=== PATIENT | male | born 1935 | race Caucasian/White ===

== ENCOUNTER 2017-07-30 07:31 | Inpatient (IN) | payer OTHER ==
[~2017-07-30 07:31] MED LIST: SODIUM PHOSPHATE/NA BIPHOS 133 ML ENEMA PR SCH
--- NOTE | 2017-07-30 07:58 | PDOC ---
History of Present Illness - General Chief Complaint: Rectal Bleed Stated Complaint: RECTAL BLEED Time Seen by Provider: 07/30/17 07:40 History Source: Patient, Spouse Exam Limitations: No Limitations - History of Present Illness Initial Comments: 07/30/17 08:08 81yo with pmh of HTN, Osteoarthritis on NSAIDS and Prednisone, BPH S/P stroke on aspirin and brought in by EMS after waking up with blood on mattress from rectal bleed. One one episode. Denies palpitation, abdominal/rectal pain. No recent change in medication. No history of hemorrhoids. No diverticulae seen in abdominal CT done in 2014. Hasn't seen pcp in months due to not being ambulatory enough to leave the house due to his severe osteoarthritis. Doesn't have a GI doctor. Never had a colonoscopy done. PCP: Zafar Sr. Past History - Past Medical History Allergies/Adverse Reactions: Allergies Allergy/AdvReac Type Severity Reaction Status Date / Time amoxicillin Allergy Severe vomiting Verified 08/03/14 13:59 diarrhea Home Medications: Ambulatory Orders Ascorbic Acid [Vitamin C] 500 mg PO DAILY 11/04/13 Docosahexanoic Acid/Epa [Fish Oil Softgel] 1 each PO DAILY 11/04/13 Metoprolol Tartrate [Lopressor -] 12.5 mg PO DAILY 11/04/13 Naproxen [Naprosyn -] 250 mg PO DAILY 11/04/13 Ramipril [Altace] 5 mg PO DAILY 11/04/13 Tamsulosin HCl [Flomax] 0.4 mg PO HS 11/04/13 Acetaminophen [Tylenol] 650 mg PO PRN PRN 08/03/14 Fluticasone Prop 0.05% Nasal [Flonase -] 1 - 2 spray NS DAILY 08/03/14 Rosuvastatin Calcium [Crestor] 10 mg PO DAILY 08/03/14 Tramadol HCl 50 mg PO BID 08/03/14 Aspirin/Dipyridamole [Aggrenox -] 1 combo PO BID 07/30/17 Furosemide [Lasix] 20 mg PO DAILY 07/30/17 Prednisone [Deltasone -] 5 mg PO DAILY 07/30/17 CVA: Yes (left side weakness) HTN: Yes Hypercholesterolemia: Yes - Suicide/Smoking/Psychosocial Hx Smoking History: Former smoker Have you smoked in the past 12 months: No Information on smoking cessation initiated: No Hx Alcohol Use: No Drug/Substance Use Hx: No Substance Use Type: None Review of Systems - Review of Systems Able to Perform ROS?: Yes Is the patient limited Malay proficient: No Constitutional: No: Symptoms Reported HEENTM: No: Symptoms Reported, Nose Bleeding Respiratory: No: Symptoms reported Cardiac (ROS): No: Symptoms Reported ABD/GI: Yes: Rectal Bleeding. No: Abd. Pain w/ defecation : No: Symptoms Reported Musculoskeletal: No: Symptoms Reported Integumentary: No: Symptoms Reported All Other Systems: Reviewed and Negative *Physical Exam - Vital Signs Last Vital Signs Temp Pulse Resp BP Pulse Ox 97.6 F 87 14 132/73 95 07/30/17 07:39 07/30/17 07:39 07/30/17 07:39 07/30/17 07:39 07/30/17 07:39 - Physical Exam General Appearance: Yes: Appropriately Dressed, Obese. No: Apparent Distress HEENT: positive: EOMI, TREY, Normal ENT Inspection Respiratory/Chest: positive: Lungs Clear, Normal Breath Sounds. negative: Chest Tender, Respiratory Distress, Decreased Breath Sounds Cardiovascular: positive: Regular Rhythm, Tachycardia Vascular Pulses: Dorsalis-Pedis (R): 2+, Doralis-Pedis (L): 2+ Gastrointestinal/Abdominal: positive: Normal Bowel Sounds, Soft, Protuberent. negative: Tender Rectal Exam: positive: normal exam, other (no sedrick blood). negative: melena, hemorrhoids Musculoskeletal: positive: Normal Inspection Extremity: positive: Normal Capillary Refill Neurologic: positive: Fully Oriented, Alert, Normal Mood/Affect, Normal Response ED Treatment Course - LABORATORY CBC & Chemistry Diagram: 07/30/17 08:40 07/30/17 08:40 Medical Decision Making - Medical Decision Making 07/30/17 10:31 81M with rectal bleeding. patient somewhat tachycardic but comfortable, No acute complains. Hgb 9. Spoke to Dr. Jameson who asked for the patient to be admitted for GI evaluation/ colonoscopy. *DC/Admit/Observation/Transfer Diagnosis at time of Disposition: Rectal bleed - Discharge Dispostion Admit: Yes - Referrals - Patient Instructions - Post Discharge Activity
[2017-07-30 08:51] LABS: EOS % 2.3 % (0-4.5); HEMATOCRIT 28.1 % (35.4-49); LYMPH % 17.4 % (8-40); MCH 32.1 pg (25.7-33.7); MCHC 32.2 g/dl (32.0-35.9); MEAN CELL VOLUME 99.6 fl (80-96); MEAN PLT VOLUME 7.9 fl (7.5-11.1); MONO % 8.2 % (3.8-10.2); NEUT % 71.1 % (42.8-82.8); PLATELET COUNT 202 K/MM3 (134-434); RBC 2.82 M/mm3 (4.00-5.60); WHITE BLOOD COUNT 8.2 K/mm3 (4.0-10.0)
--- NOTE | 2017-07-30 09:01 | PDOC ---
Attending Attestation - Resident Resident Name: KandaceStorm - ED Attending Attestation I have performed the following: I have examined & evaluated the patient, The case was reviewed & discussed with the resident, I agree w/resident's findings & plan, Exceptions are as noted - HPI HPI: 07/30/17 08:58 "The patient is a 81 year old male, with a significant past medical history of stroke 11 years ago (aspirin daily), osteoarthritis (NSAIDS, prednisone), and BPH, who presents to the emergency department with blood from his rectum this morning. He states he woke up with red blood on his bed sheets. He also reportedly noticed loose stool on the bed with the red blood. He denies rectal pain. Denies abdominal pain. He reportedly had a rectal bleed 30 years ago which he believes was 2/2 hemorrhoids and never happened again. Denies any dark or tarry stools. Denies N/V. Never seen a GI doctor or had a colonoscopy. He denies chest pain, shortness of breath, headache and dizziness. He denies fever, chills, nausea, vomit, diarrhea and constipation. He denies dysuria, frequency, urgency and hematuria. Allergies: NKDA PCP: Dr. Zafar Sr (last seen in 6 months) " - Physicial Exam PE: 07/30/17 08:59 "GENERAL: Awake, alert, and fully oriented, in no acute distress HEAD: No signs of trauma EYES: PERRLA, EOMI, sclera anicteric, conjunctiva clear ENT: Auricles normal inspection, hearing grossly normal, nares patent, oropharynx clear without exudates. Moist mucosa NECK: Nontender, no stepoffs, Normal ROM, supple, no lymphadenopathy, JVD, or masses LUNGS: Breath sounds equal, clear to auscultation bilaterally. No wheezes, and no crackles HEART: Regular rate and rhythm, normal S1 and S2, no murmurs, rubs or gallops ABDOMEN: Soft, nontender, normoactive bowel sounds. No guarding, no rebound. No masses RECTAL: no external hemorrhoids, brown stool, no melena or hematochezia EXTREMITIES: Normal range of motion, no edema. No clubbing or cyanosis. No cords, erythema, or tenderness NEUROLOGICAL: Cranial nerves II through XII intact. 5/5 strength and sensation in all extremities, Normal speech, normal gait SKIN: Warm, Dry, normal turgor, no rashes or lesions noted. " - Medical Decision Making 07/30/17 09:00 81 M on ASA and NSAIDs with rectal bleeding x 1 day. Likely lower GI bleed, possibly 2/2 internal hemorrhoids given reported history of hemorrhoids. - Labs, coags, T&S - GI consult 07/30/17 09:02 CBC,CMP WBC 8.2 K/mm3 (4.0-10.0) D 07/30/17 08:40 RBC 2.82 M/mm3 (4.00-5.60) L D 07/30/17 08:40 Hgb 9.0 GM/dL (11.7-16.9) L D 07/30/17 08:40 Hct 28.1 % (35.4-49) L D 07/30/17 08:40 MCV 99.6 fl (80-96) H 07/30/17 08:40 MCH 32.1 pg (25.7-33.7) 07/30/17 08:40 MCHC 32.2 g/dl (32.0-35.9) 07/30/17 08:40 RDW 14.0 % (11.9-15.9) 07/30/17 08:40 Plt Count 202 K/MM3 (134-434) 07/30/17 08:40 MPV 7.9 fl (7.5-11.1) 07/30/17 08:40 Neutrophils % 71.1 % (42.8-82.8) 07/30/17 08:40 Lymphocytes % 17.4 % (8-40) D 07/30/17 08:40 Monocytes % 8.2 % (3.8-10.2) 07/30/17 08:40 Eosinophils % 2.3 % (0-4.5) 07/30/17 08:40 Basophils % 1.0 % (0-2.0) 07/30/17 08:40 Sodium 140 mmol/L (136-145) 07/30/17 08:40 Potassium 4.4 mmol/L (3.5-5.1) D 07/30/17 08:40 Chloride 107 mmol/L (98-107) 07/30/17 08:40 Carbon Dioxide 27 mmol/L (21-32) 07/30/17 08:40 Anion Gap 6 (8-16) L 07/30/17 08:40 BUN 36 mg/dL (7-18) H D 07/30/17 08:40 Creatinine 1.6 mg/dL (0.7-1.3) H 07/30/17 08:40 Creat Clearance w eGFR 41.69 (>60) 07/30/17 08:40 Random Glucose 118 mg/dL (74-106) H 07/30/17 08:40 Calcium 8.5 mg/dL (8.5-10.1) 07/30/17 08:40 Ferritin 86.100 ng/ml (16.4-293.9) 07/30/17 08:40 Total Bilirubin 0.4 mg/dL (0.2-1.0) 07/30/17 08:40 AST 5 U/L (15-37) L D 07/30/17 08:40 ALT 9 U/L (12-78) L 07/30/17 08:40 Alkaline Phosphatase 62 U/L (45-117) 07/30/17 08:40 Total Protein 6.3 g/dl (6.4-8.2) L 07/30/17 08:40 Albumin 3.6 g/dl (3.4-5.0) 07/30/17 08:40 Hb today 9, previously 11 in 2013. Labs also notable for mild SATHYA, possibly 2/2 NSAID use. Will admit for further work up of GIB, possible colonoscopy.
[2017-07-30 09:08] LABS: ALBUMIN 3.6 g/dl (3.4-5.0); ANION GAP 6 (8-16); BILIRUBIN,TOTAL 0.4 mg/dL (0.2-1.0); BLOOD UREA NITROGEN 36 mg/dL (7-18); CALCIUM 8.5 mg/dL (8.5-10.1); CHLORIDE 107 mmol/L (98-107); CO2 27 mmol/L (21-32); CREATININE 1.6 mg/dL (0.7-1.3); GLUCOSE,RANDOM 118 mg/dL (74-106); POTASSIUM 4.4 mmol/L (3.5-5.1); SGOT/AST 5 U/L (15-37); SGPT/ALT 9 U/L (12-78); SODIUM 140 mmol/L (136-145); TOT PROT 6.3 g/dl (6.4-8.2)
[2017-07-30 09:10] LABS: ALK PHOS 62 U/L (45-117)
[2017-07-30 09:19] LABS: INR 0.94 (0.82-1.09); PROTHROMBIN TIME (PATIENT) 10.6 SEC (9.98-11.88)
[2017-07-30 09:21] LABS: ACTIVATED PTT 26.6 SECONDS (26.9-34.4)
[2017-07-30] MEDS ORDERED: SODIUM CHLORIDE 1,000 ML IV STA (09:47)
[2017-07-30 10:04] LABS: URINE APPEARANCE CLEAR; URINE BILIRUBIN NEGATIVE (NEGATIVE); URINE BLOOD NEGATIVE (NEGATIVE); URINE COLOR LTYELLOW; URINE GLUCOSE (UA) NEGATIVE (NEGATIVE); URINE KETONE NEGATIVE (NEGATIVE); URINE NITRITE NEGATIVE (NEGATIVE); URINE PROTEIN NEGATIVE (NEGATIVE); URINE UROBILINOGEN NEGATIVE mg/dL (0.2-1.0)
[2017-07-30 10:13] LABS: URINE LEUK ESTERASE 1+ (NEGATIVE)
[2017-07-30 10:14] LABS: URINE BACTERIA RARE /hpf (NONE SEEN); URINE HYALINE CAST 1 /lpf; URINE MUCUS RARE
--- NOTE | 2017-07-30 12:42 | EKG ---
Test Reason : Blood Pressure : / mmHG Vent. Rate : 104 BPM Atrial Rate : 104 BPM P-R Int : 132 ms QRS Dur : 074 ms QT Int : 336 ms P-R-T Axes : 034 008 068 degrees QTc Int : 441 ms POOR DATA QUALITY, INTERPRETATION MAY BE ADVERSELY AFFECTED SINUS TACHYCARDIA WITH PREMATURE ATRIAL COMPLEXES OTHERWISE NORMAL ECG WHEN COMPARED WITH ECG OF 04-NOV-2013 12:43, PREMATURE ATRIAL COMPLEXES ARE NOW PRESENT Confirmed by VIJAY MELENDEZ, TEJINDER (2013) on 07/30/2017 12:42:21 PM Referred By: Confirmed By:TEJINDER LINARES MD
[2017-07-30] MEDS ORDERED: ACETAMINOPHEN 325 MG TABLET (FP) PO PRN (16:52)
[2017-07-30] MEDS ORDERED: DEXTROSE 5%-0.45% SALINE 1,000 ML IV SCH (17:00)
--- NOTE | 2017-07-30 19:48 | CON.GI ---
Consult Consult Specialty:: GI Referred by:: Zafar Sr - History of Present Illness History of Present Illness: 81 y/o male was doing well until this morning when he developed rectal 1 1 episode of rectal bleeding, He never had another episode.of bleeding. He denies nausea,vomiting, chest pain and LOC - History Source History Provided By: Patient - Alcohol/Substance Use Hx Alcohol Use: No - Smoking History Smoking history: Former smoker Have you smoked in the past 12 months: No Home Medications - Allergies Allergies/Adverse Reactions: Allergies Allergy/AdvReac Type Severity Reaction Status Date / Time amoxicillin Allergy Severe vomiting Verified 08/03/14 13:59 diarrhea - Home Medications Home Medications: Ambulatory Orders Ascorbic Acid [Vitamin C] 500 mg PO DAILY 11/04/13 Docosahexanoic Acid/Epa [Fish Oil Softgel] 1 each PO DAILY 11/04/13 Naproxen [Naprosyn -] 250 mg PO DAILY 11/04/13 RX: Metoprolol Tartrate [Lopressor -] 12.5 mg PO DAILY 11/04/13 RX: Ramipril [Altace] 5 mg PO DAILY 11/04/13 Tamsulosin HCl [Flomax] 0.4 mg PO HS 11/04/13 Acetaminophen [Tylenol] 650 mg PO PRN PRN 08/03/14 Fluticasone Prop 0.05% Nasal [Flonase -] 1 - 2 spray NS DAILY 08/03/14 RX: Tramadol HCl 50 mg PO BID 08/03/14 Rosuvastatin Calcium [Crestor] 10 mg PO DAILY 08/03/14 Aspirin/Dipyridamole [Aggrenox -] 1 combo PO BID 07/30/17 Furosemide [Lasix] 20 mg PO DAILY 07/30/17 Prednisone [Deltasone -] 5 mg PO DAILY 07/30/17 Physical Exam-GI Vital Signs: Vital Signs Temperature 98.4 F 07/30/17 17:30 Pulse Rate 98 H 07/30/17 17:30 Respiratory Rate 16 07/30/17 17:30 Blood Pressure 159/85 07/30/17 17:30 O2 Sat by Pulse Oximetry (%) 96 07/30/17 17:30 Constitutional: Yes: Well Nourished Eyes: Yes: Conjunctiva Clear HENT: Yes: Atraumatic Neck: Yes: Trachea Midline Cardiovascular: Yes: Regular Rate and Rhythm Respiratory: Yes: CTA Bilaterally ...Palpate: Yes: Soft. No: Firm/Rigid, Guarding, Hepatomegaly, Pulsatile Mass, Splenomegaly, Tenderness, Tenderness, Epigastium Labs: CBC, BMP 07/30/17 08:40 07/30/17 08:40 INR, PTT INR 0.94 (0.82-1.09) 07/30/17 08:40 Problem List - Problems (1) Rectal bleed Assessment/Plan: associated with anemia, history of NSAID use and Prednisone use, r/o PUD vs diverticular bleeding R> for EGD and colonoscopy Code(s): K62.5 - HEMORRHAGE OF ANUS AND RECTUM
[2017-07-30] MEDS: MAGNESIUM CITRATE 300 ML BOTTLE PO SCH ×2 (20:02→20:58)
[2017-07-30] MEDS ORDERED: FLU VACCINE QUAD 60 MCG/0.5 ML (MDV 17-18) IM ONE (20:30)
[2017-07-30] MEDS ORDERED: ROSUVASTATIN CA 10 MG TABLET (FP) PO SCH (22:00)
[2017-07-30 22:07] LABS: EOS % 2.1 % (0-4.5); HEMOGLOBIN 8.5 GM/dL (11.7-16.9); LYMPH % 10.8 % (8-40); MCH 31.9 pg (25.7-33.7); MCHC 32.5 g/dl (32.0-35.9); MEAN PLT VOLUME 7.8 fl (7.5-11.1); MONO % 8.2 % (3.8-10.2); NEUT % 77.9 % (42.8-82.8); PLATELET COUNT 207 K/MM3 (134-434); RBC 2.66 M/mm3 (4.00-5.60); RDW 13.8 % (11.9-15.9); WHITE BLOOD COUNT 8.1 K/mm3 (4.0-10.0)
[2017-07-30 23:52] VITALS: BMI 34.0
[2017-07-31] MEDS: MAGNESIUM CITRATE 300 ML BOTTLE PO SCH ×2 (00:12→01:40)
--- NOTE | 2017-07-31 01:51 | HP ---
Admitting History and Physical - Admission History of Present Illness: Pt is a 81 y/o male with PMH significant for HTN, OA, CVA and BPH.Pt preseneted to the ER bc of rectal bleed. Pt is on NSAID's/prednisone due to his h/o OA. Pt awoke and found blood on his sheets.Pt denies beth abdominal pain, nausea, vomiting, chest pain or palpitations. In the ER pt wzs hemodynamically stable but found to be anemic. - Past Medical History PROTECTION MANAGER: Yes: CVA Cardiovascular: Yes: HTN Renal/: Yes: BPH Musculoskeletal: Yes: Osteoarthritis - Smoking History Smoking history: Former smoker Have you smoked in the past 12 months: No - Alcohol/Substance Use Hx Alcohol Use: No Home Medications - Allergies Allergies/Adverse Reactions: Allergies Allergy/AdvReac Type Severity Reaction Status Date / Time amoxicillin Allergy Severe vomiting Verified 08/03/14 13:59 diarrhea - Home Medications Home Medications: Ambulatory Orders Ascorbic Acid [Vitamin C] 500 mg PO DAILY 11/04/13 Docosahexanoic Acid/Epa [Fish Oil Softgel] 1 each PO DAILY 11/04/13 Metoprolol Tartrate [Lopressor -] 12.5 mg PO DAILY 11/04/13 Ramipril [Altace] 5 mg PO DAILY 11/04/13 Tamsulosin HCl [Flomax -] 0.4 mg PO HS 11/04/13 Acetaminophen [Tylenol] 650 mg PO PRN PRN 08/03/14 Fluticasone Prop 0.05% Nasal [Flonase -] 1 - 2 spray NS DAILY 08/03/14 Rosuvastatin Calcium [Crestor] 10 mg PO DAILY 08/03/14 Aspirin/Dipyridamole [Aggrenox -] 1 combo PO BID 07/30/17 Furosemide [Lasix] 20 mg PO DAILY 07/30/17 Prednisone [Deltasone -] 5 mg PO DAILY 07/30/17 Pantoprazole Sodium [Protonix] 40 mg PO DAILY #30 tablet. 07/31/17 Family Disease History - Family Disease History Family History: Unremarkable Review of Systems - Review of Systems Constitutional: reports: No Symptoms Eyes: reports: No Symptoms HENT: reports: No Symptoms Neck: reports: No Symptoms Cardiovascular: reports: No Symptoms Respiratory: reports: No Symptoms Gastrointestinal: reports: Rectal Bleeding Physical Examination Vital Signs: Vital Signs Temperature 97.9 F 07/30/17 21:00 Pulse Rate 105 H 07/30/17 21:00 Respiratory Rate 18 07/30/17 21:00 Blood Pressure 151/55 07/30/17 21:00 O2 Sat by Pulse Oximetry (%) 97 07/30/17 20:18 Constitutional: Yes: Well Nourished HENT: Yes: WNL Neck: Yes: WNL, Supple Cardiovascular: Yes: WNL, Regular Rate and Rhythm Respiratory: Yes: WNL, Regular, CTA Bilaterally Gastrointestinal: Yes: WNL, Normal Bowel Sounds, Soft, Abdomen, Obese Musculoskeletal: Yes: WNL Extremities: Yes: WNL Edema: No Neurological: Yes: WNL, Alert, Oriented ...Motor Strength: WNL Labs: CBC, BMP 07/30/17 21:45 07/30/17 08:40 Problem List - Problems (1) Rectal bleed Assessment/Plan: Keep pt NPO Cont IVF GI consult Probable EGD/Colonoscopy in am Monior H/H Code(s): K62.5 - HEMORRHAGE OF ANUS AND RECTUM (2) HTN (hypertension) Assessment/Plan: BP stable Will adjust antihypertensives to BP due to rectal bleeding Code(s): I10 - ESSENTIAL (PRIMARY) HYPERTENSION (3) Anemia Assessment/Plan: Monitor H/H Code(s): D64.9 - ANEMIA, UNSPECIFIED
[2017-07-31] MEDS: SODIUM PHOSPHATE/NA BIPHOS 133 ML ENEMA PR SCH ×4 (04:06→04:48)
[2017-07-31] MEDS ORDERED: PROPOFOL 20 ML ONE ×3 (07:27)
[2017-07-31] MEDS ORDERED: LIDOCAINE HCL/PF 2% SDV 5ML VIAL ONE (07:27)
[2017-07-31 08:07] LABS: ALBUMIN 3.7 g/dl (3.4-5.0); ANION GAP 8 (8-16); BILIRUBIN,TOTAL 0.4 mg/dL (0.2-1.0); BLOOD UREA NITROGEN 26 mg/dL (7-18); CALCIUM 8.6 mg/dL (8.5-10.1); CHLORIDE 112 mmol/L (98-107); CO2 24 mmol/L (21-32); CREATININE 1.6 mg/dL (0.7-1.3); GLUCOSE,RANDOM 142 mg/dL (74-106); POTASSIUM 4.4 mmol/L (3.5-5.1); SGOT/AST 8 U/L (15-37); SGPT/ALT 9 U/L (12-78); SODIUM 144 mmol/L (136-145); TOT PROT 6.6 g/dl (6.4-8.2)
[2017-07-31 08:08] LABS: ALK PHOS 69 U/L (45-117)
[2017-07-31 08:18] LABS: BASO % 0.4 % (0-2.0); EOS % 1.7 % (0-4.5); HEMATOCRIT 28.6 % (35.4-49); HEMOGLOBIN 9.1 GM/dL (11.7-16.9); MCH 31.9 pg (25.7-33.7); MCHC 31.8 g/dl (32.0-35.9); MEAN CELL VOLUME 100.2 fl (80-96); MONO % 8.6 % (3.8-10.2); NEUT % 80.3 % (42.8-82.8); PLATELET COUNT 251 K/MM3 (134-434); RBC 2.86 M/mm3 (4.00-5.60); RDW 14.2 % (11.9-15.9); WHITE BLOOD COUNT 11.3 K/mm3 (4.0-10.0)
[2017-07-31] MEDS ORDERED: TAMSULOSIN HCL 0.4 MG CAP.ER.24H (FP) PO SCH (08:30)
[2017-07-31] MEDS ORDERED: SODIUM CHLORIDE 0.45% 1,000 ML IV SCH (13:00)
--- NOTE | 2017-07-31 13:38 | CON.ID ---
Consult Consult Specialty:: infectious diseases Reason for Consultation:: r/o colitis - History of Present Illness Chief Complaint: bleeding per rectum History of Present Illness: 81 y/o male was doing well until this morning when he developed episode of rectal bleeding, He never had another episode.of bleeding. He denies nausea, vomiting, chest pain and LOC patient was seen by gi and patient underwent endoscopy and according to the there were no findings currently patient is stable and is without any complaints patient has history of seizures according to the family - History Source History Provided By: Patient, Family Member Limitations to Obtaining History: No Limitations - Alcohol/Substance Use Hx Alcohol Use: No - Smoking History Smoking history: Former smoker Have you smoked in the past 12 months: No Home Medications - Allergies Allergies/Adverse Reactions: Allergies Allergy/AdvReac Type Severity Reaction Status Date / Time amoxicillin Allergy Severe vomiting Verified 08/03/14 13:59 diarrhea - Home Medications Home Medications: Ambulatory Orders Ascorbic Acid [Vitamin C] 500 mg PO DAILY 11/04/13 Docosahexanoic Acid/Epa [Fish Oil Softgel] 1 each PO DAILY 11/04/13 Metoprolol Tartrate [Lopressor -] 12.5 mg PO DAILY 11/04/13 Naproxen [Naprosyn -] 250 mg PO DAILY 11/04/13 Ramipril [Altace] 5 mg PO DAILY 11/04/13 Tamsulosin HCl [Flomax] 0.4 mg PO HS 11/04/13 Acetaminophen [Tylenol] 650 mg PO PRN PRN 08/03/14 Fluticasone Prop 0.05% Nasal [Flonase -] 1 - 2 spray NS DAILY 08/03/14 Rosuvastatin Calcium [Crestor] 10 mg PO DAILY 08/03/14 Tramadol HCl 50 mg PO BID 08/03/14 Aspirin/Dipyridamole [Aggrenox -] 1 combo PO BID 07/30/17 Furosemide [Lasix] 20 mg PO DAILY 07/30/17 Prednisone [Deltasone -] 5 mg PO DAILY 07/30/17 Review of Systems - Review of Systems Constitutional: reports: No Symptoms Eyes: reports: No Symptoms HENT: reports: No Symptoms, Ocular Prosthesis Cardiovascular: reports: No Symptoms Respiratory: reports: No Symptoms Gastrointestinal: reports: Rectal Bleeding Genitourinary: reports: No Symptoms Musculoskeletal: reports: No Symptoms Integumentary: reports: No Symptoms Neurological: reports: No Symptoms Endocrine: reports: No Symptoms Hematology/Lymphatic: reports: No Symptoms Psychiatric: reports: No Symptoms Physical Exam Vital Signs: Vital Signs Temperature 96.1 F L 07/31/17 09:15 Pulse Rate 100 H 07/31/17 09:15 Respiratory Rate 18 07/31/17 09:15 Blood Pressure 164/74 07/31/17 09:15 O2 Sat by Pulse Oximetry (%) 100 07/31/17 08:31 Constitutional: Yes: Well Nourished, No Distress, Calm Neck: Yes: Supple, Trachea Midline Cardiovascular: Yes: Regular Rate and Rhythm Respiratory: Yes: Regular, CTA Bilaterally Gastrointestinal: Yes: Normal Bowel Sounds, Soft Musculoskeletal: Yes: WNL Extremities: Yes: WNL Neurological: Yes: Alert, Oriented Psychiatric: Yes: Alert, Oriented Labs: CBC, BMP 07/31/17 06:30 07/31/17 06:30 Assessment/Plan patient evaluated looks stable and comfortable gi note noted Problem List - Problems (1) Rectal bleed Code(s): K62.5 - HEMORRHAGE OF ANUS AND RECTUM plan will not start any abx at this time rest as per gi and primary team
[2017-07-31] MEDS ORDERED: FUROSEMIDE 20 MG TABLET (FP) PO SCH (13:45)
[2017-07-31] MEDS ORDERED: METOPROLOL TARTRATE 25 MG TABLET (FP) PO SCH (13:45)
[2017-07-31] MEDS ORDERED: RAMIPRIL 5 MG CAPSULE (FP) PO SCH (13:45)
[2017-07-31 14:28] VITALS: BP 166/83; PULSE 102; TEMP 98.1
--- NOTE | 2017-08-03 16:28 | PATH ---
Surgical Pathology Report Patient Name: LYNN WELSH Med. Rec. #: [id number] /Age/Gender: 1935 (Age: 81) / M Account: [id number] Location: [facility] MED/SURG Taken: 07/31/2017 Received: 07/31/2017 Reported: 08/03/2017 Physicians: Marcial Rockwell M.D. Specimen(s) Received BX ERYTHEMA BODY Clinical History Preoperative diagnosis: GI bleeding Postoperative diagnosis: Erythema body, diverticulosis Final Diagnosis STOMACH, BODY, BIOPSY: GASTRIC BODY MUCOSA WITH FOCAL MILD VASCULAR CONGESTION AND MILD CHRONIC GASTRITIS. IMMUNOHISTOCHEMICAL STAIN FOR H. PYLORI IS NEGATIVE. Electronically Signed Violet Kilgore M.D. Gross Description Received in formalin, labeled "biopsy erythema body" are 2 grover, irregular portions of soft tissue measuring 0.2 and 0.7 cm. in greatest dimension. The specimens are submitted in toto in one cassette. /07/31/201707/31/2017
== END 2017-07-31 16:44 | disposition home or self-care (01) | DRG 378 ==
LOC: JER 07:31 → JERBED 10:03 → J8W 19:05
PROVIDERS: ADMIT Internal Medicine; ATTEND Internal Medicine
PROC: 0DJD8ZZ Inspection of Lower Intestinal Tract, Via Natural or Artificial Opening Endoscopic (ICD-10-PCS; 2017-07-31)
PROC: 0DD68ZX Extraction of Stomach, Via Natural or Artificial Opening Endoscopic, Diagnostic (ICD-10-PCS; principal; 2017-07-31 07:30)
DX: K62.5 Hemorrhage of anus and rectum (principal); N17.9 Acute kidney failure, unspecified; I69.354 Hemiplegia and hemiparesis following cerebral infarction affecting left non-dominant side; I10 Essential (primary) hypertension; R00.0 Tachycardia, unspecified; M19.90 Unspecified osteoarthritis, unspecified site; N40.0 Benign prostatic hyperplasia without lower urinary tract symptoms; D64.9 Anemia, unspecified; E66.8 Other obesity; Z68.34 Body mass index [BMI] 34.0-34.9, adult; Z79.1 Long term (current) use of non-steroidal anti-inflammatories (NSAID); Z87.891 Personal history of nicotine dependence
CPT/HCPCS: 36415; 80053; 81003; 81015; 82272; 82728; 85025; 85610; 85730; 86850; 86900; 86901; 88305-TC; 90688; 93005; 93010; 97116-GP; 97161-GP; 99282-25

== ENCOUNTER 2020-04-12 19:27 | Inpatient (IN) | payer OTHER ==
[2020-04-12 19:58] VITALS: BMI 31.4
--- NOTE | 2020-04-12 19:58 | PDOC ---
History of Present Illness - General Stated Complaint: SOB Time Seen by Provider: 04/12/20 19:36 - History of Present Illness Initial Comments: 04/12/20 20:24 84 yo M w/ h/o CVA p/w 3days of worsening SOB, waking him up in the night. He also reports increased leg swelling b/l, and his reports that his residual deficit (slurred voice) from his stroke 6 years ago has recently worsened. He now reports orthopnea when lying flat. He denies any hx of cardiac issues. Denies recent illness, fever, thyroid issues, n/v/d/rashes. Endorses a productive cough (of sputum) that is chronic but recently worse. Takes lasix for BP, aggrenox s/p CVA. 04/12/20 20:47 tPA Exclusion checklist 3-4.5h - Time Elapsed Date last known well: 04/02/20 - Thrombolytic Therapy Candidate Is patient eligible for thrombolytic therapy: No - Ineligibility reason(s) Reasons No tPA given: Outside of window - delayed arrival NIH Stroke Scale - Last Known Well Date/Time & Onset Date Last Known Well: 04/02/20 - Initial Evaluation Level of consciousness: Alert Ask patient the month and their age: Answers both correctly Ask patient to open & close eyes; make fist and let go: Obeys both correctly Best gaze (horizontal eye movement): Normal Visual field testing: No visual field loss Facial paresis (Show teeth/raise eyebrows/close eyes tight): Minor paralysis (flattened nasolabial fold, asymmetry on smiling) Motor Function: Left Arm: Normal Motor Function: Right Arm: Normal (extends arm 90 (or 45) degrees for 10 seconds without drift Motor Function: Left Leg: Some effort against gravity Motor Function: Right Leg: Drift Limb Ataxia: No ataxia Sensory(Use pinprick test arms,legs,trunk,face/side to side): Normal Best language (Describe picture, name items, read sentences): No Aphasia Dysarthria (read several words): Mild to moderate slurring of words Extinction and Inattention: No abnormality - Total Score NIH Stroke Scale Score: 5 Past History - Medical History Allergies/Adverse Reactions: Allergies Allergy/AdvReac Type Severity Reaction Status Date / Time amoxicillin Allergy Severe vomiting Verified 04/12/20 19:57 diarrhea Home Medications: Ambulatory Orders Metoprolol Tartrate [Lopressor -] 12.5 mg PO DAILY 11/04/13 Tamsulosin HCl [Flomax -] 0.4 mg PO HS 11/04/13 Acetaminophen [Tylenol] 650 mg PO PRN PRN 08/03/14 Fluticasone Prop 0.05% Nasal [Flonase -] 1 - 2 spray NS BID 08/03/14 Aspirin/Dipyridamole [Aggrenox -] 1 combo PO BID 07/30/17 Furosemide [Lasix] 20 mg PO DAILY 07/30/17 predniSONE [Deltasone -] 5 mg PO DAILY 07/30/17 Aspirin/Dipyridamole [Aggrenox -] 1 combo PO BID 04/12/20 Tramadol HCl [Ultram] 50 mg PO TID PRN 04/12/20 Zinc Sulfate 220 mg PO DAILY 04/12/20 Atorvastatin Calcium 10 mg PO HS 04/13/20 Calcium Carbonate/Vitamin D3 [Calcium 500-Vit D3 200 Tablet] 1 each PO DAILY 04/13/20 Guaifenesin [Mucinex] 600 mg PO BID 04/13/20 Omeprazole 20 mg PO ACBK 04/13/20 CVA: Yes (left side weakness) HTN: Yes Hypercholesterolemia: Yes - Psycho-Social/Smoking History Smoking History: Former smoker Have you smoked in the past 12 months: No Review of Systems - Review of Systems Able to Perform ROS?: Yes Is the patient limited [place] proficient: No Constitutional: No: Chills, Diaphoresis, Fever HEENTM: No: Blurred Vision, Recent change in vision, Double Vision, Throat Pain, Difficulty Swallowing Respiratory: Yes: SOB with Exertion, SOB at Rest. No: Cough Cardiac (ROS): Yes: Edema, Lightheadedness, Chest Tightness. No: Syncope ABD/GI: No: Constipated, Diarrhea, Nausea : Yes: Other (incomplete emptying). No: Burning, Dysuria Musculoskeletal: No: Joint Pain, Muscle Pain Integumentary: Yes: Bruising. No: Pallor, Pruritus, Rash Neurological: No: Headache, Numbness, Ataxia, Dizziness Hematologic/Lymphatic: Yes: Easy Bruising *Physical Exam - Physical Exam General Appearance: Yes: Nourished, Appropriately Dressed. No: Apparent Distress HEENT: positive: EOMI. negative: Normal Voice (mild slur) Neck: positive: Trachea midline. negative: Tender Respiratory/Chest: negative: Chest Tender, Lungs Clear (b/l crackles bibasilar), Normal Breath Sounds, Respiratory Distress, Rapid RR Cardiovascular: positive: Regular Rate, Irregular Gastrointestinal/Abdominal: positive: Normal Bowel Sounds, Soft, Protuberent Musculoskeletal: positive: Normal Inspection. negative: CVA Tenderness Extremity: positive: Normal Capillary Refill, Pedal Edema (2-3+) Integumentary: positive: Normal Color, Dry, Warm Neurologic: positive: Fully Oriented, Alert, Normal Mood/Affect, Normal Response ED Treatment Course - LABORATORY CBC & Chemistry Diagram: 04/18/20 10:20 04/18/20 10:20 Medical Decision Making - Medical Decision Making 04/12/20 20:59 84yo M w/ hx of CVA p/w worsening SOB x3days and pedal edema consistent w/ CHF exacerbation. Pedal edema + wet lungs -> BNP, cardiac workup. Discharge - Discharge Information Problems reviewed: Yes Clinical Impression/Diagnosis: Slurred speech, Elevated troponin, Acute kidney injury superimposed on CKD CHF (congestive heart failure) Qualifiers: Heart failure type: unspecified Heart failure chronicity: acute Qualified Code(s): I50.9 - Heart failure, unspecified Condition: Guarded - Admission Yes - Follow up/Referral - Patient Discharge Instructions - Post Discharge Activity
[2020-04-12] MEDS ORDERED: FUROSEMIDE 40 MG/4 ML INJECTABLE VIAL IVPUSH ONE (20:13)
[2020-04-12] MEDS ORDERED: FUROSEMIDE 40 MG/4 ML INJECTABLE VIAL ONE (20:26)
[2020-04-12 20:39] LABS: BASO % 0.3 % (0-2.0); EOS % 0.3 % (0-4.5); HEMATOCRIT 27.6 % (35.4-49); HEMOGLOBIN 9.2 GM/dL (11.7-16.9); LYMPH % 6.3 % (8-40); MCH 32.3 pg (25.7-33.7); MCHC 33.2 g/dl (32.0-35.9); MEAN CELL VOLUME 97.3 fl (80-96); MEAN PLT VOLUME 8.1 fl (7.5-11.1); NEUT % 85.1 % (42.8-82.8); PLATELET COUNT 224 K/MM3 (134-434); RBC 2.84 M/mm3 (4.00-5.60); RDW 14.3 % (11.9-15.9); WHITE BLOOD COUNT 7.7 K/mm3 (4.0-10.0)
[2020-04-12 20:48] LABS: INR 1.06 (0.83-1.09); PROTHROMBIN TIME (PATIENT) 12.5 SEC (9.7-13.0)
--- NOTE | 2020-04-12 20:50 | PDOC ---
Documentation entered by Boyd Rodriguez SCRIBE, acting as scribe for Norma Alfonso DO. Norma Alfonso DO: This documentation has been prepared by the Jennifer jenkins Xhesika, SCRIBE, under my direction and personally reviewed by me in its entirety. I confirm that the documentation accurately reflects all work, treatment, procedures, and medical decision making performed by me. Attending Attestation - Resident Resident Name: Dao Andino - ED Attending Attestation I have performed the following: I have examined & evaluated the patient, The case was reviewed & discussed with the resident, I agree w/resident's findings & plan, Exceptions are as noted - HPI HPI: 04/12/20 19:42 The patient is a 84 year old male, with a significant past medical history of stroke, osteoarthritis, and BPH, who presents to the emergency department for 3 days of worsening SOB. Pt states he takes Lasix however is legs have been more swollen recently. states she noticed increased facial droop and slurred spe ech the past several days. Pt also reports waking up in the middle of the night with chest pressure and orthopnea the past several days. Patient denies headache and dizziness. He denies fever, chills, nausea, vomit, diarrhea and constipation. He denies dysuria, frequency, urgency and hematuria. Allergies: NKDA PCP: Dr. Zafar Sr - Physicial Exam PE: 04/12/20 19:43 GENERAL: Awake, alert, and fully oriented, in no acute distress HEAD: No signs of trauma ENT: Auricles normal inspection, hearing grossly normal, nares patent, oropharynx clear without exudates. Moist mucosa NECK: Normal ROM, supple, no lymphadenopathy, JVD, or masses LUNGS: +crackles at BL lobes. No wheezes. HEART: +irregularly irregular , no murmurs, rubs or gallops ABDOMEN: Soft, nontender, normoactive bowel sounds. No guarding, no rebound. No masses EXTREMITIES: 4+ pitting edema bilaterally. Normal range of motion. No clubbing or cyanosis. No cords, erythema, or tenderness NEUROLOGICAL: +L facial droop. +mild slurred speech. Cranial nerves II through XII grossly intact. SKIN: Warm, Dry, normal turgor, no rashes lesions noted. - Medical Decision Making 04/12/20 20:38 a/p: 84yo male with sob x 3 days -LE swelling -crackles on exam -concern for CHF exacerbation, on lasix 20mg -on aggrenox for a cva in the past, now with a 1.5wk hx of slurred speech and worsening L facial droop -concern for chf and poss cva, outside the window for tpa given onset -will send labs, head ct, cxr, ekg -lasix iv will be given -hypoxic on RA, now on NC 04/12/20 20:52 cxr shows cephalization 04/12/20 22:[address] without acute findings elevated trop elevated bnp cristal on ckd 04/12/20 22:09 bnp [id number] iv lasix given pt will need admission for elevated trop, elevated bnp, sob, chf exacerbation pt is on aggrenox 04/12/20 22:32 resident discussed the case with Dr. Mancilla who accepts pt to service Heart Score/ECG Review - ECG Intrepretation Comment:: 04/12/20 20:50 sinus at 95, nl axis, nl interval, no acute st/t wave findings Discharge - Discharge Information Problems reviewed: Yes Clinical Impression/Diagnosis: Slurred speech, Elevated troponin, Acute kidney injury superimposed on CKD CHF (congestive heart failure) Qualifiers: Heart failure type: unspecified Heart failure chronicity: acute Qualified Code(s): I50.9 - Heart failure, unspecified Condition: Guarded - Admission Yes - Follow up/Referral Referrals: Zafar Sr MD [Primary Care Provider] - - Patient Discharge Instructions - Post Discharge Activity
[2020-04-12 20:51] LABS: ACTIVATED PTT 24.6 SECONDS (25.2-36.5)
[2020-04-12 21:15] LABS: ALBUMIN 3.4 g/dl (3.4-5.0); BILIRUBIN,TOTAL 0.3 mg/dL (0.2-1); BLOOD UREA NITROGEN 34.7 mg/dL (7-18); CALCIUM 8.6 mg/dL (8.5-10.1); N-TERMINAL BNP 9860.1 pg/ml (5-450); POTASSIUM 3.5 mmol/L (3.5-5.1); TOT PROT 6.5 g/dl (6.4-8.2)
[2020-04-13] MEDS: PANTOPRAZOLE 40 MG TABLET PO SCH (06:00)
[2020-04-13 06:37] LABS: BASO % 0.5 % (0-2.0); EOS % 0.9 % (0-4.5); HEMATOCRIT 28.2 % (35.4-49); HEMOGLOBIN 9.1 GM/dL (11.7-16.9); LYMPH % 8.6 % (8-40); MCH 30.9 pg (25.7-33.7); MCHC 32.3 g/dl (32.0-35.9); MEAN CELL VOLUME 95.7 fl (80-96); MONO % 8.2 % (3.8-10.2); NEUT % 81.8 % (42.8-82.8); PLATELET COUNT 223 K/MM3 (134-434); RBC 2.95 M/mm3 (4.00-5.60); RDW 14.3 % (11.9-15.9); WHITE BLOOD COUNT 8.2 K/mm3 (4.0-10.0)
[2020-04-13 06:43] LABS: ALBUMIN 3.2 g/dl (3.4-5.0); BLOOD UREA NITROGEN 33.6 mg/dL (7-18); CALCIUM 8.3 mg/dL (8.5-10.1); CREATININE 1.9 mg/dL (0.55-1.3); POTASSIUM 3.4 mmol/L (3.5-5.1); TOT PROT 6.1 g/dl (6.4-8.2)
[2020-04-13 06:50] LABS: BILIRUBIN,TOTAL 0.3 mg/dL (0.2-1)
--- NOTE | 2020-04-13 06:50 | CON.CARD ---
Consult Consult Specialty:: cardiology Reason for Consultation:: r/o new CVA - History of Present Illness History of Present Illness: Mr. Hobson is an 84 year old male with a significant past medical history of CVA, severe osteoarthritis, HTN, HLD, chronic renal dysfunction, ?thyroid disorder, anemia, obesity, and BPH, who presents to the emergency department for 3 days of worsening SOB. Pt states he takes Lasix; however is legs have been more swollen recently. states she noticed increased facial droop and slurred speech the past several days. Pt also reports waking up in the middle of the night with chest pressure and orthopnea the past several days. Patient denies headache and dizziness. He denies fever, chills, nausea, vomit, diarrhea and constipation. He denies dysuria, frequency, urgency and hematuria. Allergies: NKDA PCP: Dr. Zafar Sr Diesel Scoop Operator: Dr. Sole Bob - History Source History Provided By: Patient, Medical Record Limitations to Obtaining History: Poor Historian - Past Medical History MECHANICAL PLANNER: Yes: CVA Cardio/Vascular: Yes: HTN Renal/: Yes: BPH Musculoskeletal: Yes: Osteoarthritis - Alcohol/Substance Use Hx Alcohol Use: No - Smoking History Smoking history: Former smoker Have you smoked in the past 12 months: No If you are a former smoker, when did you quit?: 1969 Home Medications - Allergies Allergies/Adverse Reactions: Allergies Allergy/AdvReac Type Severity Reaction Status Date / Time amoxicillin Allergy Severe vomiting Verified 04/12/20 19:57 diarrhea - Home Medications Home Medications: Ambulatory Orders Metoprolol Tartrate [Lopressor -] 12.5 mg PO DAILY 11/04/13 Tamsulosin HCl [Flomax -] 0.4 mg PO HS 11/04/13 Acetaminophen [Tylenol] 650 mg PO PRN PRN 08/03/14 Fluticasone Prop 0.05% Nasal [Flonase -] 1 - 2 spray NS BID 08/03/14 Aspirin/Dipyridamole [Aggrenox -] 1 combo PO BID 07/30/17 Furosemide [Lasix] 20 mg PO DAILY 07/30/17 predniSONE [Deltasone -] 5 mg PO DAILY 07/30/17 Aspirin/Dipyridamole [Aggrenox -] 1 combo PO BID 04/12/20 Tramadol HCl [Ultram] 50 mg PO TID PRN 04/12/20 Zinc Sulfate 220 mg PO DAILY 04/12/20 Atorvastatin Calcium 10 mg PO HS 04/13/20 Calcium Carbonate/Vitamin D3 [Calcium 500-Vit D3 200 Tablet] 1 each PO DAILY 04/13/20 Guaifenesin [Mucinex] 600 mg PO BID 04/13/20 Omeprazole 20 mg PO ACBK 04/13/20 Family Medical History Family History: Unable to Obtain Review of Systems - Review of Systems Constitutional: reports: Weakness Eyes: reports: No Symptoms HENT: reports: No Symptoms Neck: reports: No Symptoms Cardiovascular: reports: Shortness of Breath Respiratory: reports: SOB Gastrointestinal: reports: No Symptoms Genitourinary: reports: No Symptoms Breasts: reports: No Symptoms Reported Musculoskeletal: reports: Muscle Weakness Integumentary: reports: No Symptoms Neurological: reports: Weakness, Other (facial droop) Endocrine: reports: No Symptoms Hematology/Lymphatic: reports: No Symptoms Psychiatric: reports: Other - Risk Factors Known Risk Factors: Yes: Age, Gender, Hypercholesterolemia, Hypertension, Physical Inactivity, Prior PA /Emb Stroke Vital Signs: Vital Signs Temperature 98.3 F 04/13/20 06:19 Pulse Rate 77 04/13/20 06:19 Respiratory Rate 24 H 04/13/20 06:19 Blood Pressure 124/54 L 04/13/20 06:19 O2 Sat by Pulse Oximetry (%) 99 04/13/20 06:19 Constitutional: Yes: Obese Eyes: Yes: WNL HENT: Yes: WNL Neck: Yes: WNL Respiratory: Yes: SOB Gastrointestinal: Yes: Soft Renal/: No: Anuria Cardiovascular: Yes: Tachycardia JVD: No Carotid Bruit: No PMI: Non-Displaced Heart Sounds: Yes: S1, S2, S4 Murmur: Yes: Systolic Murmur, Grade 2 Musculoskeletal: Yes: Muscle Weakness Extremities: Yes: Cool Edema: No Peripheral Pulses WNL: Yes Integumentary: Yes: WNL Psychiatric: Yes: Alert - Other Data Labs, Other Data: CBC, BMP 04/13/20 05:48 INR, PTT INR 1.06 (0.83-1.09) 04/12/20 20:13 Troponin, BNP 04/12/20 04/13/20 20:13 05:48 Troponin I 0.20 H 0.24 H B-Natriuretic Peptide 9860.1 H Troponin, BNP 04/12/20 04/13/20 20:13 05:48 Troponin I 0.20 H 0.24 H B-Natriuretic Peptide 9860.1 H Abnormal Lab Results 04/16/20 04/17/20 04/17/20 10:40 05:50 05:50 RBC 2.71 L Hgb 8.4 L Hct 26.0 L MCV 96.1 H Neutrophils % 85.1 H Lymphocytes % 5.6 L Potassium 3.4 L Chloride 108 H Anion Gap 7 L BUN 36.3 H Creatinine 2.0 H Random Glucose 119 H Calcium 8.4 L AST 8 L ALT 9 L Total Protein 5.7 L Albumin 2.6 L Ur Random Potassium 18.0 L Ur Random Chloride 25 L Echo: Pending Imaging - Results Chest X-ray: Image Reviewed EKG: Image Reviewed (sinus tachycardia) Assessment/Plan Mr. Hobson is an 84 year old male with a significant past medical history of CVA, severe osteoarthritis, HTN, HLD, chronic renal dysfunction, ?thyroid disorder, obesity, and BPH, who presents to the emergency department for 3 days of worsening SOB. Pt states he takes Lasix; however, his legs have been more swollen recently. states she noticed increased facial droop and slurred speech over the past several days. Pt also reports waking up in the middle of the night with chest pressure and orthopnea during the past several days. TNI noted elevated. Elevated BNP. mild hypokalemia Rec: COVID pending CT head Serial TNI and EKGs. TSH; free T4 (abnormal in 2013) BUN/Cr, electrolytes (replete K), Is and Os, daily weight. lipid panel; HGBA1c ECHO for LVEF, wall motion, valve status f/u records of prior cardiac w/u f/u neurological w/u
--- NOTE | 2020-04-13 07:52 | PN ---
Progress Note, Physician History of Present Illness: Mr. Hobson is an 84 year old male with a significant past medical history of CVA, severe osteoarthritis, HTN, HLD, chronic renal dysfunction, ?thyroid disorder, obesity, and BPH, who presents to the emergency department for 3 days of worsening SOB. Pt states he takes Lasix however is legs have been more swollen recently. states she noticed increased facial droop and slurred speech the past several days. Pt also reports waking up in the middle of the night with chest pressure and orthopnea the past several days. Patient denies headache and dizziness. He denies fever, chills, nausea, vomit, diarrhea and constipation. He denies dysuria, frequency, urgency and hematuria. Allergies: NKDA PCP: Dr. Zafar Sr - Current Medication List Current Medications: Active Medications Dipyridamole/Aspirin (Aggrenox -) 1 combo PO BID ARLEN Furosemide (Lasix Injection -) 40 mg IVPUSH DAILY ARLEN Heparin Sodium (Porcine) (Heparin -) 5,000 unit SQ BID ARLEN Metoprolol Succinate (Toprol Xl -) 12.5 mg PO DAILY ARLEN Pantoprazole Sodium (Protonix -) 40 mg PO ACBK [facility] Last Admin: 04/13/20 06:00 Dose: 40 mg Documented by: Ramipril (Altace -) 5 mg PO DAILY ARLEN Rosuvastatin Calcium (Crestor -) 10 mg PO HS ARLEN Tamsulosin HCl (Flomax -) 0.4 mg PO HS [facility] - Objective Vital Signs: Vital Signs Temperature 98.3 F 04/13/20 06:19 Pulse Rate 77 04/13/20 06:19 Respiratory Rate 24 H 04/13/20 06:19 Blood Pressure 124/54 L 04/13/20 06:19 O2 Sat by Pulse Oximetry (%) 99 04/13/20 06:19 Eyes: Yes: WNL, Conjunctiva Clear, EOM Intact HENT: Yes: WNL, Atraumatic, Normocephalic Neck: Yes: WNL, Supple, Trachea Midline Cardiovascular: Yes: WNL, Regular Rate and Rhythm, Murmur, S1, S2 Respiratory: Yes: WNL, Regular, CTA Bilaterally Gastrointestinal: Yes: WNL, Normal Bowel Sounds Genitourinary: Yes: WNL Musculoskeletal: Yes: WNL Extremities: Yes: WNL Edema: No Integumentary: Yes: WNL Labs: CBC, BMP 04/13/20 05:48 04/13/20 05:48 INR, PTT INR 1.06 (0.83-1.09) 04/12/20 20:13 Assessment/Plan 84 year old male with a significant past medical history of CVA, severe os teoarthritis, HTN, HLD, chronic renal dysfunction, ?thyroid disorder, obesity, and BPH, who presents to the emergency department for 3 days of worsening SOB. Pt states he takes Lasix; however, his legs have been more swollen recently. states she noticed increased facial droop and slurred speech over the past several days. Pt also reports waking up in the middle of the night with chest pressure and orthopnea during the past several days. TNI noted elevated in the setting of CRI and decompensated CHF Elevated BNP. ECHO moderate EF 45-50% Rec: COVID pending CT head Serial TNI and EKGs. TSH; free T4 (abnormal in 2013) BUN/Cr, electrolytes, Is and Os, daily weight. lipid panel; HGBA1c IV Lasix cont aggrenox f/u records of prior cardiac w/u f/u neurological w/u
[2020-04-13] MEDS: HEPARIN NA (PORCINE) 5,000 UNITS/ML 1ML VIAL SQ SCH ×2 (09:02→21:50)
[2020-04-13] MEDS: RAMIPRIL 5 MG CAPSULE PO SCH (09:02)
[2020-04-13] MEDS: FUROSEMIDE 40 MG/4 ML INJECTABLE VIAL IVPUSH SCH (09:02)
[2020-04-13] MEDS: metoPROLOL SUCCINATE 25 MG TAB.SR.24H (FP) PO SCH (09:03)
[2020-04-13] MEDS: ASPIRIN/DIPYRIDAMOLE 25 MG/200 MG CAPSULE PO SCH ×2 (09:03→21:50)
[2020-04-13] MEDS ORDERED: METOPROLOL TARTRATE 25 MG TABLET (FP) PO SCH (10:00)
--- NOTE | 2020-04-13 10:33 | EKG ---
Test Reason : Blood Pressure : / mmHG Vent. Rate : 110 BPM Atrial Rate : 110 BPM P-R Int : 148 ms QRS Dur : 088 ms QT Int : 356 ms P-R-T Axes : 023 -05 127 degrees QTc Int : 481 ms SINUS TACHYCARDIA WITH PREMATURE ATRIAL COMPLEXES NONSPECIFIC T WAVE ABNORMALITY ABNORMAL ECG WHEN COMPARED WITH ECG OF 12-APR-2020 20:15, NO SIGNIFICANT CHANGE WAS FOUND Confirmed by ABBEY RODRIGUES MD ([id number]) on 04/13/2020 10:32:38 AM Referred By: Confirmed By:ABBEY RODRIGUES MD
--- NOTE | 2020-04-13 10:39 | EKG ---
Test Reason : Blood Pressure : / mmHG Vent. Rate : 095 BPM Atrial Rate : 095 BPM P-R Int : 124 ms QRS Dur : 086 ms QT Int : 362 ms P-R-T Axes : 004 -04 156 degrees QTc Int : 454 ms POOR DATA QUALITY, INTERPRETATION MAY BE ADVERSELY AFFECTED SINUS RHYTHM WITH PREMATURE SUPRAVENTRICULAR COMPLEXES NONSPECIFIC T WAVE ABNORMALITY ABNORMAL ECG WHEN COMPARED WITH ECG OF 30-JUL-2017 09:17, INVERTED T WAVES HAVE REPLACED NONSPECIFIC T WAVE ABNORMALITY IN LATERAL LEADS Confirmed by ABBEY RODRIGUES MD ([id number]) on 04/13/2020 10:38:56 AM Referred By: Confirmed By:ABBEY RODRIGUES MD
--- NOTE | 2020-04-13 13:44 | ECHO ---
Version: 1 Name: LYNN WELSH Exam: Adult Echocardiogram Study Date: 04/13/2020, 11:53 AM Age: 84 Years MMode/2D Measurements & Calculations IVSd: 1.09 cm LVIDs: 3.3 cm LVIDd: 4.6 cm LVPWd: 1.51 cm LAV (MOD-bp): 127.0 ml LVOT diam: 1.93 cm Ao root diam: 2.8 cm LA dimension: 3.3 cm Doppler Measurements & Calculations MV E max hawa: 96.0 cm/sec MV A max hawa: 78.0 cm/sec MV E/A: 1.23 MR max P.0 mmHg Ao max P.0 mmHg JAYME(I,D): 0.60 cm Ao mean P.0 mmHg LV V1 mean: 42.8 cm/sec Ao V2 max: 295.3 cm/sec LV V1 mean P.87 mmHg Procedure The study was technically difficult with many images being suboptimal in quality. Left Ventricle Left ventricular systolic function is mildly reduced. Ejection Fraction = 45-50%. Regional wall liz on abnormalities cannot be excluded due to limited visualization. Right Ventricle The right ventricle is normal in size and function. Atria The left atrium is mildly dilated. Right atrial size is normal. Mitral Valve There is mild to moderate mitral annular calcification. There is no mitral valve stenosis. There is mild mitral regurgitation. Tricuspid Valve The tricuspid valve is normal in structure and function. There is mild tricuspid regurgitation. Ther e was insufficient TR detected to calculate RV systolic pressure. Aortic Valve Moderate valvular aortic stenosis. No aortic regurgitation is present. Pulmonic Valve The pulmonic valve is not well seen, but is grossly normal. There is no pulmonic valvular stenosis. Trace pulmonic valvular regurgitation. Great Vessels The aortic root is normal size. Pericardium/Pleura There is no pericardial effusion. Tech Comments unable to scan s. notch pt on oxygen. Summary Statements The study was technically difficult with many images being suboptimal in quality. Regional wall motion abnormalities cannot be excluded due to limited visualization. Left ventricular systolic function is mildly reduced. Ejection Fraction = 45-50%. The left atrium is mildly dilated. There is mild to moderate mitral annular calcification. There is mild mitral regurgitation. There is mild tricuspid regurgitation. Moderate valvular aortic stenosis. MD Kruger *Jordyn 04/13/2020, 1:43 PM Ordering Physician: Jaki Mancilla Referring Physician: JAKI MANCILLA Performed By: Viky Verduzco
--- NOTE | 2020-04-13 13:49 | HP ---
Admitting History and Physical - Primary Care Physician PCP: Jaki Mancilla - Admission Chief Complaint: sob History of Present Illness: 84 year old male, with a significant past medical history of stroke, osteoarthritis, and BPH, who presents to the emergency department for 3 days of worsening SOB. Pt states he takes Lasix however is legs have been more swollen recently. states she noticed increased facial droop and slurred speech the past several days. Pt also reports waking up in the middle of the night with chest pressure and orthopnea the past several days. Patient denies headache and dizziness. He denies fever, chills, nausea, vomit, diarrhea and constipation. He denies dysuria, frequency, urgency and hematuria - Past Medical History MANAGER ZONE: Yes: CVA Cardiovascular: Yes: HTN Renal/: Yes: BPH Musculoskeletal: Yes: Osteoarthritis - Smoking History Smoking history: Former smoker Have you smoked in the past 12 months: No If you are a former smoker, when did you quit?: 1969 - Alcohol/Substance Use Hx Alcohol Use: No Home Medications - Allergies Allergies/Adverse Reactions: Allergies Allergy/AdvReac Type Severity Reaction Status Date / Time amoxicillin Allergy Severe vomiting Verified 04/12/20 19:57 diarrhea - Home Medications Home Medications: Ambulatory Orders Metoprolol Tartrate [Lopressor -] 12.5 mg PO DAILY 11/04/13 Tamsulosin HCl [Flomax -] 0.4 mg PO HS 11/04/13 Acetaminophen [Tylenol] 650 mg PO PRN PRN 08/03/14 Fluticasone Prop 0.05% Nasal [Flonase -] 1 - 2 spray NS BID 08/03/14 Aspirin/Dipyridamole [Aggrenox -] 1 combo PO BID 07/30/17 Furosemide [Lasix] 20 mg PO DAILY 07/30/17 predniSONE [Deltasone -] 5 mg PO DAILY 07/30/17 Aspirin/Dipyridamole [Aggrenox -] 1 combo PO BID 04/12/20 Tramadol HCl [Ultram] 50 mg PO TID PRN 04/12/20 Zinc Sulfate 220 mg PO DAILY 04/12/20 Atorvastatin Calcium 10 mg PO HS 04/13/20 Calcium Carbonate/Vitamin D3 [Calcium 500-Vit D3 200 Tablet] 1 each PO DAILY 04/13/20 Guaifenesin [Mucinex] 600 mg PO BID 04/13/20 Omeprazole 20 mg PO ACBK 04/13/20 Review of Systems - Review of Systems Respiratory: reports: SOB Physical Examination Vital Signs: Vital Signs Temperature 98.2 F 04/13/20 09:45 Pulse Rate 91 H 04/13/20 09:45 Respiratory Rate 20 04/13/20 09:45 Blood Pressure 124/59 L 04/13/20 09:45 O2 Sat by Pulse Oximetry (%) 100 04/13/20 09:45 Constitutional: Yes: No Distress HENT: Yes: Atraumatic Neck: Yes: Supple Cardiovascular: Yes: Regular Rate and Rhythm Respiratory: Yes: CTA Bilaterally Gastrointestinal: Yes: Normal Bowel Sounds Extremities: Yes: WNL Edema: No Neurological: Yes: Alert, Oriented Labs: CBC, BMP 04/13/20 05:48 04/13/20 05:48 Imaging - Results X-ray: Report Reviewed Cat Scan: Report Reviewed Ultrasound: Report Reviewed Problem List - Problems (1) Acute kidney injury superimposed on CKD Assessment/Plan: WILL GET RENAL CONSULT Code(s): N17.9 - ACUTE KIDNEY FAILURE, UNSPECIFIED; N18.9 - CHRONIC KIDNEY DISEASE, UNSPECIFIED (2) CHF (congestive heart failure) Assessment/Plan: ON IV LASIX CARDIO ON BOARD Code(s): I50.9 - HEART FAILURE, UNSPECIFIED Qualifiers: Heart failure type: unspecified Heart failure chronicity: acute Qualified Code(s): I50.9 - Heart failure, unspecified (3) HTN (hypertension) Assessment/Plan: ON MEDS MONITOR Code(s): I10 - ESSENTIAL (PRIMARY) HYPERTENSION Assessment/Plan Laboratory Tests 04/12/20 04/12/20 04/12/20 20:13 20:13 20:13 WBC 7.7 RBC 2.84 L Hgb 9.2 L Hct 27.6 L MCV 97.3 H MCH 32.3 MCHC 33.2 RDW 14.3 Plt Count 224 MPV 8.1 Absolute Neuts (auto) 6.6 Neutrophils % 85.1 H Lymphocytes % 6.3 L D Monocytes % 8.0 Eosinophils % 0.3 D Basophils % 0.3 Nucleated RBC % 0 PT with INR 12.50 INR 1.06 PTT (Actin FS) 24.6 L Sodium 143 Potassium 3.5 Chloride 105 Carbon Dioxide 30 Anion Gap 8 BUN 34.7 H Creatinine 2.0 H Est GFR (CKD-EPI)AfAm 34.50 Est GFR (CKD-EPI)NonAf 29.76 Random Glucose 109 H Hemoglobin A1c % Calcium 8.6 Total Bilirubin 0.3 AST 11 L ALT 15 Alkaline Phosphatase 79 Creatine Kinase 67 Troponin I 0.20 H B-Natriuretic Peptide 9860.1 H Total Protein 6.5 Albumin 3.4 Triglycerides Cholesterol Total LDL Cholesterol HDL Cholesterol TSH Free T4 04/13/20 04/13/20 04/13/20 05:48 05:48 05:48 WBC 8.2 RBC 2.95 L Hgb 9.1 L Hct 28.2 L MCV 95.7 MCH 30.9 MCHC 32.3 RDW 14.3 Plt Count 223 MPV 8.0 Absolute Neuts (auto) 6.7 Neutrophils % 81.8 Lymphocytes % 8.6 D Monocytes % 8.2 Eosinophils % 0.9 D Basophils % 0.5 Nucleated RBC % 0 PT with INR INR PTT (Actin FS) Sodium 144 Potassium 3.4 L Chloride 107 Carbon Dioxide 31 Anion Gap 6 L BUN 33.6 H Creatinine 1.9 H Est GFR (CKD-EPI)AfAm 36.70 Est GFR (CKD-EPI)NonAf 31.67 Random Glucose 99 Hemoglobin A1c % Calcium 8.3 L Total Bilirubin 0.3 AST 9 L ALT 16 Alkaline Phosphatase 70 Creatine Kinase 56 Troponin I 0.24 H B-Natriuretic Peptide Total Protein 6.1 L Albumin 3.2 L Triglycerides 117 Cholesterol 151 Total LDL Cholesterol 78 HDL Cholesterol 52 TSH 0.17 L Free T4 1.30 H 04/13/20 09:00 WBC RBC Hgb Hct MCV MCH MCHC RDW Plt Count MPV Absolute Neuts (auto) Neutrophils % Lymphocytes % Monocytes % Eosinophils % Basophils % Nucleated RBC % PT with INR INR PTT (Actin FS) Sodium Potassium Chloride Carbon Dioxide Anion Gap BUN Creatinine Est GFR (CKD-EPI)AfAm Est GFR (CKD-EPI)NonAf Random Glucose Hemoglobin A1c % 6.3 Calcium Total Bilirubin AST ALT Alkaline Phosphatase Creatine Kinase Troponin I B-Natriuretic Peptide Total Protein Albumin Triglycerides Cholesterol Total LDL Cholesterol HDL Cholesterol TSH Free T4 Active Medications Generic Name Dose Route Start Last Admin Trade Name Freq PRN Reason Stop Dose Admin Dipyridamole/Aspirin 1 combo 04/13/20 10:00 04/13/20 09:03 Aggrenox - PO 1 combo BID ARLEN Administration Furosemide 40 mg 04/13/20 10:00 04/13/20 09:02 Lasix Injection - IVPUSH 40 mg DAILY ARLEN Administration Heparin Sodium (Porcine) 5,000 unit 04/13/20 10:00 04/13/20 09:02 Heparin - SQ 5,000 unit BID ARLEN Administration Metoprolol Succinate 12.5 mg 04/13/20 10:00 04/13/20 09:03 Toprol Xl - PO 12.5 mg DAILY ARLEN Administration Pantoprazole Sodium 40 mg 04/13/20 07:00 04/13/20 06:00 Protonix - PO 40 mg ACBK ARLEN Administration Ramipril 5 mg 04/13/20 10:00 04/13/20 09:02 Altace - PO 5 mg DAILY ARLEN Administration Rosuvastatin Calcium 10 mg 04/13/20 22:00 Crestor - PO HS ARLEN Tamsulosin HCl 0.4 mg 04/13/20 22:00 Flomax - PO HS ARLEN COVERING FOR DR MANCILLA TODAY
[2020-04-13] MEDS ORDERED: POTASSIUM CHLORIDE TABS 20 MEQ TABLET.ER (FP) PO ONE (14:45)
[2020-04-13] MEDS: TAMSULOSIN HCL 0.4 MG CAP PO SCH (21:50)
[2020-04-13] MEDS: ROSUVASTATIN CA 10 MG TABLET (FP) PO SCH (21:50)
[2020-04-14] MEDS: PANTOPRAZOLE 40 MG TABLET PO SCH (06:05)
[2020-04-14 07:22] LABS: BILIRUBIN,TOTAL 0.5 mg/dL (0.2-1); BLOOD UREA NITROGEN 39.6 mg/dL (7-18); CALCIUM 8.2 mg/dL (8.5-10.1); CREATININE 2.3 mg/dL (0.55-1.3); POTASSIUM 3.5 mmol/L (3.5-5.1); TOT PROT 5.8 g/dl (6.4-8.2)
[2020-04-14] MEDS: RAMIPRIL 5 MG CAPSULE PO SCH (09:04)
[2020-04-14] MEDS: metoPROLOL SUCCINATE 25 MG TAB.SR.24H (FP) PO SCH (09:04)
[2020-04-14] MEDS: FUROSEMIDE 40 MG/4 ML INJECTABLE VIAL IVPUSH SCH (09:04)
[2020-04-14] MEDS: ASPIRIN/DIPYRIDAMOLE 25 MG/200 MG CAPSULE PO SCH ×2 (09:04→20:59)
[2020-04-14] MEDS: HEPARIN NA (PORCINE) 5,000 UNITS/ML 1ML VIAL SQ SCH ×2 (09:04→20:59)
[2020-04-14 09:23] LABS: EPI CELLS 19 /uL (0-25.1); HYALINE CASTS 4 /uL (0-3.1); URINE APPEARANCE CLOUDY; URINE BACTERIA >9,000 /uL (0-1359); URINE BILIRUBIN NEGATIVE (NEGATIVE); URINE COLOR YELLOW; URINE GLUCOSE (UA) NEGATIVE (NEGATIVE); URINE KETONE NEGATIVE (NEGATIVE); URINE LEUK ESTERASE 2+ (NEGATIVE); URINE NITRITE POSITIVE (NEGATIVE); URINE PROTEIN 1+ (NEGATIVE); URINE RBC 26 /uL (0-23.9); URINE UROBILINOGEN 0.2 mg/dL (0.2-1.0); URINE WBC 3185 /uL (0-25.8)
--- NOTE | 2020-04-14 10:06 | CON.NEP ---
Consult Consult Specialty:: nephrology - History of Present Illness Chief Complaint: dyspnea History of Present Illness: 84 year old male, with a significant past medical history of stroke, osteoarthritis, and BPH, who presents to the emergency department for 3 days of worsening SOB. Pt states he takes Lasix however is legs have been more swollen recently. states she noticed increased facial droop and slurred speech the past several days. Pt also reports waking up in the middle of the night with chest pressure and orthopnea the past several days. Patient denies headache and dizziness. He denies fever, chills, nausea, vomit, diarrhea and constipation. He denies dysuria, frequency, urgency and hematuria He denies history of kidney disease other than having a cyst in one kidney. Breathing has been difficult and he has chest tightness but no pain. Feels better since coming to hospital - History Source History Provided By: Patient, Medical Record Limitations to Obtaining History: No Limitations - Past Medical History [employer]GER: Yes: CVA Cardio/Vascular: Yes: HTN Renal/: Yes: BPH Musculoskeletal: Yes: Osteoarthritis - Alcohol/Substance Use Hx Alcohol Use: No - Smoking History Smoking history: Former smoker Have you smoked in the past 12 months: No If you are a former smoker, when did you quit?: 1969 Home Medications - Allergies Allergies/Adverse Reactions: Allergies Allergy/AdvReac Type Severity Reaction Status Date / Time amoxicillin Allergy Severe vomiting Verified 04/12/20 19:57 diarrhea - Home Medications Home Medications: Ambulatory Orders Metoprolol Tartrate [Lopressor -] 12.5 mg PO DAILY 11/04/13 Tamsulosin HCl [Flomax -] 0.4 mg PO HS 11/04/13 Acetaminophen [Tylenol] 650 mg PO PRN PRN 08/03/14 Fluticasone Prop 0.05% Nasal [Flonase -] 1 - 2 spray NS BID 08/03/14 Aspirin/Dipyridamole [Aggrenox -] 1 combo PO BID 07/30/17 Furosemide [Lasix] 20 mg PO DAILY 07/30/17 predniSONE [Deltasone -] 5 mg PO DAILY 07/30/17 Aspirin/Dipyridamole [Aggrenox -] 1 combo PO BID 04/12/20 Tramadol HCl [Ultram] 50 mg PO TID PRN 04/12/20 Zinc Sulfate 220 mg PO DAILY 04/12/20 Atorvastatin Calcium 10 mg PO HS 04/13/20 Calcium Carbonate/Vitamin D3 [Calcium 500-Vit D3 200 Tablet] 1 each PO DAILY 04/13/20 Guaifenesin [Mucinex] 600 mg PO BID 04/13/20 Omeprazole 20 mg PO ACBK 04/13/20 Review of Systems - Review of Systems Constitutional: reports: No Symptoms Eyes: reports: No Symptoms HENT: reports: No Symptoms Neck: reports: No Symptoms Cardiovascular: reports: Shortness of Breath (chest tightness) Respiratory: reports: SOB Gastrointestinal: reports: No Symptoms Genitourinary: reports: No Symptoms Breasts: reports: No Symptoms Reported Musculoskeletal: reports: Joint Pain Integumentary: reports: No Symptoms Neurological: reports: No Symptoms Endocrine: reports: No Symptoms Hematology/Lymphatic: reports: No Symptoms Nephrology Consult - Height Height: 5 ft 11 in - Weight Weight: 225 lb - BMI Body Mass Index (BMI): 31.4 - Lab Results CBC,BMP: CBC, BMP 04/13/20 05:48 04/14/20 06:12 Anion Gap: Anion Gap Anion Gap 6 MMOL/L (8-16) L 04/14/20 06:12 - Imaging X-ray: Report Reviewed (no sign of failure) Cat Scan: Report Reviewed (no acute intracranial pathology) Ultrasound: Report Reviewed (mild cortical atrophy in normal sized kidneys) - Physical Examination Vital Signs: Vital Signs Temperature 98.4 F 04/14/20 09:49 Pulse Rate 93 H 04/14/20 09:49 Respiratory Rate 18 04/14/20 09:49 Blood Pressure 109/55 L 04/14/20 09:49 O2 Sat by Pulse Oximetry (%) 100 04/14/20 09:49 Constitutional: Yes: Well Nourished, No Distress, Calm Eyes: Yes: Conjunctiva Clear HENT: Yes: Atraumatic Neck: Yes: Supple, Trachea Midline Cardiovascular: Yes: Regular Rate and Rhythm, Murmur Respiratory: Yes: CTA Bilaterally Gastrointestinal: Yes: Normal Bowel Sounds, Abdomen, Obese Renal/: Yes: WNL Musculoskeletal: Yes: WNL Extremities: Yes: WNL Edema: Yes Edema: LLE: 2+, RLE: 2+ Integumentary: Yes: WNL Neurological: Yes: Alert, Oriented Psychiatric: Yes: Alert, Oriented Assessment/Plan IMPRESSION SATHYA on CKD FeNA is 0.64 s/o prerenal, but pt continues to appear clinically overloaded proteinuria probable UTI PLAN would continue diuresis given dyspnea and reduced LV Ef urine culture continue tamsulosin consider antibiotics MV
--- NOTE | 2020-04-14 10:58 | PN ---
Progress Note, Physician History of Present Illness: Mr. Hobson is an 84 year old male with a significant past medical history of CVA, severe osteoarthritis, HTN, HLD, chronic renal dysfunction, ?thyroid disorder, obesity, and BPH, who presents to the emergency department for 3 days of worsening SOB. Pt states he takes Lasix however is legs have been more swollen recently. states she noticed increased facial droop and slurred speech the past several days. Pt also reports waking up in the middle of the night with chest pressure and orthopnea the past several days. Patient denies headache and dizziness. He denies fever, chills, nausea, vomit, diarrhea and constipation. He denies dysuria, frequency, urgency and hematuria. Allergies: NKDA PCP: Dr. Zafar Sr - Current Medication List Current Medications: Active Medications Dipyridamole/Aspirin (Aggrenox -) 1 combo PO BID [facility] Last Admin: 04/14/20 09:04 Dose: 1 combo Documented by: Furosemide (Lasix Injection -) 40 mg IVPUSH DAILY [facility] Last Admin: 04/14/20 09:04 Dose: 40 mg Documented by: Heparin Sodium (Porcine) (Heparin -) 5,000 unit SQ BID [facility] Last Admin: 04/14/20 09:04 Dose: 5,000 unit Documented by: Metoprolol Succinate (Toprol Xl -) 12.5 mg PO DAILY [facility] Last Admin: 04/14/20 09:04 Dose: 12.5 mg Documented by: Pantoprazole Sodium (Protonix -) 40 mg PO ACBK [facility] Last Admin: 04/14/20 06:05 Dose: 40 mg Documented by: Ramipril (Altace -) 5 mg PO DAILY [facility] Last Admin: 04/14/20 09:04 Dose: 5 mg Documented by: Rosuvastatin Calcium (Crestor -) 10 mg PO HS [facility] Last Admin: 04/13/20 21:50 Dose: 10 mg Documented by: Tamsulosin HCl (Flomax -) 0.4 mg PO HS [facility] Last Admin: 04/13/20 21:50 Dose: 0.4 mg Documented by: - Objective Vital Signs: Vital Signs Temperature 98.4 F 04/14/20 09:49 Pulse Rate 93 H 04/14/20 09:49 Respiratory Rate 18 04/14/20 09:49 Blood Pressure 109/55 L 04/14/20 09:49 O2 Sat by Pulse Oximetry (%) 100 04/14/20 09:49 Eyes: Yes: WNL, Conjunctiva Clear, EOM Intact HENT: Yes: WNL, Atraumatic, Normocephalic Neck: Yes: WNL, Supple, Trachea Midline Cardiovascular: Yes: WNL, Regular Rate and Rhythm Respiratory: Yes: WNL, Regular, CTA Bilaterally Gastrointestinal: Yes: WNL, Normal Bowel Sounds Genitourinary: Yes: WNL Musculoskeletal: Yes: WNL Extremities: Yes: WNL Edema: No Integumentary: Yes: WNL Neurological: Yes: Alert Labs: CBC, BMP 04/13/20 05:48 04/14/20 06:12 INR, PTT INR 1.06 (0.83-1.09) 04/12/20 20:13 Assessment/Plan 84 year old male with a significant past medical history of CVA, severe osteoarthritis, HTN, HLD, chronic renal dysfunction, ?thyroid disorder, obesity, and BPH, who presents to the emergency department for 3 days of worsening SOB. Pt states he takes Lasix; however, his legs have been more swollen recently. states she noticed increased facial droop and slurred speech over the past several days. Pt also reports waking up in the middle of the night with chest pressure and orthopnea during the past several days. TNI noted elevated in the setting of CRI and decompensated CHF Elevated BNP. ECHO moderate EF 45-50% Rec: COVID pending CT head Serial TNI and EKGs. TSH; free T4 (abnormal in 2013) BUN/Cr, electrolytes, Is and Os, daily weight. lipid panel; HGBA1c IV Lasix cont aggrenox f/u records of prior cardiac w/u f/u neurological w/u
[2020-04-14] MEDS: traMADol HCL 50 MG TABLET PO PRN (12:06)
[2020-04-14] MEDS: ACETAMINOPHEN 325 MG TABLET (FP) PO PRN ×2 (13:06→20:52)
--- NOTE | 2020-04-14 13:43 | PN ---
Physical Exam: SUBJECTIVE: Patient seen and examined OBJECTIVE: Vital Signs Period Temp Pulse Resp BP Sys/Wheeler Pulse Ox Last 24 Hr 97.8 F-99.3 F 78-96 18-20 104-112/48-59 95-100 GENERAL: The patient is awake, alert, and fully oriented, in no acute distress. Obese HEENT: AT/NC Not P/C/J, PERRLA, EOMI, neck supple. LUNGS: Breath sounds equal, clear to auscultation bilaterally, no wheezes, no crackles, no accessory muscle use. HEART: Regular rate and rhythm, S1, S2 without murmur, rub or gallop. ABDOMEN: Soft, nontender, nondistended, normoactive bowel sounds, no guarding, no rebound, no hepatosplenomegaly, no masses. EXTREMITIES: 2+ pulses, warm, well-perfused, trivial edema. NEUROLOGICAL: Cranial nerves II through XII grossly intact. Normal speech, gait not observed. Laboratory Results - last 24 hr 04/12/20 04/13/20 04/14/20 20:30 13:47 06:00 Sodium Potassium Chloride Carbon Dioxide Anion Gap BUN Creatinine Est GFR (CKD-EPI)AfAm Est GFR (CKD-EPI)NonAf Random Glucose Calcium Total Bilirubin AST ALT Alkaline Phosphatase Creatine Kinase 53 Troponin I 0.26 H Total Protein Albumin Urine Color Urine Appearance Urine pH Ur Specific [place] Urine Protein Urine Glucose (UA) Urine Ketones Urine Blood Urine Nitrite Urine Bilirubin Urine Urobilinogen Ur Leukocyte Esterase Urine WBC (Auto) Urine RBC (Auto) Urine Casts (Auto) U Pathogenic Cast Auto U Epithel Cells (Auto) Urine Bacteria (Auto) Ur Random Creatinine 112.0 Ur Random Sodium 45 Ur Random Potassium 24.0 L Ur Random Chloride 30 L COVID-19 (KHURRAM) Not detected 04/14/20 04/14/20 06:00 06:12 Sodium 145 Potassium 3.5 Chloride 108 H Carbon Dioxide 30 Anion Gap 6 L BUN 39.6 H Creatinine 2.3 H Est GFR (CKD-EPI)AfAm 29.13 Est GFR (CKD-EPI)NonAf 25.14 Random Glucose 103 Calcium 8.2 L Total Bilirubin 0.5 AST 8 L ALT 11 L Alkaline Phosphatase 66 Creatine Kinase Troponin I Total Protein 5.8 L Albumin 3.0 L Urine Color Yellow Urine Appearance Cloudy Urine pH 5.0 Ur Specific [place] 1.014 Urine Protein 1+ H Urine Glucose (UA) Negative Urine Ketones Negative Urine Blood Trace Urine Nitrite Positive H Urine Bilirubin Negative Urine Urobilinogen 0.2 Ur Leukocyte Esterase 2+ H Urine WBC (Auto) 3185 Urine RBC (Auto) 26 Urine Casts (Auto) 4 U Pathogenic Cast Auto Non seen U Epithel Cells (Auto) 19 Urine Bacteria (Auto) >9,000 Ur Random Creatinine Ur Random Sodium Ur Random Potassium Ur Random Chloride COVID-19 (KHURRAM) Active Medications Generic Name Dose Route Start Last Admin Trade Name Freq PRN Reason Stop Dose Admin Acetaminophen 650 mg 04/14/20 12:00 04/14/20 13:06 Tylenol - PO 650 mg Q6H PRN Administration PAIN LEVEL 1-5 Dipyridamole/Aspirin 1 combo 04/13/20 10:00 04/14/20 09:04 Aggrenox - PO 1 combo BID ARLEN Administration Heparin Sodium (Porcine) 5,000 unit 04/13/20 10:00 04/14/20 09:04 Heparin - SQ 5,000 unit BID ARLEN Administration Metoprolol Succinate 12.5 mg 04/13/20 10:00 04/14/20 09:04 Toprol Xl - PO 12.5 mg DAILY ARLEN Administration Pantoprazole Sodium 40 mg 04/13/20 07:00 04/14/20 06:05 Protonix - PO 40 mg ACBK ARLEN Administration Rosuvastatin Calcium 10 mg 04/13/20 22:00 04/13/20 21:50 Crestor - PO 10 mg HS ARLEN Administration Tamsulosin HCl 0.4 mg 04/13/20 22:00 04/13/20 21:50 Flomax - PO 0.4 mg HS ARLEN Administration Tramadol HCl 50 mg 04/14/20 12:03 04/14/20 12:06 Ultram - PO 50 mg Q12H PRN Administration PAIN LEVEL 6-10 ASSESSMENT/PLAN: 84 year old man with Mhx of HFrEF, CKD, CVA, osteoarthritis, and BPH, who presents to the emergency department for 3 days of worsening SOB # Acute Exacerbation of HFrEF -improved with IV furosemide, sat>95% on RA -+ edema, clear lungs -hold diuretics and ACEi for worsening SATHYA -c/w BB, Aggrenox -ECHO showed EF 45-50% -cardiology following # SATHYA on CKD creatinine trended up today hold diuresis and ACEi avoid nephrotoxin, renal dose of medication trend electrolytes and replace PRN check CMP in AM OA BPH h/o CVA obesity DVT prophylaxis with heparin Visit type - Emergency Visit Emergency Visit: Yes ED Registration Date: 04/12/20 Care time: The patient presented to the Emergency Department on the above date and was hospitalized for further evaluation of their emergent condition. - New Patient This patient is new to me today: Yes Date on this admission: 04/14/20 - Critical Care Critical Care patient: No - Discharge Referral Referred to [facility] Med P.C.: No - Medication Review Med list reviewed for High Risk Meds patients 65 and older: Yes (yes)
[2020-04-14] MEDS: ROSUVASTATIN CA 10 MG TABLET (FP) PO SCH (20:59)
[2020-04-14] MEDS: TAMSULOSIN HCL 0.4 MG CAP PO SCH (20:59)
[2020-04-15] MEDS: PANTOPRAZOLE 40 MG TABLET PO SCH (06:06)
[2020-04-15 07:07] LABS: HEMATOCRIT 26.6 % (35.4-49); HEMOGLOBIN 8.7 GM/dL (11.7-16.9); MCH 31.3 pg (25.7-33.7); MCHC 32.8 g/dl (32.0-35.9); MEAN CELL VOLUME 95.5 fl (80-96); MEAN PLT VOLUME 8.2 fl (7.5-11.1); PLATELET COUNT 179 K/MM3 (134-434); RBC 2.78 M/mm3 (4.00-5.60); RDW 14.1 % (11.9-15.9); WHITE BLOOD COUNT 7.9 K/mm3 (4.0-10.0)
[2020-04-15 07:27] LABS: POTASSIUM 3.1 mmol/L (3.5-5.1)
[2020-04-15 07:34] LABS: ALBUMIN 2.8 g/dl (3.4-5.0); BILIRUBIN,TOTAL 0.6 mg/dL (0.2-1); BLOOD UREA NITROGEN 41.3 mg/dL (7-18); CALCIUM 8.3 mg/dL (8.5-10.1); CREATININE 2.4 mg/dL (0.55-1.3); MAGNESIUM 2.1 mg/dL (1.8-2.4); TOT PROT 5.6 g/dl (6.4-8.2)
[2020-04-15] MEDS: HEPARIN NA (PORCINE) 5,000 UNITS/ML 1ML VIAL SQ SCH (09:25)
[2020-04-15] MEDS: ASPIRIN/DIPYRIDAMOLE 25 MG/200 MG CAPSULE PO SCH ×2 (09:26→21:37)
[2020-04-15] MEDS: metoPROLOL SUCCINATE 25 MG TAB.SR.24H (FP) PO SCH (09:26)
--- NOTE | 2020-04-15 09:53 | PN ---
Progress Note, Physician History of Present Illness: Mr. Hobson is an 84 year old male with a significant past medical history of CVA, severe osteoarthritis, HTN, HLD, chronic renal dysfunction, ?thyroid disorder, obesity, and BPH, who presents to the emergency department for 3 days of worsening SOB. Pt states he takes Lasix however is legs have been more swollen recently. states she noticed increased facial droop and slurred speech the past several days. Pt also reports waking up in the middle of the night with chest pressure and orthopnea the past several days. Patient denies headache and dizziness. He denies fever, chills, nausea, vomit, diarrhea and constipation. He denies dysuria, frequency, urgency and hematuria. Allergies: NKDA PCP: Dr. Zafar Sr - Current Medication List Current Medications: Active Medications Acetaminophen (Tylenol -) 650 mg PO Q6H PRN PRN Reason: PAIN LEVEL 1-5 Last Admin: 04/14/20 20:52 Dose: 650 mg Documented by: Dipyridamole/Aspirin (Aggrenox -) 1 combo PO BID [facility] Last Admin: 04/15/20 09:26 Dose: 1 combo Documented by: Heparin Sodium (Porcine) (Heparin -) 5,000 unit SQ BID [facility] Last Admin: 04/15/20 09:25 Dose: 5,000 unit Documented by: Metoprolol Succinate (Toprol Xl -) 12.5 mg PO DAILY [facility] Last Admin: 04/15/20 09:26 Dose: 12.5 mg Documented by: Pantoprazole Sodium (Protonix -) 40 mg PO ACBK [facility] Last Admin: 04/15/20 06:06 Dose: 40 mg Documented by: Rosuvastatin Calcium (Crestor -) 10 mg PO HS [facility] Last Admin: 04/14/20 20:59 Dose: 10 mg Documented by: Tamsulosin HCl (Flomax -) 0.4 mg PO [facility] Last Admin: 04/14/20 20:59 Dose: 0.4 mg Documented by: Tramadol HCl (Ultram -) 50 mg PO Q12H PRN PRN Reason: PAIN LEVEL 6-10 Last Admin: 04/14/20 12:06 Dose: 50 mg Documented by: - Objective Vital Signs: Vital Signs Temperature 98 F 04/15/20 09:19 Pulse Rate 89 04/15/20 09:19 Respiratory Rate 18 04/15/20 09:19 Blood Pressure 117/52 L 04/15/20 09:19 O2 Sat by Pulse Oximetry (%) 93 L 04/15/20 09:19 Eyes: Yes: WNL, Conjunctiva Clear, EOM Intact HENT: Yes: WNL, Atraumatic, Normocephalic Neck: Yes: WNL, Supple, Trachea Midline Cardiovascular: Yes: WNL, Regular Rate and Rhythm Respiratory: Yes: WNL, Regular, CTA Bilaterally Gastrointestinal: Yes: WNL, Normal Bowel Sounds Genitourinary: Yes: WNL Musculoskeletal: Yes: WNL Extremities: Yes: WNL Edema: No Integumentary: Yes: WNL Neurological: Yes: WNL, Alert, Oriented ...Motor Strength: WNL Psychiatric: Yes: WNL Labs: CBC, BMP 04/15/20 05:56 04/15/20 05:56 INR, PTT INR 1.06 (0.83-1.09) 04/12/20 20:13 Assessment/Plan 84 year old male with a significant past medical history of CVA, severe osteoarthritis, HTN, HLD, chronic renal dysfunction, ?thyroid disorder, obesity, and BPH, who presents to the emergency department for 3 days of worsening SOB. Pt states he takes Lasix; however, his legs have been more swollen recently. states she noticed increased facial droop and slurred speech over the past several days. Pt also reports waking up in the middle of the night with chest pressure and orthopnea during the past several days. TNI noted elevated in the setting of CRI and decompensated CHF Elevated BNP. ECHO moderate EF 45-50% COVID negative Rec: CT head Serial TNI and EKGs. TSH; free T4 (abnormal in 2013) BUN/Cr, electrolytes, Is and Os, daily weight. lipid panel; HGBA1c cont aggrenox f/u records of prior cardiac w/u f/u neurological w/u
[2020-04-15] MEDS ORDERED: POTASSIUM CHLORIDE TABS 20 MEQ TABLET.ER (FP) PO ONE (11:34)
--- NOTE | 2020-04-15 14:03 | PN ---
Progress Note, Physician Chief Complaint: No current complaints History of Present Illness: 84 year-old man with a PMhx notable for HFrEF, CKD, CVA, osteoarthritis, and BPH, who presents to the emergency department for 3 days of worsening SOB - Current Medication List Current Medications: Active Medications Acetaminophen (Tylenol -) 650 mg PO Q6H PRN PRN Reason: PAIN LEVEL 1-5 Last Admin: 04/14/20 20:52 Dose: 650 mg Documented by: Dipyridamole/Aspirin (Aggrenox -) 1 combo PO BID [facility] Last Admin: 04/15/20 09:26 Dose: 1 combo Documented by: Metoprolol Succinate (Toprol Xl -) 12.5 mg PO DAILY [facility] Last Admin: 04/15/20 09:26 Dose: 12.5 mg Documented by: Pantoprazole Sodium (Protonix -) 40 mg PO ACBK [facility] Last Admin: 04/15/20 06:06 Dose: 40 mg Documented by: Rosuvastatin Calcium (Crestor -) 10 mg PO [facility] Last Admin: 04/14/20 20:59 Dose: 10 mg Documented by: Tamsulosin HCl (Flomax -) 0.4 mg PO [facility] Last Admin: 04/14/20 20:59 Dose: 0.4 mg Documented by: Tramadol HCl (Ultram -) 50 mg PO Q12H PRN PRN Reason: PAIN LEVEL 6-10 Last Admin: 04/14/20 12:06 Dose: 50 mg Documented by: - Objective Vital Signs: Vital Signs Temperature 98 F 04/15/20 09:19 Pulse Rate 89 04/15/20 09:19 Respiratory Rate 18 04/15/20 09:19 Blood Pressure 117/52 L 04/15/20 09:19 O2 Sat by Pulse Oximetry (%) 93 L 04/15/20 09:19 Constitutional: Yes: Well Nourished, No Distress, Calm Eyes: Yes: WNL, Conjunctiva Clear, EOM Intact HENT: Yes: WNL, Atraumatic, Normocephalic Neck: Yes: WNL, Supple, Trachea Midline Cardiovascular: Yes: WNL, Regular Rate and Rhythm Respiratory: Yes: WNL, Regular, CTA Bilaterally Gastrointestinal: Yes: WNL, Normal Bowel Sounds, Soft Musculoskeletal: Yes: WNL Extremities: Yes: WNL Peripheral Pulses WNL: Yes Peripheral Pulses: Left Radial: 2+, Right Radial: 2+ Integumentary: Yes: WNL Neurological: Yes: WNL, Alert, Oriented ...Motor Strength: WNL Psychiatric: Yes: WNL, Alert, Oriented Labs: CBC, BMP 04/15/20 05:56 04/15/20 05:56 INR, PTT INR 1.06 (0.83-1.09) 04/12/20 20:13 Impression/Plan Impression/Plan: 84 year-old man with a PMhx of HFrEF, CKD, CVA, osteoarthritis, and BPH, who presents to the emergency department for 3 days of worsening SOB # Acute Exacerbation of HFrEF - Appreciate cardiology follow-up -improved with IV furosemide, sat>95% on RA -+ edema, clear lungs -hold diuretics and ACEi for worsening SATHYA -c/w Beta-satnam, Aggrenox -2D ECHO on 04/13 showed EF 45-50 # SATHYA on CKD creatinine trended up today (2.4<--2.3) hold diuresis and ACEi avoid nephrotoxin, renal dose of medication trend electrolytes and replace PRN check CMP in AM # OA # BPH # History CVA # Obesity DVT prophylaxis D/C SQ heparin-->SCDs already on aggrenox Discussed the above with the patients Mrs. Hobson Visit type - Emergency Visit Emergency Visit: Yes ED Registration Date: 04/12/20 Care time: The patient presented to the Emergency Department on the above date and was hospitalized for further evaluation of their emergent condition. - New Patient This patient is new to me today: No - Critical Care Critical Care patient: No - Discharge Referral Referred to [facility] Med P.C.: No - Medication Review Med list reviewed for High Risk Meds patients 65 and older: No
[2020-04-15] MEDS: ACETAMINOPHEN 325 MG TABLET (FP) PO PRN (14:48)
--- NOTE | 2020-04-15 15:03 | PN ---
Progress Note (short form) - Note Progress Note: RENAL Pt is awake and alert is present comfortable Last Vital Signs Temp Pulse Resp BP Pulse Ox 98.8 F 94 H 18 124/61 93 L 04/15/20 14:18 04/15/20 14:18 04/15/20 14:18 04/15/20 14:18 04/15/20 09:19 lungs clear cvs s1s2 rr abd soft ext no edema neuro a+ox3 CBC, BMP 04/15/20 05:56 04/15/20 05:56 Current Medications Generic Name Dose Route Start Last Admin Trade Name Freq PRN Reason Stop Dose Admin Acetaminophen 650 mg 04/14/20 12:00 04/15/20 14:48 Tylenol - PO 650 mg Q6H PRN Administration PAIN LEVEL 1-5 Dipyridamole/Aspirin 1 combo 04/13/20 10:00 04/15/20 09:26 Aggrenox - PO 1 combo BID ARLEN Administration Metoprolol Succinate 12.5 mg 04/13/20 10:00 04/15/20 09:26 Toprol Xl - PO 12.5 mg DAILY ARLEN Administration Pantoprazole Sodium 40 mg 04/13/20 07:00 04/15/20 06:06 Protonix - PO 40 mg ACBK ARLEN Administration Rosuvastatin Calcium 10 mg 04/13/20 22:00 04/14/20 20:59 Crestor - PO 10 mg HS ARLEN Administration Tamsulosin HCl 0.4 mg 04/13/20 22:00 04/14/20 20:59 Flomax - PO 0.4 mg HS ARLEN Administration Tramadol HCl 50 mg 04/14/20 12:03 04/14/20 12:06 Ultram - PO 50 mg Q12H PRN Administration PAIN LEVEL 6-10 IMPRESSION Acute on CKD chf with mildly reduced ef proteinuria maybe worsened by uti PLAN culture pending being monitored off lasix. Note his fena was low replace k cautious use of tramadol MV
[2020-04-15] MEDS: TAMSULOSIN HCL 0.4 MG CAP PO SCH (21:37)
[2020-04-15] MEDS: ROSUVASTATIN CA 10 MG TABLET (FP) PO SCH (21:37)
[2020-04-16] MEDS: PANTOPRAZOLE 40 MG TABLET PO SCH (06:15)
[2020-04-16 06:53] LABS: BASO % 0.4 % (0-2.0); EOS % 1.2 % (0-4.5); HEMATOCRIT 27.4 % (35.4-49); HEMOGLOBIN 8.8 GM/dL (11.7-16.9); LYMPH % 6.3 % (8-40); MCH 30.8 pg (25.7-33.7); MCHC 32.1 g/dl (32.0-35.9); MEAN CELL VOLUME 96.1 fl (80-96); MEAN PLT VOLUME 8.2 fl (7.5-11.1); MONO % 7.7 % (3.8-10.2); NEUT % 84.4 % (42.8-82.8); PLATELET COUNT 203 K/MM3 (134-434); RBC 2.85 M/mm3 (4.00-5.60); RDW 14.1 % (11.9-15.9); WHITE BLOOD COUNT 7.5 K/mm3 (4.0-10.0)
[2020-04-16] MEDS: metoPROLOL SUCCINATE 25 MG TAB.SR.24H (FP) PO SCH (09:01)
[2020-04-16] MEDS: ASPIRIN/DIPYRIDAMOLE 25 MG/200 MG CAPSULE PO SCH ×2 (09:02→21:30)
--- NOTE | 2020-04-16 09:05 | PN ---
Progress Note, Physician History of Present Illness: Mr. Hobson is an 84 year old male with a significant past medical history of CVA, severe osteoarthritis, HTN, HLD, chronic renal dysfunction, ?thyroid disorder, obesity, and BPH, who presents to the emergency department for 3 days of worsening SOB. Pt states he takes Lasix however is legs have been more swollen recently. states she noticed increased facial droop and slurred speech the past several days. Pt also reports waking up in the middle of the night with chest pressure and orthopnea the past several days. Patient denies headache and dizziness. He denies fever, chills, nausea, vomit, diarrhea and constipation. He denies dysuria, frequency, urgency and hematuria. Allergies: NKDA PCP: Dr. Zafar Sr - Current Medication List Current Medications: Active Medications Acetaminophen (Tylenol -) 650 mg PO Q6H PRN PRN Reason: PAIN LEVEL 1-5 Last Admin: 04/15/20 14:48 Dose: 650 mg Documented by: Dipyridamole/Aspirin (Aggrenox -) 1 combo PO BID [facility] Last Admin: 04/16/20 09:02 Dose: 1 combo Documented by: Metoprolol Succinate (Toprol Xl -) 12.5 mg PO DAILY [facility] Last Admin: 04/16/20 09:01 Dose: 12.5 mg Documented by: Pantoprazole Sodium (Protonix -) 40 mg PO ACBK [facility] Last Admin: 04/16/20 06:15 Dose: 40 mg Documented by: Rosuvastatin Calcium (Crestor -) 10 mg PO [facility] Last Admin: 04/15/20 21:37 Dose: 10 mg Documented by: Tamsulosin HCl (Flomax -) 0.4 mg PO [facility] Last Admin: 04/15/20 21:37 Dose: 0.4 mg Documented by: Tramadol HCl (Ultram -) 50 mg PO Q12H PRN PRN Reason: PAIN LEVEL 6-10 Last Admin: 04/14/20 12:06 Dose: 50 mg Documented by: - Objective Vital Signs: Vital Signs Temperature 98.3 F 04/16/20 08:58 Pulse Rate 97 H 04/16/20 08:58 Respiratory Rate 19 04/16/20 08:58 Blood Pressure 112/61 04/16/20 08:58 O2 Sat by Pulse Oximetry (%) 94 L 04/16/20 08:58 Eyes: Yes: WNL, Conjunctiva Clear, EOM Intact HENT: Yes: WNL, Atraumatic, Normocephalic Neck: Yes: WNL, Supple, Trachea Midline Cardiovascular: Yes: WNL, Regular Rate and Rhythm Respiratory: Yes: WNL, Regular, CTA Bilaterally Gastrointestinal: Yes: WNL, Normal Bowel Sounds Genitourinary: Yes: WNL Musculoskeletal: Yes: WNL Extremities: Yes: WNL Edema: No Integumentary: Yes: WNL Labs: CBC, BMP 04/16/20 05:56 INR, PTT INR 1.06 (0.83-1.09) 04/12/20 20:13 Assessment/Plan 84 year old male with a significant past medical history of CVA, severe osteoarthritis, HTN, HLD, chronic renal dysfunction, ?thyroid disorder, obesity, and BPH, who presents to the emergency department for 3 days of worsening SOB. Pt states he takes Lasix; however, his legs have been more swollen recently. states she noticed increased facial droop and slurred speech over the past several days. Pt also reports waking up in the middle of the night with chest pressure and orthopnea during the past several days. TNI noted elevated in the setting of CRI and decompensated CHF Elevated BNP. ECHO moderate EF 45-50% COVID negative TIA Rec: cont aggrenox and Crestor f/u records of prior cardiac w/u neurological consultation appreciated
[2020-04-16 09:11] LABS: BLOOD UREA NITROGEN 41.3 mg/dL (7-18); CALCIUM 8.2 mg/dL (8.5-10.1); CREATININE 2.3 mg/dL (0.55-1.3); POTASSIUM 3.3 mmol/L (3.5-5.1)
--- NOTE | 2020-04-16 09:53 | PN ---
Physical Exam: SUBJECTIVE: Patient seen and examined OBJECTIVE: Vital Signs Period Temp Pulse Resp BP Sys/Wheeler Pulse Ox Last 24 Hr 98.2 F-98.8 F 93-99 18-19 107-144/42-64 93-95 GENERAL: The patient is awake, alert, and fully oriented, in no acute distress. Obese HEENT: AT/NC Not P/C/J, PERRLA, EOMI, neck supple. LUNGS: Breath sounds equal, clear to auscultation bilaterally, no wheezes, no crackles, no accessory muscle use. HEART: Regular rate and rhythm, S1, S2 without murmur, rub or gallop. ABDOMEN: Soft, nontender, nondistended, normoactive bowel sounds, no guarding, no rebound, no hepatosplenomegaly, no masses. EXTREMITIES: 2+ pulses, warm, well-perfused, trivial edema. NEUROLOGICAL: Cranial nerves II through XII grossly intact. Normal speech, gait not observed. SKIN: telengectasia on chest, arms Laboratory Results - last 24 hr 04/16/20 04/16/20 05:56 05:56 WBC 7.5 RBC 2.85 L Hgb 8.8 L Hct 27.4 L MCV 96.1 H MCH 30.8 MCHC 32.1 RDW 14.1 Plt Count 203 MPV 8.2 Absolute Neuts (auto) 6.3 Neutrophils % 84.4 H Lymphocytes % 6.3 L D Monocytes % 7.7 Eosinophils % 1.2 Basophils % 0.4 Nucleated RBC % 0 Sodium 143 Potassium 3.3 L Chloride 107 Carbon Dioxide 27 Anion Gap 9 BUN 41.3 H Creatinine 2.3 H Est GFR (CKD-EPI)AfAm 29.13 Est GFR (CKD-EPI)NonAf 25.14 Random Glucose 110 H Calcium 8.2 L Active Medications Generic Name Dose Route Start Last Admin Trade Name Freq PRN Reason Stop Dose Admin Acetaminophen 650 mg 04/14/20 12:00 04/15/20 14:48 Tylenol - PO 650 mg Q6H PRN Administration PAIN LEVEL 1-5 Dipyridamole/Aspirin 1 combo 04/13/20 10:00 04/16/20 09:02 Aggrenox - PO 1 combo BID ARLEN Administration Metoprolol Succinate 12.5 mg 04/13/20 10:00 04/16/20 09:01 Toprol Xl - PO 12.5 mg DAILY ARLEN Administration Pantoprazole Sodium 40 mg 04/13/20 07:00 04/16/20 06:15 Protonix - PO 40 mg ACBK ARLEN Administration Rosuvastatin Calcium 10 mg 04/13/20 22:00 04/15/20 21:37 Crestor - PO 10 mg HS ARLEN Administration Tamsulosin HCl 0.4 mg 04/13/20 22:00 04/15/20 21:37 Flomax - PO 0.4 mg HS ARLEN Administration Tramadol HCl 50 mg 04/14/20 12:03 04/14/20 12:06 Ultram - PO 50 mg Q12H PRN Administration PAIN LEVEL 6-10 ASSESSMENT/PLAN: 84 year old man with Mhx of HFrEF, CKD, CVA, osteoarthritis, and BPH, who presents to the emergency department for 3 days of worsening SOB # Acute Exacerbation of HFrEF -improved with IV furosemide, sat>95% on RA -trivial leg edema, clear lungs -hold diuretics and ACEi for worsening SATHYA -c/w BB, Aggrenox -ECHO showed EF 45-50% -cardiology following # SATHYA on CKD not back to basline yet FeNa 0.6%, appears to be preRenal hold diuresis and ACEi avoid nephrotoxin, renal dose of medication trend electrolytes and replace PRN will repeat urine electrolytes trend CMP nephrology following OA BPH h/o CVA obesity DVT prophylaxis with heparin Visit type - Emergency Visit Emergency Visit: Yes ED Registration Date: 04/12/20 Care time: The patient presented to the Emergency Department on the above date and was hospitalized for further evaluation of their emergent condition. - New Patient This patient is new to me today: Yes Date on this admission: 04/19/20 - Critical Care Critical Care patient: No - Discharge Referral Referred to [facility] Med P.C.: No - Medication Review Med list reviewed for High Risk Meds patients 65 and older: Yes (yes)
[2020-04-16] MEDS ORDERED: POTASSIUM CHLORIDE TABS 20 MEQ TABLET.ER (FP) PO ONE (09:57)
[2020-04-16] MEDS ORDERED: SODIUM CHLORIDE 0.45% 1,000 ML IV SCH (10:00)
--- NOTE | 2020-04-16 10:10 | CON.NEURO ---
Consult - Past Medical History BANK GUARD: Yes: CVA Cardio/Vascular: Yes: HTN Renal/: Yes: BPH Musculoskeletal: Yes: Osteoarthritis - Alcohol/Substance Use Hx Alcohol Use: No - Smoking History Smoking history: Former smoker Have you smoked in the past 12 months: No If you are a former smoker, when did you quit?: 1969 Home Medications - Allergies Allergies/Adverse Reactions: Allergies Allergy/AdvReac Type Severity Reaction Status Date / Time amoxicillin Allergy Severe vomiting Verified 04/12/20 19:57 diarrhea - Home Medications Home Medications: Ambulatory Orders Metoprolol Tartrate [Lopressor -] 12.5 mg PO DAILY 11/04/13 Tamsulosin HCl [Flomax -] 0.4 mg PO HS 11/04/13 Acetaminophen [Tylenol] 650 mg PO PRN PRN 08/03/14 Fluticasone Prop 0.05% Nasal [Flonase -] 1 - 2 spray NS BID 08/03/14 Aspirin/Dipyridamole [Aggrenox -] 1 combo PO BID 07/30/17 Furosemide [Lasix] 20 mg PO DAILY 07/30/17 predniSONE [Deltasone -] 5 mg PO DAILY 07/30/17 Aspirin/Dipyridamole [Aggrenox -] 1 combo PO BID 04/12/20 Tramadol HCl [Ultram] 50 mg PO TID PRN 04/12/20 Zinc Sulfate 220 mg PO DAILY 04/12/20 Atorvastatin Calcium 10 mg PO HS 04/13/20 Calcium Carbonate/Vitamin D3 [Calcium 500-Vit D3 200 Tablet] 1 each PO DAILY 04/13/20 Guaifenesin [Mucinex] 600 mg PO BID 04/13/20 Omeprazole 20 mg PO ACBK 04/13/20 Physical Exam-Neuro Vital Signs: Vital Signs Temperature 98.3 F 04/16/20 08:58 Pulse Rate 97 H 04/16/20 08:58 Respiratory Rate 19 04/16/20 08:58 Blood Pressure 112/61 04/16/20 08:58 O2 Sat by Pulse Oximetry (%) 94 L 04/16/20 08:58 Labs: CBC, BMP 04/16/20 05:56 04/16/20 05:56 INR, PTT INR 1.06 (0.83-1.09) 04/12/20 20:13 Assessment/Plan cc transient slurring of speech 84 year old male, with a significant past medical history of stroke, osteoarthritis, and BPH. He has stroke 14 years ago and have mild left facial droopiness and slurring of speech. He came to ed for worsening of slurring of speech as per hiw . Patient those findings. He is feeling better. He feels he is back to normal self. Patient denies any focal neurological symptoms. Allergies/Adverse Reactions: Allergies Allergy/AdvReac Type Severity Reaction Status Date / Time amoxicillin Allergy Severe vomiting Verified 04/12/20 19:57 diarrhea Home Medications: Metoprolol Tartrate [Lopressor -] 12.5 mg PO DAILY 11/04/13 Tamsulosin HCl [Flomax -] 0.4 mg PO HS 11/04/13 Acetaminophen [Tylenol] 650 mg PO PRN PRN 08/03/14 Fluticasone Prop 0.05% Nasal [Flonase -] 1 - 2 spray NS BID 08/03/14 Aspirin/Dipyridamole [Aggrenox -] 1 combo PO BID 07/30/17 Furosemide [Lasix] 20 mg PO DAILY 07/30/17 predniSONE [Deltasone -] 5 mg PO DAILY 07/30/17 Aspirin/Dipyridamole [Aggrenox -] 1 combo PO BID 04/12/20 Tramadol HCl [Ultram] 50 mg PO TID PRN 04/12/20 Zinc Sulfate 220 mg PO DAILY 04/12/20 Atorvastatin Calcium 10 mg PO HS 04/13/20 Calcium Carbonate/Vitamin D3 [Calcium 500-Vit D3 200 Tablet] 1 each PO DAILY 04/13/20 Guaifenesin [Mucinex] 600 mg PO BID 04/13/20 Omeprazole 20 mg PO ACBK 04/13/20 ROS,FH,SH reviewed in chart NEUROLGOICAL EXAMINATION Alert oriented x 3, neck is supple vss left sided facial palsy, ( umn type) and slurring of speech eomi, pupils reactive moving all ext ct head unremarkable carotid ultrasound ? carotid stenosis. Assessment/Plan 4 year old male, with a significant past medical history of stroke, osteoarthritis, and BPH. He has history of stroke 14 years ago with mild residual left facial weakness and slurring of speech He came transient worsening of symnptoms and now resolved. ct head urnemarkable, carotid ultraosund showed ? stenosis. -- Most likley TIA Plan: continue aggrenox and crestor for now - life style modificiatoin and and stroke education - mri of brain and mra of neck - will contineu to follow, Thanking you so much Constantino Stanley MD
[2020-04-16] MEDS: ACETAMINOPHEN 325 MG TABLET (FP) PO PRN (10:35)
--- NOTE | 2020-04-16 14:39 | PN ---
Progress Note, Physician History of Present Illness: Pt seen and examined at bedside. He is awake and alert. He denies shortness of breath. - Current Medication List Current Medications: Active Medications Acetaminophen (Tylenol -) 650 mg PO Q6H PRN PRN Reason: PAIN LEVEL 1-5 Last Admin: 04/16/20 10:35 Dose: 650 mg Documented by: Dipyridamole/Aspirin (Aggrenox -) 1 combo PO BID [facility] Last Admin: 04/16/20 09:02 Dose: 1 combo Documented by: Sodium Chloride (1/2 Normal Saline) 1,000 mls @ 42 mls/hr IV ASDIR [facility] Last Admin: 04/16/20 11:15 Dose: 42 mls/hr Documented by: Metoprolol Succinate (Toprol Xl -) 12.5 mg PO DAILY [facility] Last Admin: 04/16/20 09:01 Dose: 12.5 mg Documented by: Pantoprazole Sodium (Protonix -) 40 mg PO ACBK [facility] Last Admin: 04/16/20 06:15 Dose: 40 mg Documented by: Rosuvastatin Calcium (Crestor -) 10 mg PO [facility] Last Admin: 04/15/20 21:37 Dose: 10 mg Documented by: Tamsulosin HCl (Flomax -) 0.4 mg PO [facility] Last Admin: 04/15/20 21:37 Dose: 0.4 mg Documented by: Tramadol HCl (Ultram -) 50 mg PO Q12H PRN PRN Reason: PAIN LEVEL 6-10 Last Admin: 04/14/20 12:06 Dose: 50 mg Documented by: - Objective Vital Signs: Vital Signs Temperature 98.3 F 04/16/20 08:58 Pulse Rate 97 H 04/16/20 08:58 Respiratory Rate 19 04/16/20 08:58 Blood Pressure 112/61 04/16/20 08:58 O2 Sat by Pulse Oximetry (%) 94 L 04/16/20 09:00 Constitutional: Yes: Calm Eyes: Yes: Conjunctiva Clear HENT: Yes: Atraumatic Neck: Yes: Supple Cardiovascular: Yes: S1, S2 Respiratory: Yes: On Nasal O2 Gastrointestinal: Yes: Soft Musculoskeletal: Yes: WNL Edema: No Neurological: Yes: Oriented Psychiatric: Yes: Oriented Labs: CBC, BMP 04/16/20 05:56 04/16/20 05:56 INR, PTT INR 1.06 (0.83-1.09) 04/12/20 20:13 Assessment/Plan Current Medications Generic Name Dose Route Start Last Admin Trade Name Mark PRN Reason Stop Dose Admin Acetaminophen 650 mg 04/14/20 12:00 04/16/20 10:35 Tylenol - PO 650 mg Q6H PRN Administration PAIN LEVEL 1-5 Dipyridamole/Aspirin 1 combo 04/13/20 10:00 04/16/20 09:02 Aggrenox - PO 1 combo BID ARLEN Administration Sodium Chloride 1,000 mls @ 42 mls/hr 04/16/20 10:00 04/16/20 11:15 1/2 Normal Saline IV 42 mls/hr ASDIR ARLEN Administration Metoprolol Succinate 12.5 mg 04/13/20 10:00 04/16/20 09:01 Toprol Xl - PO 12.5 mg DAILY ARLEN Administration Pantoprazole Sodium 40 mg 04/13/20 07:00 04/16/20 06:15 Protonix - PO 40 mg ACBK ARLEN Administration Rosuvastatin Calcium 10 mg 04/13/20 22:00 04/15/20 21:37 Crestor - PO 10 mg HS ARLEN Administration Tamsulosin HCl 0.4 mg 04/13/20 22:00 04/15/20 21:37 Flomax - PO 0.4 mg HS ARLEN Administration Tramadol HCl 50 mg 04/14/20 12:03 04/14/20 12:06 Ultram - PO 50 mg Q12H PRN Administration PAIN LEVEL 6-10 Impression 1. SATHYA 2. CKD 3. CHF 4. UTI 5. proteinuria 6. hypokalemia 7. HLD 8. hx cva Plan - cont to monitor renal function - pt does not appear to be in failure - replace potassium - check mag - will d/c fluids as he is tolerating diet - lasix on hold for now, he was on lasix at home
[2020-04-16] MEDS: ROSUVASTATIN CA 10 MG TABLET (FP) PO SCH (21:30)
[2020-04-16] MEDS: TAMSULOSIN HCL 0.4 MG CAP PO SCH (21:30)
[2020-04-17] MEDS: PANTOPRAZOLE 40 MG TABLET PO SCH (06:08)
[2020-04-17 07:14] LABS: BASO % 0.5 % (0-2.0); EOS % 1.5 % (0-4.5); HEMOGLOBIN 8.4 GM/dL (11.7-16.9); LYMPH % 5.6 % (8-40); MCH 31.2 pg (25.7-33.7); MCHC 32.4 g/dl (32.0-35.9); MEAN CELL VOLUME 96.1 fl (80-96); MEAN PLT VOLUME 8.2 fl (7.5-11.1); MONO % 7.3 % (3.8-10.2); NEUT % 85.1 % (42.8-82.8); PLATELET COUNT 203 K/MM3 (134-434); RBC 2.71 M/mm3 (4.00-5.60); RDW 14.1 % (11.9-15.9); WHITE BLOOD COUNT 6.9 K/mm3 (4.0-10.0)
[2020-04-17 07:34] LABS: ALBUMIN 2.6 g/dl (3.4-5.0); BILIRUBIN,TOTAL 0.4 mg/dL (0.2-1); BLOOD UREA NITROGEN 36.3 mg/dL (7-18); CALCIUM 8.4 mg/dL (8.5-10.1); MAGNESIUM 2.3 mg/dL (1.8-2.4); POTASSIUM 3.4 mmol/L (3.5-5.1); TOT PROT 5.7 g/dl (6.4-8.2)
[2020-04-17] MEDS: ACETAMINOPHEN 325 MG TABLET (FP) PO PRN (08:55)
[2020-04-17] MEDS: metoPROLOL SUCCINATE 25 MG TAB.SR.24H (FP) PO SCH (09:02)
[2020-04-17] MEDS: ASPIRIN/DIPYRIDAMOLE 25 MG/200 MG CAPSULE PO SCH ×2 (09:02→21:29)
--- NOTE | 2020-04-17 09:40 | PN ---
Progress Note, Physician Chief Complaint: Pt A&Ox3; no chest pain presently. History of Present Illness: Mr. Hobson is an 84 year old male with a significant past medical history of CVA, severe osteoarthritis, HTN, HLD, chronic renal dysfunction (recent UTI), ?thyroid disorder, anemia, marked truncal obesity, chronic bilateral knee swelling ("bone-on -bone"), sedentary lifestyle ("bedbound" for at least two years), and BPH, who presents to the emergency department for 3 days of worsening SOB. Pt states he takes Lasix; however is legs have been more swollen recently. states she noticed increased facial droop and slurred speech the past several days. Pt also reports waking up in the middle of the night with chest pressure and orthopnea the past several days. Patient denies headache and dizziness. He denies fever, chills, nausea, vomit, diarrhea and constipation. He denies dysuria, frequency, urgency and hematuria. Allergies: NKDA PCP: Dr. Zafar Sr Mine Deputy: Dr. Sole Bob former cigarette smoker - Current Medication List Current Medications: Active Medications Acetaminophen (Tylenol -) 650 mg PO Q6H PRN PRN Reason: PAIN LEVEL 1-5 Last Admin: 04/17/20 08:55 Dose: 650 mg Documented by: Dipyridamole/Aspirin (Aggrenox -) 1 combo PO BID [facility] Last Admin: 04/17/20 09:02 Dose: 1 combo Documented by: Metoprolol Succinate (Toprol Xl -) 12.5 mg PO DAILY [facility] Last Admin: 04/17/20 09:02 Dose: 12.5 mg Documented by: Pantoprazole Sodium (Protonix -) 40 mg PO ACBK [facility] Last Admin: 04/17/20 06:08 Dose: 40 mg Documented by: Rosuvastatin Calcium (Crestor -) 10 mg PO [facility] Last Admin: 04/16/20 21:30 Dose: 10 mg Documented by: Tamsulosin HCl (Flomax -) 0.4 mg PO [facility] Last Admin: 04/16/20 21:30 Dose: 0.4 mg Documented by: Tramadol HCl (Ultram -) 50 mg PO Q12H PRN PRN Reason: PAIN LEVEL 6-10 Last Admin: 04/14/20 12:06 Dose: 50 mg Documented by: - Objective Vital Signs: Vital Signs Temperature 98.2 F 04/17/20 09:22 Pulse Rate 101 H 04/17/20 09:22 Respiratory Rate 20 04/17/20 09:22 Blood Pressure 124/58 L 04/17/20 09:22 O2 Sat by Pulse Oximetry (%) 95 04/17/20 09:22 Constitutional: Yes: Anxious, Obese Eyes: Yes: WNL HENT: Yes: WNL Neck: Yes: WNL Cardiovascular: Yes: Pulse Irregular, S1, S2 Gastrointestinal: Yes: Soft, Abdomen, Obese ...Rectal Exam: Yes: Deferred Genitourinary: No: Anuria Breast(s): Yes: Left Musculoskeletal: Yes: Joint Stiffness, Muscle Weakness Extremities: Yes: Other (chronically swollen knees (prior surgeries to both)) Edema: No Peripheral Pulses WNL: Yes Integumentary: Yes: WNL Neurological: Yes: Alert, Oriented, Weakness Psychiatric: Yes: Alert, Oriented, Other (anxeity) Labs: CBC, BMP 04/17/20 05:50 04/17/20 05:50 INR, PTT INR 1.06 (0.83-1.09) 04/12/20 20:13 - ....Imaging Chest X-ray: Image Reviewed EKG: Image Reviewed Other: Image Reviewed (telemetry: NSR, APCs) Assessment/Plan Mr. Hobson is an 84 year old male with a significant past medical history of CVA, severe osteoarthritis, HTN, HLD, chronic renal dysfunction, ?thyroid disorder, obesity, and BPH, who presents to the emergency department for 3 days of worsening SOB. Pt states he takes Lasix; however, his legs have been more swollen recently. states she noticed increased facial droop and slurred speech over the past several days. Pt also reports waking up in the middle of the night with chest pressure and orthopnea during the past several days. TNI noted elevated. Elevated BNP. mild hypokalemia Rec: COVID pending CT head Serial TNI and EKGs. TSH; free T4 (abnormal in 2013) BUN/Cr, electrolytes (replete K), Is and Os, daily weight. lipid panel; HGBA1c Mr. Hobson is an 84 year old white male with a significant past medical history of CVA, severe osteoarthritis, HTN, HLD, chronic renal dysfunction, ?thyroid disorder, marked truncal obesity, and BPH, who presents to the emergency d epartment for 3 days of worsening SOB. Pt states he takes Lasix; however, his legs have been more swollen recently. states she noticed increased facial droop and slurred speech over the past several days. Pt also reports waking up in the middle of the night with chest pressure and orthopnea during the past several days. TNI noted elevated in the setting of CRI and decompensated CHF Elevated BNP. Midly elevated free T4; low TSH. systolic LV dysfunction and valvular heart disease (ECHO: moderate ; LVEF 45- 50%) COVID negative TIA Rec: continue Aggrenox; f/u neurologic w/u Crestor: continue, and keep LDL < 70 mg/dL. On metoprolol ER; consider ACEI if renal function improves. F/u BUN/Cr, electrolytes, daily weight, Is and Os; renal w/u by Dr. Guy is in progress. f/u records of prior cardiac w/u (however, pt says he has not been out to see any doctors in at least 2 years). Given elevated TNI and risks for CAD, would recommend stress MIBI (Lexiscan--no hx asthma, and pt cannot walk well) once cleared by neurology (at present, neither carotid US or MRA have been able to delineate proximal LICA). Obesity: pt does not want nutritional guidance, saying "how can I lose weight when I can't walk?"; (his says he feels eating is the one pleasure he still has; she believes the extra weight is mostly water).
--- NOTE | 2020-04-17 11:15 | PN ---
Physical Exam: SUBJECTIVE: Patient seen and examined. He is sitting in the chair, in no acute distress. tells me that when he walks he gets short of breath. he is agreeing to try outpatient short term rehab for apx 1 or 2 weeks but was hesitant. He rather go home but understands that he is weaker and not ambulating at this baseline. OBJECTIVE: Patient is an 84 year old male, with a significant past medical history of stroke, osteoarthritis, and BPH, who presents to the emergency department on 04/12/2020 for 3 days of worsening SOB. Pt states he takes Lasix however is legs have been more swollen recently. per admission records, increased facial droop and slurred speech the past several days. Pt also reports waking up in the middle of the night with chest pressure and orthopnea the past several days. Patient denies headache and dizziness. He denies fever, chills, nausea, vomit, diarrhea and constipation. He denies dysuria, frequency, urgency and hematuria Period Temp Pulse Resp BP Sys/Wheeler Pulse Ox Last 24 Hr 97.3 F-98.9 F 98-104 19-20 121-140/54-73 95-96 GENERAL: The patient is awake, alert, and fully oriented, in no acute distress. tolerating room air HEAD: Normal with no signs of trauma. EYES: PERRL, extraocular movements intact, sclera anicteric, conjunctiva clear. No ptosis. ENT: Ears normal, nares patent, oropharynx clear without exudates, moist mucous membranes. NECK: Trachea midline, full range of motion, supple. LUNGS: Breath sounds equal, clear to auscultation bilaterally, no wheezes, no crackles, no accessory muscle use. HEART: Regular rate and rhythm ABDOMEN: Soft, nontender, nondistended, normoactive bowel sounds EXTREMITIES: 1+ bilateral lower ext edema. NEUROLOGICAL: Normal speech, gait not observed. PSYCH: Normal mood, normal affect. SKIN: Warm, dry, normal turgor, no rashes or lesions noted Laboratory Results - last 24 hrs 04/16/20 04/17/20 04/17/20 10:40 05:50 05:50 WBC 6.9 RBC 2.71 L Hgb 8.4 L Hct 26.0 L MCV 96.1 H MCH 31.2 MCHC 32.4 RDW 14.1 Plt Count 203 MPV 8.2 Absolute Neuts (auto) 5.9 Neutrophils % 85.1 H Lymphocytes % 5.6 L Monocytes % 7.3 Eosinophils % 1.5 Basophils % 0.5 Nucleated RBC % 0 Sodium 142 Potassium 3.4 L Chloride 108 H Carbon Dioxide 27 Anion Gap 7 L BUN 36.3 H Creatinine 2.0 H Est GFR (CKD-EPI)AfAm 34.50 Est GFR (CKD-EPI)NonAf 29.76 Random Glucose 119 H Calcium 8.4 L Magnesium 2.3 Total Bilirubin 0.4 AST 8 L ALT 9 L Alkaline Phosphatase 58 Total Protein 5.7 L Albumin 2.6 L Ur Random Sodium 41 Ur Random Potassium 18.0 L Ur Random Chloride 25 L Active Medications Generic Name Dose Route Start Last Admin Trade Name Freq PRN Reason Stop Dose Admin Acetaminophen 650 mg 04/14/20 12:00 04/17/20 08:55 Tylenol - PO 650 mg Q6H PRN Administration PAIN LEVEL 1-5 Dipyridamole/Aspirin 1 combo 04/13/20 10:00 04/17/20 09:02 Aggrenox - PO 1 combo BID ARLEN Administration Metoprolol Succinate 12.5 mg 04/13/20 10:00 04/17/20 09:02 Toprol Xl - PO 12.5 mg DAILY ARLEN Administration Pantoprazole Sodium 40 mg 04/13/20 07:00 04/17/20 06:08 Protonix - PO 40 mg ACBK ARLEN Administration Potassium Chloride 40 meq 04/17/20 11:14 K-Dur - PO 04/17/20 11:15 ONCE ONE Rosuvastatin Calcium 10 mg 04/13/20 22:00 04/16/20 21:30 Crestor - PO 10 mg HS ARLEN Administration Tamsulosin HCl 0.4 mg 04/13/20 22:00 04/16/20 21:30 Flomax - PO 0.4 mg HS ARLEN Administration Tramadol HCl 50 mg 04/14/20 12:03 04/14/20 12:06 Ultram - PO 50 mg Q12H PRN Administration PAIN LEVEL 6-10 Trimethoprim/Sulfamethoxazole 1 each 04/17/20 11:15 Bactrim Ds - PO 04/20/20 11:14 BID ARLEN ASSESSMENT/PLAN: Problem List - Problems (1) Acute respiratory failure Assessment/Plan: acute respiratory failure in the setting of acute on chronic heart failure improved with IV lasix with stable oxygen levels on room air. lasix and pool on hold for worsening SATHYA> continue beta blockers and aggrenox. echo noted, ef 45-50% monitor intake and output and daily weights on 2 liters prn maintain oxygen above 92% room air assess for oxygen home needs if patient decides to go home, currently he is considering rehab Code(s): J96.00 - ACUTE RESPIRATORY FAILURE, UNSP W HYPOXIA OR HYPERCAPNIA (2) CHF (congestive heart failure) Assessment/Plan: systolic LV dysfunction and valvular heart disease (ECHO: moderate ; LVEF 45- 50%) monitor intake, output and daily weights resume lasix per renal monitor on tele Code(s): I50.9 - HEART FAILURE, UNSPECIFIED Qualifiers: Heart failure type: unspecified Heart failure chronicity: acute Qualified Code(s): I50.9 - Heart failure, unspecified (3) Slurred speech Assessment/Plan: patient with residual slurred speech from previous cva speech clear at times MRI of brain negative for acute process Code(s): R47.81 - SLURRED SPEECH (4) HTN (hypertension) Code(s): I10 - ESSENTIAL (PRIMARY) HYPERTENSION (5) SATHYA (acute kidney injury) Assessment/Plan: creat improving at 2.0. creatinine between 1.4-2.0 on previous admissions renal following renal dose medications monitor renal function Code(s): N17.9 - ACUTE KIDNEY FAILURE, UNSPECIFIED (6) E-coli UTI Assessment/Plan: UC showed ecoli UTI patient with pcn allergy and low GFR on bactrim x 3 days monitor K while on bactrim Code(s): N39.0 - URINARY TRACT INFECTION, SITE NOT SPECIFIED; B96.20 - UNSP ESCHERICHIA COLI THE CAUSE OF DISEASES CLASSD ELSWHR (7) History of CVA (cerebrovascular accident) Code(s): Z86.73 - PRSNL HX OF TIA (TIA), AND CEREB INFRC W/O RESID DEFICITS (8) History of CVA with residual deficit Assessment/Plan: previous cva patient with slurred speech on admission mri of debora and mra noted, no acute process seen carotid u/s to be repeated for possible left carotid stenosis per neuro, possibly had a TIA Code(s): I69.30 - UNSPECIFIED SEQUELAE OF CEREBRAL INFARCTION (9) DVT prophylaxis Assessment/Plan: patient on aggrenox Code(s): Z29.9 - ENCOUNTER FOR PROPHYLACTIC MEASURES, UNSPECIFIED Visit type - Emergency Visit Emergency Visit: Yes ED Registration Date: 04/12/20 Care time: The patient presented to the Emergency Department on the above date and was hospitalized for further evaluation of their emergent condition. - New Patient This patient is new to me today: Yes Date on this admission: 04/17/20 - Critical Care Critical Care patient: No - Discharge Referral Referred to [facility] Med P.C.: No - Medication Review Med list reviewed for High Risk Meds patients 65 and older: Yes
[2020-04-17] MEDS: SULFAMETHOXAZOLE/TRIMETHOPRIM 800MG/160MG D.S. TABLET PO SCH ×2 (11:26→21:29)
[2020-04-17] MEDS ORDERED: POTASSIUM CHLORIDE TABS 20 MEQ TABLET.ER (FP) PO ONE (11:30)
--- NOTE | 2020-04-17 12:46 | PN ---
Progress Note, Physician History of Present Illness: Pt seen and examined at bedside. He is awake and alert. He denies shortness of breath. - Current Medication List Current Medications: Active Medications Acetaminophen (Tylenol -) 650 mg PO Q6H PRN PRN Reason: PAIN LEVEL 1-5 Last Admin: 04/17/20 08:55 Dose: 650 mg Documented by: Dipyridamole/Aspirin (Aggrenox -) 1 combo PO BID [facility] Last Admin: 04/17/20 09:02 Dose: 1 combo Documented by: Metoprolol Succinate (Toprol Xl -) 12.5 mg PO DAILY [facility] Last Admin: 04/17/20 09:02 Dose: 12.5 mg Documented by: Pantoprazole Sodium (Protonix -) 40 mg PO ACBK [facility] Last Admin: 04/17/20 06:08 Dose: 40 mg Documented by: Rosuvastatin Calcium (Crestor -) 10 mg PO [facility] Last Admin: 04/16/20 21:30 Dose: 10 mg Documented by: Tamsulosin HCl (Flomax -) 0.4 mg PO [facility] Last Admin: 04/16/20 21:30 Dose: 0.4 mg Documented by: Tramadol HCl (Ultram -) 50 mg PO Q12H PRN PRN Reason: PAIN LEVEL 6-10 Last Admin: 04/14/20 12:06 Dose: 50 mg Documented by: Trimethoprim/Sulfamethoxazole (Bactrim Ds -) 1 each PO BID [facility] Stop: 04/20/20 11:14 Last Admin: 04/17/20 11:26 Dose: 1 each Documented by: - Objective Vital Signs: Vital Signs Temperature 98.2 F 04/17/20 09:22 Pulse Rate 101 H 04/17/20 09:22 Respiratory Rate 20 04/17/20 09:22 Blood Pressure 124/58 L 04/17/20 09:22 O2 Sat by Pulse Oximetry (%) 95 04/17/20 09:22 Constitutional: Yes: Calm Eyes: Yes: Conjunctiva Clear HENT: Yes: Atraumatic Cardiovascular: Yes: S1, S2 Respiratory: Yes: CTA Bilaterally Gastrointestinal: Yes: Soft Genitourinary: Yes: WNL Musculoskeletal: Yes: WNL Edema: No Neurological: Yes: Oriented Psychiatric: Yes: Oriented Labs: CBC, BMP 04/17/20 05:50 04/17/20 05:50 INR, PTT INR 1.06 (0.83-1.09) 04/12/20 20:13 Assessment/Plan Current Medications Generic Name Dose Route Start Last Admin Trade Name Freq PRN Reason Stop Dose Admin Acetaminophen 650 mg 04/14/20 12:00 04/17/20 08:55 Tylenol - PO 650 mg Q6H PRN Administration PAIN LEVEL 1-5 Dipyridamole/Aspirin 1 combo 04/13/20 10:00 04/17/20 09:02 Aggrenox - PO 1 combo BID [facility] Administration Metoprolol Succinate 12.5 mg 04/13/20 10:00 04/17/20 09:02 Toprol Xl - PO 12.5 mg DAILY A[facility]EN Administration Pantoprazole Sodium 40 mg 04/13/20 07:00 04/17/20 06:08 Protonix - PO 40 mg ACBK [facility] Administration Rosuvastatin Calcium 10 mg 04/13/20 22:00 04/16/20 21:30 Crestor - PO 10 mg HS ARLEN Administration Tamsulosin HCl 0.4 mg 04/13/20 22:00 04/16/20 21:30 Flomax - PO 0.4 mg HS A[facility]EN Administration Tramadol HCl 50 mg 04/14/20 12:03 04/14/20 12:06 Ultram - PO 50 mg Q12H PRN Administration PAIN LEVEL 6-10 Trimethoprim/Sulfamethoxazole 1 each 04/17/20 11:15 04/17/20 11:26 Bactrim Ds - PO 04/20/20 11:14 1 each BID [facility]EN Administration Impression 1. SATHYA 2. CKD 3. CHF 4. UTI 5. proteinuria 6. hypokalemia 7. HLD 8. hx cva Plan - cont to monitor renal function - replace potassium - lasix on hold - stable off of fluids - renal dose meds
--- NOTE | 2020-04-17 15:31 | PN ---
Progress Note (short form) - Note Progress Note: 84 year old male, with a significant past medical history of stroke, osteoarthritis, and BPH. He has stroke 14 years ago and have mild left facial droopiness and slurring of speech. He came to ed for worsening of slurring of speech as per hiw . Patient those findings. He is feeling better. He feels he is back to normal self. Patient denies any focal neurological symptoms. -- no new complain, mra was inconclusive for left ica/cca bifircuation stenosis and spoke to plant clerk, would hold stress testing till we have clarity NEUROLGOICAL EXAMINATION Alert oriented x 3, neck is supple vss left sided facial palsy, ( umn type) and slurring of speech eomi, pupils reactive moving all ext ct head unremarkable carotid ultrasound ? carotid stenosis. Assessment/Plan 4 year old male, with a significant past medical history of stroke, osteoarthritis, and BPH. He has history of stroke 14 years ago with mild residual left facial weakness and slurring of speech He came transient worsening of symnptoms and now resolved. ct head urnemarkable, carotid ultraosund showed ? stenosis. -- Most patrick TIA Plan: continue aggrenox and crestor for now - life style modificiatoin and and stroke education - mri of brain and mra of neck result reviewed, spoke to plant clerk, i would do repeat carotid ultrasound for delineation for cca/ica left stenosis Thanking you so much Constantino Stanley MD
[2020-04-17] MEDS: TAMSULOSIN HCL 0.4 MG CAP PO SCH (21:29)
[2020-04-17] MEDS: ROSUVASTATIN CA 10 MG TABLET (FP) PO SCH (21:29)
[2020-04-18] MEDS: PANTOPRAZOLE 40 MG TABLET PO SCH (06:07)
--- NOTE | 2020-04-18 08:32 | PN ---
Progress Note (short form) - Note Progress Note: 84 year old male, with a significant past medical history of stroke, osteoarthritis, and BPH. He has stroke 14 years ago and have mild left facial droopiness and slurring of speech. He came to ed for worsening of slurring of speech as per hiw . Patient those findings. He is feeling better. He feels he is back to normal self. Patient denies any focal neurological symptoms. -- no new complain. NEUROLGOICAL EXAMINATION Alert oriented x 3, neck is supple vss left sided facial palsy, ( umn type) and slurring of speech eomi, pupils reactive moving all ext ct head unremarkable carotid ultrasound ? carotid stenosis.mra did not resolved , Assessment/Plan 4 year old male, with a significant past medical history of stroke, osteoarthritis, and BPH. He has history of stroke 14 years ago with mild residual left facial weakness and slurring of speech He came transient worsening of symnptoms and now resolved. ct head urnemarkable, carotid ultraosund showed ? stenosis. -- Most likley TIA Plan: continue aggrenox and crestor for now - life style modificiatoin and and stroke education - mra of neck did not resolve stenosis, repeat carotid ultrasound and discuss [facility] radiologist Thanking you so much Constantino Stanley MD
[2020-04-18] MEDS: SULFAMETHOXAZOLE/TRIMETHOPRIM 800MG/160MG D.S. TABLET PO SCH ×2 (09:07→21:37)
[2020-04-18] MEDS: metoPROLOL SUCCINATE 25 MG TAB.SR.24H (FP) PO SCH (09:07)
[2020-04-18] MEDS: ASPIRIN/DIPYRIDAMOLE 25 MG/200 MG CAPSULE PO SCH ×2 (09:07→21:37)
--- NOTE | 2020-04-18 09:07 | PN ---
Physical Exam: SUBJECTIVE: Patient seen and examined at the bedside. reports that he had a coughing spell this morning when drinking water and eating breakfast, feels better. encouraged to get OOB with meals. OBJECTIVE: Patient is an 84 year old male, with a significant past medical history of stroke, osteoarthritis, and BPH, who presents to the emergency department on 04/12/2020 for 3 days of worsening SOB. Pt states he takes Lasix however is legs have been more swollen recently. per admission records, increased facial d bonnie and slurred speech the past several days. Pt also reports waking up in the middle of the night with chest pressure and orthopnea the past several days. imaging: tele: NSR 98, prolonged qtc 496 Vital Signs Period Temp Pulse Resp BP Sys/Wheeler Pulse Ox Last 24 Hr 98 F-98.6 F 57-101 18-20 109-132/44-69 95-100 GENERAL: The patient is awake, alert, and fully oriented, in no acute distress. tolerating room air HEAD: Normal with no signs of trauma. EYES: PERRL, extraocular movements intact, sclera anicteric, conjunctiva clear. No ptosis. ENT: Ears normal, nares patent, oropharynx clear without exudates, moist mucous membranes. NECK: Trachea midline, full range of motion, supple. LUNGS: Breath sounds equal, clear to auscultation bilaterally, no wheezes, no crackles, no accessory muscle use. HEART: Regular rate and rhythm ABDOMEN: Soft, nontender, nondistended, normoactive bowel sounds EXTREMITIES: 1+ bilateral lower ext edema. NEUROLOGICAL: Normal speech, gait not observed. PSYCH: Normal mood, normal affect. SKIN: Warm, dry, normal turgor, no rashes or lesions noted Active Medications Generic Name Dose Route Start Last Admin Trade Name Freq PRN Reason Stop Dose Admin Acetaminophen 650 mg 04/14/20 12:00 04/17/20 08:55 Tylenol - PO 650 mg Q6H PRN Administration PAIN LEVEL 1-5 Dipyridamole/Aspirin 1 combo 04/13/20 10:04/17/20 21:29 Aggrenox - PO 1 combo BID [facility]EN Administration Metoprolol Succinate 12.5 mg 04/13/20 10:04/17/20 09:02 Toprol Xl - PO 12.5 mg DAILY A[facility]EN Administration Pantoprazole Sodium 40 mg 04/13/20 07:00 04/18/20 06:07 Protonix - PO 40 mg ACBK A[facility]EN Administration Rosuvastatin Calcium 10 mg 04/13/20 22:00 04/17/20 21:29 Crestor - PO 10 mg HS ARLEN Administration Tamsulosin HCl 0.4 mg 04/13/20 22:00 04/17/20 21:29 Flomax - PO 0.4 mg HS ARLEN Administration Tramadol HCl 50 mg 04/14/20 12:03 04/14/20 12:06 Ultram - PO 50 mg Q12H PRN Administration PAIN LEVEL 6-10 Trimethoprim/Sulfamethoxazole 1 each 04/17/20 11:15 04/17/20 21:29 Bactrim Ds - PO 04/20/20 11:14 1 each BID [facility]EN Administration ASSESSMENT/PLAN: Problem List - Problems (1) Acute respiratory failure Assessment/Plan: acute respiratory failure in the setting of acute on chronic heart failure improved with IV lasix with stable oxygen levels on room air. lasix and pool on hold for worsening SATHYA> continue beta blockers and aggrenox. echo noted, ef 45-50% monitor intake and output and daily weights on 2 liters prn maintain oxygen above 92% room air assess for oxygen home needs if patient decides to go home, currently he is considering rehab Code(s): J96.00 - ACUTE RESPIRATORY FAILURE, UNSP W HYPOXIA OR HYPERCAPNIA (2) CHF (congestive heart failure) Assessment/Plan: systolic LV dysfunction and valvular heart disease (ECHO: moderate ; LVEF 45- 50%) monitor intake, output and daily weights resume lasix per renal monitor on tele Code(s): I50.9 - HEART FAILURE, UNSPECIFIED Qualifiers: Heart failure type: unspecified Heart failure chronicity: acute Qualified Code(s): I50.9 - Heart failure, unspecified (3) Slurred speech Assessment/Plan: patient with residual slurred speech from previous cva speech clear at times MRI of brain negative for acute process Code(s): R47.81 - SLURRED SPEECH (4) HTN (hypertension) Code(s): I10 - ESSENTIAL (PRIMARY) HYPERTENSION (5) SATHYA (acute kidney injury) Assessment/Plan: creat improving at 2.0. creatinine between 1.4-2.0 on previous admissions renal following renal dose medications monitor renal function Code(s): N17.9 - ACUTE KIDNEY FAILURE, UNSPECIFIED (6) E-coli UTI Assessment/Plan: UC showed ecoli UTI patient with pcn allergy and low GFR on bactrim x 3 days monitor K while on bactrim Code(s): N39.0 - URINARY TRACT INFECTION, SITE NOT SPECIFIED; B96.20 - UNSP ESCHERICHIA COLI THE CAUSE OF DISEASES CLASSD ELSWHR (7) History of CVA (cerebrovascular accident) Code(s): Z86.73 - PRSNL HX OF TIA (TIA), AND CEREB INFRC W/O RESID DEFICITS (8) History of CVA with residual deficit Assessment/Plan: previous cva patient with slurred speech on admission mri of debora and mra noted, no acute process seen carotid u/s to be repeated for possible left carotid stenosis per neuro, possibly had a TIA Code(s): I69.30 - UNSPECIFIED SEQUELAE OF CEREBRAL INFARCTION (9) DVT prophylaxis Assessment/Plan: patient on aggrenox Code(s): Z29.9 - ENCOUNTER FOR PROPHYLACTIC MEASURES, UNSPECIFIED Visit type - Emergency Visit Emergency Visit: Yes ED Registration Date: 04/12/20 Care time: The patient presented to the Emergency Department on the above date and was hospitalized for further evaluation of their emergent condition. - New Patient This patient is new to me today: No - Critical Care Critical Care patient: No - Discharge Referral Referred to [facility] Med [facility] No - Medication Review Med list reviewed for High Risk Meds patients 65 and older: Yes
[2020-04-18] MEDS: ACETAMINOPHEN 325 MG TABLET (FP) PO PRN (09:16)
--- NOTE | 2020-04-18 10:33 | PN ---
Progress Note, Physician History of Present Illness: Mr. Hobson is an 84 year old male with a significant past medical history of CVA, severe osteoarthritis, HTN, HLD, chronic renal dysfunction, ?thyroid disorder, obesity, and BPH, who presents to the emergency department for 3 days of worsening SOB. Pt states he takes Lasix however is legs have been more swollen recently. states she noticed increased facial droop and slurred speech the past several days. Pt also reports waking up in the middle of the night with chest pressure and orthopnea the past several days. Patient denies headache and dizziness. He denies fever, chills, nausea, vomit, diarrhea and constipation. He denies dysuria, frequency, urgency and hematuria. Allergies: NKDA PCP: Dr. Zafar Sr - Current Medication List Current Medications: Active Medications Acetaminophen (Tylenol -) 650 mg PO Q6H PRN PRN Reason: PAIN LEVEL 1-5 Last Admin: 04/18/20 09:16 Dose: 650 mg Documented by: Dipyridamole/Aspirin (Aggrenox -) 1 combo PO BID [facility] Last Admin: 04/18/20 09:07 Dose: 1 combo Documented by: Metoprolol Succinate (Toprol Xl -) 12.5 mg PO DAILY [facility] Last Admin: 04/18/20 09:07 Dose: 12.5 mg Documented by: Pantoprazole Sodium (Protonix -) 40 mg PO ACBK [facility] Last Admin: 04/18/20 06:07 Dose: 40 mg Documented by: Rosuvastatin Calcium (Crestor -) 10 mg PO [facility] Last Admin: 04/17/20 21:29 Dose: 10 mg Documented by: Tamsulosin HCl (Flomax -) 0.4 mg PO [facility] Last Admin: 04/17/20 21:29 Dose: 0.4 mg Documented by: Tramadol HCl (Ultram -) 50 mg PO Q12H PRN PRN Reason: PAIN LEVEL 6-10 Last Admin: 04/14/20 12:06 Dose: 50 mg Documented by: Trimethoprim/Sulfamethoxazole (Bactrim Ds -) 1 each PO BID [facility] Stop: 04/20/20 11:14 Last Admin: 04/18/20 09:07 Dose: 1 each Documented by: - Objective Vital Signs: Vital Signs Temperature 98.3 F 04/18/20 09:10 Pulse Rate 100 H 04/18/20 09:10 Respiratory Rate 18 04/18/20 09:10 Blood Pressure 131/54 L 04/18/20 09:10 O2 Sat by Pulse Oximetry (%) 92 L 04/18/20 09:10 Eyes: Yes: WNL, Conjunctiva Clear, EOM Intact HENT: Yes: WNL, Atraumatic, Normocephalic Neck: Yes: WNL, Supple, Trachea Midline Cardiovascular: Yes: WNL, Regular Rate and Rhythm Respiratory: Yes: WNL, Regular, CTA Bilaterally Gastrointestinal: Yes: WNL, Normal Bowel Sounds Genitourinary: Yes: WNL Musculoskeletal: Yes: WNL Extremities: Yes: WNL Edema: No Integumentary: Yes: WNL Neurological: Yes: WNL, Alert, Oriented ...Motor Strength: WNL Psychiatric: Yes: WNL Labs: CBC, BMP 04/17/20 05:50 04/17/20 05:50 INR, PTT INR 1.06 (0.83-1.09) 04/12/20 20:13 Assessment/Plan 84 year old male with a significant past medical history of CVA, severe osteoarthritis, HTN, HLD, chronic renal dysfunction, ?thyroid disorder, obesity, and BPH, who presents to the emergency department for 3 days of worsening SOB. Pt states he takes Lasix; however, his legs have been more swollen recently. states she noticed increased facial droop and slurred speech over the past several days. Pt also reports waking up in the middle of the night with chest pressure and orthopnea during the past several days. TNI noted elevated in the setting of CRI and decompensated CHF Elevated BNP. ECHO moderate EF 45-50% COVID negative TIA Rec: continue Aggrenox; f/u neurologic w/u Crestor: continue, and keep LDL < 70 mg/dL. On metoprolol ER; consider ACEI if renal function improves. F/u BUN/Cr, electrolytes, daily weight, Is and Os; renal w/u by Dr. Guy is in progress. f/u records of prior cardiac w/u (however, pt says he has not been out to see any doctors in at least 2 years). Given elevated TNI and risks for CAD, would recommend stress MIBI (Lexiscan--no hx asthma, and pt cannot walk well) once cleared by neurology (at present, neither carotid US or MRA have been able to delineate proximal LICA). Obesity: pt does not want nutritional guidance, saying "how can I lose weight when I can't walk?"; (his says he feels eating is the one pleasure he still has; she believes the extra weight is mostly water).
[2020-04-18 11:11] LABS: BASO % 0.6 % (0-2.0); EOS % 1.2 % (0-4.5); HEMATOCRIT 28.8 % (35.4-49); HEMOGLOBIN 9.2 GM/dL (11.7-16.9); LYMPH % 8.4 % (8-40); MCH 30.7 pg (25.7-33.7); MCHC 31.9 g/dl (32.0-35.9); MEAN CELL VOLUME 96.2 fl (80-96); MEAN PLT VOLUME 8.1 fl (7.5-11.1); MONO % 7.9 % (3.8-10.2); NEUT % 81.9 % (42.8-82.8); PLATELET COUNT 246 K/MM3 (134-434); RBC 2.99 M/mm3 (4.00-5.60); RDW 14.3 % (11.9-15.9); WHITE BLOOD COUNT 8.4 K/mm3 (4.0-10.0)
--- NOTE | 2020-04-18 11:22 | PN ---
Progress Note, Physician History of Present Illness: Pt seen and examined at bedside. He is awake and alert. he denies shortness of breath at rest. He complains of edema. - Current Medication List Current Medications: Active Medications Acetaminophen (Tylenol -) 650 mg PO Q6H PRN PRN Reason: PAIN LEVEL 1-5 Last Admin: 04/18/20 09:16 Dose: 650 mg Documented by: Dipyridamole/Aspirin (Aggrenox -) 1 combo PO BID [facility] Last Admin: 04/18/20 09:07 Dose: 1 combo Documented by: Metoprolol Succinate (Toprol Xl -) 12.5 mg PO DAILY [facility] Last Admin: 04/18/20 09:07 Dose: 12.5 mg Documented by: Pantoprazole Sodium (Protonix -) 40 mg PO ACBK [facility] Last Admin: 04/18/20 06:07 Dose: 40 mg Documented by: Rosuvastatin Calcium (Crestor -) 10 mg PO [facility] Last Admin: 04/17/20 21:29 Dose: 10 mg Documented by: Tamsulosin HCl (Flomax -) 0.4 mg PO [facility] Last Admin: 04/17/20 21:29 Dose: 0.4 mg Documented by: Tramadol HCl (Ultram -) 50 mg PO Q12H PRN PRN Reason: PAIN LEVEL 6-10 Last Admin: 04/14/20 12:06 Dose: 50 mg Documented by: Trimethoprim/Sulfamethoxazole (Bactrim Ds -) 1 each PO BID [facility] Stop: 04/20/20 11:14 Last Admin: 04/18/20 09:07 Dose: 1 each Documented by: - Objective Vital Signs: Vital Signs Temperature 98.3 F 04/18/20 09:10 Pulse Rate 100 H 04/18/20 09:10 Respiratory Rate 18 04/18/20 09:10 Blood Pressure 131/54 L 04/18/20 09:10 O2 Sat by Pulse Oximetry (%) 92 L 04/18/20 09:10 Constitutional: Yes: Calm Eyes: Yes: Conjunctiva Clear HENT: Yes: Atraumatic Neck: Yes: Supple Cardiovascular: Yes: S1, S2 Respiratory: Yes: CTA Bilaterally Gastrointestinal: Yes: Normal Bowel Sounds, Soft Genitourinary: Yes: WNL Edema: Yes Edema: LLE: Trace, RLE: Trace Neurological: Yes: Oriented Psychiatric: Yes: Oriented Labs: CBC, BMP 04/18/20 10:20 INR, PTT INR 1.06 (0.83-1.09) 04/12/20 20:13 Assessment/Plan Current Medications Generic Name Dose Route Start Last Admin Trade Name Freq PRN Reason Stop Dose Admin Acetaminophen 650 mg 04/14/20 12:00 04/18/20 09:16 Tylenol - PO 650 mg Q6H PRN Administration PAIN LEVEL 1-5 Dipyridamole/Aspirin 1 combo 04/13/20 10:00 04/18/20 09:07 Aggrenox - PO 1 combo BID [facility] Administration Metoprolol Succinate 12.5 mg 04/13/20 10:00 04/18/20 09:07 Toprol Xl - PO 12.5 mg DAILY [facility] Administration Pantoprazole Sodium 40 mg 04/13/20 07:00 04/18/20 06:07 Protonix - PO 40 mg ACBK [facility] Administration Rosuvastatin Calcium 10 mg 04/13/20 22:00 04/17/20 21:29 Crestor - PO 10 mg HS A[facility]EN Administration Tamsulosin HCl 0.4 mg 04/13/20 22:00 04/17/20 21:29 Flomax - PO 0.4 mg HS A[facility]EN Administration Tramadol HCl 50 mg 04/14/20 12:03 04/14/20 12:06 Ultram - PO 50 mg Q12H PRN Administration PAIN LEVEL 6-10 Trimethoprim/Sulfamethoxazole 1 each 04/17/20 11:15 04/18/20 09:07 Bactrim Ds - PO 04/20/20 11:14 1 each BID [facility]EN Administration Impression 1. SATHYA 2. CKD 3. CHF 4. UTI 5. proteinuria 6. hypokalemia 7. HLD 8. hx cva Plan - follow up labs - can restart home dose of lasix, 20 mg po daily - repeat labs in am - monitor lytes - cont pt/rehab - check potassium - check mag
[2020-04-18 11:43] LABS: BILIRUBIN,TOTAL 0.3 mg/dL (0.2-1); BLOOD UREA NITROGEN 34.4 mg/dL (7-18); CALCIUM 8.4 mg/dL (8.5-10.1); CREATININE 2.3 mg/dL (0.55-1.3); MAGNESIUM 2.3 mg/dL (1.8-2.4); POTASSIUM 3.7 mmol/L (3.5-5.1); TOT PROT 6.3 g/dl (6.4-8.2)
[2020-04-18] MEDS ORDERED: FUROSEMIDE 20 MG TABLET (FP) PO ONE (12:15)
[2020-04-18] MEDS: ROSUVASTATIN CA 10 MG TABLET (FP) PO SCH (21:37)
[2020-04-18] MEDS: TAMSULOSIN HCL 0.4 MG CAP PO SCH (21:37)
[2020-04-19] MEDS: traMADol HCL 50 MG TABLET PO PRN (04:08)
[2020-04-19] MEDS ORDERED: METOPROLOL TARTRATE 5 MG/5 ML VIAL IVPB ONE (05:15)
--- NOTE | 2020-04-19 05:40 | HOSP ---
Subjective - Review of Symptoms Events since last encounter: Hospitalist Encounter Notified by the RN that the patient was tachycardiac on the monitor- EKG showed Afib with RVR, was asked to assess Arrived to bedside, patient is awake, alert and oriented. Patient denies CP, palpitations, SOB. Patient examined see [facility] Plan: EKG- stat Lopressor 5mg IV Physical Examination Vital Signs: Vital Signs Temperature 98.4 F 04/19/20 01:50 Pulse Rate 85 04/19/20 01:50 Respiratory Rate 18 04/19/20 01:50 Blood Pressure 118/59 L 04/19/20 01:50 O2 Sat by Pulse Oximetry (%) 97 04/18/20 22:00 Constitutional: Yes: No Distress, Calm Eyes: Yes: Conjunctiva Clear, EOM Intact, PERRL HENT: Yes: Atraumatic, Normocephalic Neck: Yes: Supple, Trachea Midline Cardiovascular: Yes: Pulse Irregular, S1, S2 Respiratory: Yes: CTA Bilaterally, On Nasal O2 Gastrointestinal: Yes: Normal Bowel Sounds, Soft, Abdomen, Obese ...Rectal Exam: Yes: Deferred Renal/: Yes: WNL Breast(s): Yes: WNL Musculoskeletal: Yes: WNL Edema: Yes Edema: LLE: 1+, RLE: 1+ Peripheral Pulses WNL: Yes Neurological: Yes: Alert, Oriented, Pre-Existing Deficit Psychiatric: Yes: Alert, Oriented Labs: CBC, BMP 04/18/20 10:20 04/18/20 10:20 Laboratory Results - last 24 hr 04/18/20 04/18/20 10:20 10:20 WBC 8.4 RBC 2.99 L Hgb 9.2 L Hct 28.8 L MCV 96.2 H MCH 30.7 MCHC 31.9 L RDW 14.3 Plt Count 246 D MPV 8.1 Absolute Neuts (auto) 6.8 Neutrophils % 81.9 Lymphocytes % 8.4 D Monocytes % 7.9 Eosinophils % 1.2 Basophils % 0.6 Nucleated RBC % 0 Sodium 141 Potassium 3.7 Chloride 109 H Carbon Dioxide 21 Anion Gap 11 BUN 34.4 H Creatinine 2.3 H Est GFR (CKD-EPI)AfAm 29.13 Est GFR (CKD-EPI)NonAf 25.14 Random Glucose 123 H Calcium 8.4 L Magnesium 2.3 Total Bilirubin 0.3 AST 15 ALT 12 L Alkaline Phosphatase 64 Total Protein 6.3 L Albumin 3.0 L Intake & Output 04/16/20 04/17/20 04/18/20 04/19/20 23:59 23:59 23:59 23:59 Intake Total 1306 555 1461 Output Total 3 Balance [id number] Current Medications Generic Name Dose Route Start Last Admin Trade Name Freq PRN Reason Stop Dose Admin Acetaminophen 650 mg 04/14/20 12:00 04/18/20 09:16 Tylenol - PO 650 mg Q6H PRN Administration PAIN LEVEL 1-5 Dipyridamole/Aspirin 1 combo 04/13/20 10:00 04/18/20 21:37 Aggrenox - PO 1 combo BID A[facility]EN Administration Furosemide 20 mg 04/19/20 10:00 Lasix - PO DAILY A[facility]EN Metoprolol Succinate 12.5 mg 04/13/20 10:00 04/18/20 09:07 Toprol Xl - PO 12.5 mg DAILY [facility] Administration Pantoprazole Sodium 40 mg 04/13/20 07:00 04/18/20 06:07 Protonix - PO 40 mg ACBK [facility] Administration Rosuvastatin Calcium 10 mg 04/13/20 22:00 04/18/20 21:37 Crestor - PO 10 mg HS A[facility]EN Administration Tamsulosin HCl 0.4 mg 04/13/20 22:00 04/18/20 21:37 Flomax - PO 0.4 mg HS A[facility]EN Administration Tramadol HCl 50 mg 04/14/20 12:03 04/19/20 04:08 Ultram - PO 50 mg Q12H PRN Administration PAIN LEVEL 6-10 Trimethoprim/Sulfamethoxazole 1 each 04/17/20 11:15 04/18/20 21:37 Bactrim Ds - PO 04/20/20 11:14 1 each BID A[facility]EN Administration Hospitalist Encounter Assessment: Patient is an 84 year old male, with a significant past medical history of CVA, HTN, OA, BPH. Who presented to the emergency department on 04/12/2020 for 3 days of worsening SOB. Admitted for CHF Exacerbation. Outcome: EKG- Afib with RVR, non-specific T wave abnormality, a change compared to prior study ST with PACs nonspecific T wave abnormality Patient is asymptomatic, HR is 120s-140s on cardiac monitorHeart Rate improved post medication [id number] Will advise ROMEL Stevens of overnight events Critical Care Total Critical Care Time (in minutes): 35 Critical Care Statement: The care of this patient involved high complexity decision making to prevent further life threatening deterioration of the patient's condition and/or to evaluate & treat vital organ system(s) failure or risk of failure.
[2020-04-19] MEDS: PANTOPRAZOLE 40 MG TABLET PO SCH (06:46)
[2020-04-19 06:59] LABS: BASO % 0.4 % (0-2.0); EOS % 0.8 % (0-4.5); HEMATOCRIT 27.6 % (35.4-49); LYMPH % 4.7 % (8-40); MCH 31.1 pg (25.7-33.7); MCHC 32.5 g/dl (32.0-35.9); MEAN CELL VOLUME 95.6 fl (80-96); MEAN PLT VOLUME 8.1 fl (7.5-11.1); MONO % 7.4 % (3.8-10.2); NEUT % 86.7 % (42.8-82.8); PLATELET COUNT 189 K/MM3 (134-434); RBC 2.89 M/mm3 (4.00-5.60); RDW 14.2 % (11.9-15.9); WHITE BLOOD COUNT 8.3 K/mm3 (4.0-10.0)
[2020-04-19 07:33] LABS: POTASSIUM 3.6 mmol/L (3.5-5.1)
[2020-04-19 07:47] LABS: ALBUMIN 2.8 g/dl (3.4-5.0); BILIRUBIN,TOTAL 0.2 mg/dL (0.2-1); BLOOD UREA NITROGEN 32.7 mg/dL (7-18); CALCIUM 8.2 mg/dL (8.5-10.1); CREATININE 2.3 mg/dL (0.55-1.3); MAGNESIUM 2.3 mg/dL (1.8-2.4); TOT PROT 5.8 g/dl (6.4-8.2)
[2020-04-19] MEDS: metoPROLOL SUCCINATE 25 MG TAB.SR.24H (FP) PO SCH ×2 (08:22→09:28)
[2020-04-19] MEDS: SULFAMETHOXAZOLE/TRIMETHOPRIM 800MG/160MG D.S. TABLET PO SCH ×2 (09:24→21:03)
[2020-04-19] MEDS: ASPIRIN/DIPYRIDAMOLE 25 MG/200 MG CAPSULE PO SCH (09:24)
--- NOTE | 2020-04-19 09:54 | EKG ---
Test Reason : Blood Pressure : / mmHG Vent. Rate : 125 BPM Atrial Rate : 088 BPM P-R Int : 000 ms QRS Dur : 090 ms QT Int : 332 ms P-R-T Axes : 000 -05 149 degrees QTc Int : 479 ms ATRIAL FIBRILLATION WITH RAPID VENTRICULAR RESPONSE WITH PREMATURE VENTRICULAR OR ABERRANTLY CONDUCTED COMPLEXES NONSPECIFIC T WAVE ABNORMALITY ABNORMAL ECG WHEN COMPARED WITH ECG OF 19-APR-2020 04:58, NONSPECIFIC T WAVE ABNORMALITY HAS REPLACED INVERTED T WAVES IN INFERIOR LEADS Confirmed by TEJINDER LINARES MD ([id number]) on 04/19/2020 9:53:43 AM Referred By: Confirmed By:TEJINDER LINARES MD
[2020-04-19] MEDS ORDERED: FUROSEMIDE 20 MG TABLET (FP) PO SCH (10:00)
--- NOTE | 2020-04-19 12:53 | PN ---
Progress Note, Physician Chief Complaint: Pt A&Ox3; no chest pain, palpitations, or dyspnea presently. Sitting OOB in chair. C/o bruising on both arms (on Aggrenox for years), exacerbated by, e.g., having to be lifted out of chair. History of Present Illness: Mr. Hobson is an 84 year old male with a significant past medical history of CVA, severe osteoarthritis, HTN, HLD, chronic renal dysfunction (recent UTI), ?thyroid disorder, anemia, marked truncal obesity, chronic bilateral knee swelling ("bone-on -bone"), sedentary lifestyle ("bedbound" for at least two years), and BPH, who presents to the emergency department for 3 days of worsening SOB. Pt states he takes Lasix; however is legs have been more swollen recently. states she noticed increased facial droop and slurred speech the past several days. Pt also reports waking up in the middle of the night with chest pressure and orthopnea the past several days. Patient denies headache and dizziness. He denies fever, chills, nausea, vomit, diarrhea and constipation. He denies dysuria, frequency, urgency and hematuria. Allergies: NKDA PCP: Dr. Zafar Sr [employer] Sales Representative: Dr. Sole Bob former cigarette smoker - Current Medication List Current Medications: Active Medications Acetaminophen (Tylenol -) 650 mg PO Q6H PRN PRN Reason: PAIN LEVEL 1-5 Last Admin: 04/18/20 09:16 Dose: 650 mg Documented by: Dipyridamole/Aspirin (Aggrenox -) 1 combo PO BID [facility] Last Admin: 04/19/20 09:24 Dose: 1 combo Documented by: Furosemide (Lasix -) 20 mg PO DAILY [facility] Last Admin: 04/19/20 09:24 Dose: 20 mg Documented by: Metoprolol Succinate (Toprol Xl -) 25 mg PO DAILY [facility] Last Admin: 04/19/20 09:28 Dose: Not Given Documented by: Pantoprazole Sodium (Protonix -) 40 mg PO ACBK [facility] Last Admin: 04/19/20 06:46 Dose: 40 mg Documented by: Rosuvastatin Calcium (Crestor -) 10 mg PO [facility] Last Admin: 04/18/20 21:37 Dose: 10 mg Documented by: Tamsulosin HCl (Flomax -) 0.4 mg PO [facility] Last Admin: 04/18/20 21:37 Dose: 0.4 mg Documented by: Tramadol HCl (Ultram -) 50 mg PO Q12H PRN PRN Reason: PAIN LEVEL 6-10 Last Admin: 04/19/20 04:08 Dose: 50 mg Documented by: Trimethoprim/Sulfamethoxazole (Bactrim Ds -) 1 each PO BID [facility] Stop: 04/20/20 11:14 Last Admin: 04/19/20 09:24 Dose: 1 each Documented by: - Objective Vital Signs: Vital Signs Temperature 98.8 F 04/19/20 09:23 Pulse Rate 125 H 04/19/20 09:23 Respiratory Rate 20 04/19/20 09:23 Blood Pressure 122/65 04/19/20 09:23 O2 Sat by Pulse Oximetry (%) 97 04/19/20 09:23 Constitutional: Yes: Anxious, Obese Eyes: Yes: WNL HENT: Yes: WNL Neck: Yes: WNL Cardiovascular: Yes: Pulse Irregular, S1 (varies in intensity), S2 Respiratory: Yes: Regular Gastrointestinal: Yes: Soft, Abdomen, Obese. No: Tenderness ...Rectal Exam: Yes: Deferred Genitourinary: No: Anuria Breast(s): Yes: WNL Musculoskeletal: Yes: Muscle Weakness Extremities: Yes: Cool Edema: No Peripheral Pulses WNL: Yes Integumentary: Yes: WNL Neurological: Yes: Alert, Oriented, Weakness Psychiatric: Yes: Alert, Oriented, Other (anxeity) Labs: CBC, BMP 04/19/20 06:37 04/19/20 06:37 INR, PTT INR 1.06 (0.83-1.09) 04/12/20 20:13 - ....Imaging Chest X-ray: Image Reviewed EKG: Image Reviewed Assessment/Plan New-onset AF Carotid artery US: likely significant disease (CTA recommended by radiologist, but problematic given renal dysfunction). Acute/chronic systolic (LVEF 45-50%)/diastolic CHF; moderate hyperthyroidism TNI noted elevated. Elevated BNP. mild hypokalemia renal dysfunction MRI head: no acute infarct or bleed; +ischemic changes likely due to HTN or small vessel disease COVID negative Rec: On metoprolol ER for HR control (and systolic CHF; HTN) Start low-dose apixaban 2.5 mg bid (85 yo; renal disease; bruises). is reportedly concerned with bruising; she is also reluctant to stop Aggrenox, as he has been on it for many years). Consult with neurologist and vascular team regarding antiplatelet (difficult case: DOAC is needed for AF, and ASA (or Aggrenox) or clopidogrel may be needed for neuro/vasc, but pt presently with multiple bruises; chronic anemia; platelet count WNL).
--- NOTE | 2020-04-19 13:01 | PN ---
Physical Exam: SUBJECTIVE: Patient seen and examined. Pt noted to have an irregular heart rate on cardiac technician. reviewed with tech, and looks like ST with irregular rhythm, some p waves seen. discussed with account services associate and ekg reviewed. per Dr. Ann, patient likely has PAF and will need anticoagulation. OBJECTIVE: Patient is an 84 year old male, with a significant past medical history of stroke, osteoarthritis, and BPH, who presents to the emergency department on 04/12/2020 for 3 days of worsening SOB. Pt states he takes Lasix however is legs have been more swollen recently. per admission records, increased facial droop and slurred speech the past several days. Pt also reports waking up in the middle of the night with chest pressure and orthopnea the past several days. imaging: tele: irregular rhytyhm, afib with rvr 130s at 9am, at 1pm NSR 92 hr prolonged qtc 493 patient with afib rvr at 0542 a.m. and given iv lopressor 5mg push, his metoprolol then increased to 25mg from 12.5mg. --- patient on aggrenox for stroke he had 14 yrs prior and has been on aggrenox since. discussed with Dr. Stanley (neuro) and informed him of the PAF. Neuro recommends Eliquis and asa 81mg or Eliquis and Plavix. Will need to stop aggrenox. Will discuss with . Period Temp Pulse Resp BP Sys/Wheeler Pulse Ox Last 24 Hr 98.0 F-98.9 F 85-133 18-20 117-132/44-95 95-97 GENERAL: The patient is awake, alert, and fully oriented, in no acute distress. tolerating room air HEAD: Normal with no signs of trauma. EYES: PERRL, extraocular movements intact, sclera anicteric, conjunctiva clear. No ptosis. ENT: Ears normal, nares patent, oropharynx clear without exudates, moist mucous membranes. NECK: Trachea midline, full range of motion, supple. LUNGS: Breath sounds equal, clear to auscultation bilaterally, no wheezes, no crackles, no accessory muscle use. HEART:sinus tacycardia with episodes of afib with rvr ABDOMEN: Soft, nontender, nondistended, normoactive bowel sounds EXTREMITIES: 1+ bilateral lower ext edema. bilateal arm scattered brusing NEUROLOGICAL: Normal speech, gait not observed. PSYCH: Normal mood, normal affect. SKIN: Warm, dry, normal turgor, no rashes or lesions noted Laboratory Results - last 24 hr 04/19/20 04/19/20 06:37 06:37 WBC 8.3 RBC 2.89 L Hgb 9.0 L Hct 27.6 L MCV 95.6 MCH 31.1 MCHC 32.5 RDW 14.2 Plt Count 189 D MPV 8.1 Absolute Neuts (auto) 7.2 Neutrophils % 86.7 H Lymphocytes % 4.7 L D Monocytes % 7.4 Eosinophils % 0.8 Basophils % 0.4 Nucleated RBC % 0 Sodium 140 Potassium 3.6 Chloride 106 Carbon Dioxide 25 Anion Gap 8 BUN 32.7 H Creatinine 2.3 H Est GFR (CKD-EPI)AfAm 29.13 Est GFR (CKD-EPI)NonAf 25.14 Random Glucose 116 H Calcium 8.2 L Magnesium 2.3 Total Bilirubin 0.2 AST 14 L ALT 12 L Alkaline Phosphatase 60 Total Protein 5.8 L Albumin 2.8 L Active Medications Generic Name Dose Route Start Last Admin Trade Name Freq PRN Reason Stop Dose Admin Acetaminophen 650 mg 04/14/20 12:00 04/18/20 09:16 Tylenol - PO 650 mg Q6H PRN Administration PAIN LEVEL 1-5 Dipyridamole/Aspirin 1 combo 04/13/20 10:00 04/19/20 09:24 Aggrenox - PO 1 combo BID [facility] Administration Furosemide 20 mg 04/19/20 10:00 04/19/20 09:24 Lasix - PO 20 mg DAILY [facility] Administration Metoprolol Succinate 25 mg 04/19/20 08:03 04/19/20 09:28 Toprol Xl - PO Not Given DAILY [facility] Pantoprazole Sodium 40 mg 04/13/20 07:00 04/19/20 06:46 Protonix - PO 40 mg ACBK [facility] Administration Rosuvastatin Calcium 10 mg 04/13/20 22:00 04/18/20 21:37 Crestor - PO 10 mg HS [facility] Administration Tamsulosin HCl 0.4 mg 04/13/20 22:00 04/18/20 21:37 Flomax - PO 0.4 mg HS [facility] Administration Tramadol HCl 50 mg 04/14/20 12:03 04/19/20 04:08 Ultram - PO 50 mg Q12H PRN Administration PAIN LEVEL 6-10 Trimethoprim/Sulfamethoxazole 1 each 04/17/20 11:15 04/19/20 09:24 Bactrim Ds - PO 04/20/20 11:14 1 each BID [facility] Administration ASSESSMENT/PLAN: Problem List - Problems (1) Acute respiratory failure Assessment/Plan: improving. acute respiratory failure in the setting of acute on chronic heart failure. improved. on room air with stable oxygen saturations. lasix 40mg started today monitor intake and output and daily weights on 2 liters prn maintain oxygen above 92% room air assess for oxygen home needs if patient decides to go home, currently he is considering rehab Code(s): J96.00 - ACUTE RESPIRATORY FAILURE, UNSP W HYPOXIA OR HYPERCAPNIA (2) CHF (congestive heart failure) Assessment/Plan: systolic LV dysfunction and valvular heart disease (ECHO: moderate ; LVEF 45- 50%) monitor intake, output and daily weights on lasix 40mg daily monitor on tele Code(s): I50.9 - HEART FAILURE, UNSPECIFIED Qualifiers: Heart failure type: unspecified Heart failure chronicity: acute Qualified Code(s): I50.9 - Heart failure, unspecified (3) Slurred speech Assessment/Plan: patient with residual slurred speech from previous cva speech clear at times MRI of brain negative for acute process Code(s): R47.81 - SLURRED SPEECH (4) HTN (hypertension) Assessment/Plan: bp stable, on metoprolol 25mg monitor bp on this increased dose Code(s): I10 - ESSENTIAL (PRIMARY) HYPERTENSION (5) SATHYA (acute kidney injury) Assessment/Plan: creat improving at 2.0. creatinine between 1.4-2.0 on previous admissions renal following renal dose medications monitor renal function Code(s): N17.9 - ACUTE KIDNEY FAILURE, UNSPECIFIED (6) E-coli UTI Assessment/Plan: UC showed ecoli UTI patient with pcn allergy and low GFR on bactrim x 3 days monitor K while on bactrim Code(s): N39.0 - URINARY TRACT INFECTION, SITE NOT SPECIFIED; B96.20 - UNSP ESCHERICHIA COLI THE CAUSE OF DISEASES CLASSD ELSWHR (7) History of CVA (cerebrovascular accident) Code(s): Z86.73 - PRSNL HX OF TIA (TIA), AND CEREB INFRC W/O RESID DEFICITS (8) History of CVA with residual deficit Assessment/Plan: previous cva patient with slurred speech on admission mri of debora and mra noted, no acute process seen carotid u/s with left carotid stenosis - vascular consulted per neuro, possibly had a TIA Code(s): I69.30 - UNSPECIFIED SEQUELAE OF CEREBRAL INFARCTION (9) DVT prophylaxis Assessment/Plan: patient on on eliquis Code(s): Z29.9 - ENCOUNTER FOR PROPHYLACTIC MEASURES, UNSPECIFIED (10) PAF (paroxysmal atrial fibrillation) Assessment/Plan: tele: irregular rhytyhm, afib with rvr 130s at 9am, at 1pm NSR 92 hr prolonged qtc 493 patient with afib rvr at 0542 a.m. and given iv lopressor 5mg push, his metopro lol then increased to 25mg from 12.5mg. patient with new onset afib vs PAF. no history of afib per but patient with poor outpatient followup. stop aggrenox and start asa and eliquis for afib and stroke prevention Code(s): I48.0 - PAROXYSMAL ATRIAL FIBRILLATION Visit type - Emergency Visit Emergency Visit: Yes ED Registration Date: 04/12/20 Care time: The patient presented to the Emergency Department on the above date and was hospitalized for further evaluation of their emergent condition. - New Patient This patient is new to me today: No - Critical Care Critical Care patient: No - Discharge Referral Referred to [facility] Med [facility] No - Medication Review Med list reviewed for High Risk Meds patients 65 and older: Yes
[2020-04-19] MEDS: ACETAMINOPHEN 325 MG TABLET (FP) PO PRN ×2 (13:28→21:12)
--- NOTE | 2020-04-19 13:58 | EKG ---
Test Reason : Blood Pressure : / mmHG Vent. Rate : 118 BPM Atrial Rate : 131 BPM P-R Int : 000 ms QRS Dur : 086 ms QT Int : 322 ms P-R-T Axes : 000 003 181 degrees QTc Int : 451 ms ATRIAL FIBRILLATION WITH RAPID VENTRICULAR RESPONSE WITH PREMATURE VENTRICULAR OR ABERRANTLY CONDUCTED COMPLEXES ABNORMAL ECG WHEN COMPARED WITH ECG OF 13-APR-2020 09:21, ATRIAL FIBRILLATION HAS REPLACED SINUS RHYTHM T WAVE INVERSION NOW EVIDENT IN INFERIOR LEADS Confirmed by TEJINDER LINARES MD ([id number]) on 04/19/2020 1:57:59 PM Referred By: Confirmed By:TEJINDER LINARES MD
--- NOTE | 2020-04-19 14:17 | PN ---
Progress Note, Physician History of Present Illness: Pt seen and examined at bedside. he says that he had a coughing attack today. He complains of lower ext edema. - Current Medication List Current Medications: Active Medications Acetaminophen (Tylenol -) 650 mg PO Q6H PRN PRN Reason: PAIN LEVEL 1-5 Last Admin: 04/19/20 13:28 Dose: 650 mg Documented by: Dipyridamole/Aspirin (Aggrenox -) 1 combo PO BID [facility] Last Admin: 04/19/20 09:24 Dose: 1 combo Documented by: Furosemide (Lasix -) 20 mg PO DAILY [facility] Last Admin: 04/19/20 09:24 Dose: 20 mg Documented by: Metoprolol Succinate (Toprol Xl -) 25 mg PO DAILY [facility] Last Admin: 04/19/20 09:28 Dose: Not Given Documented by: Pantoprazole Sodium (Protonix -) 40 mg PO ACBK [facility] Last Admin: 04/19/20 06:46 Dose: 40 mg Documented by: Rosuvastatin Calcium (Crestor -) 10 mg PO [facility] Last Admin: 04/18/20 21:37 Dose: 10 mg Documented by: Tamsulosin HCl (Flomax -) 0.4 mg PO [facility] Last Admin: 04/18/20 21:37 Dose: 0.4 mg Documented by: Tramadol HCl (Ultram -) 50 mg PO Q12H PRN PRN Reason: PAIN LEVEL 6-10 Last Admin: 04/19/20 04:08 Dose: 50 mg Documented by: Trimethoprim/Sulfamethoxazole (Bactrim Ds -) 1 each PO BID [facility] Stop: 04/20/20 11:14 Last Admin: 04/19/20 09:24 Dose: 1 each Documented by: - Objective Vital Signs: Vital Signs Temperature 98.8 F 04/19/20 09:23 Pulse Rate 125 H 04/19/20 09:23 Respiratory Rate 20 04/19/20 09:23 Blood Pressure 122/65 04/19/20 09:23 O2 Sat by Pulse Oximetry (%) 97 04/19/20 09:23 Constitutional: Yes: Calm Eyes: Yes: Conjunctiva Clear HENT: Yes: Atraumatic Neck: Yes: Supple Cardiovascular: Yes: S1, S2 Respiratory: Yes: CTA Bilaterally Gastrointestinal: Yes: Normal Bowel Sounds, Soft Genitourinary: Yes: WNL Musculoskeletal: Yes: WNL Edema: Yes Edema: LLE: 1+, RLE: 1+ Neurological: Yes: Oriented Psychiatric: Yes: Oriented Labs: CBC, BMP 04/19/20 06:37 04/19/20 06:37 INR, PTT INR 1.06 (0.83-1.09) 04/12/20 20:13 Assessment/Plan Current Medications Generic Name Dose Route Start Last Admin Trade Name Freq PRN Reason Stop Dose Admin Acetaminophen 650 mg 04/14/20 12:00 04/19/20 13:28 Tylenol - PO 650 mg Q6H PRN Administration PAIN LEVEL 1-5 Dipyridamole/Aspirin 1 combo 04/13/20 10:00 04/19/20 09:24 Aggrenox - PO 1 combo BID [facility] Administration Furosemide 20 mg 04/19/20 10:00 04/19/20 09:24 Lasix - PO 20 mg DAILY [facility] Administration Metoprolol Succinate 25 mg 04/19/20 08:03 04/19/20 09:28 Toprol Xl - PO Not Given DAILY [facility] Pantoprazole Sodium 40 mg 04/13/20 07:00 04/19/20 06:46 Protonix - PO 40 mg ACBK [facility] Administration Rosuvastatin Calcium 10 mg 04/13/20 22:00 04/18/20 21:37 Crestor - PO 10 mg HS [facility] Administration Tamsulosin HCl 0.4 mg 04/13/20 22:00 04/18/20 21:37 Flomax - PO 0.4 mg HS [facility] Administration Tramadol HCl 50 mg 04/14/20 12:03 04/19/20 04:08 Ultram - PO 50 mg Q12H PRN Administration PAIN LEVEL 6-10 Trimethoprim/Sulfamethoxazole 1 each 04/17/20 11:15 04/19/20 09:24 Bactrim Ds - PO 04/20/20 11:14 1 each BID [facility] Administration Impression 1. SATHYA 2. CKD 3. CHF 4. UTI 5. proteinuria 6. hypokalemia 7. HLD 8. hx cva Plan - increase lasix to 40 mg - repeat labs in am - pt to complete bactrim today - monitor lytes - lower ext edema increasing - cont pt/rehab - will give another dose of potassium as well
[2020-04-19] MEDS ORDERED: POTASSIUM CHLORIDE ORAL LIQUID 20 MEQ/15 ML PO ONE (14:45)
[2020-04-19] MEDS: FUROSEMIDE 40 MG TABLET (FP) PO SCH (14:48)
--- NOTE | 2020-04-19 15:34 | PN ---
Progress Note (short form) - Note Progress Note: 84 year old male, with a significant past medical history of stroke, osteoarthritis, and BPH. He has stroke 14 years ago and have mild left facial droopiness and slurring of speech. He came to ed for worsening of slurring of speech as per hiw . Patient those findings. He is feeling better. He feels he is back to normal self. Patient denies any focal neurological symptoms. -- no new complain, he has episode of atrial fibrillation NEUROLGOICAL EXAMINATION Alert oriented x 3, neck is supple vss left sided facial palsy, ( umn type) and slurring of speech eomi, pupils reactive moving all ext ct head unremarkable carotid ultrasound ? left common carotid critical stenosis Assessment/Plan 4 year old male, with a significant past medical history of stroke, osteoarthritis, and BPH. He has history of stroke 14 years ago with mild residual left facial weakness and slurring of speech He came transient worsening of symnptoms and now resolved. carotid there is left critical stenosis ct head urnemarkable, carotid ultraosund showed ? stenosis. -- [facility] TIA Plan: d/w primary pateint can be switched to eliquis and aspirin - he is being tras[facility]ferred to [facility] to be surgical candidate - life style modificiatoin and and stroke education - supportive care Thanking you so much Constantino Stanley MD
--- NOTE | 2020-04-19 17:19 | PN ---
Progress Note, Physician - Current Medication List Current Medications: Active Medications Acetaminophen (Tylenol -) 650 mg PO Q6H PRN PRN Reason: PAIN LEVEL 1-5 Last Admin: 04/19/20 13:28 Dose: 650 mg Documented by: Apixaban (Eliquis -) 2.5 mg PO BID [facility] Aspirin (Ecotrin -) 81 mg PO DAILY [facility] Furosemide (Lasix -) 40 mg PO DAILY [facility] Last Admin: 04/19/20 14:48 Dose: 40 mg Documented by: Metoprolol Succinate (Toprol Xl -) 25 mg PO DAILY [facility] Last Admin: 04/19/20 09:28 Dose: Not Given Documented by: Pantoprazole Sodium (Protonix -) 40 mg PO ACBK [facility] Last Admin: 04/19/20 06:46 Dose: 40 mg Documented by: Rosuvastatin Calcium (Crestor -) 10 mg PO [facility] Last Admin: 04/18/20 21:37 Dose: 10 mg Documented by: Tamsulosin HCl (Flomax -) 0.4 mg PO [facility] Last Admin: 04/18/20 21:37 Dose: 0.4 mg Documented by: Tramadol HCl (Ultram -) 50 mg PO Q12H PRN PRN Reason: PAIN LEVEL 6-10 Last Admin: 04/19/20 04:08 Dose: 50 mg Documented by: Trimethoprim/Sulfamethoxazole (Bactrim Ds -) 1 each PO BID [facility] Stop: 04/20/20 11:14 Last Admin: 04/19/20 09:24 Dose: 1 each Documented by: - Objective Vital Signs: Vital Signs Temperature 98.4 F 04/19/20 14:00 Pulse Rate 91 H 04/19/20 14:00 Respiratory Rate 20 04/19/20 14:00 Blood Pressure 104/54 L 04/19/20 14:00 O2 Sat by Pulse Oximetry (%) 97 04/19/20 09:23 Constitutional: Yes: No Distress HENT: Yes: Atraumatic Neck: Yes: Supple Cardiovascular: Yes: Regular Rate and Rhythm Respiratory: Yes: Rhonchi Gastrointestinal: Yes: Normal Bowel Sounds Extremities: Yes: WNL Edema: No Neurological: Yes: Alert, Oriented Labs: CBC, BMP 04/19/20 06:37 04/19/20 06:37 INR, PTT INR 1.06 (0.83-1.09) 04/12/20 20:13 Problem List - Problems (1) Acute kidney injury superimposed on CKD Assessment/Plan: monitor cr coming down Code(s): N17.9 - ACUTE KIDNEY FAILURE, UNSPECIFIED; N18.9 - CHRONIC KIDNEY DISEASE, UNSPECIFIED (2) CHF (congestive heart failure) Assessment/Plan: ON IV LASIX CARDIO ON BOARD Code(s): I50.9 - HEART FAILURE, UNSPECIFIED Qualifiers: Heart failure type: unspecified Heart failure chronicity: acute Qualified Code(s): I50.9 - Heart failure, unspecified (3) HTN (hypertension) Assessment/Plan: ON MEDS MONITOR Code(s): I10 - ESSENTIAL (PRIMARY) HYPERTENSION
[2020-04-19] MEDS: TAMSULOSIN HCL 0.4 MG CAP PO SCH (21:03)
[2020-04-19] MEDS: ROSUVASTATIN CA 10 MG TABLET (FP) PO SCH (21:03)
[2020-04-19] MEDS: APIXABAN 2.5 MG TABLET PO SCH (21:03)
[2020-04-20] MEDS: PANTOPRAZOLE 40 MG TABLET PO SCH (07:28)
[2020-04-20] MEDS: APIXABAN 2.5 MG TABLET PO SCH ×2 (09:04→22:17)
[2020-04-20] MEDS: FUROSEMIDE 40 MG TABLET (FP) PO SCH (09:04)
[2020-04-20] MEDS: SULFAMETHOXAZOLE/TRIMETHOPRIM 800MG/160MG D.S. TABLET PO SCH (09:04)
[2020-04-20] MEDS: ACETAMINOPHEN 325 MG TABLET (FP) PO PRN (09:04)
[2020-04-20] MEDS: ASPIRIN COATED 81 MG TABLET.EC PO SCH (09:04)
[2020-04-20 09:12] LABS: BASO % 0.5 % (0-2.0); EOS % 0.8 % (0-4.5); HEMATOCRIT 25.5 % (35.4-49); HEMOGLOBIN 8.3 GM/dL (11.7-16.9); LYMPH % 5.3 % (8-40); MCH 31.5 pg (25.7-33.7); MCHC 32.7 g/dl (32.0-35.9); MEAN CELL VOLUME 96.3 fl (80-96); MEAN PLT VOLUME 8.8 fl (7.5-11.1); MONO % 8.3 % (3.8-10.2); NEUT % 85.1 % (42.8-82.8); PLATELET COUNT 202 K/MM3 (134-434); RBC 2.65 M/mm3 (4.00-5.60); RDW 14.2 % (11.9-15.9)
--- NOTE | 2020-04-20 09:26 | PN ---
Progress Note, Physician History of Present Illness: Mr. Hobson is an 84 year old male with a significant past medical history of CVA, severe osteoarthritis, HTN, HLD, chronic renal dysfunction, ?thyroid disorder, obesity, and BPH, who presents to the emergency department for 3 days of worsening SOB. Pt states he takes Lasix however is legs have been more swollen recently. states she noticed increased facial droop and slurred speech the past several days. Pt also reports waking up in the middle of the night with chest pressure and orthopnea the past several days. Patient denies headache and dizziness. He denies fever, chills, nausea, vomit, diarrhea and constipation. He denies dysuria, frequency, urgency and hematuria. Allergies: NKDA PCP: Dr. Zafar Sr - Current Medication List Current Medications: Active Medications Acetaminophen (Tylenol -) 650 mg PO Q6H PRN PRN Reason: PAIN LEVEL 1-5 Last Admin: 04/20/20 09:04 Dose: 650 mg Documented by: Apixaban (Eliquis -) 2.5 mg PO BID [facility] Last Admin: 04/20/20 09:04 Dose: 2.5 mg Documented by: Aspirin (Ecotrin -) 81 mg PO DAILY [facility] Last Admin: 04/20/20 09:04 Dose: 81 mg Documented by: Furosemide (Lasix -) 40 mg PO DAILY [facility] Last Admin: 04/20/20 09:04 Dose: 40 mg Documented by: Metoprolol Succinate (Toprol Xl -) 25 mg PO DAILY [facility] Last Admin: 04/19/20 09:28 Dose: Not Given Documented by: Pantoprazole Sodium (Protonix -) 40 mg PO ACBK [facility] Last Admin: 04/20/20 07:28 Dose: 40 mg Documented by: Rosuvastatin Calcium (Crestor -) 10 mg PO [facility] Last Admin: 04/19/20 21:03 Dose: 10 mg Documented by: Tamsulosin HCl (Flomax -) 0.4 mg PO [facility] Last Admin: 04/19/20 21:03 Dose: 0.4 mg Documented by: Tramadol HCl (Ultram -) 50 mg PO Q12H PRN PRN Reason: PAIN LEVEL 6-10 Last Admin: 04/19/20 04:08 Dose: 50 mg Documented by: Trimethoprim/Sulfamethoxazole (Bactrim Ds -) 1 each PO BID [facility] Stop: 04/20/20 11:14 Last Admin: 04/20/20 09:04 Dose: 1 each Documented by: - Objective Vital Signs: Vital Signs Temperature 98 F 04/20/20 09:03 Pulse Rate 95 H 04/20/20 09:03 Respiratory Rate 18 04/20/20 09:03 Blood Pressure 114/54 L 04/20/20 09:03 O2 Sat by Pulse Oximetry (%) 95 04/20/20 09:03 Eyes: Yes: WNL, Conjunctiva Clear, EOM Intact HENT: Yes: WNL, Atraumatic, Normocephalic Neck: Yes: WNL, Supple, Trachea Midline Cardiovascular: Yes: WNL, Regular Rate and Rhythm Respiratory: Yes: WNL, Regular, CTA Bilaterally Gastrointestinal: Yes: WNL, Normal Bowel Sounds Genitourinary: Yes: WNL Musculoskeletal: Yes: WNL Extremities: Yes: WNL Edema: No Integumentary: Yes: WNL Neurological: Yes: WNL, Alert, Oriented ...Motor Strength: WNL Psychiatric: Yes: WNL Labs: CBC, BMP 04/20/20 08:45 INR, PTT INR 1.06 (0.83-1.09) 04/12/20 20:13 Assessment/Plan New-onset AF Carotid artery US: likely significant disease (CTA recommended by radiologist, but problematic given renal dysfunction). Acute/chronic systolic (LVEF 45-50%)/diastolic CHF; moderate hyperthyroidism TNI noted elevated. Elevated BNP. mild hypokalemia renal dysfunction MRI head: no acute infarct or bleed; +ischemic changes likely due to HTN or small vessel disease COVID negative Rec: On metoprolol ER for HR control (and systolic CHF; HTN) Start low-dose apixaban 2.5 mg bid (85 yo; renal disease; bruises). is reportedly concerned with bruising; she is also reluctant to stop Aggrenox, as he has been on it for many years). Consult with neurologist and vascular team regarding antiplatelet (difficult case: DOAC is needed for AF, and ASA (or Aggrenox) or clopidogrel may be needed for neuro/vasc, but pt presently with multiple bruises; chronic anemia; platelet count WNL).
[2020-04-20 09:28] LABS: ALBUMIN 2.8 g/dl (3.4-5.0); BILIRUBIN,TOTAL 0.3 mg/dL (0.2-1); BLOOD UREA NITROGEN 43.4 mg/dL (7-18); CALCIUM 7.9 mg/dL (8.5-10.1); CREATININE 2.9 mg/dL (0.55-1.3); MAGNESIUM 2.4 mg/dL (1.8-2.4); POTASSIUM 3.3 mmol/L (3.5-5.1)
[2020-04-20] MEDS ORDERED: METOPROLOL TARTRATE 5 MG/5 ML VIAL IVPUSH PRN (09:44)
--- NOTE | 2020-04-20 09:44 | PN ---
Progress Note (short form) - Note Progress Note: 84 year old male, with a significant past medical history of stroke, osteoarthritis, and BPH. He has stroke 14 years ago and have mild left facial droopiness and slurring of speech. He came to ed for worsening of slurring of speech as per hiw . Patient those findings. He is feeling better. He feels he is back to normal self. Patient denies any focal neurological symptoms. -- no new complain, he has episode of atrial fibrillation , waiting for vascular consult and possible stress test NEUROLGOICAL EXAMINATION Alert oriented x 3, neck is supple vss left sided facial palsy, ( umn type) and slurring of speech eomi, pupils reactive moving all ext ct head unremarkable carotid ultrasound ? left common carotid critical stenosis Assessment/Plan 4 year old male, with a significant past medical history of stroke, osteoarthritis, and BPH. He has history of stroke 14 years ago with mild residual left facial weakness and slurring of speech He came transient worsening of symnptoms and now resolved. carotid there is left critical stenosis ct head urnemarkable, carotid ultraosund showed ? stenosis. -- Most patrick TIA , left cca/ica stenosis Plan: d/w primary pateint can be switched to eliquis and aspirin - possible stress test and vascular consult pending - stephanley to be surgical candidate - life style modificiatoin and and stroke education - supportive care Thanking you so much Constantino Stanley MD
--- NOTE | 2020-04-20 09:46 | PN ---
Physical Exam: SUBJECTIVE: Patient seen and examined. sitting the in chair in no acute distress. OBJECTIVE: Patient is an 84 year old male, with a significant past medical history of stroke, osteoarthritis, and BPH, who presents to the emergency department on 04/12/2020 for 3 days of worsening SOB. Pt states he takes Lasix however is legs have been more swollen recently. per admission records, increased facial droop and slurred speech the past several days. Pt also reports waking up in the middle of the night with chest pressure and orthopnea the past several days. Patient on aggrenox for stroke he had 14 yrs prior and has been on aggrenox since. discussed with Dr. Stanley (neuro) and informed him of the PAF. Neuro recommends Eliquis and asa 81mg or Eliquis and Plavix. patient hypotensive today after toprol increased yesterday. will decrease back to toprol 12.5mg and monitor bp. lopressor pushes for tachycardia above 120 imaging: tele: nsr -- Period Temp Pulse Resp BP Sys/Wheeler Pulse Ox Last 24 Hr 98 F-98.7 F 84-141 18-20 90-121/41-56 95-100 GENERAL: The patient is awake, alert, and fully oriented, in no acute distress. tolerating room air HEAD: Normal with no signs of trauma. EYES: PERRL, extraocular movements intact, sclera anicteric, conjunctiva clear. No ptosis. ENT: Ears normal, nares patent, oropharynx clear without exudates, moist mucous membranes. NECK: Trachea midline, full range of motion, supple. LUNGS: Breath sounds equal, clear to auscultation bilaterally, no wheezes, no crackles, no accessory muscle use. HEART:sinus tacycardia yesterday had episodes of afib with rvr ABDOMEN: Soft, nontender, nondistended, normoactive bowel sounds EXTREMITIES: 1+ bilateral lower ext edema. bilateal arm scattered bruising NEUROLOGICAL: Normal speech, gait not observed. PSYCH: Normal mood, normal affect. SKIN: Warm, dry, normal turgor, no rashes or lesions noted Laboratory Results - last 24 hr 04/20/20 04/20/20 08:45 08:45 WBC 9.0 RBC 2.65 L Hgb 8.3 L Hct 25.5 L MCV 96.3 H MCH 31.5 MCHC 32.7 RDW 14.2 Plt Count 202 MPV 8.8 Absolute Neuts (auto) 7.7 Neutrophils % 85.1 H Lymphocytes % 5.3 L Monocytes % 8.3 Eosinophils % 0.8 Basophils % 0.5 Nucleated RBC % 0 Sodium 140 Potassium 3.3 L Chloride 108 H Carbon Dioxide 23 Anion Gap 10 BUN 43.4 H Creatinine 2.9 H Est GFR (CKD-EPI)AfAm 22.01 Est GFR (CKD-EPI)NonAf 18.99 Random Glucose 122 H Calcium 7.9 L Magnesium 2.4 Total Bilirubin 0.3 AST 12 L ALT 14 Alkaline Phosphatase 63 Total Protein 6.0 L Albumin 2.8 L Active Medications Generic Name Dose Route Start Last Admin Trade Name Freq PRN Reason Stop Dose Admin Acetaminophen 650 mg 04/14/20 12:00 04/20/20 09:04 Tylenol - PO 650 mg Q6H PRN Administration PAIN LEVEL 1-5 Apixaban 2.5 mg 04/19/20 22:00 04/20/20 09:04 Eliquis - PO 2.5 mg BID A[facility]EN Administration Aspirin 81 mg 04/20/20 10:00 04/20/20 09:04 Ecotrin - PO 81 mg DAILY ARLEN Administration Furosemide 40 mg 04/19/20 14:45 04/20/20 09:04 Lasix - PO 40 mg DAILY A[facility]EN Administration Metoprolol Succinate 12.5 mg 04/20/20 10:00 Toprol Xl - PO DAILY ARLEN Metoprolol Tartrate 5 mg 04/20/20 09:44 Lopressor Injection - IVPUSH Q4H PRN TACHYCARDIA Pantoprazole Sodium 40 mg 04/13/20 07:00 04/20/20 07:28 Protonix - PO 40 mg ACBK ARLEN Administration Rosuvastatin Calcium 10 mg 04/13/20 22:00 04/19/20 21:03 Crestor - PO 10 mg HS ARLEN Administration Tamsulosin HCl 0.4 mg 04/13/20 22:00 04/19/20 21:03 Flomax - PO 0.4 mg HS ARLEN Administration Tramadol HCl 50 mg 04/14/20 12:03 04/19/20 04:08 Ultram - PO 50 mg Q12H PRN Administration PAIN LEVEL 6-10 Trimethoprim/Sulfamethoxazole 1 each 04/17/20 11:15 04/20/20 09:04 Bactrim Ds - PO 10/02/20 11:14 1 each BID ARLEN Administration ASSESSMENT/PLAN: Problem List - Problems (1) Acute respiratory failure Assessment/Plan: improving. acute respiratory failure in the setting of acute on chronic heart failure. improved. on room air with stable oxygen saturations. lasix 40mg started today monitor intake and output and daily weights on 2 liters prn maintain oxygen above 92% room air assess for oxygen home needs if patient decides to go home, currently he is considering rehab Code(s): J96.00 - ACUTE RESPIRATORY FAILURE, UNSP W HYPOXIA OR HYPERCAPNIA (2) CHF (congestive heart failure) Assessment/Plan: systolic LV dysfunction and valvular heart disease (ECHO: moderate ; LVEF 45- 50%) monitor intake, output and daily weights on lasix 40mg daily monitor on tele Code(s): I50.9 - HEART FAILURE, UNSPECIFIED Qualifiers: Heart failure type: unspecified Heart failure chronicity: acute Qualified Code(s): I50.9 - Heart failure, unspecified (3) Slurred speech Assessment/Plan: patient with residual slurred speech from previous cva speech clear at times MRI of brain negative for acute process Code(s): R47.81 - SLURRED SPEECH (4) HTN (hypertension) Assessment/Plan: patient hypotensive today after toprol increased yesterday. will decrease back to toprol 12.5mg and monitor bp. lopressor pushes for tachycardia above 120 Code(s): I10 - ESSENTIAL (PRIMARY) HYPERTENSION (5) SATHYA (acute kidney injury) Assessment/Plan: creat increased to 2.9 on today/s labs. creatinine between 1.4-2.0 on previous admissions renal following renal dose medications monitor renal function Code(s): N17.9 - ACUTE KIDNEY FAILURE, UNSPECIFIED (6) E-coli UTI Assessment/Plan: UC showed ecoli UTI patient with pcn allergy and low GFR on bactrim x 3 days monitor K while on bactrim Code(s): N39.0 - URINARY TRACT INFECTION, SITE NOT SPECIFIED; B96.20 - UNSP ESCHERICHIA COLI THE CAUSE OF DISEASES CLASSD ELSWHR (7) History of CVA (cerebrovascular accident) Code(s): Z86.73 - PRSNL HX OF TIA (TIA), AND CEREB INFRC W/O RESID DEFICITS (8) History of CVA with residual deficit Assessment/Plan: previous cva patient with slurred speech on admission mri of debora and mra noted, no acute process seen carotid u/s with left carotid stenosis - vascular consulted per neuro, possibly had a TIA Code(s): I69.30 - UNSPECIFIED SEQUELAE OF CEREBRAL INFARCTION (9) PAF (paroxysmal atrial fibrillation) Assessment/Plan: tele: irregular rhytyhm, afib with rvr 130s at 9am, at 1pm NSR 92 hr prolonged qtc 493 patient with afib rvr at 0542 a.m. and given iv lopressor 5mg push, his metoprolol then increased to 25mg from 12.5mg. patient with new onset afib vs PAF. no history of afib per but patient with poor outpatient followup. stop aggrenox and start asa and eliquis for afib and stroke prevention Code(s): I48.0 - PAROXYSMAL ATRIAL FIBRILLATION (10) Carotid artery stenosis Assessment/Plan: left cca/ica stenosis seen on carotid doppler. vascular surgery consulted and pending recommendations. patient is asymptomatic Code(s): I65.29 - OCCLUSION AND STENOSIS OF UNSPECIFIED CAROTID ARTERY (11) DVT prophylaxis Assessment/Plan: patient on on eliquis Code(s): Z29.9 - ENCOUNTER FOR PROPHYLACTIC MEASURES, UNSPECIFIED Visit type - Emergency Visit Emergency Visit: Yes ED Registration Date: 04/12/20 Care time: The patient presented to the Emergency Department on the above date and was hospitalized for further evaluation of their emergent condition. - New Patient This patient is new to me today: No - Critical Care Critical Care patient: No - Discharge Referral Referred to [facility] Med P.C.: No - Medication Review Med list reviewed for High Risk Meds patients 65 and older: Yes
[2020-04-20] MEDS: metoPROLOL SUCCINATE 25 MG TAB.SR.24H (FP) PO SCH (10:26)
[2020-04-20] MEDS ORDERED: POTASSIUM CHLORIDE ORAL LIQUID 20 MEQ/15 ML PO ONE (13:01)
--- NOTE | 2020-04-20 13:01 | PN ---
Progress Note, Physician History of Present Illness: Pt seen and examined at bedside. He is awake and alert. He feels that the last helped his breathing and his edema is improved. - Current Medication List Current Medications: Active Medications Acetaminophen (Tylenol -) 650 mg PO Q6H PRN PRN Reason: PAIN LEVEL 1-5 Last Admin: 04/20/20 09:04 Dose: 650 mg Documented by: Apixaban (Eliquis -) 2.5 mg PO BID [facility] Last Admin: 04/20/20 09:04 Dose: 2.5 mg Documented by: Aspirin (Ecotrin -) 81 mg PO DAILY [facility] Last Admin: 04/20/20 09:04 Dose: 81 mg Documented by: Furosemide (Lasix -) 40 mg PO DAILY [facility] Last Admin: 04/20/20 09:04 Dose: 40 mg Documented by: Metoprolol Succinate (Toprol Xl -) 12.5 mg PO DAILY [facility] Last Admin: 04/20/20 10:26 Dose: 12.5 mg Documented by: Metoprolol Tartrate (Lopressor Injection -) 5 mg IVPUSH Q4H PRN PRN Reason: TACHYCARDIA Pantoprazole Sodium (Protonix -) 40 mg PO ACBK [facility] Last Admin: 04/20/20 07:28 Dose: 40 mg Documented by: Rosuvastatin Calcium (Crestor -) 10 mg PO [facility] Last Admin: 04/19/20 21:03 Dose: 10 mg Documented by: Tamsulosin HCl (Flomax -) 0.4 mg PO [facility] Last Admin: 04/19/20 21:03 Dose: 0.4 mg Documented by: - Objective Vital Signs: Vital Signs Temperature 98 F 04/20/20 09:03 Pulse Rate 95 H 04/20/20 09:03 Respiratory Rate 18 04/20/20 09:03 Blood Pressure 114/54 L 04/20/20 09:03 O2 Sat by Pulse Oximetry (%) 95 04/20/20 09:03 Constitutional: Yes: Calm Eyes: Yes: Conjunctiva Clear HENT: Yes: Atraumatic Neck: Yes: Supple Cardiovascular: Yes: S1, S2 Respiratory: Yes: CTA Bilaterally Gastrointestinal: Yes: Normal Bowel Sounds, Soft Genitourinary: Yes: WNL Edema: Yes Edema: LLE: Trace, RLE: Trace Neurological: Yes: Oriented Psychiatric: Yes: Oriented Labs: CBC, BMP 04/20/20 08:45 04/20/20 08:45 INR, PTT INR 1.06 (0.83-1.09) 04/12/20 20:13 Assessment/Plan Current Medications Generic Name Dose Route Start Last Admin Trade Name Freq PRN Reason Stop Dose Admin Acetaminophen 650 mg 04/14/20 12:00 04/20/20 09:04 Tylenol - PO 650 mg Q6H PRN Administration PAIN LEVEL 1-5 Apixaban 2.5 mg 04/19/20 22:00 04/20/20 09:04 Eliquis - PO 2.5 mg BID ARLEN Administration Aspirin 81 mg 04/20/20 10:00 04/20/20 09:04 Ecotrin - PO 81 mg DAILY ARLEN Administration Furosemide 40 mg 04/19/20 14:45 04/20/20 09:04 Lasix - PO 40 mg DAILY ARLEN Administration Metoprolol Succinate 12.5 mg 04/20/20 10:00 04/20/20 10:26 Toprol Xl - PO 12.5 mg DAILY ARLEN Administration Metoprolol Tartrate 5 mg 04/20/20 09:44 Lopressor Injection - IVPUSH Q4H PRN TACHYCARDIA Pantoprazole Sodium 40 mg 04/13/20 07:00 04/20/20 07:28 Protonix - PO 40 mg ACBK ARLEN Administration Rosuvastatin Calcium 10 mg 04/13/20 22:00 04/19/20 21:03 Crestor - PO 10 mg HS ARLEN Administration Tamsulosin HCl 0.4 mg 04/13/20 22:00 04/19/20 21:03 Flomax - PO 0.4 mg HS ARLEN Administration Impression 1. SATHYA 2. CKD 3. CHF 4. UTI 5. proteinuria 6. hypokalemia 7. HLD 8. hx cva Plan - cont lasix at 40 mg - monitor renal function - pt now off of bactrim - volume status is improved from yesterday - cont pt/rehab - will give another dose of potassium as well
[2020-04-20] MEDS: ROSUVASTATIN CA 10 MG TABLET (FP) PO SCH (22:17)
[2020-04-20] MEDS: TAMSULOSIN HCL 0.4 MG CAP PO SCH (22:17)
[2020-04-21] MEDS: PANTOPRAZOLE 40 MG TABLET PO SCH (06:17)
[2020-04-21 08:33] LABS: BASO % 0.6 % (0-2.0); EOS % 1.3 % (0-4.5); HEMATOCRIT 24.8 % (35.4-49); HEMOGLOBIN 8.1 GM/dL (11.7-16.9); LYMPH % 6.3 % (8-40); MCH 31.4 pg (25.7-33.7); MCHC 32.8 g/dl (32.0-35.9); MEAN CELL VOLUME 95.6 fl (80-96); MEAN PLT VOLUME 8.5 fl (7.5-11.1); MONO % 7.6 % (3.8-10.2); NEUT % 84.2 % (42.8-82.8); PLATELET COUNT 200 K/MM3 (134-434); RBC 2.59 M/mm3 (4.00-5.60); WHITE BLOOD COUNT 6.8 K/mm3 (4.0-10.0)
[2020-04-21 08:57] LABS: ALBUMIN 2.6 g/dl (3.4-5.0); BILIRUBIN,TOTAL 0.3 mg/dL (0.2-1); BLOOD UREA NITROGEN 43.5 mg/dL (7-18); CALCIUM 8.4 mg/dL (8.5-10.1); MAGNESIUM 2.3 mg/dL (1.8-2.4); POTASSIUM 3.4 mmol/L (3.5-5.1); TOT PROT 5.8 g/dl (6.4-8.2)
[2020-04-21] MEDS: FUROSEMIDE 40 MG TABLET (FP) PO SCH (09:25)
[2020-04-21] MEDS: APIXABAN 2.5 MG TABLET PO SCH ×2 (09:26→21:42)
[2020-04-21] MEDS: metoPROLOL SUCCINATE 25 MG TAB.SR.24H (FP) PO SCH (09:27)
[2020-04-21] MEDS: ASPIRIN COATED 81 MG TABLET.EC PO SCH (09:28)
--- NOTE | 2020-04-21 10:21 | PN ---
Progress Note, Physician Chief Complaint: Events noted. Not in distress Coverage for Dr. Rojas/Cami History of Present Illness: Patient was seen and examined. Awake and alert. Chart was reviewed Denies chest pain or SOB - Current Medication List Current Medications: Active Medications Acetaminophen (Tylenol -) 650 mg PO Q6H PRN PRN Reason: PAIN LEVEL 1-5 Last Admin: 04/20/20 09:04 Dose: 650 mg Documented by: Apixaban (Eliquis -) 2.5 mg PO BID [facility] Last Admin: 04/21/20 09:26 Dose: 2.5 mg Documented by: Aspirin (Ecotrin -) 81 mg PO DAILY [facility] Last Admin: 04/21/20 09:28 Dose: 81 mg Documented by: Furosemide (Lasix -) 40 mg PO DAILY [facility] Last Admin: 04/21/20 09:25 Dose: 40 mg Documented by: Metoprolol Succinate (Toprol Xl -) 12.5 mg PO DAILY [facility] Last Admin: 04/21/20 09:27 Dose: 12.5 mg Documented by: Metoprolol Tartrate (Lopressor Injection -) 5 mg IVPUSH Q4H PRN PRN Reason: TACHYCARDIA Pantoprazole Sodium (Protonix -) 40 mg PO ACBK [facility] Last Admin: 04/21/20 06:17 Dose: 40 mg Documented by: Potassium Chloride (K-Dur -) 40 meq PO DAILY [facility] Rosuvastatin Calcium (Crestor -) 10 mg PO [facility] Last Admin: 04/20/20 22:17 Dose: 10 mg Documented by: Tamsulosin HCl (Flomax -) 0.4 mg PO [facility] Last Admin: 04/20/20 22:17 Dose: 0.4 mg Documented by: - Objective Vital Signs: Vital Signs Temperature 98.1 F 04/21/20 09:36 Pulse Rate 118 H 04/21/20 09:36 Respiratory Rate 16 04/21/20 09:36 Blood Pressure 130/68 04/21/20 09:36 O2 Sat by Pulse Oximetry (%) 98 04/21/20 09:36 Neck: Yes: Supple Cardiovascular: Yes: Tachycardia, Pulse Irregular, S1, S2 Respiratory: Yes: Diminished Gastrointestinal: Yes: Normal Bowel Sounds, Soft. No: Tenderness Edema: Yes Additional Findings/Remarks: - Review of Systems Constitutional: denies: Chills, Fever Cardiovascular: (+) Shortness of Breath. denies: Chest Pain, Palpitations Respiratory: denies: Cough, (+) SOB. denies: Hemoptysis, Orthopnea, PND, Wheezing Gastrointestinal: denies: Abdominal Pain, Constipation, Diarrhea, Melena, Nausea, Rectal Bleeding, Vomiting Musculoskeletal: denies: Back Pain, Joint Pain Neurological: denies: Dizziness, Headache, Seizure, Syncope Labs: CBC, BMP 04/21/20 07:50 04/21/20 07:50 Problem List - Problems (1) Hypercholesterolemia Code(s): E78.00 - PURE HYPERCHOLESTEROLEMIA, UNSPECIFIED (2) Acute kidney injury superimposed on CKD Code(s): N17.9 - ACUTE KIDNEY FAILURE, UNSPECIFIED; N18.9 - CHRONIC KIDNEY DISEASE, UNSPECIFIED (3) CHF (congestive heart failure) Code(s): I50.9 - HEART FAILURE, UNSPECIFIED Qualifiers: Heart failure type: unspecified Heart failure chronicity: acute Qualified Code(s): I50.9 - Heart failure, unspecified (4) Carotid artery stenosis Code(s): I65.29 - OCCLUSION AND STENOSIS OF UNSPECIFIED CAROTID ARTERY (5) E-coli UTI Code(s): N39.0 - URINARY TRACT INFECTION, SITE NOT SPECIFIED; B96.20 - UNSP ESCHERICHIA COLI THE CAUSE OF DISEASES CLASSD ELSWHR (6) Elevated troponin Code(s): R79.89 - OTHER SPECIFIED ABNORMAL FINDINGS OF BLOOD CHEMISTRY (7) History of CVA (cerebrovascular accident) Code(s): Z86.73 - PRSNL HX OF TIA (TIA), AND CEREB INFRC W/O RESID DEFICITS (8) PAF (paroxysmal atrial fibrillation) Code(s): I48.0 - PAROXYSMAL ATRIAL FIBRILLATION (9) Anemia Code(s): D64.9 - ANEMIA, UNSPECIFIED (10) HTN (hypertension) Code(s): I10 - ESSENTIAL (PRIMARY) HYPERTENSION Assessment/Plan 1. Atrial fibrillation with variable HR 2. 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 Moderate 4. Hyperthyroidism 5. Demand ischemia 6. Cerebrovascular disease 7. Acute on CKD 8. HTN 9. Hypercholesterolemia PLAN: 1. Continue Eliquis 2.5 mg BID (age > 80 and Cr > 1.5) with caution 2. Currently on ASA 81 mg QD with caution 3. Metoprolol ER 12.5 mg QD and uptitrate 4. Diuretics (Furosemide 40 mg QD) PO and monitor renal function and electrolytes 5. Nuclear MPI Thursday Further plans are to follow Eventually rehab/SNF Ricardo Arriaga MD
[2020-04-21] MEDS: POTASSIUM CHLORIDE TABS 20 MEQ TABLET.ER (FP) PO SCH (11:12)
--- NOTE | 2020-04-21 12:15 | PN ---
Progress Note (short form) - Note Progress Note: 84 year old male, with a significant past medical history of stroke, osteoarthritis, and BPH. He has stroke 14 years ago and have mild left facial droopiness and slurring of speech. He came to ed for worsening of slurring of speech as per hiw . Patient those findings. He is feeling better. He feels he is back to normal self. Patient denies any focal neurological symptoms. -- no new complain, HR rate was fast, primary team addressing. vascular consult pending NEUROLGOICAL EXAMINATION Alert oriented x 3, neck is supple vss left sided facial palsy, ( umn type) and slurring of speech eomi, pupils reactive moving all ext ct head unremarkable carotid ultrasound ? left common carotid critical stenosis Assessment/Plan 4 year old male, with a significant past medical history of stroke, osteoarthritis, and BPH. He has history of stroke 14 years ago with mild residual left facial weakness and slurring of speech He came transient worsening of symnptoms and now resolved. carotid there is left critical stenosis ct head urnemarkable, carotid ultraosund showed ? stenosis. -- Most patrick TIA , left cca/ica stenosis Plan: d/w continue eliquis and aspirin - possible stress test and vascular consult pending - stephanley to be surgical candidate - life style modificiatoin and and stroke education - supportive care Thanking you so much Constantino Stanley MD
--- NOTE | 2020-04-21 13:32 | PN ---
Progress Note, Physician History of Present Illness: Pt seen and examined at bedside. He is awake and alert. he denies shortness of breath at rest. - Current Medication List Current Medications: Active Medications Acetaminophen (Tylenol -) 650 mg PO Q6H PRN PRN Reason: PAIN LEVEL 1-5 Last Admin: 04/20/20 09:04 Dose: 650 mg Documented by: Apixaban (Eliquis -) 2.5 mg PO BID [facility] Last Admin: 04/21/20 09:26 Dose: 2.5 mg Documented by: Aspirin (Ecotrin -) 81 mg PO DAILY [facility] Last Admin: 04/21/20 09:28 Dose: 81 mg Documented by: Furosemide (Lasix -) 40 mg PO DAILY [facility] Last Admin: 04/21/20 09:25 Dose: 40 mg Documented by: Metoprolol Succinate (Toprol Xl -) 12.5 mg PO DAILY [facility] Last Admin: 04/21/20 09:27 Dose: 12.5 mg Documented by: Metoprolol Tartrate (Lopressor Injection -) 5 mg IVPUSH Q4H PRN PRN Reason: TACHYCARDIA Pantoprazole Sodium (Protonix -) 40 mg PO ACBK [facility] Last Admin: 04/21/20 06:17 Dose: 40 mg Documented by: Potassium Chloride (K-Dur -) 40 meq PO DAILY [facility] Last Admin: 04/21/20 11:12 Dose: 40 meq Documented by: Rosuvastatin Calcium (Crestor -) 10 mg PO [facility] Last Admin: 04/20/20 22:17 Dose: 10 mg Documented by: Tamsulosin HCl (Flomax -) 0.4 mg PO [facility] Last Admin: 04/20/20 22:17 Dose: 0.4 mg Documented by: - Objective Vital Signs: Vital Signs Temperature 98.1 F 04/21/20 09:36 Pulse Rate 118 H 04/21/20 09:36 Respiratory Rate 16 04/21/20 09:36 Blood Pressure 130/68 04/21/20 09:36 O2 Sat by Pulse Oximetry (%) 98 04/21/20 09:36 Constitutional: Yes: Calm Eyes: Yes: Conjunctiva Clear HENT: Yes: Atraumatic Neck: Yes: Supple Cardiovascular: Yes: S1, S2 Respiratory: Yes: CTA Bilaterally, On Nasal O2 Gastrointestinal: Yes: Soft, Abdomen, Obese Genitourinary: Yes: WNL Musculoskeletal: Yes: WNL Edema: Yes Edema: LLE: Trace, RLE: Trace Neurological: Yes: Oriented Psychiatric: Yes: Oriented Labs: CBC, BMP 04/21/20 07:50 04/21/20 07:50 INR, PTT INR 1.06 (0.83-1.09) 04/12/20 20:13 Assessment/Plan Current Medications Generic Name Dose Route Start Last Admin Trade Name Freq PRN Reason Stop Dose Admin Acetaminophen 650 mg 04/14/20 12:00 04/20/20 09:04 Tylenol - PO 650 mg Q6H PRN Administration PAIN LEVEL 1-5 Apixaban 2.5 mg 04/19/20 22:00 04/21/20 09:26 Eliquis - PO 2.5 mg BID ARLEN Administration Aspirin 81 mg 04/20/20 10:00 04/21/20 09:28 Ecotrin - PO 81 mg DAILY [facility] Administration Furosemide 40 mg 04/19/20 14:45 04/21/20 09:25 Lasix - PO 40 mg DAILY [facility] Administration Metoprolol Succinate 12.5 mg 04/20/20 10:00 04/21/20 09:27 Toprol Xl - PO 12.5 mg DAILY [facility] Administration Metoprolol Tartrate 5 mg 04/20/20 09:44 Lopressor Injection - IVPUSH Q4H PRN TACHYCARDIA Pantoprazole Sodium 40 mg 04/13/20 07:00 04/21/20 06:17 Protonix - PO 40 mg ACBK [facility] Administration Potassium Chloride 40 meq 04/21/20 10:45 04/21/20 11:12 K-Dur - PO 40 meq DAILY [facility] Administration Rosuvastatin Calcium 10 mg 04/13/20 22:00 04/20/20 22:17 Crestor - PO 10 mg HS [facility] Administration Tamsulosin HCl 0.4 mg 04/13/20 22:00 04/20/20 22:17 Flomax - PO 0.4 mg HS [facility] Administration Impression 1. SATHYA 2. CKD 3. CHF 4. UTI 5. proteinuria 6. hypokalemia 7. HLD 8. hx cva Plan - replace potassium - monitor renal function - rate control - volume status is improving - cont pt/rehab
--- NOTE | 2020-04-21 15:10 | PN ---
Physical Exam: SUBJECTIVE: Patient seen and examined. at bedside. patient reports liquid bms, apx 3-4 this a.m. OBJECTIVE: send stoof for c diff Patient is an 84 year old male, with a significant past medical history of stroke, osteoarthritis, and BPH, who presents to the emergency department on 04/12/2020 for 3 days of worsening SOB. Pt states he takes Lasix however is legs have been more swollen recently. per admission records, increased facial droop and slurred speech the past several days. Pt also reports waking up in the middle of the night with chest pressure and orthopnea the past several days. Patient was on aggrenox for stroke he had 14 yrs prior and has been on aggrenox since. discussed with Dr. Stanley (neuro) and informed him of the PAF. Neuro recommends Eliquis and asa 81mg or Eliquis and Plavix. imaging: tele: nsr Vital Signs Period Temp Pulse Resp BP Sys/Wheeler Pulse Ox Last 24 Hr 98.1 F-99.1 F 88-118 16-20 107-131/52-73 97-100 GENERAL: The patient is awake, alert, and fully oriented, in no acute distress. tolerating room air HEAD: Normal with no signs of trauma. EYES: PERRL, extraocular movements intact, sclera anicteric, conjunctiva clear. No ptosis. ENT: Ears normal, nares patent, oropharynx clear without exudates, moist mucous membranes. NECK: Trachea midline, full range of motion, supple. LUNGS: Breath sounds equal, no wheezes, no crackles, no accessory muscle use. HEART:sinus tacycardia, episodes of irregular heart rate ABDOMEN: Soft, nontender, nondistended EXTREMITIES: 1+ bilateral lower ext edema. bilateal arm scattered bruising NEUROLOGICAL: Normal speech, gait not observed. PSYCH: Normal mood, normal affect. SKIN: Warm, dry, normal turgor, no rashes or lesions noted Laboratory Results - last 24 hr 04/21/20 04/21/20 07:50 07:50 WBC 6.8 RBC 2.59 L Hgb 8.1 L Hct 24.8 L MCV 95.6 MCH 31.4 MCHC 32.8 RDW 14.0 Plt Count 200 MPV 8.5 Absolute Neuts (auto) 5.7 Neutrophils % 84.2 H Lymphocytes % 6.3 L Monocytes % 7.6 Eosinophils % 1.3 Basophils % 0.6 Nucleated RBC % 0 Sodium 143 Potassium 3.4 L Chloride 110 H Carbon Dioxide 23 Anion Gap 9 BUN 43.5 H Creatinine 3.0 H Est GFR (CKD-EPI)AfAm 21.13 Est GFR (CKD-EPI)NonAf 18.23 Random Glucose 110 H Calcium 8.4 L Magnesium 2.3 Total Bilirubin 0.3 AST 14 L ALT 13 Alkaline Phosphatase 60 Total Protein 5.8 L Albumin 2.6 L Active Medications Generic Name Dose Route Start Last Admin Trade Name Freq PRN Reason Stop Dose Admin Acetaminophen 650 mg 04/14/20 12:00 04/20/20 09:04 Tylenol - PO 650 mg Q6H PRN Administration PAIN LEVEL 1-5 Apixaban 2.5 mg 04/19/20 22:00 04/21/20 09:26 Eliquis - PO 2.5 mg BID ARLEN Administration Aspirin 81 mg 04/20/20 10:00 04/21/20 09:28 Ecotrin - PO 81 mg DAILY ARLEN Administration Furosemide 40 mg 04/19/20 14:45 04/21/20 09:25 Lasix - PO 40 mg DAILY ARLEN Administration Metoprolol Succinate 12.5 mg 04/20/20 10:00 04/21/20 09:27 Toprol Xl - PO 12.5 mg DAILY ARLEN Administration Metoprolol Tartrate 5 mg 04/20/20 09:44 Lopressor Injection - IVPUSH Q4H PRN TACHYCARDIA Pantoprazole Sodium 40 mg 04/13/20 07:00 04/21/20 06:17 Protonix - PO 40 mg ACBK ARLEN Administration Potassium Chloride 40 meq 04/21/20 10:45 04/21/20 11:12 K-Dur - PO 40 meq DAILY ARLEN Administration Rosuvastatin Calcium 10 mg 04/13/20 22:00 04/20/20 22:17 Crestor - PO 10 mg HS ARLEN Administration Tamsulosin HCl 0.4 mg 04/13/20 22:00 04/20/20 22:17 Flomax - PO 0.4 mg HS ARLEN Administration ASSESSMENT/PLAN: Problem List - Problems (1) Acute respiratory failure Assessment/Plan: improving. acute respiratory failure in the setting of acute on chronic heart failure. improved. on room air with stable oxygen saturations, he uses oxygen prn on lasix 40mg daily monitor intake and output and daily weights maintain oxygen above 92% room air assess for oxygen home needs if patient decides to go home, currently he is considering rehab Code(s): J96.00 - ACUTE RESPIRATORY FAILURE, UNSP W HYPOXIA OR HYPERCAPNIA (2) CHF (congestive heart failure) Assessment/Plan: systolic LV dysfunction and valvular heart disease (ECHO: moderate ; LVEF 45- 50%) monitor intake, output and daily weights on lasix 40mg daily monitor on tele Code(s): I50.9 - HEART FAILURE, UNSPECIFIED Qualifiers: Heart failure type: unspecified Heart failure chronicity: acute Qualified Code(s): I50.9 - Heart failure, unspecified (3) Slurred speech Assessment/Plan: patient with residual slurred speech from previous cva speech clear at times MRI of brain negative for acute process Code(s): R47.81 - SLURRED SPEECH (4) HTN (hypertension) Assessment/Plan: on toprol 12.5mg and monitor bp. lopressor pushes for tachycardia above 120 Code(s): I10 - ESSENTIAL (PRIMARY) HYPERTENSION (5) SATHYA (acute kidney injury) Assessment/Plan: creat increased on today/s labs. creatinine between 1.4-2.0 on previous admissions renal following renal dose medications monitor renal function Code(s): N17.9 - ACUTE KIDNEY FAILURE, UNSPECIFIED (6) E-coli UTI Assessment/Plan: UC showed ecoli UTI patient with pcn allergy and low GFR completed bactrim Code(s): N39.0 - URINARY TRACT INFECTION, SITE NOT SPECIFIED; B96.20 - UNSP ESCHERICHIA COLI THE CAUSE OF DISEASES CLASSD ELSWHR (7) History of CVA (cerebrovascular accident) Code(s): Z86.73 - PRSNL HX OF TIA (TIA), AND CEREB INFRC W/O RESID DEFICITS (8) History of CVA with residual deficit Assessment/Plan: previous cva patient with slurred speech on admission mri of debora and mra noted, no acute process seen carotid u/s with left carotid stenosis - vascular consulted per neuro, possibly had a TIA Code(s): I69.30 - UNSPECIFIED SEQUELAE OF CEREBRAL INFARCTION (9) PAF (paroxysmal atrial fibrillation) Assessment/Plan: on toprol 12.5 and eliquis/asa combo Code(s): I48.0 - PAROXYSMAL ATRIAL FIBRILLATION (10) Carotid artery stenosis Assessment/Plan: left cca/ica stenosis seen on carotid doppler. vascular surgery consulted and pending recommendations. patient is asymptomatic Code(s): I65.29 - OCCLUSION AND STENOSIS OF UNSPECIFIED CAROTID ARTERY (11) DVT prophylaxis Assessment/Plan: patient on on eliquis Code(s): Z29.9 - ENCOUNTER FOR PROPHYLACTIC MEASURES, UNSPECIFIED Visit type - Emergency Visit Emergency Visit: Yes ED Registration Date: 04/12/20 Care time: The patient presented to the Emergency Department on the above date and was hospitalized for further evaluation of their emergent condition. - New Patient This patient is new to me today: No - Critical Care Critical Care patient: No - Discharge Referral Referred to [facility] Med P.C.: No - Medication Review Med list reviewed for High Risk Meds patients 65 and older: Yes
[2020-04-21] MEDS: ACETAMINOPHEN 325 MG TABLET (FP) PO PRN (15:41)
[2020-04-21] MEDS: TAMSULOSIN HCL 0.4 MG CAP PO SCH (21:42)
[2020-04-21] MEDS: ROSUVASTATIN CA 10 MG TABLET (FP) PO SCH (21:42)
[2020-04-22] MEDS: PANTOPRAZOLE 40 MG TABLET PO SCH (05:59)
[2020-04-22 07:10] LABS: BASO % 0.7 % (0-2.0); EOS % 1.9 % (0-4.5); HEMATOCRIT 26.1 % (35.4-49); HEMOGLOBIN 8.6 GM/dL (11.7-16.9); LYMPH % 8.2 % (8-40); MCH 31.3 pg (25.7-33.7); MCHC 32.8 g/dl (32.0-35.9); MEAN CELL VOLUME 95.3 fl (80-96); MEAN PLT VOLUME 8.5 fl (7.5-11.1); MONO % 6.5 % (3.8-10.2); NEUT % 82.7 % (42.8-82.8); PLATELET COUNT 245 K/MM3 (134-434); RBC 2.74 M/mm3 (4.00-5.60); RDW 14.2 % (11.9-15.9); WHITE BLOOD COUNT 6.5 K/mm3 (4.0-10.0)
[2020-04-22 07:39] LABS: ALBUMIN 2.7 g/dl (3.4-5.0); BILIRUBIN,TOTAL 0.2 mg/dL (0.2-1); BLOOD UREA NITROGEN 47.6 mg/dL (7-18); CALCIUM 8.3 mg/dL (8.5-10.1); MAGNESIUM 2.2 mg/dL (1.8-2.4); POTASSIUM 3.6 mmol/L (3.5-5.1)
--- NOTE | 2020-04-22 08:56 | PN ---
Progress Note, Physician Chief Complaint: Events noted. Episode of shortness of breath earlier this morning Coverage for Dr. Rojas/Cami History of Present Illness: Patient was seen and examined. Awake and alert. Chart was reviewed Denies chest pain. AF with variable HR - RVR States oxygen is helping - Current Medication List Current Medications: Active Medications Acetaminophen (Tylenol -) 650 mg PO Q6H PRN PRN Reason: PAIN LEVEL 1-5 Last Admin: 04/21/20 15:41 Dose: 650 mg Documented by: Apixaban (Eliquis -) 2.5 mg PO BID [facility] Last Admin: 04/21/20 21:42 Dose: 2.5 mg Documented by: Aspirin (Ecotrin -) 81 mg PO DAILY [facility] Last Admin: 04/21/20 09:28 Dose: 81 mg Documented by: Furosemide (Lasix -) 40 mg PO DAILY [facility] Last Admin: 04/21/20 09:25 Dose: 40 mg Documented by: Metoprolol Succinate (Toprol Xl -) 12.5 mg PO DAILY [facility] Last Admin: 04/21/20 09:27 Dose: 12.5 mg Documented by: Metoprolol Tartrate (Lopressor Injection -) 5 mg IVPUSH Q4H PRN PRN Reason: TACHYCARDIA Pantoprazole Sodium (Protonix -) 40 mg PO ACBK [facility] Last Admin: 04/22/20 05:59 Dose: 40 mg Documented by: Potassium Chloride (K-Dur -) 40 meq PO DAILY [facility] Last Admin: 04/21/20 11:12 Dose: 40 meq Documented by: Rosuvastatin Calcium (Crestor -) 10 mg PO [facility] Last Admin: 04/21/20 21:42 Dose: 10 mg Documented by: Tamsulosin HCl (Flomax -) 0.4 mg PO [facility] Last Admin: 04/21/20 21:42 Dose: 0.4 mg Documented by: - Objective Vital Signs: Vital Signs Temperature 98.0 F 04/22/20 06:00 Pulse Rate 113 H 04/22/20 06:00 Respiratory Rate 26 H 04/22/20 06:00 Blood Pressure 139/74 04/22/20 06:00 O2 Sat by Pulse Oximetry (%) 97 04/22/20 06:00 Neck: Yes: Supple Cardiovascular: Yes: Tachycardia, Pulse Irregular, S1, S2 Respiratory: Yes: Diminished Gastrointestinal: Yes: Normal Bowel Sounds, Soft. No: Tenderness Edema: Yes Additional Findings/Remarks: - Review of Systems Constitutional: denies: Chills, Fever Cardiovascular: (+) Shortness of Breath. denies: Chest Pain, Palpitations Respiratory: denies: Cough, (+) SOB. denies: Hemoptysis, Orthopnea, PND, Wheezing Gastrointestinal: denies: Abdominal Pain, Constipation, Diarrhea, Melena, Nausea, Rectal Bleeding, Vomiting Musculoskeletal: denies: Back Pain, Joint Pain Neurological: denies: Dizziness, Headache, Seizure, Syncope Labs: CBC, BMP 04/22/20 06:07 04/22/20 06:07 INR, PTT INR 1.06 (0.83-1.09) 04/12/20 20:13 Problem List - Problems (1) Hypercholesterolemia Code(s): E78.00 - PURE HYPERCHOLESTEROLEMIA, UNSPECIFIED (2) Acute kidney injury superimposed on CKD Code(s): N17.9 - ACUTE KIDNEY FAILURE, UNSPECIFIED; N18.9 - CHRONIC KIDNEY DISEASE, UNSPECIFIED (3) CHF (congestive heart failure) Code(s): I50.9 - HEART FAILURE, UNSPECIFIED Qualifiers: Heart failure type: unspecified Heart failure chronicity: acute Qualified Code(s): I50.9 - Heart failure, unspecified (4) Carotid artery stenosis Code(s): I65.29 - OCCLUSION AND STENOSIS OF UNSPECIFIED CAROTID ARTERY (5) E-coli UTI Code(s): N39.0 - URINARY TRACT INFECTION, SITE NOT SPECIFIED; B96.20 - UNSP ESCHERICHIA COLI THE CAUSE OF DISEASES CLASSD ELSR (6) Elevated troponin Code(s): R79.89 - OTHER SPECIFIED ABNORMAL FINDINGS OF BLOOD CHEMISTRY (7) History of CVA (cerebrovascular accident) Code(s): Z86.73 - PRSNL HX OF TIA (TIA), AND CEREB INFRC W/O RESID DEFICITS (8) PAF (paroxysmal atrial fibrillation) Code(s): I48.0 - PAROXYSMAL ATRIAL FIBRILLATION (9) Anemia Code(s): D64.9 - ANEMIA, UNSPECIFIED (10) HTN (hypertension) Code(s): I10 - ESSENTIAL (PRIMARY) HYPERTENSION Assessment/Plan 1. Atrial fibrillation with variable HR 2. 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 Moderate 4. Hyperthyroidism 5. Demand ischemia 6. Cerebrovascular disease 7. Acute on CKD 8. HTN 9. Hypercholesterolemia PLAN: 1. Continue Eliquis 2.5 mg BID (age > 80 and Cr > 1.5) with caution 2. Currently on ASA 81 mg QD with caution 3. Metoprolol ER to 25 mg QD or BID to rate control 4. Diuretics (Furosemide 40 mg QD) PO and monitor renal function and electrolytes 5. Nuclear MPI Thursday Further plans are to follow Eventually rehab/SNF Dr. Harp/Crystal to resume care Thursday Ricardo Arriaga MD
[2020-04-22] MEDS: APIXABAN 2.5 MG TABLET PO SCH ×2 (10:20→22:02)
[2020-04-22] MEDS: POTASSIUM CHLORIDE TABS 20 MEQ TABLET.ER (FP) PO SCH (10:20)
[2020-04-22] MEDS: ASPIRIN COATED 81 MG TABLET.EC PO SCH (10:20)
[2020-04-22] MEDS: metoPROLOL SUCCINATE 25 MG TAB.SR.24H (FP) PO SCH ×2 (10:20→22:05)
[2020-04-22] MEDS: ACETAMINOPHEN 325 MG TABLET (FP) PO PRN ×2 (10:20→22:06)
[2020-04-22] MEDS: FUROSEMIDE 40 MG TABLET (FP) PO SCH (10:20)
--- NOTE | 2020-04-22 10:22 | PN ---
Physical Exam: SUBJECTIVE: Patient seen and examined. c/o of abdominal bloating. no nausea/vomiting. had bm today OBJECTIVE: Patient is an 84 year old male, with a significant past medical history of stroke, osteoarthritis, and BPH, who presents to the emergency department on 04/12/2020 for 3 days of worsening SOB. Pt states he takes Lasix however is legs have been more swollen recently. per admission records, increased facial droop and slurred speech the past several days. Pt also reports waking up in the middle of the night with chest pressure and orthopnea the past several days. Patient was on aggrenox for stroke he had 14 yrs prior and has been on aggrenox since. discussed with Dr. Stanley (neuro) and informed him of the PAF. Neuro recommends Eliquis and asa 81mg or Eliquis and Plavix. c diff was not sent as patient bm are less frequent and without any wbc elevation, afebrile. send for abdominal xray for abdominal distention Period Temp Pulse Resp BP Sys/Wheeler Pulse Ox Last 24 Hr 98.0 F-98.3 F 85-113 18-26 114-139/55-74 95-98 GENERAL: The patient is awake, alert, and fully oriented, in no acute distress. tolerating room air HEAD: Normal with no signs of trauma. EYES: PERRL, extraocular movements intact, sclera anicteric, conjunctiva clear. No ptosis. ENT: Ears normal, nares patent, oropharynx clear without exudates, moist mucous membranes. NECK: Trachea midline, full range of motion, supple. LUNGS: Breath sounds equal, diminished bilaterally HEART:sinus tacycardia, episodes of irregular heart rate ABDOMEN: Soft, nontender distended, soft. no pain. having bms, EXTREMITIES: 1+ bilateral lower ext edema. bilateal arm scattered bruising NEUROLOGICAL: Normal speech, gait not observed. PSYCH: Normal mood, normal affect. SKIN: Warm, dry, normal turgor, no rashes or lesions noted Laboratory Results - last 24 hr 04/22/20 04/22/20 06:07 06:07 WBC 6.5 RBC 2.74 L Hgb 8.6 L Hct 26.1 L MCV 95.3 MCH 31.3 MCHC 32.8 RDW 14.2 Plt Count 245 D MPV 8.5 Absolute Neuts (auto) 5.4 Neutrophils % 82.7 Lymphocytes % 8.2 D Monocytes % 6.5 Eosinophils % 1.9 Basophils % 0.7 Nucleated RBC % 0 Sodium 142 Potassium 3.6 Chloride 111 H Carbon Dioxide 22 Anion Gap 9 BUN 47.6 H Creatinine 3.0 H Est GFR (CKD-EPI)AfAm 21.13 Est GFR (CKD-EPI)NonAf 18.23 Random Glucose 117 H Calcium 8.3 L Magnesium 2.2 Total Bilirubin 0.2 AST 15 ALT 13 Alkaline Phosphatase 66 Total Protein 6.0 L Albumin 2.7 L Active Medications Generic Name Dose Route Start Last Admin Trade Name Freq PRN Reason Stop Dose Admin Acetaminophen 650 mg 04/14/20 12:00 04/22/20 10:20 Tylenol - PO 650 mg Q6H PRN Administration PAIN LEVEL 1-5 Apixaban 2.5 mg 04/19/20 22:00 04/22/20 10:20 Eliquis - PO 2.5 mg BID ARLEN Administration Aspirin 81 mg 04/20/20 10:00 04/22/20 10:20 Ecotrin - PO 81 mg DAILY ARLEN Administration Furosemide 40 mg 04/19/20 14:45 04/22/20 10:20 Lasix - PO 40 mg DAILY ARLEN Administration Metoprolol Succinate 25 mg 04/22/20 10:00 04/22/20 10:20 Toprol Xl - PO 25 mg BID RALEN Administration Metoprolol Tartrate 5 mg 04/20/20 09:44 Lopressor Injection - IVPUSH Q4H PRN TACHYCARDIA Pantoprazole Sodium 40 mg 04/13/20 07:00 04/22/20 05:59 Protonix - PO 40 mg ACBK ARLEN Administration Potassium Chloride 40 meq 04/21/20 10:45 04/22/20 10:20 K-Dur - PO 40 meq DAILY ARLEN Administration Rosuvastatin Calcium 10 mg 04/13/20 22:00 04/21/20 21:42 Crestor - PO 10 mg HS ARLEN Administration Tamsulosin HCl 0.4 mg 04/13/20 22:00 04/21/20 21:42 Flomax - PO 0.4 mg HS ARLEN Administration ASSESSMENT/PLAN: Problem List - Problems (1) Acute respiratory failure Assessment/Plan: improving. acute respiratory failure in the setting of acute on chronic heart failure. improved. on room air with stable oxygen saturations, he uses oxygen prn on lasix 40mg daily monitor intake and output and daily weights maintain oxygen above 92% room air assess for oxygen home needs if patient decides to go home, currently he is considering rehab Code(s): J96.00 - ACUTE RESPIRATORY FAILURE, UNSP W HYPOXIA OR HYPERCAPNIA (2) CHF (congestive heart failure) Assessment/Plan: systolic LV dysfunction and valvular heart disease (ECHO: moderate ; LVEF 45- 50%) monitor intake, output and daily weights on lasix 40mg daily monitor on tele Code(s): I50.9 - HEART FAILURE, UNSPECIFIED Qualifiers: Heart failure type: unspecified Heart failure chronicity: acute Qualified Code(s): I50.9 - Heart failure, unspecified (3) Slurred speech Assessment/Plan: patient with residual slurred speech from previous cva speech clear at times MRI of brain negative for acute process Code(s): R47.81 - SLURRED SPEECH (4) HTN (hypertension) Assessment/Plan: on toprol 12.5mg and monitor bp. lopressor pushes for tachycardia above 120 Code(s): I10 - ESSENTIAL (PRIMARY) HYPERTENSION (5) SATHYA (acute kidney injury) Assessment/Plan: creat increased on today's labs. creatinine between 1.4-2.0 on previous admissions renal following renal dose medications monitor renal function Code(s): N17.9 - ACUTE KIDNEY FAILURE, UNSPECIFIED (6) E-coli UTI Assessment/Plan: UC showed ecoli UTI patient with pcn allergy and low GFR completed bactrim Code(s): N39.0 - URINARY TRACT INFECTION, SITE NOT SPECIFIED; B96.20 - UNSP ESCHERICHIA COLI THE CAUSE OF DISEASES CLASSD ELSWHR (7) History of CVA (cerebrovascular accident) Code(s): Z86.73 - PRSNL HX OF TIA (TIA), AND CEREB INFRC W/O RESID DEFICITS (8) History of CVA with residual deficit Assessment/Plan: previous cva patient with slurred speech on admission mri of debora and mra noted, no acute process seen carotid u/s with left carotid stenosis - vascular consulted per neuro, possibly had a TIA Code(s): I69.30 - UNSPECIFIED SEQUELAE OF CEREBRAL INFARCTION (9) PAF (paroxysmal atrial fibrillation) Assessment/Plan: on toprol 12.5 and eliquis/asa combo Code(s): I48.0 - PAROXYSMAL ATRIAL FIBRILLATION (10) Carotid artery stenosis Assessment/Plan: left cca/ica stenosis seen on carotid doppler. vascular surgery consulted and pending recommendations. patient is asymptomatic Code(s): I65.29 - OCCLUSION AND STENOSIS OF UNSPECIFIED CAROTID ARTERY (11) DVT prophylaxis Assessment/Plan: patient on on eliquis Code(s): Z29.9 - ENCOUNTER FOR PROPHYLACTIC MEASURES, UNSPECIFIED (12) Abdominal distension Assessment/Plan: patient with abdominal distention after eating breakfast. denies any nausea or vomiting. had a soft bm and passing gas. abdominal xray shows small bowel air distention with some air fluid levels air in rectosigmoid. minimal pleural reaction and atelectasis at bases with slightly elevated left hemidiaphragm. will down grade diet to clears and monitor he denies any abdominal pain at this time Code(s): R14.0 - ABDOMINAL DISTENSION (GASEOUS) Visit type - Emergency Visit Emergency Visit: Yes ED Registration Date: 04/12/20 Care time: The patient presented to the Emergency Department on the above date and was hospitalized for further evaluation of their emergent condition. - New Patient This patient is new to me today: No - Critical Care Critical Care patient: No - Discharge Referral Referred to [facility] Med P.C.: No - Medication Review Med list reviewed for High Risk Meds patients 65 and older: Yes
--- NOTE | 2020-04-22 13:44 | PN ---
Progress Note, Physician History of Present Illness: Pt seen and examined at bedside. He is awake and alert. He is tolerating diet. He denies shortness of breath at rest. - Current Medication List Current Medications: Active Medications Acetaminophen (Tylenol -) 650 mg PO Q6H PRN PRN Reason: PAIN LEVEL 1-5 Last Admin: 04/22/20 10:20 Dose: 650 mg Documented by: Apixaban (Eliquis -) 2.5 mg PO BID [facility] Last Admin: 04/22/20 10:20 Dose: 2.5 mg Documented by: Aspirin (Ecotrin -) 81 mg PO DAILY [facility] Last Admin: 04/22/20 10:20 Dose: 81 mg Documented by: Furosemide (Lasix -) 40 mg PO DAILY [facility] Last Admin: 04/22/20 10:20 Dose: 40 mg Documented by: Metoprolol Succinate (Toprol Xl -) 25 mg PO BID [facility] Last Admin: 04/22/20 10:20 Dose: 25 mg Documented by: Metoprolol Tartrate (Lopressor Injection -) 5 mg IVPUSH Q4H PRN PRN Reason: TACHYCARDIA Pantoprazole Sodium (Protonix -) 40 mg PO ACBK [facility] Last Admin: 04/22/20 05:59 Dose: 40 mg Documented by: Potassium Chloride (K-Dur -) 40 meq PO DAILY [facility] Last Admin: 04/22/20 10:20 Dose: 40 meq Documented by: Rosuvastatin Calcium (Crestor -) 10 mg PO [facility] Last Admin: 04/21/20 21:42 Dose: 10 mg Documented by: Tamsulosin HCl (Flomax -) 0.4 mg PO [facility] Last Admin: 04/21/20 21:42 Dose: 0.4 mg Documented by: - Objective Vital Signs: Vital Signs Temperature 98.3 F 04/22/20 10:00 Pulse Rate 113 H 04/22/20 10:00 Respiratory Rate 20 04/22/20 10:00 Blood Pressure 117/92 04/22/20 10:00 O2 Sat by Pulse Oximetry (%) 98 04/22/20 10:00 Constitutional: Yes: Calm Eyes: Yes: Conjunctiva Clear HENT: Yes: Atraumatic Neck: Yes: Supple Cardiovascular: Yes: S1, S2 Respiratory: Yes: CTA Bilaterally Gastrointestinal: Yes: Soft Genitourinary: Yes: Incontinence Musculoskeletal: Yes: WNL Edema: No Neurological: Yes: Oriented Psychiatric: Yes: Oriented Labs: CBC, BMP 04/22/20 06:07 04/22/20 06:07 INR, PTT INR 1.06 (0.83-1.09) 04/12/20 20:13 Assessment/Plan Current Medications Generic Name Dose Route Start Last Admin Trade Name Freq PRN Reason Stop Dose Admin Acetaminophen 650 mg 04/14/20 12:00 04/22/20 10:20 Tylenol - PO 650 mg Q6H PRN Administration PAIN LEVEL 1-5 Apixaban 2.5 mg 04/19/20 22:00 04/22/20 10:20 Eliquis - PO 2.5 mg BID ARLEN Administration Aspirin 81 mg 04/20/20 10:00 04/22/20 10:20 Ecotrin - PO 81 mg DAILY ARLEN Administration Furosemide 40 mg 04/19/20 14:45 04/22/20 10:20 Lasix - PO 40 mg DAILY ARLEN Administration Metoprolol Succinate 25 mg 04/22/20 10:00 04/22/20 10:20 Toprol Xl - PO 25 mg BID ARLEN Administration Metoprolol Tartrate 5 mg 04/20/20 09:44 Lopressor Injection - IVPUSH Q4H PRN TACHYCARDIA Pantoprazole Sodium 40 mg 04/13/20 07:00 04/22/20 05:59 Protonix - PO 40 mg ACBK ARLEN Administration Potassium Chloride 40 meq 04/21/20 10:45 04/22/20 10:20 K-Dur - PO 40 meq DAILY ARLEN Administration Rosuvastatin Calcium 10 mg 04/13/20 22:00 04/21/20 21:42 Crestor - PO 10 mg HS ARLEN Administration Tamsulosin HCl 0.4 mg 04/13/20 22:00 04/21/20 21:42 Flomax - PO 0.4 mg HS ARLEN Administration Impression 1. SATHYA 2. CKD 3. CHF 4. UTI 5. proteinuria 6. hypokalemia 7. HLD 8. hx cva Plan - cont to monitor lytes - will change lasix to 20 mg - called and discussed care at length with his - cardio follow up - will repeat am cxr - monitor volume status - rate control - cont pt/rehab
[2020-04-22] MEDS: TAMSULOSIN HCL 0.4 MG CAP PO SCH (22:02)
[2020-04-22] MEDS: ROSUVASTATIN CA 10 MG TABLET (FP) PO SCH (22:02)
[2020-04-23] MEDS: PANTOPRAZOLE 40 MG TABLET PO SCH (06:28)
[2020-04-23 08:17] LABS: BASO % 0.9 % (0-2.0); EOS % 2.3 % (0-4.5); HEMATOCRIT 27.4 % (35.4-49); HEMOGLOBIN 8.7 GM/dL (11.7-16.9); LYMPH % 7.9 % (8-40); MCH 30.7 pg (25.7-33.7); MCHC 31.9 g/dl (32.0-35.9); MEAN CELL VOLUME 96.1 fl (80-96); MEAN PLT VOLUME 7.7 fl (7.5-11.1); MONO % 8.1 % (3.8-10.2); NEUT % 80.8 % (42.8-82.8); PLATELET COUNT 274 K/MM3 (134-434); RBC 2.85 M/mm3 (4.00-5.60); RDW 14.4 % (11.9-15.9); WHITE BLOOD COUNT 6.6 K/mm3 (4.0-10.0)
[2020-04-23 08:48] LABS: ALBUMIN 2.8 g/dl (3.4-5.0); BILIRUBIN,TOTAL 0.3 mg/dL (0.2-1); BLOOD UREA NITROGEN 49.3 mg/dL (7-18); CALCIUM 8.3 mg/dL (8.5-10.1); CREATININE 2.7 mg/dL (0.55-1.3); MAGNESIUM 2.2 mg/dL (1.8-2.4); POTASSIUM 3.9 mmol/L (3.5-5.1); TOT PROT 6.3 g/dl (6.4-8.2)
[2020-04-23] MEDS ORDERED: REGADENOSON 0.4 MG/5 ML PRE-FILLED SYRINGE IVPUSH ONE (09:00)
--- NOTE | 2020-04-23 09:07 | PN ---
Progress Note (short form) - Note Progress Note: Vascular Surgery 84 year old male admitted for sob and swelling of his legs. MRI of neck was found to be negative for any significant stenosis. Carotid doppler images reviewed. All velocities are within normal limits. No need for any surgery at this time. Medical management. Left ICA is at best 50-60 percent on carotid doppler. Outpt management for carotid ultrasounds. Nghia Humphrey dO
--- NOTE | 2020-04-23 09:43 | PN ---
Progress Note, Physician History of Present Illness: Mr. Hobson is an 84 year old male with a significant past medical history of CVA, severe osteoarthritis, HTN, HLD, chronic renal dysfunction, ?thyroid disorder, obesity, and BPH, who presents to the emergency department for 3 days of worsening SOB. Pt states he takes Lasix however is legs have been more swollen recently. states she noticed increased facial droop and slurred speech the past several days. Pt also reports waking up in the middle of the night with chest pressure and orthopnea the past several days. Patient denies headache and dizziness. He denies fever, chills, nausea, vomit, diarrhea and constipation. He denies dysuria, frequency, urgency and hematuria. Allergies: NKDA PCP: Dr. Zafar Sr - Current Medication List Current Medications: Active Medications Acetaminophen (Tylenol -) 650 mg PO Q6H PRN PRN Reason: PAIN LEVEL 1-5 Last Admin: 04/22/20 22:06 Dose: 650 mg Documented by: Apixaban (Eliquis -) 2.5 mg PO BID [facility] Last Admin: 04/22/20 22:02 Dose: 2.5 mg Documented by: Aspirin (Ecotrin -) 81 mg PO DAILY [facility] Last Admin: 04/22/20 10:20 Dose: 81 mg Documented by: Furosemide (Lasix -) 20 mg PO DAILY [facility] Metoprolol Succinate (Toprol Xl -) 25 mg PO BID [facility] Last Admin: 04/22/20 22:05 Dose: 25 mg Documented by: Metoprolol Tartrate (Lopressor Injection -) 5 mg IVPUSH Q4H PRN PRN Reason: TACHYCARDIA Pantoprazole Sodium (Protonix -) 40 mg PO ACBK [facility] Last Admin: 04/23/20 06:28 Dose: 40 mg Documented by: Potassium Chloride (K-Dur -) 40 meq PO DAILY [facility] Last Admin: 04/22/20 10:20 Dose: 40 meq Documented by: Rosuvastatin Calcium (Crestor -) 10 mg PO [facility] Last Admin: 04/22/20 22:02 Dose: 10 mg Documented by: Tamsulosin HCl (Flomax -) 0.4 mg PO HS [facility] Last Admin: 04/22/20 22:02 Dose: 0.4 mg Documented by: - Objective Vital Signs: Vital Signs Temperature 98.3 F 04/23/20 06:00 Pulse Rate 88 10/05/20 06:00 Respiratory Rate 20 04/23/20 06:00 Blood Pressure 138/71 04/23/20 06:00 O2 Sat by Pulse Oximetry (%) 100 04/23/20 06:00 Eyes: Yes: WNL, Conjunctiva Clear, EOM Intact HENT: Yes: WNL, Atraumatic, Normocephalic Neck: Yes: WNL, Supple, Trachea Midline Cardiovascular: Yes: WNL, Regular Rate and Rhythm Respiratory: Yes: WNL, Regular, CTA Bilaterally Gastrointestinal: Yes: WNL, Normal Bowel Sounds Genitourinary: Yes: WNL Musculoskeletal: Yes: WNL Extremities: Yes: WNL Edema: Yes Integumentary: Yes: WNL Neurological: Yes: WNL, Alert, Oriented ...Motor Strength: WNL Psychiatric: Yes: WNL Labs: CBC, BMP 04/23/20 07:51 04/23/20 07:51 INR, PTT INR 1.06 (0.83-1.09) 04/12/20 20:13 Assessment/Plan 1. Atrial fibrillation with variable HR 2. 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 Moderate 4. Hyperthyroidism 5. Demand ischemia 6. Cerebrovascular disease 7. Acute on CKD 8. HTN 9. Hypercholesterolemia PLAN: 1. Continue Eliquis 2.5 mg BID (age > 80 and Cr > 1.5) with caution 2. Currently on ASA 81 mg QD with caution 3. Metoprolol ER to 25 mg QD or BID to rate control 4. Diuretics (Furosemide 40 mg QD) PO and monitor renal function and electrolyte s 5. Nuclear MPI pending
[2020-04-23] MEDS: POTASSIUM CHLORIDE TABS 20 MEQ TABLET.ER (FP) PO SCH (09:57)
[2020-04-23] MEDS: metoPROLOL SUCCINATE 25 MG TAB.SR.24H (FP) PO SCH ×2 (09:57→22:50)
[2020-04-23] MEDS: APIXABAN 2.5 MG TABLET PO SCH ×2 (09:57→22:51)
[2020-04-23] MEDS: ASPIRIN COATED 81 MG TABLET.EC PO SCH (09:57)
[2020-04-23] MEDS ORDERED: FUROSEMIDE 20 MG TABLET (FP) PO SCH (10:00)
--- NOTE | 2020-04-23 12:34 | PN ---
Progress Note, Physician History of Present Illness: Pt seen and examined at bedside. He is awake and alert. He complains of shortness of breath when laying flat. - Current Medication List Current Medications: Active Medications Acetaminophen (Tylenol -) 650 mg PO Q6H PRN PRN Reason: PAIN LEVEL 1-5 Last Admin: 04/22/20 22:06 Dose: 650 mg Documented by: Apixaban (Eliquis -) 2.5 mg PO BID [facility] Last Admin: 04/23/20 09:57 Dose: 2.5 mg Documented by: Aspirin (Ecotrin -) 81 mg PO DAILY [facility] Last Admin: 04/23/20 09:57 Dose: 81 mg Documented by: Furosemide (Lasix -) 20 mg PO DAILY [facility] Last Admin: 04/23/20 09:57 Dose: 20 mg Documented by: Metoprolol Succinate (Toprol Xl -) 25 mg PO BID [facility] Last Admin: 04/23/20 09:57 Dose: 25 mg Documented by: Metoprolol Tartrate (Lopressor Injection -) 5 mg IVPUSH Q4H PRN PRN Reason: TACHYCARDIA Pantoprazole Sodium (Protonix -) 40 mg PO ACBK [facility] Last Admin: 04/23/20 06:28 Dose: 40 mg Documented by: Potassium Chloride (K-Dur -) 40 meq PO DAILY [facility] Last Admin: 04/23/20 09:57 Dose: 40 meq Documented by: Rosuvastatin Calcium (Crestor -) 10 mg PO [facility] Last Admin: 04/22/20 22:02 Dose: 10 mg Documented by: Tamsulosin HCl (Flomax -) 0.4 mg PO [facility] Last Admin: 04/22/20 22:02 Dose: 0.4 mg Documented by: - Objective Vital Signs: Vital Signs Temperature 97.9 F 04/23/20 09:56 Pulse Rate 91 H 04/23/20 09:56 Respiratory Rate 20 04/23/20 09:56 Blood Pressure 132/60 04/23/20 09:56 O2 Sat by Pulse Oximetry (%) 100 04/23/20 09:56 Constitutional: Yes: Calm Eyes: Yes: Conjunctiva Clear HENT: Yes: Atraumatic Neck: Yes: Supple Cardiovascular: Yes: S1, S2 Respiratory: Yes: CTA Bilaterally, On Nasal O2 Gastrointestinal: Yes: Normal Bowel Sounds, Soft Genitourinary: Yes: WNL Musculoskeletal: Yes: WNL Edema: Yes Edema: LLE: 1+, RLE: 1+ Neurological: Yes: Oriented Psychiatric: Yes: Oriented Labs: CBC, BMP 04/23/20 07:51 04/23/20 07:51 INR, PTT INR 1.06 (0.83-1.09) 04/12/20 20:13 Assessment/Plan Current Medications Generic Name Dose Route Start Last Admin Trade Name Freq PRN Reason Stop Dose Admin Acetaminophen 650 mg 04/14/20 12:00 04/22/20 22:06 Tylenol - PO 650 mg Q6H PRN Administration PAIN LEVEL 1-5 Apixaban 2.5 mg 04/19/20 22:00 04/23/20 09:57 Eliquis - PO 2.5 mg BID [facility] Administration Aspirin 81 mg 04/20/20 10:00 04/23/20 09:57 Ecotrin - PO 81 mg DAILY [facility] Administration Furosemide 20 mg 04/23/20 10:00 04/23/20 09:57 Lasix - PO 20 mg DAILY [facility] Administration Metoprolol Succinate 25 mg 04/22/20 10:00 04/23/20 09:57 Toprol Xl - PO 25 mg BID [facility] Administration Metoprolol Tartrate 5 mg 04/20/20 09:44 Lopressor Injection - IVPUSH Q4H PRN TACHYCARDIA Pantoprazole Sodium 40 mg 04/13/20 07:00 04/23/20 06:28 Protonix - PO 40 mg ACBK [facility] Administration Potassium Chloride 40 meq 04/21/20 10:45 04/23/20 09:57 K-Dur - PO 40 meq DAILY [facility] Administration Rosuvastatin Calcium 10 mg 04/13/20 22:00 04/22/20 22:02 Crestor - PO 10 mg HS [facility] Administration Tamsulosin HCl 0.4 mg 04/13/20 22:00 04/22/20 22:02 Flomax - PO 0.4 mg HS [facility] Administration Impression 1. SATHYA 2. CKD 3. CHF 4. UTI 5. proteinuria 6. hypokalemia 7. HLD 8. hx cva Plan - pt with shortness of breath, change lasix back to 40 mg - monitor lytes - monitor renal function - will need close outpt follow up - cont PT - cxr reviewed
[2020-04-23] MEDS: ACETAMINOPHEN 325 MG TABLET (FP) PO PRN ×2 (13:26→22:52)
[2020-04-23] MEDS: FUROSEMIDE 40 MG TABLET (FP) PO SCH (13:26)
--- NOTE | 2020-04-23 16:07 | PN ---
Physical Exam: SUBJECTIVE: Patient seen and examined at the bedside. denies any nausea/vomiting. abdomen still distended. OBJECTIVE: Patient is an 84 year old male, with a significant past medical history of stroke, osteoarthritis, and BPH, who presents to the emergency department on 04/12/2020 for 3 days of worsening SOB. Pt states he takes Lasix however is legs have been more swollen recently. per admission records, increased facial droop and slurred speech the past several days. Pt also reports waking up in the middle of the night with chest pressure and orthopnea the past several days. Patient was on aggrenox for stroke he had 14 yrs prior and has been on aggrenox since. discussed with Dr. Stanley (neuro) and informed him of the PAF. Neuro recommends Eliquis and asa 81mg. c diff was not sent as patient bm are less frequent and without any wbc elevation, afebrile. send for abdominal xray for abdominal distention, surgery consulted. patient for a stress test Vital Signs Period Temp Pulse Resp BP Sys/Wheeler Pulse Ox Last 24 Hr 97.8 F-98.3 F 83-99 16-20 112-138/58-80 98-100 GENERAL: The patient is awake, alert, and fully oriented, in no acute distress. tolerating room air HEAD: Normal with no signs of trauma. EYES: PERRL, extraocular movements intact, sclera anicteric, conjunctiva clear. No ptosis. ENT: Ears normal, nares patent, oropharynx clear without exudates, moist mucous membranes. NECK: Trachea midline, full range of motion, supple. LUNGS: Breath sounds equal, diminished bilaterally HEART:sinus tachycardia, episodes of irregular heart rate ABDOMEN: Soft, nontender +distended, soft. no pain. having bms, EXTREMITIES: 1+ bilateral lower ext edema. bilateal arm scattered bruising NEUROLOGICAL: Normal speech, gait not observed. PSYCH: Normal mood, normal affect. SKIN: Warm, dry, normal turgor, no rashes or lesions noted Laboratory Results - last 24 hr 04/23/20 04/23/20 07:51 07:51 WBC 6.6 RBC 2.85 L Hgb 8.7 L Hct 27.4 L MCV 96.1 H MCH 30.7 MCHC 31.9 L RDW 14.4 Plt Count 274 MPV 7.7 Absolute Neuts (auto) 5.3 Neutrophils % 80.8 Lymphocytes % 7.9 L Monocytes % 8.1 Eosinophils % 2.3 Basophils % 0.9 Nucleated RBC % 0 Sodium 143 Potassium 3.9 Chloride 112 H Carbon Dioxide 24 Anion Gap 7 L BUN 49.3 H Creatinine 2.7 H Est GFR (CKD-EPI)AfAm 24.00 Est GFR (CKD-EPI)NonAf 20.71 Random Glucose 113 H Calcium 8.3 L Magnesium 2.2 Total Bilirubin 0.3 AST 14 L ALT 14 Alkaline Phosphatase 67 Total Protein 6.3 L Albumin 2.8 L Active Medications Generic Name Dose Route Start Last Admin Trade Name Freq PRN Reason Stop Dose Admin Acetaminophen 650 mg 04/14/20 12:00 04/23/20 13:26 Tylenol - PO 650 mg Q6H PRN Administration PAIN LEVEL 1-5 Apixaban 2.5 mg 04/19/20 22:00 04/23/20 09:57 Eliquis - PO 2.5 mg BID [facility] Administration Aspirin 81 mg 04/20/20 10:00 04/23/20 09:57 Ecotrin - PO 81 mg DAILY [facility] Administration Furosemide 40 mg 04/23/20 12:45 04/23/20 13:26 Lasix - PO 40 mg DAILY [facility] Administration Metoprolol Succinate 25 mg 04/22/20 10:00 04/23/20 09:57 Toprol Xl - PO 25 mg BID [facility] Administration Metoprolol Tartrate 5 mg 04/20/20 09:44 Lopressor Injection - IVPUSH Q4H PRN TACHYCARDIA Pantoprazole Sodium 40 mg 04/13/20 07:00 04/23/20 06:28 Protonix - PO 40 mg ACBK [facility] Administration Potassium Chloride 40 meq 04/21/20 10:45 04/23/20 09:57 K-Dur - PO 40 meq DAILY [facility] Administration Rosuvastatin Calcium 10 mg 04/13/20 22:00 04/22/20 22:02 Crestor - PO 10 mg HS [facility] Administration Tamsulosin HCl 0.4 mg 04/13/20 22:00 04/22/20 22:02 Flomax - PO 0.4 mg HS [facility] Administration ASSESSMENT/PLAN: Problem List - Problems (1) Acute respiratory failure Assessment/Plan: improving. acute respiratory failure in the setting of acute on chronic heart failure. improved. on room air with stable oxygen saturations, he uses oxygen prn on lasix 40mg daily monitor intake and output and daily weights maintain oxygen above 92% room air assess for oxygen home needs if patient decides to go home, currently he is considering rehab Code(s): J96.00 - ACUTE RESPIRATORY FAILURE, UNSP W HYPOXIA OR HYPERCAPNIA (2) CHF (congestive heart failure) Assessment/Plan: systolic LV dysfunction and valvular heart disease (ECHO: moderate ; LVEF 45- 50%) monitor intake, output and daily weights on lasix 40mg daily monitor on tele Code(s): I50.9 - HEART FAILURE, UNSPECIFIED Qualifiers: Heart failure type: unspecified Heart failure chronicity: acute Qualified Code(s): I50.9 - Heart failure, unspecified (3) Slurred speech Assessment/Plan: patient with residual slurred speech from previous cva speech clear at times MRI of brain negative for acute process Code(s): R47.81 - SLURRED SPEECH (4) HTN (hypertension) Assessment/Plan: on toprol 12.5mg and monitor bp. lopressor pushes for tachycardia above 120 Code(s): I10 - ESSENTIAL (PRIMARY) HYPERTENSION (5) SATHYA (acute kidney injury) Assessment/Plan: creat increased on today's labs. creatinine between 1.4-2.0 on previous admissions renal following renal dose medications monitor renal function Code(s): N17.9 - ACUTE KIDNEY FAILURE, UNSPECIFIED (6) E-coli UTI Assessment/Plan: UC showed ecoli UTI patient with pcn allergy and low GFR completed bactrim for 3 days Code(s): N39.0 - URINARY TRACT INFECTION, SITE NOT SPECIFIED; B96.20 - UNSP ESCHERICHIA COLI THE CAUSE OF DISEASES CLASSD ELSWHR (7) History of CVA (cerebrovascular accident) Code(s): Z86.73 - PRSNL HX OF TIA (TIA), AND CEREB INFRC W/O RESID DEFICITS (8) History of CVA with residual deficit Assessment/Plan: previous cva patient with slurred speech on admission mri of debora and mra noted, no acute process seen carotid u/s with left carotid stenosis - vascular consulted per neuro, possibly had a TIA Code(s): I69.30 - UNSPECIFIED SEQUELAE OF CEREBRAL INFARCTION (9) PAF (paroxysmal atrial fibrillation) Assessment/Plan: on toprol 12.5 and eliquis/asa combo Code(s): I48.0 - PAROXYSMAL ATRIAL FIBRILLATION (10) Carotid artery stenosis Assessment/Plan: left cca/ica stenosis seen on carotid doppler. vascular surgery evaluated and recommend outpatient monitoring with ultrasounds. Code(s): I65.29 - OCCLUSION AND STENOSIS OF UNSPECIFIED CAROTID ARTERY (11) DVT prophylaxis Assessment/Plan: patient on on eliquis Code(s): Z29.9 - ENCOUNTER FOR PROPHYLACTIC MEASURES, UNSPECIFIED (12) Abdominal distension Assessment/Plan: patient with abdominal distention that persists. surgery consulted. notes reviewed and appreciated. patient had a soft bm and passing gas. abdominal xray 04/22 shows small bowel air distention with some air fluid levels air in rectosigmoid. minimal pleural reaction and atelectasis at bases with slightly elevated left hemidiaphragm. will advance diet as tolerated he denies any abdominal pain at this time Code(s): R14.0 - ABDOMINAL DISTENSION (GASEOUS) Visit type - Emergency Visit Emergency Visit: Yes ED Registration Date: 04/12/20 Care time: The patient presented to the Emergency Department on the above date and was hospitalized for further evaluation of their emergent condition. - New Patient This patient is new to me today: No - Critical Care Critical Care patient: No - Discharge Referral Referred to [facility] Yes - Medication Review Med list reviewed for High Risk Meds patients 65 and older: Yes
--- NOTE | 2020-04-23 16:20 | PN ---
Progress Note (short form) - Note Progress Note: 84 year old male, with a significant past medical history of stroke, osteoarthritis, and BPH. He has stroke 14 years ago and have mild left facial droopiness and slurring of speech. He came to ed for worsening of slurring of speech as per hiw . Patient those findings. He is feeling better. He feels he is back to normal self. Patient denies any focal neurological symptoms. -- no new focal neurological symptms NEUROLGOICAL EXAMINATION Alert oriented x 3, neck is supple vss left sided facial palsy, ( umn type) and slurring of speech eomi, pupils reactive moving all ext ct head unremarkable carotid ultrasound ? left common carotid critical stenosis Assessment/Plan 4 year old male, with a significant past medical history of stroke, osteoarthritis, and BPH. He has history of stroke 14 years ago with mild residual left facial weakness and slurring of speech He came transient worsening of symnptoms and now resolved. carotid there is left critical stenosis ct head urnemarkable, carotid ultraosund showed ? stenosis. -- Most patrick TIA , left cca/ica stenosis Plan: d/w continue eliquis and aspirin - vascular consult appreciated - life style modificiatoin and and stroke education - supportive care Thanking you so much Constantino Stanley MD
--- NOTE | 2020-04-23 16:33 | CONSULT ---
- Consultation REQUESTING PROVIDER: Shannan Stevens NP CONSULT REQUEST: We have been asked to surgically evaluate this patient for (specify). Hospitalist:Shannna Stevens NP HISTORY OF PRESENT ILLNESS: KYLE who is an 84 y/o male w/# co-morbid medical conditions admitted last month who developed abdominal distention; he states he is passing flatus and having diarrhea. PMHx: HTN/BPH/ CHF PSHx: no abdominal surgery Home Medications Medication Instructions Recorded Metoprolol Tartrate [Lopressor -] 12.5 mg PO DAILY 11/04/13 Tamsulosin HCl [Flomax -] 0.4 mg PO HS 11/04/13 Acetaminophen [Tylenol] 650 mg PO PRN PRN 08/03/14 Fluticasone Prop 0.05% Nasal 1 - 2 spray NS BID 08/03/14 [Flonase -] Aspirin/Dipyridamole [Aggrenox -] 1 combo PO BID 07/30/17 Furosemide [Lasix] 20 mg PO DAILY 07/30/17 predniSONE [Deltasone -] 5 mg PO DAILY 07/30/17 Aspirin/Dipyridamole [Aggrenox -] 1 combo PO BID 04/12/20 Tramadol HCl [Ultram] 50 mg PO TID PRN 04/12/20 Zinc Sulfate 220 mg PO DAILY 04/12/20 Atorvastatin Calcium 10 mg PO HS 04/13/20 Calcium Carbonate/Vitamin D3 1 each PO DAILY 04/13/20 [Calcium 500-Vit D3 200 Tablet] Guaifenesin [Mucinex] 600 mg PO BID 04/13/20 Omeprazole 20 mg PO ACBK 04/13/20 Allergies Allergy/AdvReac Type Severity Reaction Status Date / Time amoxicillin Allergy Severe vomiting Verified 04/12/20 19:57 diarrhea REVIEW OF SYSTEMS: reviewed from the chart PHYSICAL EXAM: GENERAL: Awake, alert, and fully oriented, in no acute distress. HEAD: Normal with no signs of trauma. EYES: sclera anicteric, conjunctiva clear. NECK: Normal ROM, supple without lymphadenopathy, JVD, or masses. ABDOMEN: Soft, nontender, slightly distended andd tympanitic, normoactive bowel sounds, no guarding, no rebound, no masses. No organomegaly. No hernias MUSCULOSKELETAL: Normal ROM at all joints. No bony deformities or tenderness. No CVA tenderness. UPPER EXTREMITIES: 2+ pulses, warm, well-perfused. No cyanosis. Cap refill <2 seconds. No peripheral edema. LOWER EXTREMITIES: 2+ pulses, warm, well-perfused. No calf tenderness. No peripheral edema. NEUROLOGICAL: Normal speech, gait not observed. PSYCH: Cooperative. Good eye contact. Appropriate mood and affect. SKIN: Warm, dry, normal turgor, no rashes or lesions noted. Vital Signs Temperature 97.8 F 04/23/20 14:33 Pulse Rate 89 04/23/20 14:33 Respiratory Rate 20 04/23/20 14:33 Blood Pressure 130/80 04/23/20 14:33 O2 Sat by Pulse Oximetry (%) 100 04/23/20 09:56 Lab Results WBC 6.6 K/mm3 (4.0-10.0) 04/23/20 07:51 RBC 2.85 M/mm3 (4.00-5.60) L 04/23/20 07:51 Hgb 8.7 GM/dL (11.7-16.9) L 04/23/20 07:51 Hct 27.4 % (35.4-49) L 04/23/20 07:51 MCV 96.1 fl (80-96) H 04/23/20 07:51 MCHC 31.9 g/dl (32.0-35.9) L 04/23/20 07:51 RDW 14.4 % (11.9-15.9) 04/23/20 07:51 Plt Count 274 K/MM3 (134-434) 04/23/20 07:51 INR 1.06 (0.83-1.09) 04/12/20 20:13 Sodium 143 mmol/L (136-145) 04/23/20 07:51 Potassium 3.9 mmol/L (3.5-5.1) 04/23/20 07:51 Chloride 112 mmol/L (98-107) H 04/23/20 07:51 Carbon Dioxide 24 mmol/L (21-32) 04/23/20 07:51 Anion Gap 7 MMOL/L (8-16) L 04/23/20 07:51 BUN 49.3 mg/dL (7-18) H 04/23/20 07:51 Creatinine 2.7 mg/dL (0.55-1.3) H 04/23/20 07:51 Random Glucose 113 mg/dL (74-106) H 04/23/20 07:51 Calcium 8.3 mg/dL (8.5-10.1) L 04/23/20 07:51 Imaging w/u reviewed IMP: most lkely ileus related to underlying comorbid medical conditions; doubt obstruction PLAN: Advance diet as tolerated; ? GI evaluation if diarrhea persists. Jc Salas MD FACDS
[2020-04-23] MEDS: ROSUVASTATIN CA 10 MG TABLET (FP) PO SCH (22:50)
[2020-04-23] MEDS: TAMSULOSIN HCL 0.4 MG CAP PO SCH (22:50)
[2020-04-24] MEDS: PANTOPRAZOLE 40 MG TABLET PO SCH (06:18)
[2020-04-24 07:26] LABS: HEMATOCRIT 25.4 % (35.4-49); HEMOGLOBIN 8.3 GM/dL (11.7-16.9); LYMPH % 9.3 % (8-40); MCH 30.9 pg (25.7-33.7); MCHC 32.6 g/dl (32.0-35.9); MEAN CELL VOLUME 94.7 fl (80-96); MEAN PLT VOLUME 8.1 fl (7.5-11.1); MONO % 7.1 % (3.8-10.2); NEUT % 79.6 % (42.8-82.8); PLATELET COUNT 301 K/MM3 (134-434); RBC 2.68 M/mm3 (4.00-5.60); RDW 14.1 % (11.9-15.9); WHITE BLOOD COUNT 5.9 K/mm3 (4.0-10.0)
--- NOTE | 2020-04-24 07:45 | PN ---
Progress Note, Physician Chief Complaint: Seen and examined in sitting in chair. Returned back from Stress test. Spoke with on speakerphone with pt. Requesting to dc to SNF/rehab when medically stable History of Present Illness: Patient is an 84 year old male, with a significant past medical history of stroke, osteoarthritis, and BPH, who presents to the emergency department on 04/12/2020 for 3 days of worsening SOB. Pt states he takes Lasix however is legs have been more swollen recently. per admission records, increased facial droop and slurred speech the past several days. Pt also reports waking up in the middle of the night with chest pressure and orthopnea the past several days. Patient was on aggrenox for stroke he had 14 yrs prior and has been on aggrenox since. discussed with Dr. Stanley (neuro) and informed him of the PAF. Neuro recommends Eliquis and asa 81mg. - Current Medication List Current Medications: Active Medications Acetaminophen (Tylenol -) 650 mg PO Q6H PRN PRN Reason: PAIN LEVEL 1-5 Last Admin: 04/23/20 22:52 Dose: 650 mg Documented by: Apixaban (Eliquis -) 2.5 mg PO BID [facility] Last Admin: 04/23/20 22:51 Dose: 2.5 mg Documented by: Aspirin (Ecotrin -) 81 mg PO DAILY [facility] Last Admin: 04/23/20 09:57 Dose: 81 mg Documented by: Furosemide (Lasix -) 40 mg PO DAILY [facility] Last Admin: 04/23/20 13:26 Dose: 40 mg Documented by: Metoprolol Succinate (Toprol Xl -) 25 mg PO BID [facility] Last Admin: 04/23/20 22:50 Dose: 25 mg Documented by: Metoprolol Tartrate (Lopressor Injection -) 5 mg IVPUSH Q4H PRN PRN Reason: TACHYCARDIA Pantoprazole Sodium (Protonix -) 40 mg PO ACBK [facility] Last Admin: 04/24/20 06:18 Dose: 40 mg Documented by: Potassium Chloride (K-Dur -) 40 meq PO DAILY [facility] Last Admin: 04/23/20 09:57 Dose: 40 meq Documented by: Rosuvastatin Calcium (Crestor -) 10 mg PO HS [facility] Last Admin: 04/23/20 22:50 Dose: 10 mg Documented by: Tamsulosin HCl (Flomax -) 0.4 mg PO [facility] Last Admin: 04/23/20 22:50 Dose: 0.4 mg Documented by: - Objective Vital Signs: Vital Signs Temperature 98.9 F 04/24/20 06:00 Pulse Rate 82 04/24/20 06:00 Respiratory Rate 18 04/24/20 06:00 Blood Pressure 118/61 04/24/20 06:00 O2 Sat by Pulse Oximetry (%) 100 04/24/20 06:00 Constitutional: Yes: Well Nourished, No Distress, Calm Eyes: Yes: WNL, Conjunctiva Clear HENT: Yes: WNL, Atraumatic, Normocephalic Neck: Yes: WNL, Supple, Trachea Midline Cardiovascular: Yes: WNL, Regular Rate and Rhythm Respiratory: Yes: WNL, Regular, CTA Bilaterally, Diminished (at bases) Gastrointestinal: Yes: WNL, Normal Bowel Sounds ...Rectal Exam: Yes: Deferred Genitourinary: Yes: WNL Breast(s): Yes: WNL Musculoskeletal: Yes: WNL Extremities: Yes: WNL Edema: Yes Edema: LLE: 1+, RLE: 1+ Peripheral Pulses WNL: Yes Peripheral Pulses: Left Radial: 2+, Right Radial: 2+, Left Doralis Pedis: 2+, Right Dorsalis Pedis: 2+, Left Femoral: 2+, Right Femoral: 2+ Integumentary: Yes: WNL Neurological: Yes: WNL, Alert, Oriented ...Motor Strength: WNL Psychiatric: Yes: WNL Labs: CBC, BMP 04/24/20 06:00 INR, PTT INR 1.06 (0.83-1.09) 04/12/20 20:13 Problem List - Problems (1) Prophylactic measure Assessment/Plan: FEN Fluids: adequate PO intake Electrolytes: monitor & replete as needed Nutrition: full diet DVT moderate risk apixaban Dispo Maintain as inpatient full code discharge planning to home vs snf Code(s): Z29.9 - ENCOUNTER FOR PROPHYLACTIC MEASURES, UNSPECIFIED (2) Acute on chronic diastolic CHF (congestive heart failure) Assessment/Plan: systolic LV dysfunction and valvular heart disease (ECHO: moderate ; LVEF 45- 50%) monitor intake, output and daily weights c/w lasix 40mg daily monitor on tele Code(s): I50.33 - ACUTE ON CHRONIC DIASTOLIC (CONGESTIVE) HEART FAILURE (3) COVID-19 ruled out by laboratory testing Assessment/Plan: negative pcr Code(s): Z03.818 - ENCNTR FOR OBS FOR SUSP EXPSR TO OTH BIOLG AGENTS RULED OUT (4) Abdominal distension Assessment/Plan: resolving abdominal xray 04/22 shows small bowel air distention with some air fluid levels air in rectosigmoid. minimal pleural reaction and atelectasis at bases with slightly elevated left hemidiaphragm. Gen surg following tolerating full diet he denies any abdominal pain at this time Code(s): R14.0 - ABDOMINAL DISTENSION (GASEOUS) (5) Acute kidney injury superimposed on CKD Assessment/Plan: Cr 2.4 renal following renal dose medications c/t renal function avoid nephrotoxic agents Code(s): N17.9 - ACUTE KIDNEY FAILURE, UNSPECIFIED; N18.9 - CHRONIC KIDNEY DISEASE, UNSPECIFIED (6) E-coli UTI Assessment/Plan: UC showed ecoli UTI completed bactrim for 3 days Code(s): N39.0 - URINARY TRACT INFECTION, SITE NOT SPECIFIED; B96.20 - UNSP ESCHERICHIA COLI THE CAUSE OF DISEASES CLASSD ELSWHR (7) History of CVA with residual deficit Assessment/Plan: residual slurred speech Code(s): I69.30 - UNSPECIFIED SEQUELAE OF CEREBRAL INFARCTION (8) PAF (paroxysmal atrial fibrillation) Assessment/Plan: on toprol 12.5 and eliquis/asa Code(s): I48.0 - PAROXYSMAL ATRIAL FIBRILLATION (9) HTN (hypertension) Assessment/Plan: c/t toprol Code(s): I10 - ESSENTIAL (PRIMARY) HYPERTENSION (10) Acute respiratory failure Assessment/Plan: improving, on 2L nc acute respiratory failure in the setting of acute on chronic heart failure. c/t lasix 40mg daily monitor intake and output and daily weights maintain oxygen above 92% room air assess for oxygen home needs if patient decides to go home, currently he is considering rehab Code(s): J96.00 - ACUTE RESPIRATORY FAILURE, UNSP W HYPOXIA OR HYPERCAPNIA (11) Normal cardiac stress test Assessment/Plan: ST with normal myocardial perfusion Code(s): IWC6074 - Visit type - Emergency Visit Emergency Visit: Yes ED Registration Date: 04/12/20 Care time: The patient presented to the Emergency Department on the above date and was hospitalized for further evaluation of their emergent condition. - New Patient This patient is new to me today: Yes Date on this admission: 04/24/20 - Critical Care Critical Care patient: No - Discharge Referral Referred to [facility] No - Medication Review Med list reviewed for High Risk Meds patients 65 and older: No
[2020-04-24 08:03] LABS: ALBUMIN 2.7 g/dl (3.4-5.0); BILIRUBIN,TOTAL 0.2 mg/dL (0.2-1); BLOOD UREA NITROGEN 41.7 mg/dL (7-18); CALCIUM 8.5 mg/dL (8.5-10.1); CREATININE 2.4 mg/dL (0.55-1.3); MAGNESIUM 2.3 mg/dL (1.8-2.4); POTASSIUM 3.9 mmol/L (3.5-5.1); TOT PROT 5.9 g/dl (6.4-8.2)
[2020-04-24] MEDS: APIXABAN 2.5 MG TABLET PO SCH ×2 (09:33→21:29)
[2020-04-24] MEDS: ASPIRIN COATED 81 MG TABLET.EC PO SCH (09:33)
[2020-04-24] MEDS: POTASSIUM CHLORIDE TABS 20 MEQ TABLET.ER (FP) PO SCH (09:33)
[2020-04-24] MEDS ORDERED: REGADENOSON 0.4 MG/5 ML PRE-FILLED SYRINGE IVPUSH ONE ×2 (10:00→11:05)
--- NOTE | 2020-04-24 13:00 | PN ---
Progress Note, Physician History of Present Illness: Pt seen and examined at bedside. He is awake and alert. He feels that his breathing is improved. - Current Medication List Current Medications: Active Medications Acetaminophen (Tylenol -) 650 mg PO Q6H PRN PRN Reason: PAIN LEVEL 1-5 Last Admin: 04/23/20 22:52 Dose: 650 mg Documented by: Apixaban (Eliquis -) 2.5 mg PO BID [facility] Last Admin: 04/24/20 09:33 Dose: 2.5 mg Documented by: Aspirin (Ecotrin -) 81 mg PO DAILY [facility] Last Admin: 04/24/20 09:33 Dose: 81 mg Documented by: Furosemide (Lasix -) 40 mg PO DAILY [facility] Last Admin: 04/23/20 13:26 Dose: 40 mg Documented by: Metoprolol Succinate (Toprol Xl -) 25 mg PO BID [facility] Last Admin: 04/23/20 22:50 Dose: 25 mg Documented by: Metoprolol Tartrate (Lopressor Injection -) 5 mg IVPUSH Q4H PRN PRN Reason: TACHYCARDIA Pantoprazole Sodium (Protonix -) 40 mg PO ACBK [facility] Last Admin: 04/24/20 06:18 Dose: 40 mg Documented by: Potassium Chloride (K-Dur -) 40 meq PO DAILY [facility] Last Admin: 04/24/20 09:33 Dose: 40 meq Documented by: Rosuvastatin Calcium (Crestor -) 10 mg PO [facility] Last Admin: 04/23/20 22:50 Dose: 10 mg Documented by: Tamsulosin HCl (Flomax -) 0.4 mg PO [facility] Last Admin: 04/23/20 22:50 Dose: 0.4 mg Documented by: - Objective Vital Signs: Vital Signs Temperature 97.8 F 04/24/20 09:32 Pulse Rate 84 04/24/20 09:32 Respiratory Rate 18 04/24/20 09:32 Blood Pressure 119/71 04/24/20 09:32 O2 Sat by Pulse Oximetry (%) 99 04/24/20 09:32 Constitutional: Yes: Calm Eyes: Yes: Conjunctiva Clear HENT: Yes: Atraumatic Cardiovascular: Yes: S1, S2 Respiratory: Yes: On Nasal O2 Gastrointestinal: Yes: Soft Genitourinary: Yes: WNL Musculoskeletal: Yes: Muscle Weakness Edema: Yes Edema: LLE: Trace, RLE: Trace Neurological: Yes: Oriented Psychiatric: Yes: Oriented Labs: CBC, BMP 04/24/20 06:00 04/24/20 06:00 INR, PTT INR 1.06 (0.83-1.09) 04/12/20 20:13 Assessment/Plan Current Medications Generic Name Dose Route Start Last Admin Trade Name Freq PRN Reason Stop Dose Admin Acetaminophen 650 mg 04/14/20 12:00 04/23/20 22:52 Tylenol - PO 650 mg Q6H PRN Administration PAIN LEVEL 1-5 Apixaban 2.5 mg 04/19/20 22:00 04/24/20 09:33 Eliquis - PO 2.5 mg BID [facility] Administration Aspirin 81 mg 04/20/20 10:00 04/24/20 09:33 Ecotrin - PO 81 mg DAILY [facility] Administration Furosemide 40 mg 04/23/20 12:45 04/23/20 13:26 Lasix - PO 40 mg DAILY [facility] Administration Metoprolol Succinate 25 mg 04/22/20 10:00 04/23/20 22:50 Toprol Xl - PO 25 mg BID [facility] Administration Metoprolol Tartrate 5 mg 04/20/20 09:44 Lopressor Injection - IVPUSH Q4H PRN TACHYCARDIA Pantoprazole Sodium 40 mg 04/13/20 07:00 04/24/20 06:18 Protonix - PO 40 mg ACBK [facility] Administration Potassium Chloride 40 meq 04/21/20 10:45 04/24/20 09:33 K-Dur - PO 40 meq DAILY [facility] Administration Rosuvastatin Calcium 10 mg 04/13/20 22:00 04/23/20 22:50 Crestor - PO 10 mg HS [facility] Administration Tamsulosin HCl 0.4 mg 04/13/20 22:00 04/23/20 22:50 Flomax - PO 0.4 mg HS [facility] Administration Impression 1. SATHYA 2. CKD 3. CHF 4. UTI 5. proteinuria 6. hypokalemia 7. HLD 8. hx cva Plan - cont lasix at 40 mg - renal function improving - follow stress test - repeat labs in am - cont PT
[2020-04-24] MEDS: FUROSEMIDE 40 MG TABLET (FP) PO SCH (13:36)
[2020-04-24] MEDS: metoPROLOL SUCCINATE 25 MG TAB.SR.24H (FP) PO SCH ×2 (13:36→21:29)
[2020-04-24] MEDS: ACETAMINOPHEN 325 MG TABLET (FP) PO PRN (13:39)
--- NOTE | 2020-04-24 16:07 | PN ---
Progress Note (short form) - Note Progress Note: 84 year old male, with a significant past medical history of stroke, osteoarthritis, and BPH. He has stroke 14 years ago and have mild left facial droopiness and slurring of speech. He came to ed for worsening of slurring of speech as per hiw . Patient those findings. He is feeling better. He feels he is back to normal self. Patient denies any focal neurological symptoms. -- no new focal neurological symptms , Had stress test done NEUROLGOICAL EXAMINATION Alert oriented x 3, neck is supple vss left sided facial palsy, ( umn type) and slurring of speech eomi, pupils reactive moving all ext ct head unremarkable carotid ultrasound ? left common carotid critical stenosis Assessment/Plan 4 year old male, with a significant past medical history of stroke, osteoarthritis, and BPH. He has history of stroke 14 years ago with mild residual left facial weakness and slurring of speech He came transient worsening of symnptoms and now resolved. carotid there is left critical stenosis ct head urnemarkable, carotid ultraosund showed ? stenosis. -- Most likley TIA , left cca/ica stenosis no surgical intervention Plan: continue eliquis and aspirin - vascular consult appreciated - can be discharged from neuro point of view Thanking you so much Constantino Stanley MD
[2020-04-24] MEDS: TAMSULOSIN HCL 0.4 MG CAP PO SCH (21:29)
[2020-04-24] MEDS: ROSUVASTATIN CA 10 MG TABLET (FP) PO SCH (21:29)
--- NOTE | 2020-04-24 23:37 | PN ---
Progress Note, Physician Chief Complaint: Pt A&Ox3; felt weak yesterday when undergoing physical rehabilitation. History of Present Illness: Mr. Hobson is an 84 year old white male with a significant past medical history of CVA, severe osteoarthritis, HTN, HLD, chronic renal dysfunction (recent UTI), ?thyroid disorder, anemia, marked truncal obesity, chronic bilateral knee swelling ("bone-on -bone"), sedentary lifestyle ("bedbound" for at least two years), and BPH, who presents to the emergency department for 3 days of worsening SOB. Pt states he takes Lasix; however is legs have been more swollen recently. states she noticed increased facial droop and slurred speech the past several days. Pt also reports waking up in the middle of the night with chest pressure and orthopnea the past several days. Patient denies headache and dizziness. He denies fever, chills, nausea, vomit, diarrhea and constipation. He denies dysuria, frequency, urgency and hematuria. Allergies: NKDA PCP: Dr. Zafar Sr Information Systems Security Developer: Dr. Sole Bob former cigarette smoker - Current Medication List Current Medications: Active Medications Acetaminophen (Tylenol -) 650 mg PO Q6H PRN PRN Reason: PAIN LEVEL 1-5 Last Admin: 04/24/20 13:39 Dose: 650 mg Documented by: Apixaban (Eliquis -) 2.5 mg PO BID [facility] Last Admin: 04/24/20 21:29 Dose: 2.5 mg Documented by: Aspirin (Ecotrin -) 81 mg PO DAILY [facility] Last Admin: 04/24/20 09:33 Dose: 81 mg Documented by: Furosemide (Lasix -) 40 mg PO DAILY [facility] Last Admin: 04/24/20 13:36 Dose: 40 mg Documented by: Metoprolol Succinate (Toprol Xl -) 25 mg PO BID [facility] Last Admin: 04/24/20 21:29 Dose: 25 mg Documented by: Metoprolol Tartrate (Lopressor Injection -) 5 mg IVPUSH Q4H PRN PRN Reason: TACHYCARDIA Pantoprazole Sodium (Protonix -) 40 mg PO ACBK [facility] Last Admin: 04/24/20 06:18 Dose: 40 mg Documented by: Potassium Chloride (K-Dur -) 40 meq PO DAILY [facility] Last Admin: 04/24/20 09:33 Dose: 40 meq Documented by: Rosuvastatin Calcium (Crestor -) 10 mg PO HS [facility] Last Admin: 04/24/20 21:29 Dose: 10 mg Documented by: Tamsulosin HCl (Flomax -) 0.4 mg PO [facility] Last Admin: 04/24/20 21:29 Dose: 0.4 mg Documented by: - Objective Vital Signs: Vital Signs Temperature 97.9 F 04/24/20 17:00 Pulse Rate 95 H 04/24/20 17:00 Respiratory Rate 20 04/24/20 17:00 Blood Pressure 131/77 04/24/20 17:00 O2 Sat by Pulse Oximetry (%) 99 04/24/20 17:00 Constitutional: Yes: Calm, Obese Eyes: Yes: WNL Labs: CBC, BMP 04/24/20 06:00 04/24/20 06:00 INR, PTT INR 1.06 (0.83-1.09) 04/12/20 20:13 Assessment/Plan New-onset AF Carotid artery US: likely significant disease (CTA recommended by radiologist, but problematic given renal dysfunction). Acute/chronic systolic (LVEF 45-50%)/diastolic CHF; moderate hyperthyroidism TNI noted elevated. Elevated BNP. mild hypokalemia renal dysfunction BPH MRI head: no acute infarct or bleed; +ischemic changes likely due to HTN or small vessel disease COVID negative Rec: On metoprolol ER for HR control (and systolic CHF; HTN); plan on ACEI if renal function improves. On apixaban 2.5 mg bid and ASA 81 mg daily. On rosuvastatin; keep LDL cholesterol< 70 mg/dL. For stress Lexiscan MIBI today.
[2020-04-25] MEDS: PANTOPRAZOLE 40 MG TABLET PO SCH (06:09)
--- NOTE | 2020-04-25 07:27 | PN ---
Progress Note, Physician Chief Complaint: Seen and examined in bed. Edema reolving-no dyspnea-now appears euvolemic. Renal fx improving. Patient agreeable to STR-awaiting approval for [facility] History of Present Illness: Patient is an 84 year old male, with a significant past medical history of stroke, osteoarthritis, and BPH, who presents to the emergency department on 04/12/2020 for 3 days of worsening SOB. Pt states he takes Lasix however is legs have been more swollen recently. per admission records, increased facial droop and slurred speech the past several days. Pt also reports waking up in the middle of the night with chest pressure and orthopnea the past several days. Patient was on aggrenox for stroke he had 14 yrs prior and has been on aggrenox since. discussed with Dr. Stanley (neuro) and informed him of the PAF. Neuro recommends Eliquis and asa 81mg. - Current Medication List Current Medications: Active Medications Acetaminophen (Tylenol -) 650 mg PO Q6H PRN PRN Reason: PAIN LEVEL 1-5 Last Admin: 04/24/20 13:39 Dose: 650 mg Documented by: Apixaban (Eliquis -) 2.5 mg PO BID [facility] Last Admin: 04/24/20 21:29 Dose: 2.5 mg Documented by: Aspirin (Ecotrin -) 81 mg PO DAILY [facility] Last Admin: 04/24/20 09:33 Dose: 81 mg Documented by: Furosemide (Lasix -) 40 mg PO DAILY [facility] Last Admin: 04/24/20 13:36 Dose: 40 mg Documented by: Metoprolol Succinate (Toprol Xl -) 25 mg PO BID [facility] Last Admin: 04/24/20 21:29 Dose: 25 mg Documented by: Metoprolol Tartrate (Lopressor Injection -) 5 mg IVPUSH Q4H PRN PRN Reason: TACHYCARDIA Pantoprazole Sodium (Protonix -) 40 mg PO ACBK [facility] Last Admin: 04/25/20 06:09 Dose: 40 mg Documented by: Potassium Chloride (K-Dur -) 40 meq PO DAILY [facility] Last Admin: 04/24/20 09:33 Dose: 40 meq Documented by: Rosuvastatin Calcium (Crestor -) 10 mg PO [facility] Last Admin: 04/24/20 21:29 Dose: 10 mg Documented by: Tamsulosin HCl (Flomax -) 0.4 mg PO [facility] Last Admin: 04/24/20 21:29 Dose: 0.4 mg Documented by: - Objective Vital Signs: Vital Signs Temperature 98.2 F 04/25/20 06:00 Pulse Rate 81 04/25/20 06:00 Respiratory Rate 18 04/25/20 06:00 Blood Pressure 116/61 04/25/20 06:00 O2 Sat by Pulse Oximetry (%) 100 04/24/20 21:00 Additional Findings/Remarks: Constitutional: Yes: Well Nourished, No Distress, Calm Eyes: Yes: WNL, Conjunctiva Clear HENT: Yes: WNL, Atraumatic, Normocephalic Neck: Yes: WNL, Supple, Trachea Midline Cardiovascular: Yes: WNL, Regular Rate and Rhythm Respiratory: Yes: WNL, Regular, CTA Bilaterally, Diminished (at bases) Gastrointestinal: Yes: WNL, Normal Bowel Sounds ...Rectal Exam: Yes: Deferred Genitourinary: Yes: WNL Breast(s): Yes: WNL Musculoskeletal: Yes: WNL Extremities: Yes: WNL Edema: Yes Edema: LLE: 1+, RLE: 1+ Peripheral Pulses WNL: Yes Peripheral Pulses: Left Radial: 2+, Right Radial: 2+, Left Doralis Pedis: 2+, Right Dorsalis Pedis: 2+, Left Femoral: 2+, Right Femoral: 2+ Integumentary: Yes: WNL Neurological: Yes: WNL, Alert, Oriented ...Motor Strength: WNL Psychiatric: Yes: WNL Labs: CBC, BMP 04/24/20 06:00 04/24/20 06:00 INR, PTT INR 1.06 (0.83-1.09) 04/12/20 20:13 Problem List - Problems (1) Prophylactic measure Assessment/Plan: FEN Fluids: adequate PO intake Electrolytes: monitor & replete as needed Nutrition: full diet DVT moderate risk apixaban Dispo Maintain as inpatient full code discharge planning to [facility] Code(s): Z29.9 - ENCOUNTER FOR PROPHYLACTIC MEASURES, UNSPECIFIED (2) Acute on chronic diastolic CHF (congestive heart failure) Assessment/Plan: systolic LV dysfunction and valvular heart disease (ECHO: moderate ; LVEF 45- 50%) monitor intake, output and daily weights c/w lasix 40mg daily appears euvolemic now monitor on tele Code(s): I50.33 - ACUTE ON CHRONIC DIASTOLIC (CONGESTIVE) HEART FAILURE (3) COVID-19 ruled out by laboratory testing Assessment/Plan: negative pcr Code(s): Z03.818 - ENCNTR FOR OBS FOR SUSP EXPSR TO OTH BIOLG AGENTS RULED OUT (4) Abdominal distension Assessment/Plan: resolving abdominal xray 04/22 shows small bowel air distention with some air fluid levels air in rectosigmoid. minimal pleural reaction and atelectasis at bases with slightly elevated left hemidiaphragm. Gen surg following tolerating full diet he denies any abdominal pain at this time Code(s): R14.0 - ABDOMINAL DISTENSION (GASEOUS) (5) Acute kidney injury superimposed on CKD Assessment/Plan: Cr 2.4 renal following renal dose medications c/t renal function avoid nephrotoxic agents Code(s): N17.9 - ACUTE KIDNEY FAILURE, UNSPECIFIED; N18.9 - CHRONIC KIDNEY DISEASE, UNSPECIFIED (6) E-coli UTI Assessment/Plan: UC showed ecoli UTI completed bactrim for 3 days Code(s): N39.0 - URINARY TRACT INFECTION, SITE NOT SPECIFIED; B96.20 - UNSP E SCHERICHIA COLI THE CAUSE OF DISEASES CLASSD ELSWHR (7) History of CVA with residual deficit Assessment/Plan: residual slurred speech Code(s): I69.30 - UNSPECIFIED SEQUELAE OF CEREBRAL INFARCTION (8) PAF (paroxysmal atrial fibrillation) Assessment/Plan: on toprol 12.5 and eliquis/asa Code(s): I48.0 - PAROXYSMAL ATRIAL FIBRILLATION (9) HTN (hypertension) Assessment/Plan: c/w toprol Code(s): I10 - ESSENTIAL (PRIMARY) HYPERTENSION (10) Acute respiratory failure Assessment/Plan: improving, on 2L nc acute respiratory failure in the setting of acute on chronic heart failure. c/w lasix 40mg daily monitor intake and output and daily weights, appears euvolemic maintain oxygen above 92% room air plan for transfer to SNF Code(s): J96.00 - ACUTE RESPIRATORY FAILURE, UNSP W HYPOXIA OR HYPERCAPNIA (11) Normal cardiac stress test Assessment/Plan: ST with normal myocardial perfusion Code(s): LYY4482 - (12) Diarrhea Assessment/Plan: most likely r/t resolving ileus cdif, O&P sent if persists will obtain official GI consult Code(s): R19.7 - DIARRHEA, UNSPECIFIED Visit type - Emergency Visit Emergency Visit: Yes ED Registration Date: 04/12/20 Care time: The patient presented to the Emergency Department on the above date and was hospitalized for further evaluation of their emergent condition. - New Patient This patient is new to me today: No - Critical Care Critical Care patient: No - Discharge Referral Referred to [facility] No - Medication Review Med list reviewed for High Risk Meds patients 65 and older: Yes
--- NOTE | 2020-04-25 07:56 | PN ---
Progress Note, Physician History of Present Illness: Mr. Hobson is an 84 year old male with a significant past medical history of CVA, severe osteoarthritis, HTN, HLD, chronic renal dysfunction, ?thyroid disorder, obesity, and BPH, who presents to the emergency department for 3 days of worsening SOB. Pt states he takes Lasix however is legs have been more swollen recently. states she noticed increased facial droop and slurred speech the past several days. Pt also reports waking up in the middle of the night with chest pressure and orthopnea the past several days. Patient denies headache and dizziness. He denies fever, chills, nausea, vomit, diarrhea and constipation. He denies dysuria, frequency, urgency and hematuria. Allergies: NKDA PCP: Dr. Zafar Sr - Current Medication List Current Medications: Active Medications Acetaminophen (Tylenol -) 650 mg PO Q6H PRN PRN Reason: PAIN LEVEL 1-5 Last Admin: 04/24/20 13:39 Dose: 650 mg Documented by: Apixaban (Eliquis -) 2.5 mg PO BID [facility] Last Admin: 04/24/20 21:29 Dose: 2.5 mg Documented by: Aspirin (Ecotrin -) 81 mg PO DAILY [facility] Last Admin: 04/24/20 09:33 Dose: 81 mg Documented by: Furosemide (Lasix -) 40 mg PO DAILY [facility] Last Admin: 04/24/20 13:36 Dose: 40 mg Documented by: Metoprolol Succinate (Toprol Xl -) 25 mg PO BID [facility] Last Admin: 04/24/20 21:29 Dose: 25 mg Documented by: Metoprolol Tartrate (Lopressor Injection -) 5 mg IVPUSH Q4H PRN PRN Reason: TACHYCARDIA Pantoprazole Sodium (Protonix -) 40 mg PO ACBK [facility] Last Admin: 04/25/20 06:09 Dose: 40 mg Documented by: Potassium Chloride (K-Dur -) 40 meq PO DAILY [facility] Last Admin: 04/24/20 09:33 Dose: 40 meq Documented by: Rosuvastatin Calcium (Crestor -) 10 mg PO HS [facility] Last Admin: 04/24/20 21:29 Dose: 10 mg Documented by: Tamsulosin HCl (Flomax -) 0.4 mg PO [facility] Last Admin: 04/24/20 21:29 Dose: 0.4 mg Documented by: - Objective Vital Signs: Vital Signs Temperature 98.2 F 04/25/20 06:00 Pulse Rate 81 04/25/20 06:00 Respiratory Rate 18 04/25/20 06:00 Blood Pressure 116/61 04/25/20 06:00 O2 Sat by Pulse Oximetry (%) 100 04/24/20 21:00 Eyes: Yes: WNL, Conjunctiva Clear, EOM Intact HENT: Yes: WNL, Atraumatic, Normocephalic Neck: Yes: WNL, Supple, Trachea Midline Cardiovascular: Yes: WNL, Regular Rate and Rhythm Respiratory: Yes: WNL, Regular, CTA Bilaterally Gastrointestinal: Yes: WNL, Normal Bowel Sounds Genitourinary: Yes: WNL Musculoskeletal: Yes: WNL Extremities: Yes: WNL Edema: No Integumentary: Yes: WNL Labs: CBC, BMP 04/24/20 06:00 04/24/20 06:00 INR, PTT INR 1.06 (0.83-1.09) 04/12/20 20:13 Assessment/Plan New-onset AF Carotid artery US: likely significant disease (CTA recommended by radiologist, but problematic given renal dysfunction). Acute/chronic systolic (LVEF 45-50%)/diastolic CHF; moderate hyperthyroidism TNI noted elevated. Elevated BNP. mild hypokalemia renal dysfunction BPH MRI head: no acute infarct or bleed; +ischemic changes likely due to HTN or small vessel disease COVID negative MIBI Stress test no ischemia EF 33% Rec: Since ECHO is more accurate evaluating EF -cont medical treatment. On metoprolol ER for HR control (and systolic CHF; HTN); plan on ACEI or Entresto if renal function improves. On apixaban 2.5 mg bid and ASA 81 mg daily. On rosuvastatin; keep LDL cholesterol< 70 mg/dL. Will d/c Potassium suplements. Will start Aldactone 25 QD D/C telemetry f/u BNP monitor renal function and K.
--- NOTE | 2020-04-25 08:57 | PN ---
Progress Note (short form) - Note Progress Note: Pt seen and examined. Reports he is feeling well. Abdominal pain has resolved. Continue to have diarrhea. Has not been oob. Tolerating full liquids. Denies cp/sob, n/v. Vital Signs Temp 98.2 F 04/25/20 06:00 Pulse 81 04/25/20 06:00 Resp 18 04/25/20 06:00 BP 116/61 04/25/20 06:00 Pulse Ox 100 04/24/20 21:00 Intake & Output 04/24/20 04/24/20 04/25/20 11:59 23:59 11:59 Intake Total 160 130 60 Balance 160 130 60 Intake: IV 10 10 RFA #22 04/25 10 10 Oral 150 120 60 Other: Voiding Method Incontinent Incontinent Incontinent # Unmeasured Voids Void 2 2 2 Bowel Movement Yes Yes Yes: small amount of loose stool # Bowel Movements 2 1 CBC, BMP 04/24/20 06:00 04/24/20 06:00 Gen: awake, alert, nad Resp: unlabored on RA Abdo: obese, soft, nt/nd, +bowel sounds A/P: 84 y/o M w/ PMHx CVA, osteoarthritis, and BPH, a/w worsening SOB. General surgery consulted for abdominal distention. Abdominal pain resolved Tolerating full liquids -Continue to advance diet as tolerated -Cdiff pending -reconsult prn d/w attending Dr Salas <Nicolasa Croft - Last Filed: 04/25/20 09:02> - Note Progress Note: Attending Surgeon: I personally saw and examined the patient. My examination reveals a patient with abdominal distention. I discussed the case with the surgical PA and agree with their findings and plan of care with any exceptions as noted. ~ Jc Salas MD, FACS <Jc Salas - Last Filed: 04/27/20 16:10>
[2020-04-25] MEDS: metoPROLOL SUCCINATE 25 MG TAB.SR.24H (FP) PO SCH ×2 (09:12→22:24)
[2020-04-25] MEDS: FUROSEMIDE 40 MG TABLET (FP) PO SCH (09:12)
[2020-04-25] MEDS: APIXABAN 2.5 MG TABLET PO SCH ×2 (09:12→22:23)
[2020-04-25] MEDS: POTASSIUM CHLORIDE TABS 20 MEQ TABLET.ER (FP) PO SCH (09:13)
[2020-04-25] MEDS: ASPIRIN COATED 81 MG TABLET.EC PO SCH (09:13)
--- NOTE | 2020-04-25 15:04 | PN ---
Progress Note, Physician History of Present Illness: Pt seen and examined at bedside. He is awake and alert. He denies shortness of breath. - Current Medication List Current Medications: Active Medications Acetaminophen (Tylenol -) 650 mg PO Q6H PRN PRN Reason: PAIN LEVEL 1-5 Last Admin: 04/24/20 13:39 Dose: 650 mg Documented by: Apixaban (Eliquis -) 2.5 mg PO BID [facility] Last Admin: 04/25/20 09:12 Dose: 2.5 mg Documented by: Aspirin (Ecotrin -) 81 mg PO DAILY [facility] Last Admin: 04/25/20 09:13 Dose: 81 mg Documented by: Furosemide (Lasix -) 40 mg PO DAILY [facility] Last Admin: 04/25/20 09:12 Dose: 40 mg Documented by: Metoprolol Succinate (Toprol Xl -) 25 mg PO BID [facility] Last Admin: 04/25/20 09:12 Dose: 25 mg Documented by: Metoprolol Tartrate (Lopressor Injection -) 5 mg IVPUSH Q4H PRN PRN Reason: TACHYCARDIA Pantoprazole Sodium (Protonix -) 40 mg PO ACBK [facility] Last Admin: 04/25/20 06:09 Dose: 40 mg Documented by: Rosuvastatin Calcium (Crestor -) 10 mg PO [facility] Last Admin: 04/24/20 21:29 Dose: 10 mg Documented by: Spironolactone (Aldactone -) 25 mg PO DAILY [facility] Tamsulosin HCl (Flomax -) 0.4 mg PO [facility] Last Admin: 04/24/20 21:29 Dose: 0.4 mg Documented by: Zinc Oxide/Panthenol/Vitamin E (Balmex Cream -) 1 applic TP ASDIR PRN PRN Reason: HYGEINE - Objective Vital Signs: Vital Signs Temperature 98.4 F 04/25/20 13:36 Pulse Rate 91 H 04/25/20 13:36 Respiratory Rate 18 04/25/20 13:36 Blood Pressure 119/58 L 04/25/20 13:36 O2 Sat by Pulse Oximetry (%) 97 04/25/20 09:11 Constitutional: Yes: Calm Eyes: Yes: Conjunctiva Clear HENT: Yes: Atraumatic Cardiovascular: Yes: S1, S2 Respiratory: Yes: On Nasal O2 Gastrointestinal: Yes: Soft Genitourinary: Yes: WNL Musculoskeletal: Yes: Muscle Weakness Edema: Yes Edema: LLE: Trace, RLE: Trace Neurological: Yes: Oriented Psychiatric: Yes: Oriented Labs: CBC, BMP 04/24/20 06:00 04/24/20 06:00 INR, PTT INR 1.06 (0.83-1.09) 04/12/20 20:13 Assessment/Plan Current Medications Generic Name Dose Route Start Last Admin Trade Name Freq PRN Reason Stop Dose Admin Acetaminophen 650 mg 04/14/20 12:00 04/24/20 13:39 Tylenol - PO 650 mg Q6H PRN Administration PAIN LEVEL 1-5 Apixaban 2.5 mg 04/19/20 22:00 04/25/20 09:12 Eliquis - PO 2.5 mg BID [facility] Administration Aspirin 81 mg 04/20/20 10:00 04/25/20 09:13 Ecotrin - PO 81 mg DAILY [facility] Administration Furosemide 40 mg 04/23/20 12:45 04/25/20 09:12 Lasix - PO 40 mg DAILY [facility] Administration Metoprolol Succinate 25 mg 04/22/20 10:00 04/25/20 09:12 Toprol Xl - PO 25 mg BID [facility] Administration Metoprolol Tartrate 5 mg 04/20/20 09:44 Lopressor Injection - IVPUSH Q4H PRN TACHYCARDIA Pantoprazole Sodium 40 mg 04/13/20 07:00 04/25/20 06:09 Protonix - PO 40 mg ACBK [facility] Administration Rosuvastatin Calcium 10 mg 04/13/20 22:00 04/24/20 21:29 Crestor - PO 10 mg HS [facility] Administration Spironolactone 25 mg 04/25/20 15:00 Aldactone - PO DAILY [facility] Tamsulosin HCl 0.4 mg 04/13/20 22:00 04/24/20 21:29 Flomax - PO 0.4 mg HS [facility] Administration Zinc Oxide/Panthenol/Vitamin E 1 applic 04/25/20 14:18 Balmex Cream - TP ASDIR PRN HYGEINE Impression 1. SATHYA 2. CKD 3. CHF 4. UTI 5. proteinuria 6. hypokalemia 7. HLD 8. hx cva Plan - renal function is improving - cont with lasix - avoid nsaids - will need outpt follow up - repeat labs in am - cont PT - monitor rate
[2020-04-25] MEDS: SPIRONOLACTONE 25 MG TABLET PO SCH (15:40)
--- NOTE | 2020-04-25 17:37 | PN ---
Progress Note (short form) - Note Progress Note: 84 year old male, with a significant past medical history of stroke, osteoarthritis, and BPH. He has stroke 14 years ago and have mild left facial droopiness and slurring of speech. He came to ed for worsening of slurring of speech as per hiw . Patient those findings. He is feeling better. He feels he is back to normal self. Patient denies any focal neurological symptoms. -- no new focal neurological symptms , having diarrhoea, hold d/c NEUROLGOICAL EXAMINATION Alert oriented x 3, neck is supple vss left sided facial palsy, ( umn type) and slurring of speech eomi, pupils reactive moving all ext ct head unremarkable carotid ultrasound ? left common carotid critical stenosis Assessment/Plan 4 year old male, with a significant past medical history of stroke, osteoarthritis, and BPH. He has history of stroke 14 years ago with mild residual left facial weakness and slurring of speech He came transient worsening of symnptoms and now resolved. carotid there is left critical stenosis ct head urnemarkable, carotid ultraosund showed ? stenosis. -- Most bernardley TIA , left cca/ica stenosis no surgical intervention Plan: continue eliquis and aspirin - vascular consult appreciated - stable, can be discharged once diarrhoea is controlled Thanking you so much Constantino Stanley MD
[2020-04-25] MEDS: ZINC OXIDE/PANTHENOL/VITAMIN E 56 GM TUBE TP PRN (18:18)
[2020-04-25] MEDS ORDERED: PT OWN MED DRAWER 7, Y5N ONE (21:53)
[2020-04-25] MEDS: ROSUVASTATIN CA 10 MG TABLET (FP) PO SCH (22:23)
[2020-04-25] MEDS: BANATROL PLUS POWDER PACKET PO SCH (22:23)
[2020-04-25] MEDS: TAMSULOSIN HCL 0.4 MG CAP PO SCH (22:23)
[2020-04-25] MEDS: ACETAMINOPHEN 325 MG TABLET (FP) PO PRN (22:24)
[2020-04-26] MEDS: PANTOPRAZOLE 40 MG TABLET PO SCH (06:00)
[2020-04-26] MEDS: BANATROL PLUS POWDER PACKET PO SCH ×3 (06:00→21:34)
--- NOTE | 2020-04-26 07:53 | PN ---
Progress Note, Physician Chief Complaint: Seen and examined in bed. Diarrhea less today. Approval for transfer to [facility] for STR. LE edema much improved. Renal fx improved History of Present Illness: Patient is an 84 year old male, with a significant past medical history of stroke, osteoarthritis, and BPH, who presents to the emergency department on 04/12/2020 for 3 days of worsening SOB. Pt states he takes Lasix however is legs have been more swollen recently. per admission records, increased facial droop and slurred speech the past several days. Pt also reports waking up in the middle of the night with chest pressure and orthopnea the past several days. Patient was on aggrenox for stroke he had 14 yrs prior and has been on aggrenox since. discussed with Dr. Stanley (neuro) and informed him of the PAF. Neuro recommends Eliquis and asa 81mg. - Current Medication List Current Medications: Active Medications Acetaminophen (Tylenol -) 650 mg PO Q6H PRN PRN Reason: PAIN LEVEL 1-5 Last Admin: 04/25/20 22:24 Dose: 650 mg Documented by: Apixaban (Eliquis -) 2.5 mg PO BID [facility] Last Admin: 04/25/20 22:23 Dose: 2.5 mg Documented by: Aspirin (Ecotrin -) 81 mg PO DAILY [facility] Last Admin: 04/25/20 09:13 Dose: 81 mg Documented by: Banana Based Medical Food (Banatrol Plus Powder Packet) 1 packet PO TID [facility] Last Admin: 04/25/20 22:23 Dose: 1 packet Documented by: Furosemide (Lasix -) 40 mg PO DAILY [facility] Last Admin: 04/25/20 09:12 Dose: 40 mg Documented by: Metoprolol Succinate (Toprol Xl -) 25 mg PO BID [facility] Last Admin: 04/25/20 22:24 Dose: 25 mg Documented by: Metoprolol Tartrate (Lopressor Injection -) 5 mg IVPUSH Q4H PRN PRN Reason: TACHYCARDIA Pantoprazole Sodium (Protonix -) 40 mg PO ACBK [facility] Last Admin: 04/25/20 06:09 Dose: 40 mg Documented by: Rosuvastatin Calcium (Crestor -) 10 mg PO HS [facility] Last Admin: 04/25/20 22:23 Dose: 10 mg Documented by: Spironolactone (Aldactone -) 25 mg PO DAILY [facility] Last Admin: 04/25/20 15:40 Dose: 25 mg Documented by: Tamsulosin HCl (Flomax -) 0.4 mg PO HS [facility] Last Admin: 04/25/20 22:23 Dose: 0.4 mg Documented by: Zinc Oxide/Panthenol/Vitamin E (Balmex Cream -) 1 applic TP ASDIR PRN PRN Reason: HYGEINE Last Admin: 04/25/20 18:18 Dose: 1 applic Documented by: - Objective Vital Signs: Vital Signs Temperature 98.0 F 04/26/20 06:00 Pulse Rate 79 04/26/20 06:00 Respiratory Rate 18 04/26/20 06:00 Blood Pressure 117/68 04/26/20 06:00 O2 Sat by Pulse Oximetry (%) 100 04/26/20 06:00 Additional Findings/Remarks: Constitutional: Yes: Well Nourished, No Distress, Calm Eyes: Yes: WNL, Conjunctiva Clear HENT: Yes: WNL, Atraumatic, Normocephalic Neck: Yes: WNL, Supple, Trachea Midline Cardiovascular: Yes: WNL, Regular Rate and Rhythm Respiratory: Yes: WNL, Regular, CTA Bilaterally, Diminished (at bases) Gastrointestinal: Yes: WNL, Normal Bowel Sounds ...Rectal Exam: Yes: Deferred Genitourinary: Yes: WNL Breast(s): Yes: WNL Musculoskeletal: Yes: WNL Extremities: Yes: WNL Edema: Yes Edema: LLE: 1+, RLE: 1+ Peripheral Pulses WNL: Yes Peripheral Pulses: Left Radial: 2+, Right Radial: 2+, Left Doralis Pedis: 2+, Right Dorsalis Pedis: 2+, Left Femoral: 2+, Right Femoral: 2+ Integumentary: Yes: WNL Neurological: Yes: WNL, Alert, Oriented ...Motor Strength: WNL Psychiatric: Yes: WNL Labs: CBC, BMP 04/24/20 06:00 04/24/20 06:00 INR, PTT INR 1.06 (0.83-1.09) 04/12/20 20:13 Problem List - Problems (1) Prophylactic measure Assessment/Plan: FEN Fluids: adequate PO intake Electrolytes: monitor & replete as needed Nutrition: BRAT diet until diarrhea resolves DVT moderate risk apixaban Dispo Maintain as inpatient full code discharge planning to [facility] Code(s): Z29.9 - ENCOUNTER FOR PROPHYLACTIC MEASURES, UNSPECIFIED (2) Acute on chronic diastolic CHF (congestive heart failure) Assessment/Plan: systolic LV dysfunction and valvular heart disease (ECHO: moderate ; LVEF 45- 50%) monitor intake, output and daily weights c/w lasix 40mg daily appears euvolemic now monitor on tele Code(s): I50.33 - ACUTE ON CHRONIC DIASTOLIC (CONGESTIVE) HEART FAILURE (3) COVID-19 ruled out by laboratory testing Assessment/Plan: negative pcr Code(s): Z03.818 - ENCNTR FOR OBS FOR SUSP EXPSR TO OTH BIOLG AGENTS RULED OUT (4) Abdominal distension Assessment/Plan: resolving abdominal xray 04/22 shows small bowel air distention with some air fluid levels air in rectosigmoid. minimal pleural reaction and atelectasis at bases with slightly elevated left hemidiaphragm. Gen surg following tolerating full diet he denies any abdominal pain at this time Code(s): R14.0 - ABDOMINAL DISTENSION (GASEOUS) (5) Acute kidney injury superimposed on CKD Assessment/Plan: Cr 2.0 renal following renal dose medications c/t renal function avoid nephrotoxic agents Code(s): N17.9 - ACUTE KIDNEY FAILURE, UNSPECIFIED; N18.9 - CHRONIC KIDNEY DISEASE, UNSPECIFIED (6) E-coli UTI Assessment/Plan: UC showed ecoli UTI completed bactrim for 3 days Code(s): N39.0 - URINARY TRACT INFECTION, SITE NOT SPECIFIED; B96.20 - UNSP ESCHERICHIA COLI THE CAUSE OF DISEASES CLASSD ELSWHR (7) History of CVA with residual deficit Assessment/Plan: residual slurred speech Code(s): I69.30 - UNSPECIFIED SEQUELAE OF CEREBRAL INFARCTION (8) PAF (paroxysmal atrial fibrillation) Assessment/Plan: on toprol 12.5 and eliquis/asa Code(s): I48.0 - PAROXYSMAL ATRIAL FIBRILLATION (9) HTN (hypertension) Assessment/Plan: c/w toprol Code(s): I10 - ESSENTIAL (PRIMARY) HYPERTENSION (10) Acute respiratory failure Assessment/Plan: improving, on 2L nc acute respiratory failure in the setting of acute on chronic heart failure. c/w lasix 40mg daily monitor intake and output and daily weights, appears euvolemic maintain oxygen above 92% room air plan for transfer to SNF Code(s): J96.00 - ACUTE RESPIRATORY FAILURE, UNSP W HYPOXIA OR HYPERCAPNIA (11) Normal cardiac stress test Assessment/Plan: ST with normal myocardial perfusion Code(s): BJZ3729 - (12) Diarrhea Assessment/Plan: resolving most likely r/t resolving ileus cdif neg bananna flakes & BRAT diet until lessens Code(s): R19.7 - DIARRHEA, UNSPECIFIED Visit type - Emergency Visit Emergency Visit: Yes ED Registration Date: 04/12/20 Care time: The patient presented to the Emergency Department on the above date and was hospitalized for further evaluation of their emergent condition. - New Patient This patient is new to me today: No - Critical Care Critical Care patient: No - Discharge Referral Referred to [facility] Med P.C.: No - Medication Review Med list reviewed for High Risk Meds patients 65 and older: Yes
[2020-04-26 09:25] LABS: BASO % 0.7 % (0-2.0); HEMATOCRIT 27.6 % (35.4-49); HEMOGLOBIN 8.9 GM/dL (11.7-16.9); LYMPH % 8.1 % (8-40); MCH 30.8 pg (25.7-33.7); MCHC 32.3 g/dl (32.0-35.9); MEAN CELL VOLUME 95.4 fl (80-96); MEAN PLT VOLUME 7.5 fl (7.5-11.1); MONO % 7.2 % (3.8-10.2); PLATELET COUNT 366 K/MM3 (134-434); RBC 2.89 M/mm3 (4.00-5.60); RDW 13.9 % (11.9-15.9); WHITE BLOOD COUNT 8.5 K/mm3 (4.0-10.0)
[2020-04-26] MEDS ORDERED: PT OWN MED DRAWER 7, Y5N ONE ×3 (09:25→21:01)
[2020-04-26] MEDS: APIXABAN 2.5 MG TABLET PO SCH ×2 (09:34→21:34)
[2020-04-26] MEDS: FUROSEMIDE 40 MG TABLET (FP) PO SCH (09:34)
[2020-04-26] MEDS: SPIRONOLACTONE 25 MG TABLET PO SCH (09:34)
[2020-04-26] MEDS: metoPROLOL SUCCINATE 25 MG TAB.SR.24H (FP) PO SCH ×2 (09:34→21:34)
[2020-04-26] MEDS: ASPIRIN COATED 81 MG TABLET.EC PO SCH (09:35)
[2020-04-26 09:48] LABS: ALBUMIN 2.8 g/dl (3.4-5.0); BILIRUBIN,TOTAL 0.3 mg/dL (0.2-1); CALCIUM 8.4 mg/dL (8.5-10.1); MAGNESIUM 2.1 mg/dL (1.8-2.4); POTASSIUM 3.5 mmol/L (3.5-5.1); TOT PROT 6.2 g/dl (6.4-8.2)
--- NOTE | 2020-04-26 10:29 | PN ---
Progress Note (short form) - Note Progress Note: 84 year old male, with a significant past medical history of stroke, osteoarthritis, and BPH. He has stroke 14 years ago and have mild left facial droopiness and slurring of speech. He came to ed for worsening of slurring of speech as per hiw . Patient those findings. He is feeling better. He feels he is back to normal self. Patient denies any focal neurological symptoms. -- no new focal neurological symptms , still having diarrhoea NEUROLGOICAL EXAMINATION Alert oriented x 3, neck is supple vss left sided facial palsy, ( umn type) and slurring of speech eomi, pupils reactive moving all ext ct head unremarkable carotid ultrasound ? left common carotid critical stenosis Assessment/Plan 4 year old male, with a significant past medical history of stroke, osteoarthritis, and BPH. He has history of stroke 14 years ago with mild residual left facial weakness and slurring of speech He came transient worsening of symnptoms and now resolved. carotid there is left critical stenosis ct head urnemarkable, carotid ultraosund showed ? stenosis. -- Most likley TIA , left cca/ica stenosis no surgical intervention Plan: continue eliquis and aspirin - vascular consult appreciated , no intervention - stress results apprecaited Thanking you so much Constantino Stanley MD
[2020-04-26] MEDS: ACETAMINOPHEN 325 MG TABLET (FP) PO PRN (11:25)
[2020-04-26] MEDS ORDERED: POTASSIUM CHLORIDE TABS 20 MEQ TABLET.ER (FP) PO ONE (14:11)
--- NOTE | 2020-04-26 14:11 | PN ---
Progress Note, Physician History of Present Illness: Pt seen and examined at bedside. He is awake and alert. He feels that his breathing is comfortable. - Current Medication List Current Medications: Active Medications Acetaminophen (Tylenol -) 650 mg PO Q6H PRN PRN Reason: PAIN LEVEL 1-5 Last Admin: 04/26/20 11:25 Dose: 650 mg Documented by: Apixaban (Eliquis -) 2.5 mg PO BID [facility] Last Admin: 04/26/20 09:34 Dose: 2.5 mg Documented by: Aspirin (Ecotrin -) 81 mg PO DAILY [facility] Last Admin: 04/26/20 09:35 Dose: 81 mg Documented by: Banana Based Medical Food (Banatrol Plus Powder Packet) 1 packet PO TID [facility] Last Admin: 04/26/20 06:00 Dose: 1 packet Documented by: Furosemide (Lasix -) 40 mg PO DAILY [facility] Last Admin: 04/26/20 09:34 Dose: 40 mg Documented by: Metoprolol Succinate (Toprol Xl -) 25 mg PO BID [facility] Last Admin: 04/26/20 09:34 Dose: 25 mg Documented by: Metoprolol Tartrate (Lopressor Injection -) 5 mg IVPUSH Q4H PRN PRN Reason: TACHYCARDIA Pantoprazole Sodium (Protonix -) 40 mg PO ACBK [facility] Last Admin: 04/26/20 06:00 Dose: 40 mg Documented by: Rosuvastatin Calcium (Crestor -) 10 mg PO [facility] Last Admin: 04/25/20 22:23 Dose: 10 mg Documented by: Spironolactone (Aldactone -) 25 mg PO DAILY [facility] Last Admin: 04/26/20 09:34 Dose: 25 mg Documented by: Tamsulosin HCl (Flomax -) 0.4 mg PO [facility] Last Admin: 04/25/20 22:23 Dose: 0.4 mg Documented by: Zinc Oxide/Panthenol/Vitamin E (Balmex Cream -) 1 applic TP ASDIR PRN PRN Reason: HYGEINE Last Admin: 04/25/20 18:18 Dose: 1 applic Documented by: - Objective Vital Signs: Vital Signs Temperature 98.2 F 04/26/20 10:00 Pulse Rate 62 04/26/20 10:00 Respiratory Rate 18 04/26/20 10:00 Blood Pressure 116/57 L 04/26/20 10:00 O2 Sat by Pulse Oximetry (%) 94 L 04/26/20 10:00 Constitutional: Yes: Calm Eyes: Yes: Conjunctiva Clear HENT: Yes: Atraumatic Neck: Yes: Supple Cardiovascular: Yes: S1, S2 Respiratory: Yes: CTA Bilaterally Gastrointestinal: Yes: Soft Genitourinary: Yes: WNL Edema: Yes Edema: LLE: Trace, RLE: Trace Neurological: Yes: Oriented Psychiatric: Yes: Oriented Labs: CBC, BMP 04/26/20 08:50 04/26/20 08:50 INR, PTT INR 1.06 (0.83-1.09) 04/12/20 20:13 Assessment/Plan Current Medications Generic Name Dose Route Start Last Admin Trade Name Freq PRN Reason Stop Dose Admin Acetaminophen 650 mg 04/14/20 12:00 04/26/20 11:25 Tylenol - PO 650 mg Q6H PRN Administration PAIN LEVEL 1-5 Apixaban 2.5 mg 04/19/20 22:00 04/26/20 09:34 Eliquis - PO 2.5 mg BID [facility] Administration Aspirin 81 mg 04/20/20 10:00 04/26/20 09:35 Ecotrin - PO 81 mg DAILY [facility] Administration Banana Based Medical Food 1 packet 04/25/20 22:00 04/26/20 06:00 Banatrol Plus Powder Packet PO 1 packet TID [facility] Administration Furosemide 40 mg 04/23/20 12:45 04/26/20 09:34 Lasix - PO 40 mg DAILY [facility] Administration Metoprolol Succinate 25 mg 04/22/20 10:00 04/26/20 09:34 Toprol Xl - PO 25 mg BID [facility] Administration Metoprolol Tartrate 5 mg 04/20/20 09:44 Lopressor Injection - IVPUSH Q4H PRN TACHYCARDIA Pantoprazole Sodium 40 mg 04/13/20 07:00 04/26/20 06:00 Protonix - PO 40 mg ACBK [facility] Administration Rosuvastatin Calcium 10 mg 04/13/20 22:00 04/25/20 22:23 Crestor - PO 10 mg HS [facility] Administration Spironolactone 25 mg 04/25/20 15:00 04/26/20 09:34 Aldactone - PO 25 mg DAILY [facility] Administration Tamsulosin HCl 0.4 mg 04/13/20 22:00 04/25/20 22:23 Flomax - PO 0.4 mg HS [facility] Administration Zinc Oxide/Panthenol/Vitamin E 1 applic 04/25/20 14:18 04/25/20 18:18 Balmex Cream - TP 1 applic ASDIR PRN Administration HYGEINE Impression 1. SATHYA 2. CKD 3. CHF 4. UTI 5. proteinuria 6. hypokalemia 7. HLD 8. hx cva Plan - cont lasix - replace potassium - cont to monitor volume status - stress test report reviewed - avoid nsaids - will need outpt follow up - cont PT - monitor rate
[2020-04-26] MEDS: TAMSULOSIN HCL 0.4 MG CAP PO SCH (21:34)
[2020-04-26] MEDS: ROSUVASTATIN CA 10 MG TABLET (FP) PO SCH (21:34)
[2020-04-26] MEDS: ZINC OXIDE/PANTHENOL/VITAMIN E 56 GM TUBE TP PRN (23:00)
[2020-04-27] MEDS: ZINC OXIDE/PANTHENOL/VITAMIN E 56 GM TUBE TP PRN (03:45)
[2020-04-27] MEDS ORDERED: PT OWN MED DRAWER 7, Y5N ONE (05:45)
[2020-04-27] MEDS: PANTOPRAZOLE 40 MG TABLET PO SCH (06:10)
[2020-04-27] MEDS: BANATROL PLUS POWDER PACKET PO SCH ×2 (06:10→14:03)
--- NOTE | 2020-04-27 07:44 | DS ---
Physical Exam: SUBJECTIVE: Patient seen and examined sitting in chair Medically stable for transfer to [facility]. OBJECTIVE: Vital Signs Period Temp Pulse Resp BP Sys/Wheeler Pulse Ox Last 24 Hr 97.5 F-98.2 F 62-90 18-18 108-116/52-57 94-100 PHYSICAL EXAM Constitutional: Yes: Well Nourished, No Distress, Calm Eyes: Yes: WNL, Conjunctiva Clear HENT: Yes: WNL, Atraumatic, Normocephalic Neck: Yes: WNL, Supple, Trachea Midline Cardiovascular: Yes: WNL, Regular Rate and Rhythm Respiratory: Yes: WNL, Regular, CTA Bilaterally, Diminished (at bases) Gastrointestinal: Yes: WNL, Normal Bowel Sounds ...Rectal Exam: Yes: Deferred Genitourinary: Yes: WNL Breast(s): Yes: WNL Musculoskeletal: Yes: WNL Extremities: Yes: WNL Edema: Yes Edema: LLE: 1+, RLE: 1+ Peripheral Pulses WNL: Yes Peripheral Pulses: Left Radial: 2+, Right Radial: 2+, Left Doralis Pedis: 2+, Right Dorsalis Pedis: 2+, Left Femoral: 2+, Right Femoral: 2+ Integumentary: Yes: WNL Neurological: Yes: WNL, Alert, Oriented ...Motor Strength: WNL Psychiatric: Yes: WNL LABS Laboratory Results - last 24 hr 04/25/20 04/26/20 04/26/20 12:50 08:50 08:50 WBC 8.5 RBC 2.89 L Hgb 8.9 L Hct 27.6 L MCV 95.4 MCH 30.8 MCHC 32.3 RDW 13.9 Plt Count 366 D MPV 7.5 Absolute Neuts (auto) 7.0 Neutrophils % 82.0 Lymphocytes % 8.1 Monocytes % 7.2 Eosinophils % 2.0 Basophils % 0.7 Nucleated RBC % 0 Sodium 144 Potassium 3.5 Chloride 111 H Carbon Dioxide 28 Anion Gap 5 L BUN 26.0 H Creatinine 2.0 H Est GFR (CKD-EPI)AfAm 34.50 Est GFR (CKD-EPI)NonAf 29.76 Random Glucose 121 H Calcium 8.4 L Magnesium 2.1 Total Bilirubin 0.3 AST 9 L ALT 12 L Alkaline Phosphatase 70 Total Protein 6.2 L Albumin 2.8 L Stool O & P Wet [place] Cancelled O & P Permanent Slide Cancelled Fungus Stain Cancelled Fungal Cult Result 2 Cancelled HOSPITAL COURSE: Date of Admission:04/12/20 Date of Discharge: 04/27/20 Problem List - Problems (1) Prophylactic measure Assessment/Plan: FEN Fluids: adequate PO intake Electrolytes: monitor & replete as needed Nutrition: cardiac diet DVT moderate risk apixaban Dispo full code discharge to [facility] Code(s): Z29.9 - ENCOUNTER FOR PROPHYLACTIC MEASURES, UNSPECIFIED (2) Acute on chronic diastolic CHF (congestive heart failure) Assessment/Plan: systolic LV dysfunction and valvular heart disease (ECHO: moderate ; LVEF 45- 50%) monitor intake, output and daily weights c/w lasix 40mg daily. Careful monitoring of daily weights and Cr to see if lasix needs dose adjustment appears euvolemic now Code(s): I50.33 - ACUTE ON CHRONIC DIASTOLIC (CONGESTIVE) HEART FAILURE (3) COVID-19 ruled out by laboratory testing Assessment/Plan: negative pcr Code(s): Z03.818 - ENCNTR FOR OBS FOR SUSP EXPSR TO OTH BIOLG AGENTS RULED OUT (4) Abdominal distension Assessment/Plan: resolved abdominal xray 04/22 shows small bowel air distention with some air fluid levels air in rectosigmoid. minimal pleural reaction and atelectasis at bases with slightly elevated left hemidiaphragm. tolerating full diet Code(s): R14.0 - ABDOMINAL DISTENSION (GASEOUS) (5) Acute kidney injury superimposed on CKD Assessment/Plan: Cr 2.0 renal followied during stay renal dose medications c/t renal function avoid nephrotoxic agents Code(s): N17.9 - ACUTE KIDNEY FAILURE, UNSPECIFIED; N18.9 - CHRONIC KIDNEY DISEASE, UNSPECIFIED (6) E-coli UTI Assessment/Plan: UC showed ecoli UTI completed abx course Code(s): N39.0 - URINARY TRACT INFECTION, SITE NOT SPECIFIED; B96.20 - UNSP ESCHERICHIA COLI THE CAUSE OF DISEASES CLASSD ELSWHR (7) History of CVA with residual deficit Assessment/Plan: residual slurred speech Code(s): I69.30 - UNSPECIFIED SEQUELAE OF CEREBRAL INFARCTION (8) PAF (paroxysmal atrial fibrillation) Assessment/Plan: on toprol 12.5 and eliquis/asa Code(s): I48.0 - PAROXYSMAL ATRIAL FIBRILLATION (9) HTN (hypertension) Assessment/Plan: c/w toprol Code(s): I10 - ESSENTIAL (PRIMARY) HYPERTENSION (10) Acute respiratory failure Assessment/Plan: improved, on 2L nc acute respiratory failure in the setting of acute on chronic heart failure. c/w lasix 40mg daily monitor intake and output and daily weights, appears euvolemic maintain oxygen above 92% room air transfer to SNF Code(s): J96.00 - ACUTE RESPIRATORY FAILURE, UNSP W HYPOXIA OR HYPERCAPNIA (11) Normal cardiac stress test Assessment/Plan: ST with normal myocardial perfusion Code(s): [id number] - (12) Diarrhea Assessment/Plan: resolved cdif neg Code(s): R19.7 - DIARRHEA, UNSPECIFIED Medcially stable for transfer to [facility] Minutes to complete discharge: 45 Discharge Summary Problems reviewed: Yes Reason For Visit: ATRIAL FIBRILLATION Current Active Problems SATHYA (acute kidney injury) (Acute) Abdominal distension (Acute) Acute kidney injury superimposed on CKD (Acute) Acute on chronic diastolic CHF (congestive heart failure) (Acute) Acute respiratory failure (Acute) CHF (congestive heart failure) (Acute) COVID-19 ruled out by laboratory testing (Acute) Carotid artery stenosis (Acute) DVT prophylaxis (Acute) E-coli UTI (Acute) Elevated troponin (Acute) History of CVA (cerebrovascular accident) (Acute) History of CVA with residual deficit (Acute) Hypercholesterolemia (Acute) Normal cardiac stress test (Acute) PAF (paroxysmal atrial fibrillation) (Acute) Prophylactic measure (Acute) Slurred speech (Acute) Condition: Improved - Instructions Referrals: Zafar Sr MD [Primary Care Provider] - Disposition: TRANSFER ACUTE CARE/OTHER HOSP - Home Medications Comprehensive Discharge Medication List: Ambulatory Orders Metoprolol Tartrate [Lopressor -] 12.5 mg PO DAILY 11/04/13 Tamsulosin HCl [Flomax -] 0.4 mg PO HS 11/04/13 Acetaminophen [Tylenol] 650 mg PO PRN PRN 08/03/14 Fluticasone Prop 0.05% Nasal [Flonase -] 1 - 2 spray NS BID 08/03/14 Aspirin/Dipyridamole [Aggrenox -] 1 combo PO BID 07/30/17 Furosemide [Lasix] 20 mg PO DAILY 07/30/17 predniSONE [Deltasone -] 5 mg PO DAILY 07/30/17 Aspirin/Dipyridamole [Aggrenox -] 1 combo PO BID 04/12/20 Tramadol HCl [Ultram] 50 mg PO TID PRN 04/12/20 Zinc Sulfate 220 mg PO DAILY 04/12/20 Atorvastatin Calcium 10 mg PO HS 04/13/20 Calcium Carbonate/Vitamin D3 [Calcium 500-Vit D3 200 Tablet] 1 each PO DAILY 04/13/20 Guaifenesin [Mucinex] 600 mg PO BID 04/13/20 Omeprazole 20 mg PO ACBK 04/13/20 Prescription Drug Monitoring Program (I-STOP) results: I-STOP not reviewed Problem List - Problems (1) Prophylactic measure Code(s): Z29.9 - ENCOUNTER FOR PROPHYLACTIC MEASURES, UNSPECIFIED (2) Acute on chronic diastolic CHF (congestive heart failure) Code(s): I50.33 - ACUTE ON CHRONIC DIASTOLIC (CONGESTIVE) HEART FAILURE (3) COVID-19 ruled out by laboratory testing Code(s): Z03.818 - ENCNTR FOR OBS FOR SUSP EXPSR TO OTH BIOLG AGENTS RULED OUT (4) Abdominal distension Code(s): R14.0 - ABDOMINAL DISTENSION (GASEOUS) (5) Acute kidney injury superimposed on CKD Code(s): N17.9 - ACUTE KIDNEY FAILURE, UNSPECIFIED; N18.9 - CHRONIC KIDNEY DISEASE, UNSPECIFIED (6) E-coli UTI Code(s): N39.0 - URINARY TRACT INFECTION, SITE NOT SPECIFIED; B96.20 - UNSP ESCHERICHIA COLI THE CAUSE OF DISEASES CLASSD ELSWHR (7) History of CVA with residual deficit Code(s): I69.30 - UNSPECIFIED SEQUELAE OF CEREBRAL INFARCTION (8) PAF (paroxysmal atrial fibrillation) Code(s): I48.0 - PAROXYSMAL ATRIAL FIBRILLATION (9) HTN (hypertension) Code(s): I10 - ESSENTIAL (PRIMARY) HYPERTENSION (10) Acute respiratory failure Code(s): J96.00 - ACUTE RESPIRATORY FAILURE, UNSP W HYPOXIA OR HYPERCAPNIA (11) Normal cardiac stress test Code(s): [id number] - (12) Diarrhea Code(s): R19.7 - DIARRHEA, UNSPECIFIED This patient is new to me today: No Emergency Visit: Yes ED Registration Date: 04/12/20 Care time: The patient presented to the Emergency Department on the above date and was hospitalized for further evaluation of their emergent condition. Critical Care patient: No - Discharge Referral Referred to [facility] No
[2020-04-27 07:56] LABS: BASO % 0.8 % (0-2.0); EOS % 1.6 % (0-4.5); HEMATOCRIT 27.9 % (35.4-49); HEMOGLOBIN 9.1 GM/dL (11.7-16.9); LYMPH % 7.9 % (8-40); MCH 30.9 pg (25.7-33.7); MCHC 32.6 g/dl (32.0-35.9); MEAN CELL VOLUME 94.9 fl (80-96); MONO % 7.2 % (3.8-10.2); NEUT % 82.5 % (42.8-82.8); PLATELET COUNT 332 K/MM3 (134-434); RBC 2.94 M/mm3 (4.00-5.60); RDW 14.1 % (11.9-15.9); WHITE BLOOD COUNT 8.1 K/mm3 (4.0-10.0)
--- NOTE | 2020-04-27 07:58 | PN ---
Progress Note, Physician Chief Complaint: Pt A&Ox3; presently asymptomatic. History of Present Illness: Mr. Hobson is an 84 year old white male with a significant past medical history of CVA, severe osteoarthritis, HTN, HLD, chronic renal dysfunction (recent UTI), ?thyroid disorder, anemia, marked truncal obesity, chronic bilateral knee swelling ("bone-on -bone"), sedentary lifestyle ("bedbound" for at least two years), and BPH, who presents to the emergency department for 3 days of worsening SOB. Pt states he takes Lasix; however is legs have been more swollen recently. states she noticed increased facial droop and slurred speech the past several days. Pt also reports waking up in the middle of the night with chest pressure and orthopnea the past several days. Patient denies headache and dizziness. He denies fever, chills, nausea, vomit, diarrhea and constipation. He denies dysuria, frequency, urgency and hematuria. Allergies: NKDA PCP: Dr. Zafar Sr Director Investor Relations: Dr. Sole Bob former cigarette smoker - Current Medication List Current Medications: Active Medications Acetaminophen (Tylenol -) 650 mg PO Q6H PRN PRN Reason: PAIN LEVEL 1-5 Last Admin: 04/26/20 11:25 Dose: 650 mg Documented by: Apixaban (Eliquis -) 2.5 mg PO BID [facility] Last Admin: 04/26/20 21:34 Dose: 2.5 mg Documented by: Aspirin (Ecotrin -) 81 mg PO DAILY [facility] Last Admin: 04/26/20 09:35 Dose: 81 mg Documented by: Banana Based Medical Food (Banatrol Plus Powder Packet) 1 packet PO TID [facility] Last Admin: 04/26/20 21:34 Dose: 1 packet Documented by: Furosemide (Lasix -) 40 mg PO DAILY [facility] Last Admin: 04/26/20 09:34 Dose: 40 mg Documented by: Metoprolol Succinate (Toprol Xl -) 25 mg PO BID [facility] Last Admin: 04/26/20 21:34 Dose: 25 mg Documented by: Metoprolol Tartrate (Lopressor Injection -) 5 mg IVPUSH Q4H PRN PRN Reason: TACHYCARDIA Pantoprazole Sodium (Protonix -) 40 mg PO ACBK [facility] Last Admin: 04/26/20 06:00 Dose: 40 mg Documented by: Rosuvastatin Calcium (Crestor -) 10 mg PO HS [facility] Last Admin: 04/26/20 21:34 Dose: 10 mg Documented by: Spironolactone (Aldactone -) 25 mg PO DAILY [facility] Last Admin: 04/26/20 09:34 Dose: 25 mg Documented by: Tamsulosin HCl (Flomax -) 0.4 mg PO HS [facility] Last Admin: 04/26/20 21:34 Dose: 0.4 mg Documented by: Zinc Oxide/Panthenol/Vitamin E (Balmex Cream -) 1 applic TP ASDIR PRN PRN Reason: HYGEINE Last Admin: 04/25/20 18:18 Dose: 1 applic Documented by: - Objective Vital Signs: Vital Signs Temperature 97.9 F 04/26/20 21:45 Pulse Rate 90 04/26/20 21:45 Respiratory Rate 18 04/26/20 21:45 Blood Pressure 113/54 L 04/26/20 21:45 O2 Sat by Pulse Oximetry (%) 95 04/26/20 21:45 Constitutional: Yes: No Distress, Obese Eyes: Yes: WNL HENT: Yes: WNL Labs: INR, PTT INR 1.06 (0.83-1.09) 04/12/20 20:13 Assessment/Plan New-onset AF Carotid artery US: likely significant disease (CTA recommended by radiologist, but problematic given renal dysfunction). Acute/chronic systolic (LVEF 45-50%)/diastolic CHF; moderate hyperthyroidism TNI noted elevated. Elevated BNP. mild hypokalemia renal dysfunction BPH MRI head: no acute infarct or bleed; +ischemic changes likely due to HTN or small vessel disease COVID negative Rec: Stress MIBI: no ischemia On metoprolol ER for HR control (and mild systolic CHF; HTN); plan on ACEI if renal function improves (now on spironolactone and furosemide). On apixaban 2.5 mg bid and ASA 81 mg daily. f/u thryoid w/u. On rosuvastatin; keep LDL cholesterol< 70 mg/dL. Diet modification; weight loss.
[2020-04-27 08:02] LABS: ALBUMIN 2.6 g/dl (3.4-5.0); BILIRUBIN,TOTAL 0.3 mg/dL (0.2-1); BLOOD UREA NITROGEN 28.5 mg/dL (7-18); CALCIUM 8.1 mg/dL (8.5-10.1); CREATININE 2.1 mg/dL (0.55-1.3); POTASSIUM 3.7 mmol/L (3.5-5.1); TOT PROT 5.7 g/dl (6.4-8.2)
--- NOTE | 2020-04-27 08:44 | PN ---
Progress Note, Physician History of Present Illness: Mr. Hobson is an 84 year old male with a significant past medical history of CVA, severe osteoarthritis, HTN, HLD, chronic renal dysfunction, ?thyroid disorder, obesity, and BPH, who presents to the emergency department for 3 days of worsening SOB. Pt states he takes Lasix however is legs have been more swollen recently. states she noticed increased facial droop and slurred speech the past several days. Pt also reports waking up in the middle of the night with chest pressure and orthopnea the past several days. Patient denies headache and dizziness. He denies fever, chills, nausea, vomit, diarrhea and constipation. He denies dysuria, frequency, urgency and hematuria. Allergies: NKDA PCP: Dr. Zafar Sr - Current Medication List Current Medications: Active Medications Acetaminophen (Tylenol -) 650 mg PO Q6H PRN PRN Reason: PAIN LEVEL 1-5 Last Admin: 04/26/20 11:25 Dose: 650 mg Documented by: Apixaban (Eliquis -) 2.5 mg PO BID [facility] Last Admin: 04/26/20 21:34 Dose: 2.5 mg Documented by: Aspirin (Ecotrin -) 81 mg PO DAILY [facility] Last Admin: 04/26/20 09:35 Dose: 81 mg Documented by: Banana Based Medical Food (Banatrol Plus Powder Packet) 1 packet PO TID [facility] Last Admin: 04/27/20 06:10 Dose: 1 packet Documented by: Furosemide (Lasix -) 40 mg PO DAILY [facility] Last Admin: 04/26/20 09:34 Dose: 40 mg Documented by: Metoprolol Succinate (Toprol Xl -) 25 mg PO BID [facility] Last Admin: 04/26/20 21:34 Dose: 25 mg Documented by: Metoprolol Tartrate (Lopressor Injection -) 5 mg IVPUSH Q4H PRN PRN Reason: TACHYCARDIA Pantoprazole Sodium (Protonix -) 40 mg PO ACBK [facility] Last Admin: 04/27/20 06:10 Dose: 40 mg Documented by: Rosuvastatin Calcium (Crestor -) 10 mg PO HS [facility] Last Admin: 04/26/20 21:34 Dose: 10 mg Documented by: Spironolactone (Aldactone -) 25 mg PO DAILY [facility] Last Admin: 04/26/20 09:34 Dose: 25 mg Documented by: Tamsulosin HCl (Flomax -) 0.4 mg PO HS [facility] Last Admin: 04/26/20 21:34 Dose: 0.4 mg Documented by: Zinc Oxide/Panthenol/Vitamin E (Balmex Cream -) 1 applic TP ASDIR PRN PRN Reason: HYGEINE Last Admin: 04/27/20 03:45 Dose: 1 applic Documented by: - Objective Vital Signs: Vital Signs Temperature 97.8 F 04/27/20 06:00 Pulse Rate 82 04/27/20 06:00 Respiratory Rate 18 04/27/20 06:00 Blood Pressure 126/67 04/27/20 06:00 O2 Sat by Pulse Oximetry (%) 95 04/27/20 06:00 Eyes: Yes: WNL, Conjunctiva Clear, EOM Intact HENT: Yes: WNL, Atraumatic, Normocephalic Neck: Yes: WNL, Supple, Trachea Midline Cardiovascular: Yes: WNL, Regular Rate and Rhythm Respiratory: Yes: WNL, Regular, CTA Bilaterally Gastrointestinal: Yes: WNL, Normal Bowel Sounds Genitourinary: Yes: WNL Musculoskeletal: Yes: WNL Extremities: Yes: WNL Edema: No Integumentary: Yes: WNL Neurological: Yes: WNL, Alert, Oriented ...Motor Strength: WNL Psychiatric: Yes: WNL Labs: CBC, BMP 04/27/20 06:40 04/27/20 06:40 INR, PTT INR 1.06 (0.83-1.09) 04/12/20 20:13 Assessment/Plan New-onset AF Carotid artery US: likely significant disease (CTA recommended by radiologist, but problematic given renal dysfunction). Acute/chronic systolic (LVEF 45-50%)/diastolic CHF; moderate hyperthyroidism TNI noted elevated. Elevated BNP. mild hypokalemia renal dysfunction BPH MRI head: no acute infarct or bleed; +ischemic changes likely due to HTN or small vessel disease COVID negative Rec: Stress MIBI: no ischemia On metoprolol ER for HR control (and mild systolic CHF; HTN); plan on ACEI if renal function improves (now on spironolactone and furosemide). On apixaban 2.5 mg bid and ASA 81 mg daily. f/u thryoid w/u. On rosuvastatin; keep LDL cholesterol< 70 mg/dL. Diet modification; weight loss.
[2020-04-27] MEDS: SPIRONOLACTONE 25 MG TABLET PO SCH (09:17)
[2020-04-27] MEDS: FUROSEMIDE 40 MG TABLET (FP) PO SCH (09:17)
[2020-04-27] MEDS: ASPIRIN COATED 81 MG TABLET.EC PO SCH (09:17)
[2020-04-27] MEDS: metoPROLOL SUCCINATE 25 MG TAB.SR.24H (FP) PO SCH (09:17)
[2020-04-27] MEDS: APIXABAN 2.5 MG TABLET PO SCH (09:18)
[2020-04-27] MEDS: ACETAMINOPHEN 325 MG TABLET (FP) PO PRN (09:22)
--- NOTE | 2020-04-27 11:42 | PN ---
Progress Note (short form) - Note Progress Note: 84 year old male, with a significant past medical history of stroke, osteoarthritis, and BPH. He has stroke 14 years ago and have mild left facial droopiness and slurring of speech. He came to ed for worsening of slurring of speech as per hiw . Patient those findings. He is feeling better. He feels he is back to normal self. Patient denies any focal neurological symptoms. -- no new complain, covid negative and diarrhoea is better, possible discharge NEUROLGOICAL EXAMINATION Alert oriented x 3, neck is supple vss left sided facial palsy, ( umn type) and slurring of speech eomi, pupils reactive moving all ext ct head unremarkable carotid ultrasound ? left common carotid critical stenosis Assessment/Plan 4 year old male, with a significant past medical history of stroke, osteoarthritis, and BPH. He has history of stroke 14 years ago with mild residual left facial weakness and slurring of speech He came transient worsening of symnptoms and now resolved. carotid there is left critical stenosis ct head urnemarkable, carotid ultraosund showed ? stenosis. -- Most likley TIA , left cca/ica stenosis no surgical intervention Plan: continue eliquis and aspirin - vascular consult appreciated , no intervention - stress results apprecaited follwo up outpatient Thanking you so much Constantino Stanley MD
--- NOTE | 2020-04-27 14:24 | PN ---
Progress Note, Physician History of Present Illness: Pt seen and examined at bedside. He is awake and alert. He denies shortness of breath. - Current Medication List Current Medications: Active Medications Acetaminophen (Tylenol -) 650 mg PO Q6H PRN PRN Reason: PAIN LEVEL 1-5 Last Admin: 04/27/20 09:22 Dose: 650 mg Documented by: Apixaban (Eliquis -) 2.5 mg PO BID [facility] Last Admin: 04/27/20 09:18 Dose: 2.5 mg Documented by: Aspirin (Ecotrin -) 81 mg PO DAILY [facility] Last Admin: 04/27/20 09:17 Dose: 81 mg Documented by: Banana Based Medical Food (Banatrol Plus Powder Packet) 1 packet PO TID [facility] Last Admin: 04/27/20 14:03 Dose: 1 packet Documented by: Furosemide (Lasix -) 40 mg PO DAILY [facility] Last Admin: 04/27/20 09:17 Dose: 40 mg Documented by: Metoprolol Succinate (Toprol Xl -) 25 mg PO BID [facility] Last Admin: 04/27/20 09:17 Dose: 25 mg Documented by: Metoprolol Tartrate (Lopressor Injection -) 5 mg IVPUSH Q4H PRN PRN Reason: TACHYCARDIA Pantoprazole Sodium (Protonix -) 40 mg PO ACBK [facility] Last Admin: 04/27/20 06:10 Dose: 40 mg Documented by: Rosuvastatin Calcium (Crestor -) 10 mg PO [facility] Last Admin: 04/26/20 21:34 Dose: 10 mg Documented by: Spironolactone (Aldactone -) 25 mg PO DAILY [facility] Last Admin: 04/27/20 09:17 Dose: 25 mg Documented by: Tamsulosin HCl (Flomax -) 0.4 mg PO [facility] Last Admin: 04/26/20 21:34 Dose: 0.4 mg Documented by: Zinc Oxide/Panthenol/Vitamin E (Balmex Cream -) 1 applic TP ASDIR PRN PRN Reason: HYGEINE Last Admin: 04/27/20 03:45 Dose: 1 applic Documented by: - Objective Vital Signs: Vital Signs Temperature 98.3 F 04/27/20 14:01 Pulse Rate 85 04/27/20 14:01 Respiratory Rate 19 04/27/20 14:01 Blood Pressure 120/65 04/27/20 14:01 O2 Sat by Pulse Oximetry (%) 98 04/27/20 14:01 Constitutional: Yes: Calm Eyes: Yes: Conjunctiva Clear HENT: Yes: Atraumatic Neck: Yes: Supple Cardiovascular: Yes: S1, S2 Respiratory: Yes: CTA Bilaterally Gastrointestinal: Yes: Soft Genitourinary: Yes: WNL Musculoskeletal: Yes: WNL Edema: Yes Edema: LLE: Trace, RLE: Trace Neurological: Yes: Oriented Psychiatric: Yes: Oriented Labs: CBC, BMP 04/27/20 06:40 04/27/20 06:40 INR, PTT INR 1.06 (0.83-1.09) 04/12/20 20:13 Assessment/Plan Current Medications Generic Name Dose Route Start Last Admin Trade Name Freq PRN Reason Stop Dose Admin Acetaminophen 650 mg 04/14/20 12:00 04/27/20 09:22 Tylenol - PO 650 mg Q6H PRN Administration PAIN LEVEL 1-5 Apixaban 2.5 mg 04/19/20 22:00 04/27/20 09:18 Eliquis - PO 2.5 mg BID [facility] Administration Aspirin 81 mg 04/20/20 10:00 04/27/20 09:17 Ecotrin - PO 81 mg DAILY [facility] Administration Banana Based Medical Food 1 packet 04/25/20 22:00 04/27/20 14:03 Banatrol Plus Powder Packet PO 1 packet TID [facility] Administration Furosemide 40 mg 04/23/20 12:45 04/27/20 09:17 Lasix - PO 40 mg DAILY [facility] Administration Metoprolol Succinate 25 mg 04/22/20 10:00 04/27/20 09:17 Toprol Xl - PO 25 mg BID [facility] Administration Metoprolol Tartrate 5 mg 04/20/20 09:44 Lopressor Injection - IVPUSH Q4H PRN TACHYCARDIA Pantoprazole Sodium 40 mg 04/13/20 07:00 04/27/20 06:10 Protonix - PO 40 mg ACBK [facility] Administration Rosuvastatin Calcium 10 mg 04/13/20 22:00 04/26/20 21:34 Crestor - PO 10 mg HS [facility] Administration Spironolactone 25 mg 04/25/20 15:00 04/27/20 09:17 Aldactone - PO 25 mg DAILY [facility] Administration Tamsulosin HCl 0.4 mg 04/13/20 22:00 10/08/20 21:34 Flomax - PO 0.4 mg HS [facility] Administration Zinc Oxide/Panthenol/Vitamin E 1 applic 04/25/20 14:18 04/27/20 03:45 Balmex Cream - TP 1 applic ASDIR PRN Administration HYGEINE Impression 1. SATHYA 2. CKD 3. CHF 4. UTI 5. proteinuria 6. hypokalemia 7. HLD 8. hx cva Plan - cont with lasix at 40 mg - will need outpt follow up - avoid nsaids - avoid nephrotoxins - avoid nsaids - cont PT
[2020-04-27 17:32] VITALS: BP 113/51; PULSE 88; TEMP 98.6
== END 2020-04-27 18:52 | DRG 291 ==
LOC: JER 19:27 → JERBED 20:03 → J4S 04-13 00:12
PROVIDERS: ADMIT Internal Medicine; ATTEND Nurse Practitioner Acute Care
DX: I13.0 Hypertensive heart and chronic kidney disease with heart failure and stage 1 through stage 4 chronic kidney disease, or unspecified chronic kidney disease (principal); I50.43 Acute on chronic combined systolic (congestive) and diastolic (congestive) heart failure; J96.00 Acute respiratory failure, unspecified whether with hypoxia or hypercapnia; I69.354 Hemiplegia and hemiparesis following cerebral infarction affecting left non-dominant side; N17.9 Acute kidney failure, unspecified; N39.0 Urinary tract infection, site not specified; I24.8 Other forms of acute ischemic heart disease; N18.9 Chronic kidney disease, unspecified; E78.00 Pure hypercholesterolemia, unspecified; N40.0 Benign prostatic hyperplasia without lower urinary tract symptoms; I48.0 Paroxysmal atrial fibrillation; D64.9 Anemia, unspecified; G51.0 Bell's palsy; E66.9 Obesity, unspecified; F41.9 Anxiety disorder, unspecified; Z68.31 Body mass index [BMI] 31.0-31.9, adult; I65.22 Occlusion and stenosis of left carotid artery; M19.90 Unspecified osteoarthritis, unspecified site; E87.6 Hypokalemia; I69.328 Other speech and language deficits following cerebral infarction; B96.20 Unspecified Escherichia coli [E. coli] as the cause of diseases classified elsewhere; R79.89 Other specified abnormal findings of blood chemistry; I35.0 Nonrheumatic aortic (valve) stenosis; R14.0 Abdominal distension (gaseous); R19.7 Diarrhea, unspecified; E05.90 Thyrotoxicosis, unspecified without thyrotoxic crisis or storm; Z74.01 Bed confinement status
CPT/HCPCS: 36415; 70450-TC; 70547-TC; 70551-TC; 71045-TC-FY; 74019-TC-FY; 76775-TC; 78452-TC; 80048; 80053; 80061; 81003; 82436; 82550; 82565; 83036; 83721; 83735; 83880; 84133; 84300; 84439; 84443; 84484; 85025; 85027; 85610; 85730; 87086; 87177; 87186; 87209; 87324; 87449; 87493; 93005; 93010; 93017; 93306-TC; 93880-TC; 97116-GP; 97161-GP; 99285-25; A9502; C9803; J1644; J2785; U0003

== ENCOUNTER 2021-01-07 08:28 | Inpatient (IN) | payer OTHER, MEDICARE ==
[2021-01-07 08:41] VITALS: BMI 25.1
[2021-01-07] MEDS ORDERED: ALTEPLASE 100MG 100 MG ONE (09:32)
[2021-01-07] MEDS: SODIUM CHLORIDE 1,000 ML IV SCH (09:35)
[2021-01-07 09:36] LABS: BASO % 0.3 % (0-2.0); EOS % 0.8 % (0-4.5); HEMATOCRIT 29.2 % (35.4-49); HEMOGLOBIN 9.4 GM/dL (11.7-16.9); LYMPH % 6.5 % (8-40); MCH 29.8 pg (25.7-33.7); MEAN CELL VOLUME 93.1 fl (80-96); MEAN PLT VOLUME 7.9 fl (7.5-11.1); MONO % 5.7 % (3.8-10.2); NEUT % 86.7 % (42.8-82.8); PLATELET COUNT 219 10^3/uL (134-434); RBC 3.14 M/mm3 (4.00-5.60); RDW 14.9 % (11.9-15.9); VENOUS BASE EXCESS 1.8 mmol/L (-2-2); VENOUS O2 SATURATION 47.5 % (70-80); VENOUS PCO2 57.3 mmHg (38-52); VENOUS PH 7.325 (7.310-7.410)
[2021-01-07] MEDS ORDERED: ALTEPLASE 100 MG VIAL IVPB ONE (09:39)
[2021-01-07 09:47] LABS: PROTHROMBIN TIME (PATIENT) 12.3 SEC (9.7-13.0)
[2021-01-07 09:50] LABS: ACTIVATED PTT 22.7 SECONDS (25.2-36.5)
[2021-01-07 09:55] LABS: BLOOD UREA NITROGEN 27.6 mg/dL (7-18)
[2021-01-07 09:58] LABS: CHOLESTEROL 151 mg/dL (50-200); TRIGLYCERIDES 124 mg/dL (0-150)
[2021-01-07 09:59] LABS: CREATININE 1.6 mg/dL (0.55-1.3); LDL CHOLESTEROL (ONLY SJRH) 64 mg/dL (5-100)
[2021-01-07 10:01] LABS: HDL CHOLESTEROL 54 mg/dL (40-60); TOT PROT 6.2 g/dl (6.4-8.2)
[2021-01-07 10:11] LABS: CALCIUM 8.4 mg/dL (8.5-10.1)
[2021-01-07 11:06] LABS: BILIRUBIN,TOTAL 0.3 mg/dL (0.2-1)
[2021-01-07] MEDS ORDERED: ROSUVASTATIN CA 40 MG TABLET PO ONE (14:03)
[2021-01-07] MEDS ORDERED: ROSUVASTATIN CA 20 MG TABLET (FP) PO ONE (14:15)
[2021-01-07] MEDS ORDERED: DULoxetine HCL 30 MG CAPSULE.DR PO ONE (14:50)
[2021-01-07] MEDS ORDERED: ACETAMINOPHEN 325 MG TABLET (FP) PO PRN (15:02)
[2021-01-07] MEDS: ROSUVASTATIN CA 20 MG TABLET (FP) PO SCH (17:44)
[2021-01-07] MEDS: CHLORHEXIDINE GLUCONATE 4% CLEANSER FOR DECOLONIZATION TP SCH (23:00)
[2021-01-07] MEDS: MUPIROCIN 2% TOPICAL OINTMENT FOR DECOLONIZATION NS SCH (23:25)
[2021-01-08] MEDS: TAMSULOSIN HCL 0.4 MG CAP PO SCH (08:39)
[2021-01-08] MEDS: PANTOPRAZOLE SODIUM 40 MG VIAL IVPUSH SCH (10:16)
[2021-01-08] MEDS: MUPIROCIN 2% TOPICAL OINTMENT FOR DECOLONIZATION NS SCH ×2 (10:16→22:12)
[2021-01-08 10:29] LABS: BASO % 0.4 % (0-2.0); EOS % 1.7 % (0-4.5); HEMOGLOBIN 8.3 GM/dL (11.7-16.9); LYMPH % 7.9 % (8-40); MCH 29.5 pg (25.7-33.7); MCHC 31.8 g/dl (32.0-35.9); MEAN CELL VOLUME 92.7 fl (80-96); MEAN PLT VOLUME 7.7 fl (7.5-11.1); MONO % 6.9 % (3.8-10.2); NEUT % 83.1 % (42.8-82.8); PLATELET COUNT 209 10^3/uL (134-434); RBC 2.81 M/mm3 (4.00-5.60); RDW 14.7 % (11.9-15.9); WHITE BLOOD COUNT 6.8 K/mm3 (4.0-10.0)
[2021-01-08 10:35] LABS: INR 1.08 (0.83-1.09)
[2021-01-08 10:38] LABS: ACTIVATED PTT 23.6 SECONDS (25.2-36.5)
[2021-01-08 10:55] LABS: CALCIUM 8.3 mg/dL (8.5-10.1)
[2021-01-08 10:56] LABS: ALBUMIN 2.8 g/dl (3.4-5.0); MAGNESIUM 2.1 mg/dL (1.8-2.4)
[2021-01-08 10:58] LABS: CREATININE 1.3 mg/dL (0.55-1.3); PHOSPHOROUS 2.6 mg/dL (2.5-4.9)
[2021-01-08 11:00] LABS: TOT PROT 5.7 g/dl (6.4-8.2)
[2021-01-08 11:10] LABS: BLOOD UREA NITROGEN 21.4 mg/dL (7-18)
[2021-01-08 11:52] LABS: BILIRUBIN,TOTAL 0.4 mg/dL (0.2-1)
[2021-01-08] MEDS ORDERED: POTASSIUM CHLORIDE ORAL LIQUID 20 MEQ/15 ML PO ONE ×2 (12:47→18:30)
[2021-01-08] MEDS: SODIUM CHLORIDE 1,000 ML IV SCH (14:42)
[2021-01-08] MEDS ORDERED: PT OWN MED DRAWER 7, Y5N ONE (21:15)
[2021-01-08] MEDS ORDERED: ATORVASTATIN CA 80 MG TABLET (FP) PO ONE (21:58)
[2021-01-08] MEDS: ROSUVASTATIN CA 20 MG TABLET (FP) PO SCH (22:12)
[2021-01-08] MEDS: CHLORHEXIDINE GLUCONATE 4% CLEANSER FOR DECOLONIZATION TP SCH (22:12)
[2021-01-09] MEDS: TAMSULOSIN HCL 0.4 MG CAP PO SCH (08:57)
[2021-01-09] MEDS: PANTOPRAZOLE SODIUM 40 MG VIAL IVPUSH SCH (09:54)
[2021-01-09] MEDS: MUPIROCIN 2% TOPICAL OINTMENT FOR DECOLONIZATION NS SCH ×2 (09:54→22:57)
[2021-01-09 12:08] LABS: BASO % 0.3 % (0-2.0); EOS % 1.3 % (0-4.5); HEMATOCRIT 25.8 % (35.4-49); HEMOGLOBIN 8.3 GM/dL (11.7-16.9); LYMPH % 7.6 % (8-40); MCH 29.6 pg (25.7-33.7); MCHC 32.3 g/dl (32.0-35.9); MEAN CELL VOLUME 91.8 fl (80-96); MEAN PLT VOLUME 7.5 fl (7.5-11.1); MONO % 7.1 % (3.8-10.2); NEUT % 83.7 % (42.8-82.8); PLATELET COUNT 209 10^3/uL (134-434); RBC 2.81 M/mm3 (4.00-5.60); WHITE BLOOD COUNT 7.8 K/mm3 (4.0-10.0)
[2021-01-09 12:38] LABS: ALBUMIN 2.9 g/dl (3.4-5.0); BLOOD UREA NITROGEN 17.8 mg/dL (7-18); CALCIUM 8.3 mg/dL (8.5-10.1)
[2021-01-09 12:40] LABS: CREATININE 1.3 mg/dL (0.55-1.3)
[2021-01-09 12:42] LABS: BILIRUBIN,TOTAL 0.7 mg/dL (0.2-1)
[2021-01-09] MEDS: metoPROLOL SUCCINATE 25 MG TAB.SR.24H (FP) PO SCH (14:41)
[2021-01-09] MEDS: ROSUVASTATIN CA 20 MG TABLET (FP) PO SCH (22:57)
[2021-01-09] MEDS: SACUBITRIL/VALSARTAN 24 MG-26 MG TABLET PO SCH (22:58)
[2021-01-09] MEDS: CHLORHEXIDINE GLUCONATE 4% CLEANSER FOR DECOLONIZATION TP SCH (22:58)
[2021-01-10 06:51] LABS: BASO % 0.6 % (0-2.0); EOS % 1.6 % (0-4.5); HEMATOCRIT 25.4 % (35.4-49); HEMOGLOBIN 8.4 GM/dL (11.7-16.9); LYMPH % 9.2 % (8-40); MCH 30.1 pg (25.7-33.7); MCHC 33.1 g/dl (32.0-35.9); MEAN CELL VOLUME 91.1 fl (80-96); MEAN PLT VOLUME 7.9 fl (7.5-11.1); MONO % 6.1 % (3.8-10.2); NEUT % 82.5 % (42.8-82.8); PLATELET COUNT 208 10^3/uL (134-434); RBC 2.79 M/mm3 (4.00-5.60); RDW 14.8 % (11.9-15.9)
[2021-01-10 07:03] LABS: ALBUMIN 2.6 g/dl (3.4-5.0); BLOOD UREA NITROGEN 16.4 mg/dL (7-18); CALCIUM 8.1 mg/dL (8.5-10.1)
[2021-01-10 07:07] LABS: CREATININE 1.3 mg/dL (0.55-1.3)
[2021-01-10 07:08] LABS: BILIRUBIN,TOTAL 0.8 mg/dL (0.2-1); TOT PROT 5.3 g/dl (6.4-8.2)
[2021-01-10] MEDS: TAMSULOSIN HCL 0.4 MG CAP PO SCH (08:18)
[2021-01-10] MEDS: MUPIROCIN 2% TOPICAL OINTMENT FOR DECOLONIZATION NS SCH ×2 (09:32→21:50)
[2021-01-10] MEDS: FUROSEMIDE 20 MG TABLET (FP) PO SCH (09:32)
[2021-01-10] MEDS: PANTOPRAZOLE SODIUM 40 MG VIAL IVPUSH SCH (09:32)
[2021-01-10] MEDS: SACUBITRIL/VALSARTAN 24 MG-26 MG TABLET PO SCH ×2 (09:32→21:49)
[2021-01-10] MEDS: metoPROLOL SUCCINATE 25 MG TAB.SR.24H (FP) PO SCH (09:32)
[2021-01-10 10:43] LABS: N-TERMINAL BNP 21299.4 pg/ml (5-450)
[2021-01-10] MEDS: ENOXAPARIN NA (PORCINE) 40 MG/0.4 ML DISP.SYRIN SQ SCH (16:55)
[2021-01-10] MEDS: ROSUVASTATIN CA 20 MG TABLET (FP) PO SCH (21:49)
[2021-01-10] MEDS: CHLORHEXIDINE GLUCONATE 4% CLEANSER FOR DECOLONIZATION TP SCH (21:50)
[2021-01-10] MEDS ORDERED: CLOPIDOGREL BISULFATE 75 MG TABLET (FP) PO SCH (22:00)
[2021-01-11 07:14] LABS: BASO % 0.4 % (0-2.0); EOS % 1.5 % (0-4.5); HEMATOCRIT 27.1 % (35.4-49); LYMPH % 7.8 % (8-40); MCH 30.3 pg (25.7-33.7); MCHC 33.1 g/dl (32.0-35.9); MEAN CELL VOLUME 91.5 fl (80-96); MEAN PLT VOLUME 7.8 fl (7.5-11.1); NEUT % 83.3 % (42.8-82.8); PLATELET COUNT 216 10^3/uL (134-434); RBC 2.96 M/mm3 (4.00-5.60); RDW 14.4 % (11.9-15.9); WHITE BLOOD COUNT 8.1 K/mm3 (4.0-10.0)
[2021-01-11 07:25] LABS: CALCIUM 8.3 mg/dL (8.5-10.1)
[2021-01-11 07:28] LABS: CREATININE 1.3 mg/dL (0.55-1.3); PHOSPHOROUS 2.1 mg/dL (2.5-4.9)
[2021-01-11] MEDS ORDERED: IRON SUCROSE INJECTION 300 MG in SODIUM CHLORIDE 235 ML IVPB ONE (07:52)
[2021-01-11] MEDS: MUPIROCIN 2% TOPICAL OINTMENT FOR DECOLONIZATION NS SCH ×2 (09:39→22:31)
[2021-01-11] MEDS: CLOPIDOGREL BISULFATE 75 MG TABLET (FP) PO SCH (09:39)
[2021-01-11] MEDS: PANTOPRAZOLE 40 MG TABLET PO SCH (09:39)
[2021-01-11] MEDS: FUROSEMIDE 20 MG TABLET (FP) PO SCH (09:39)
[2021-01-11] MEDS: TAMSULOSIN HCL 0.4 MG CAP PO SCH (09:39)
[2021-01-11] MEDS: SACUBITRIL/VALSARTAN 24 MG-26 MG TABLET PO SCH ×2 (09:39→22:32)
[2021-01-11] MEDS: ENOXAPARIN NA (PORCINE) 40 MG/0.4 ML DISP.SYRIN SQ SCH (09:39)
[2021-01-11] MEDS: metoPROLOL SUCCINATE 25 MG TAB.SR.24H (FP) PO SCH (09:39)
[2021-01-11] MEDS ORDERED: POTASSIUM CHLORIDE TABS 20 MEQ TABLET.ER (FP) PO ONE (15:00)
[2021-01-11] MEDS: ROSUVASTATIN CA 20 MG TABLET (FP) PO SCH (22:31)
[2021-01-11] MEDS: CHLORHEXIDINE GLUCONATE 4% CLEANSER FOR DECOLONIZATION TP SCH (22:32)
[2021-01-12 07:10] LABS: BASO % 0.5 % (0-2.0); EOS % 1.8 % (0-4.5); HEMATOCRIT 24.7 % (35.4-49); LYMPH % 10.6 % (8-40); MCH 29.4 pg (25.7-33.7); MCHC 32.2 g/dl (32.0-35.9); MEAN CELL VOLUME 91.4 fl (80-96); MEAN PLT VOLUME 7.8 fl (7.5-11.1); MONO % 5.8 % (3.8-10.2); NEUT % 81.3 % (42.8-82.8); PLATELET COUNT 234 10^3/uL (134-434); RBC 2.71 M/mm3 (4.00-5.60); RDW 14.5 % (11.9-15.9)
[2021-01-12 07:17] LABS: INR 1.07 (0.83-1.09); PROTHROMBIN TIME (PATIENT) 13.1 SEC (9.7-13.0)
[2021-01-12 07:24] LABS: BLOOD UREA NITROGEN 23.3 mg/dL (7-18); CALCIUM 7.7 mg/dL (8.5-10.1); MAGNESIUM 1.8 mg/dL (1.8-2.4)
[2021-01-12 07:27] LABS: CREATININE 1.5 mg/dL (0.55-1.3)
[2021-01-12 07:29] LABS: PHOSPHOROUS 1.8 mg/dL (2.5-4.9)
[2021-01-12] MEDS ORDERED: POTASSIUM CHLORIDE ORAL LIQUID 20 MEQ/15 ML PO ONE (07:45)
[2021-01-12] MEDS ORDERED: NAPH,MB-DB/K PH,MBDB POWDER PACKET PO ONE (07:45)
[2021-01-12] MEDS: SACUBITRIL/VALSARTAN 24 MG-26 MG TABLET PO SCH (09:15)
[2021-01-12] MEDS: PANTOPRAZOLE 40 MG TABLET PO SCH (09:15)
[2021-01-12] MEDS: TAMSULOSIN HCL 0.4 MG CAP PO SCH (09:16)
[2021-01-12] MEDS: CLOPIDOGREL BISULFATE 75 MG TABLET (FP) PO SCH (09:16)
[2021-01-12] MEDS: metoPROLOL SUCCINATE 25 MG TAB.SR.24H (FP) PO SCH (09:16)
[2021-01-12] MEDS: MUPIROCIN 2% TOPICAL OINTMENT FOR DECOLONIZATION NS SCH (09:16)
[2021-01-12] MEDS: ENOXAPARIN NA (PORCINE) 40 MG/0.4 ML DISP.SYRIN SQ SCH (09:16)
[2021-01-12] MEDS ORDERED: SPIRONOLACTONE 25 MG TABLET PO SCH (10:00)
[2021-01-12] MEDS: ROSUVASTATIN CA 20 MG TABLET (FP) PO SCH (21:50)
[2021-01-12] MEDS: CHLORHEXIDINE GLUCONATE 4% CLEANSER FOR DECOLONIZATION TP SCH (21:50)
[2021-01-13 06:34] LABS: BASO % 0.4 % (0-2.0); EOS % 1.8 % (0-4.5); HEMATOCRIT 25.1 % (35.4-49); HEMOGLOBIN 8.1 GM/dL (11.7-16.9); LYMPH % 9.5 % (8-40); MCH 29.5 pg (25.7-33.7); MCHC 32.2 g/dl (32.0-35.9); MEAN CELL VOLUME 91.6 fl (80-96); MEAN PLT VOLUME 7.7 fl (7.5-11.1); MONO % 7.1 % (3.8-10.2); NEUT % 81.2 % (42.8-82.8); PLATELET COUNT 237 10^3/uL (134-434); RBC 2.74 M/mm3 (4.00-5.60); RDW 14.5 % (11.9-15.9); WHITE BLOOD COUNT 5.7 K/mm3 (4.0-10.0)
[2021-01-13 07:03] LABS: ALBUMIN 2.5 g/dl (3.4-5.0)
[2021-01-13 07:05] LABS: MAGNESIUM 1.9 mg/dL (1.8-2.4)
[2021-01-13 07:08] LABS: BILIRUBIN,TOTAL 0.5 mg/dL (0.2-1); CREATININE 1.6 mg/dL (0.55-1.3); PHOSPHOROUS 1.9 mg/dL (2.5-4.9)
[2021-01-13 07:09] LABS: TOT PROT 5.2 g/dl (6.4-8.2)
[2021-01-13] MEDS ORDERED: PT OWN MED DRAWER 7, Y5N ONE (09:21)
[2021-01-13] MEDS: TAMSULOSIN HCL 0.4 MG CAP PO SCH (09:23)
[2021-01-13] MEDS: PANTOPRAZOLE 40 MG TABLET PO SCH (09:25)
[2021-01-13] MEDS: CLOPIDOGREL BISULFATE 75 MG TABLET (FP) PO SCH (09:25)
[2021-01-13] MEDS: ENOXAPARIN NA (PORCINE) 40 MG/0.4 ML DISP.SYRIN SQ SCH (09:25)
[2021-01-13] MEDS ORDERED: POTASSIUM CHLORIDE ORAL LIQUID 20 MEQ/15 ML PO ONE (09:25)
[2021-01-13] MEDS ORDERED: POTASSIUM CHLORIDE TABS 20 MEQ TABLET.ER (FP) PO ONE (20:00)
[2021-01-13] MEDS: CHLORHEXIDINE GLUCONATE 4% CLEANSER FOR DECOLONIZATION TP SCH (21:35)
[2021-01-13] MEDS: ROSUVASTATIN CA 20 MG TABLET (FP) PO SCH (21:35)
[2021-01-14 06:56] LABS: HEMATOCRIT 23.5 % (35.4-49); HEMOGLOBIN 7.8 GM/dL (11.7-16.9); MCH 29.7 pg (25.7-33.7); MEAN PLT VOLUME 7.5 fl (7.5-11.1); PLATELET COUNT 250 10^3/uL (134-434); RBC 2.62 M/mm3 (4.00-5.60); RDW 14.5 % (11.9-15.9); WHITE BLOOD COUNT 5.5 K/mm3 (4.0-10.0)
[2021-01-14 07:15] LABS: BLOOD UREA NITROGEN 25.7 mg/dL (7-18); MAGNESIUM 1.9 mg/dL (1.8-2.4)
[2021-01-14 07:18] LABS: CREATININE 1.6 mg/dL (0.55-1.3)
[2021-01-14] MEDS: CLOPIDOGREL BISULFATE 75 MG TABLET (FP) PO SCH (09:30)
[2021-01-14] MEDS: PANTOPRAZOLE 40 MG TABLET PO SCH (09:30)
[2021-01-14] MEDS: NAPH,MB-DB/K PH,MBDB POWDER PACKET PO SCH ×2 (09:30→21:23)
[2021-01-14] MEDS: TAMSULOSIN HCL 0.4 MG CAP PO SCH (09:30)
[2021-01-14] MEDS ORDERED: ACETAMINOPHEN 325 MG TABLET (FP) PO PRN (12:49)
[2021-01-14] MEDS: ROSUVASTATIN CA 20 MG TABLET (FP) PO SCH (21:23)
[2021-01-14] MEDS ORDERED: CHLORHEXIDINE GLUCONATE 4% CLEANSER FOR DECOLONIZATION TP SCH (22:00)
[2021-01-15 08:57] LABS: BASO % 3.2 % (0-2.0); EOS % 2.3 % (0-4.5); HEMATOCRIT 28.4 % (35.4-49); HEMOGLOBIN 9.3 GM/dL (11.7-16.9); LYMPH % 5.1 % (8-40); MCH 29.1 pg (25.7-33.7); MCHC 32.6 g/dl (32.0-35.9); MEAN CELL VOLUME 89.2 fl (80-96); MEAN PLT VOLUME 7.8 fl (7.5-11.1); MONO % 6.5 % (3.8-10.2); NEUT % 82.9 % (42.8-82.8); PLATELET COUNT 284 10^3/uL (134-434); RBC 3.19 M/mm3 (4.00-5.60); RDW 15.5 % (11.9-15.9); WHITE BLOOD COUNT 6.3 K/mm3 (4.0-10.0)
[2021-01-15 09:11] LABS: BLOOD UREA NITROGEN 26.6 mg/dL (7-18)
[2021-01-15 09:14] LABS: CREATININE 1.5 mg/dL (0.55-1.3)
[2021-01-15] MEDS: TAMSULOSIN HCL 0.4 MG CAP PO SCH (09:35)
[2021-01-15] MEDS: CLOPIDOGREL BISULFATE 75 MG TABLET (FP) PO SCH (09:35)
[2021-01-15] MEDS: PANTOPRAZOLE 40 MG TABLET PO SCH (09:35)
[2021-01-15] MEDS: NAPH,MB-DB/K PH,MBDB POWDER PACKET PO SCH ×2 (09:36→21:51)
[2021-01-15] MEDS ORDERED: FUROSEMIDE 20 MG TABLET (FP) PO SCH (11:45)
[2021-01-15] MEDS: metoPROLOL SUCCINATE 25 MG TAB.SR.24H (FP) PO SCH (11:49)
[2021-01-15] MEDS: FERROUS SO4 325 MG TABLET (FP) PO SCH (17:17)
[2021-01-15] MEDS: ROSUVASTATIN CA 20 MG TABLET (FP) PO SCH (21:51)
[2021-01-16 09:30] LABS: BASO % 0.5 % (0-2.0); EOS % 1.8 % (0-4.5); HEMATOCRIT 27.4 % (35.4-49); HEMOGLOBIN 8.8 GM/dL (11.7-16.9); LYMPH % 9.4 % (8-40); MCHC 32.2 g/dl (32.0-35.9); MEAN CELL VOLUME 90.1 fl (80-96); MEAN PLT VOLUME 7.9 fl (7.5-11.1); MONO % 8.5 % (3.8-10.2); NEUT % 79.8 % (42.8-82.8); PLATELET COUNT 261 10^3/uL (134-434); RBC 3.03 M/mm3 (4.00-5.60); RDW 15.2 % (11.9-15.9); WHITE BLOOD COUNT 6.3 K/mm3 (4.0-10.0)
[2021-01-16 09:45] LABS: CALCIUM 8.1 mg/dL (8.5-10.1)
[2021-01-16 09:46] LABS: BLOOD UREA NITROGEN 27.8 mg/dL (7-18); MAGNESIUM 1.9 mg/dL (1.8-2.4)
[2021-01-16 09:49] LABS: CREATININE 1.5 mg/dL (0.55-1.3)
[2021-01-16] MEDS ORDERED: FOLIC ACID 1 MG TABLET (FP) PO SCH (10:00)
[2021-01-16] MEDS ORDERED: ASCORBIC ACID 500 MG TABLET (FP) PO SCH (10:00)
[2021-01-16] MEDS: FERROUS SO4 325 MG TABLET (FP) PO SCH ×2 (10:48→14:17)
[2021-01-16] MEDS: CLOPIDOGREL BISULFATE 75 MG TABLET (FP) PO SCH (10:48)
[2021-01-16] MEDS: metoPROLOL SUCCINATE 25 MG TAB.SR.24H (FP) PO SCH (10:48)
[2021-01-16] MEDS: TAMSULOSIN HCL 0.4 MG CAP PO SCH ×2 (10:48→11:03)
[2021-01-16] MEDS: SACUBITRIL/VALSARTAN 24 MG-26 MG TABLET PO SCH ×2 (10:49→12:45)
[2021-01-16] MEDS: PANTOPRAZOLE 40 MG TABLET PO SCH (10:49)
[2021-01-16] MEDS: NAPH,MB-DB/K PH,MBDB POWDER PACKET PO SCH (10:49)
[2021-01-16 15:21] VITALS: BP 114/50; PULSE 95; TEMP 98.1
== END 2021-01-16 17:03 | DRG 61 ==
LOC: JER 08:28 → JERBED 10:19 → JICU 14:03 → J5S 01-14 13:28
PROVIDERS: ADMIT Internal Medicine Pulmonary Disease; ATTEND Internal Medicine
PROC: 3E03317 Introduction of Other Thrombolytic into Peripheral Vein, Percutaneous Approach (ICD-10-PCS; principal; 2021-01-07)
PROC: 30233N1 Transfusion of Nonautologous Red Blood Cells into Peripheral Vein, Percutaneous Approach (ICD-10-PCS; 2021-01-07)
DX: I63.9 Cerebral infarction, unspecified (principal); R53.2 Functional quadriplegia; I13.0 Hypertensive heart and chronic kidney disease with heart failure and stage 1 through stage 4 chronic kidney disease, or unspecified chronic kidney disease; I50.32 Chronic diastolic (congestive) heart failure; R29.715 NIHSS score 15; I73.9 Peripheral vascular disease, unspecified; N40.0 Benign prostatic hyperplasia without lower urinary tract symptoms; R47.81 Slurred speech; R32 Unspecified urinary incontinence; E78.5 Hyperlipidemia, unspecified; I48.0 Paroxysmal atrial fibrillation; N18.9 Chronic kidney disease, unspecified; R19.5 Other fecal abnormalities; E87.6 Hypokalemia
CPT/HCPCS: 36415; 36430; 36511; 70450-TC; 70551-TC; 71045-TC-FY; 80048; 80053; 80061; 82272; 82550; 82803; 82962; 83036; 83090; 83540; 83550; 83605; 83721; 83735; 83880; 84100; 84439; 84443; 84484; 85025; 85027; 85610; 85730; 86850; 86900; 86901; 86922; 87040; 87493; 93005; 93010; 93306-TC; 93880-TC; 99291; C9803; J1756; J2997; P9038; P9058; U0003; U0005

== ENCOUNTER 2021-02-25 14:15 | Inpatient (IN) | payer OTHER, MEDICARE ==
[2021-02-25 15:36] VITALS: BMI 25.4
[2021-02-25] MEDS ORDERED: ACETAMINOPHEN 1000 MG/100 ML VIAL (NON FORMULARY) IVPB ONE (15:47)
[2021-02-25] MEDS ORDERED: VANCOMYCIN 1 GM in D5W (PRE-DOCKED) 1,000 MG/250 ML IVPB ONE (15:54)
[2021-02-25] MEDS ORDERED: ACETAMINOPHEN INJECTION 100 ML IVPB ONE ×2 (15:59→16:34)
[2021-02-25] MEDS ORDERED: VANCOMYCIN 1 GRAM (PRE-DOCKED) 1,000 MG/250 ML BAG IVPB ONE (15:59)
[2021-02-25] MEDS ORDERED: MEROPENEM 1 GM in DEXTROSE 5%-WATER 100 ML IVPB ONE (16:01)
[2021-02-25 16:34] LABS: INR 0.96 (0.83-1.09); PROTHROMBIN TIME (PATIENT) 11.8 SEC (9.7-13.0)
[2021-02-25 16:36] LABS: ACTIVATED PTT 29.8 SECONDS (25.2-36.5); BASO % 0.7 % (0-2.0); EOS % 2.7 % (0-4.5); HEMATOCRIT 27.2 % (35.4-49); HEMOGLOBIN 8.9 GM/dL (11.7-16.9); LYMPH % 5.9 % (8-40); MCH 29.2 pg (25.7-33.7); MCHC 32.8 g/dl (32.0-35.9); MEAN CELL VOLUME 88.8 fl (80-96); NEUT % 84.7 % (42.8-82.8); PLATELET COUNT 198 10^3/uL (134-434); RBC 3.06 M/mm3 (4.00-5.60); RDW 17.3 % (11.9-15.9); WHITE BLOOD COUNT 8.4 K/mm3 (4.0-10.0)
[2021-02-25 16:50] LABS: ALBUMIN 3.4 g/dl (3.4-5.0); BLOOD UREA NITROGEN 98.4 mg/dL (7-18); CALCIUM 9.8 mg/dL (8.5-10.1); MAGNESIUM 2.5 mg/dL (1.8-2.4)
[2021-02-25] MEDS ORDERED: MEROPENEM 1 GM VIAL (RESTRICTED TO ID) IVPB ONE (16:50)
[2021-02-25 16:52] LABS: CREATININE 7.4 mg/dL (0.55-1.3)
[2021-02-25 16:53] LABS: PHOSPHOROUS 6.5 mg/dL (2.5-4.9)
[2021-02-25 16:54] LABS: BILIRUBIN,TOTAL 0.2 mg/dL (0.2-1); TOT PROT 6.8 g/dl (6.4-8.2)
[2021-02-25] MEDS ORDERED: SODIUM ZIRCONIUM CYCLOSILICATE (LOKELMA) 5 GM PACKET PO ONE (16:57)
[2021-02-25] MEDS ORDERED: SODIUM BICARBONATE 8.4% 50 MEQ/50 ML DISP.SYRIN IVPUSH ONE (16:59)
[2021-02-25] MEDS ORDERED: SODIUM CHLORIDE 1,000 ML IV SCH (17:00)
[2021-02-25] MEDS ORDERED: SODIUM BICARBONATE 8.4% - 50 ML ONE (17:58)
[2021-02-25] MEDS ORDERED: SODIUM CHLORIDE 500 ML IV SCH (20:15)
[2021-02-25 20:20] LABS: VENOUS BASE EXCESS -14.2 mmol/L (-2-2); VENOUS O2 SATURATION 79.5 % (70-80); VENOUS PCO2 33.4 mmHg (38-52)
[2021-02-25 20:22] LABS: VENOUS PH 7.198 (7.310-7.410)
[2021-02-25 20:48] LABS: EPI CELLS 2 /uL (0-25.1); HYALINE CASTS 4 /uL (0-3.1); URINE APPEARANCE CLOUDY; URINE BACTERIA 68 /uL (0-1359); URINE BILIRUBIN NEGATIVE (NEGATIVE); URINE COLOR YELLOW; URINE GLUCOSE (UA) NEGATIVE (NEGATIVE); URINE KETONE NEGATIVE (NEGATIVE); URINE LEUK ESTERASE 2+ (NEGATIVE); URINE NITRITE NEGATIVE (NEGATIVE); URINE PROTEIN 1+ (NEGATIVE); URINE RBC 27 /uL (0-23.9); URINE UROBILINOGEN 0.2 mg/dL (0.2-1.0); URINE WBC 618 /uL (0-25.8)
[2021-02-25 20:49] LABS: N-TERMINAL BNP 6694.2 pg/ml (5-450)
[2021-02-25] MEDS ORDERED: HEPARIN NA (PORCINE) 5,000 UNITS/ML 1ML VIAL ONE (22:54)
[2021-02-25] MEDS: HEPARIN NA (PORCINE) 5,000 UNITS/ML 1ML VIAL SQ SCH (23:05)
[2021-02-26] MEDS ORDERED: HEPARIN NA (PORCINE) 5,000 UNITS/ML 1ML VIAL ONE ×3 (06:17→21:10)
[2021-02-26] MEDS: HEPARIN NA (PORCINE) 5,000 UNITS/ML 1ML VIAL SQ SCH ×3 (06:31→21:08)
[2021-02-26] MEDS ORDERED: ACETAMINOPHEN 1000 MG/100 ML VIAL (NON FORMULARY) IVPB ONE (09:04)
[2021-02-26] MEDS ORDERED: SODIUM CHLORIDE 1,000 ML IV SCH (09:15)
[2021-02-26] MEDS ORDERED: ACETAMINOPHEN INJECTION 100 ML IVPB ONE (10:47)
[2021-02-26 11:33] LABS: VENOUS BASE EXCESS -15.8 mmol/L (-2-2); VENOUS O2 SATURATION 71.7 % (70-80); VENOUS PCO2 37.9 mmHg (38-52)
[2021-02-26 11:35] LABS: VENOUS PH 7.129 (7.310-7.410)
[2021-02-26 11:38] LABS: BASO % 0.8 % (0-2.0); EOS % 0.8 % (0-4.5); HEMATOCRIT 25.3 % (35.4-49); HEMOGLOBIN 8.3 GM/dL (11.7-16.9); LYMPH % 2.1 % (8-40); MCH 29.2 pg (25.7-33.7); MCHC 32.6 g/dl (32.0-35.9); MEAN CELL VOLUME 89.3 fl (80-96); MONO % 5.1 % (3.8-10.2); NEUT % 91.2 % (42.8-82.8); PLATELET COUNT 185 10^3/uL (134-434); RBC 2.83 M/mm3 (4.00-5.60); RDW 17.5 % (11.9-15.9); WHITE BLOOD COUNT 10.8 K/mm3 (4.0-10.0)
[2021-02-26 11:48] LABS: ALBUMIN 3.3 g/dl (3.4-5.0); CALCIUM 9.7 mg/dL (8.5-10.1)
[2021-02-26 11:49] LABS: BLOOD UREA NITROGEN 95.7 mg/dL (7-18); MAGNESIUM 2.3 mg/dL (1.8-2.4)
[2021-02-26 11:53] LABS: BILIRUBIN,TOTAL 0.2 mg/dL (0.2-1); CREATININE 6.9 mg/dL (0.55-1.3)
[2021-02-26 11:54] LABS: TOT PROT 6.4 g/dl (6.4-8.2)
[2021-02-26 12:01] LABS: ANISOCYTOSIS 1+; MACROCYTOSIS 0; PLATELET ESTIMATE NORMAL
[2021-02-26] MEDS ORDERED: SODIUM BICARBONATE 8.4% 50 MEQ/50 ML VIAL IV ONE (13:00)
[2021-02-26] MEDS ORDERED: SODIUM BICARBONATE 8.4% - 50 ML ONE ×2 (13:35→16:05)
[2021-02-26] MEDS ORDERED: VANCOMYCIN 1 GM in D5W (PRE-DOCKED) 1,000 MG/250 ML IVPB ONE (14:00)
[2021-02-26] MEDS: SODIUM BICARBONATE 8.4% - 75 MEQ in SODIUM CHLORIDE 0.45% 1,000 ML IV SCH (15:23)
[2021-02-26] MEDS ORDERED: SODIUM BICARBONATE 8.4% 50 MEQ/50 ML DISP.SYRIN IVPUSH ONE (15:49)
[2021-02-26] MEDS ORDERED: VANCOMYCIN 1 GRAM (PRE-DOCKED) 1,000 MG/250 ML BAG IVPB ONE (15:54)
[2021-02-26] MEDS ORDERED: MEROPENEM 500 MG in DEXTROSE 5%-WATER 100 ML IVPB ONE ×2 (16:00→19:30)
[2021-02-26] MEDS ORDERED: MEROPENEM 500 MG in DEXTROSE 5%-WATER 100 ML IVPB SCH (16:00)
[2021-02-26] MEDS ORDERED: LIDOCAINE 5% TOPICAL PATCH TP ONE (17:17)
[2021-02-26] MEDS ORDERED: LIDOCAINE 5% TOPICAL PATCH ONE (17:25)
[2021-02-26] MEDS ORDERED: LIDOCAINE PATCH REMOVAL MC SCH ×2 (22:00)
[2021-02-27] MEDS: SODIUM BICARBONATE 8.4% - 75 MEQ in SODIUM CHLORIDE 0.45% 1,000 ML IV SCH ×2 (06:37→13:01)
[2021-02-27] MEDS: HEPARIN NA (PORCINE) 5,000 UNITS/ML 1ML VIAL SQ SCH ×3 (06:37→21:45)
[2021-02-27 07:40] LABS: ALBUMIN 3.2 g/dl (3.4-5.0); BLOOD UREA NITROGEN 83.6 mg/dL (7-18)
[2021-02-27 07:44] LABS: BILIRUBIN,TOTAL 0.2 mg/dL (0.2-1); TOT PROT 6.1 g/dl (6.4-8.2)
[2021-02-27] MEDS ORDERED: LIDOCAINE 5% TOPICAL PATCH TP SCH (10:00)
[2021-02-27] MEDS ORDERED: LIDOCAINE 5% TOPICAL PATCH ONE (10:21)
[2021-02-27] MEDS ORDERED: VANCOMYCIN 1 GRAM (PRE-DOCKED) 1,000 MG/250 ML BAG IVPB ONE ×2 (11:01→11:36)
[2021-02-27] MEDS ORDERED: HEPARIN NA (PORCINE) 5,000 UNITS/ML 1ML VIAL ONE (12:30)
[2021-02-27] MEDS ORDERED: metoPROLOL SUCCINATE 25 MG TAB.SR.24H (FP) ONE (12:30)
[2021-02-27] MEDS ORDERED: CLOPIDOGREL BISULFATE 75 MG TABLET (FP) ONE (12:30)
[2021-02-27] MEDS: CLOPIDOGREL BISULFATE 75 MG TABLET (FP) PO SCH (12:35)
[2021-02-27] MEDS: metoPROLOL SUCCINATE 25 MG TAB.SR.24H (FP) PO SCH (12:40)
[2021-02-27] MEDS: SODIUM CHLORIDE 0.45% 1,000 ML IV SCH (13:57)
[2021-02-27] MEDS ORDERED: VANCOMYCIN 1 GM in D5W (PRE-DOCKED) 1,000 MG/250 ML IVPB SCH (14:00)
[2021-02-27] MEDS ORDERED: LIDOCAINE 5% TOPICAL PATCH TP ONE (15:45)
[2021-02-27] MEDS: ACETAMINOPHEN 325 MG TABLET (FP) PO PRN (17:35)
[2021-02-27] MEDS: LIDOCAINE PATCH REMOVAL MC SCH ×2 (18:32→21:58)
[2021-02-27] MEDS: ROSUVASTATIN CA 10 MG TABLET (FP) PO SCH (21:45)
[2021-02-27] MEDS ORDERED: ROSUVASTATIN CA 20 MG TABLET (FP) PO SCH (22:00)
[2021-02-28] MEDS: SODIUM CHLORIDE 0.45% 1,000 ML IV SCH ×2 (06:19→19:46)
[2021-02-28] MEDS: HEPARIN NA (PORCINE) 5,000 UNITS/ML 1ML VIAL SQ SCH ×3 (06:19→21:16)
[2021-02-28 07:43] LABS: BASO % 0.7 % (0-2.0); EOS % 6.3 % (0-4.5); HEMATOCRIT 23.6 % (35.4-49); HEMOGLOBIN 7.8 GM/dL (11.7-16.9); LYMPH % 9.4 % (8-40); MCH 28.9 pg (25.7-33.7); MCHC 33.2 g/dl (32.0-35.9); MEAN PLT VOLUME 7.5 fl (7.5-11.1); NEUT % 74.6 % (42.8-82.8); PLATELET COUNT 173 10^3/uL (134-434); RBC 2.71 M/mm3 (4.00-5.60); RDW 17.9 % (11.9-15.9); WHITE BLOOD COUNT 5.6 K/mm3 (4.0-10.0)
[2021-02-28 07:49] LABS: CALCIUM 8.4 mg/dL (8.5-10.1)
[2021-02-28 07:50] LABS: ALBUMIN 2.8 g/dl (3.4-5.0); BLOOD UREA NITROGEN 75.6 mg/dL (7-18)
[2021-02-28 07:53] LABS: CREATININE 5.2 mg/dL (0.55-1.3)
[2021-02-28 07:54] LABS: BILIRUBIN,TOTAL 0.3 mg/dL (0.2-1); TOT PROT 5.4 g/dl (6.4-8.2)
[2021-02-28] MEDS: LIDOCAINE 5% TOPICAL PATCH TP SCH (11:19)
[2021-02-28] MEDS: TAMSULOSIN HCL 0.4 MG CAP PO SCH (11:19)
[2021-02-28] MEDS: metoPROLOL SUCCINATE 25 MG TAB.SR.24H (FP) PO SCH (11:20)
[2021-02-28] MEDS: CLOPIDOGREL BISULFATE 75 MG TABLET (FP) PO SCH (11:20)
[2021-02-28] MEDS ORDERED: VANCOMYCIN 1 GRAM (PRE-DOCKED) 1,000 MG/250 ML BAG IVPB ONE (13:11)
[2021-02-28] MEDS: LIDOCAINE PATCH REMOVAL MC SCH (21:16)
[2021-02-28] MEDS: ROSUVASTATIN CA 10 MG TABLET (FP) PO SCH (21:16)
[2021-03-01] MEDS: metoPROLOL SUCCINATE 25 MG TAB.SR.24H (FP) PO SCH (10:06)
[2021-03-01] MEDS: HEPARIN NA (PORCINE) 5,000 UNITS/ML 1ML VIAL SQ SCH ×2 (10:06→22:03)
[2021-03-01] MEDS: LIDOCAINE 5% TOPICAL PATCH TP SCH (10:06)
[2021-03-01] MEDS: CLOPIDOGREL BISULFATE 75 MG TABLET (FP) PO SCH (10:06)
[2021-03-01] MEDS: TAMSULOSIN HCL 0.4 MG CAP PO SCH (10:07)
[2021-03-01] MEDS: SODIUM CHLORIDE 0.45% 1,000 ML IV SCH (17:00)
[2021-03-01] MEDS: LIDOCAINE PATCH REMOVAL MC SCH (22:04)
[2021-03-01] MEDS: ROSUVASTATIN CA 10 MG TABLET (FP) PO SCH (22:08)
[2021-03-02 08:12] LABS: BASO % 0.8 % (0-2.0); EOS % 4.6 % (0-4.5); HEMATOCRIT 22.7 % (35.4-49); HEMOGLOBIN 7.6 GM/dL (11.7-16.9); LYMPH % 16.3 % (8-40); MCH 28.5 pg (25.7-33.7); MCHC 33.3 g/dl (32.0-35.9); MEAN CELL VOLUME 85.5 fl (80-96); MEAN PLT VOLUME 7.7 fl (7.5-11.1); MONO % 11.5 % (3.8-10.2); NEUT % 66.8 % (42.8-82.8); PLATELET COUNT 155 10^3/uL (134-434); RBC 2.65 M/mm3 (4.00-5.60); RDW 17.8 % (11.9-15.9); WHITE BLOOD COUNT 5.4 K/mm3 (4.0-10.0)
[2021-03-02 08:37] LABS: CALCIUM 8.1 mg/dL (8.5-10.1)
[2021-03-02 08:38] LABS: ALBUMIN 2.6 g/dl (3.4-5.0)
[2021-03-02 08:41] LABS: CREATININE 3.9 mg/dL (0.55-1.3)
[2021-03-02 08:43] LABS: BILIRUBIN,TOTAL 0.4 mg/dL (0.2-1); TOT PROT 5.4 g/dl (6.4-8.2)
[2021-03-02] MEDS: TAMSULOSIN HCL 0.4 MG CAP PO SCH (11:16)
[2021-03-02] MEDS: LIDOCAINE 5% TOPICAL PATCH TP SCH (11:16)
[2021-03-02] MEDS: CLOPIDOGREL BISULFATE 75 MG TABLET (FP) PO SCH (11:16)
[2021-03-02] MEDS: HEPARIN NA (PORCINE) 5,000 UNITS/ML 1ML VIAL SQ SCH ×2 (11:17→22:04)
[2021-03-02] MEDS: SODIUM CHLORIDE 0.45% 1,000 ML IV SCH (11:17)
[2021-03-02] MEDS ORDERED: POTASSIUM CHLORIDE ORAL LIQUID 20 MEQ/15 ML PO ONE (12:00)
[2021-03-02] MEDS: ROSUVASTATIN CA 10 MG TABLET (FP) PO SCH (22:04)
[2021-03-02] MEDS: LIDOCAINE PATCH REMOVAL MC SCH (22:05)
[2021-03-02] MEDS: ACETAMINOPHEN 325 MG TABLET (FP) PO PRN (22:06)
[2021-03-03] MEDS: TAMSULOSIN HCL 0.4 MG CAP PO SCH (09:21)
[2021-03-03] MEDS: CLOPIDOGREL BISULFATE 75 MG TABLET (FP) PO SCH (09:22)
[2021-03-03] MEDS: LIDOCAINE 5% TOPICAL PATCH TP SCH (09:22)
[2021-03-03] MEDS: HEPARIN NA (PORCINE) 5,000 UNITS/ML 1ML VIAL SQ SCH ×2 (09:23→22:01)
[2021-03-03 12:09] LABS: BLOOD UREA NITROGEN 53.6 mg/dL (7-18); CALCIUM 7.9 mg/dL (8.5-10.1)
[2021-03-03 12:12] LABS: CREATININE 3.4 mg/dL (0.55-1.3)
[2021-03-03] MEDS: SODIUM CHLORIDE 0.45% 1,000 ML IV SCH (12:25)
[2021-03-03] MEDS: ROSUVASTATIN CA 10 MG TABLET (FP) PO SCH (22:01)
[2021-03-03] MEDS: LIDOCAINE PATCH REMOVAL MC SCH (22:19)
[2021-03-04 07:29] LABS: HEMATOCRIT 22.7 % (35.4-49); HEMOGLOBIN 7.6 GM/dL (11.7-16.9); MCH 28.9 pg (25.7-33.7); MCHC 33.5 g/dl (32.0-35.9); MEAN CELL VOLUME 86.3 fl (80-96); MEAN PLT VOLUME 7.7 fl (7.5-11.1); PLATELET COUNT 155 10^3/uL (134-434); RBC 2.63 M/mm3 (4.00-5.60); RDW 18.2 % (11.9-15.9); WHITE BLOOD COUNT 6.2 K/mm3 (4.0-10.0)
[2021-03-04 07:53] LABS: CALCIUM 8.1 mg/dL (8.5-10.1)
[2021-03-04 07:54] LABS: BLOOD UREA NITROGEN 43.8 mg/dL (7-18)
[2021-03-04 07:57] LABS: CREATININE 2.9 mg/dL (0.55-1.3)
[2021-03-04] MEDS: TAMSULOSIN HCL 0.4 MG CAP PO SCH (09:24)
[2021-03-04] MEDS: CLOPIDOGREL BISULFATE 75 MG TABLET (FP) PO SCH (09:24)
[2021-03-04] MEDS: HEPARIN NA (PORCINE) 5,000 UNITS/ML 1ML VIAL SQ SCH ×2 (09:24→21:28)
[2021-03-04] MEDS: LIDOCAINE 5% TOPICAL PATCH TP SCH (09:25)
[2021-03-04] MEDS: SODIUM CHLORIDE 0.45% 1,000 ML IV SCH (18:00)
[2021-03-04] MEDS: ROSUVASTATIN CA 10 MG TABLET (FP) PO SCH (21:28)
[2021-03-04] MEDS: LIDOCAINE PATCH REMOVAL MC SCH (21:28)
[2021-03-05 07:54] LABS: CALCIUM 7.8 mg/dL (8.5-10.1)
[2021-03-05 07:55] LABS: ALBUMIN 2.6 g/dl (3.4-5.0); BLOOD UREA NITROGEN 38.8 mg/dL (7-18)
[2021-03-05 07:58] LABS: CREATININE 2.6 mg/dL (0.55-1.3)
[2021-03-05 07:59] LABS: BILIRUBIN,TOTAL 0.3 mg/dL (0.2-1); TOT PROT 5.4 g/dl (6.4-8.2)
[2021-03-05] MEDS: HEPARIN NA (PORCINE) 5,000 UNITS/ML 1ML VIAL SQ SCH ×2 (09:42→21:58)
[2021-03-05] MEDS: CLOPIDOGREL BISULFATE 75 MG TABLET (FP) PO SCH (09:42)
[2021-03-05] MEDS: TAMSULOSIN HCL 0.4 MG CAP PO SCH (09:42)
[2021-03-05] MEDS: LIDOCAINE 5% TOPICAL PATCH TP SCH (09:44)
[2021-03-05 11:28] LABS: MAGNESIUM 1.6 mg/dL (1.8-2.4)
[2021-03-05 11:32] LABS: PHOSPHOROUS 2.4 mg/dL (2.5-4.9)
[2021-03-05] MEDS: KCL 10 MEQ IVPB 10 MEQ/100 ML INFUS.BAG IVPB SCH ×2 (12:36→14:30)
[2021-03-05] MEDS ORDERED: SODIUM CHLORIDE 0.45% 1,000 ML IV SCH (14:13)
[2021-03-05] MEDS ORDERED: POTASSIUM CHLORIDE TABS 20 MEQ TABLET.ER (FP) PO ONE (14:45)
[2021-03-05] MEDS: SODIUM CHLORIDE 0.45% 1,000 ML IV SCH (15:47)
[2021-03-05] MEDS: FAMOTIDINE 10 MG TABLET PO SCH (18:46)
[2021-03-05] MEDS ORDERED: MAGNESIUM SULF 50% (8.12 MEQ/2 ML-1 GM VIAL) IVPB ONE (19:56)
[2021-03-05] MEDS: ROSUVASTATIN CA 10 MG TABLET (FP) PO SCH (21:57)
[2021-03-05] MEDS: LIDOCAINE PATCH REMOVAL MC SCH (21:58)
[2021-03-05] MEDS ORDERED: FAMOTIDINE 20 MG TABLET PO SCH (22:00)
[2021-03-06 07:45] LABS: EOS % 6.9 % (0-4.5); HEMATOCRIT 23.4 % (35.4-49); HEMOGLOBIN 7.8 GM/dL (11.7-16.9); LYMPH % 12.7 % (8-40); MCH 28.9 pg (25.7-33.7); MCHC 33.3 g/dl (32.0-35.9); MEAN CELL VOLUME 86.9 fl (80-96); MEAN PLT VOLUME 8.1 fl (7.5-11.1); MONO % 9.8 % (3.8-10.2); NEUT % 69.6 % (42.8-82.8); PLATELET COUNT 149 10^3/uL (134-434); RBC 2.69 M/mm3 (4.00-5.60); RDW 18.6 % (11.9-15.9); WHITE BLOOD COUNT 5.1 K/mm3 (4.0-10.0)
[2021-03-06 08:13] LABS: CALCIUM 7.9 mg/dL (8.5-10.1)
[2021-03-06 08:14] LABS: ALBUMIN 2.6 g/dl (3.4-5.0); BLOOD UREA NITROGEN 31.6 mg/dL (7-18)
[2021-03-06 08:17] LABS: CREATININE 2.2 mg/dL (0.55-1.3)
[2021-03-06 08:19] LABS: BILIRUBIN,TOTAL 0.4 mg/dL (0.2-1); TOT PROT 5.3 g/dl (6.4-8.2)
[2021-03-06] MEDS: CLOPIDOGREL BISULFATE 75 MG TABLET (FP) PO SCH (10:15)
[2021-03-06] MEDS: FAMOTIDINE 10 MG TABLET PO SCH (10:15)
[2021-03-06] MEDS: TAMSULOSIN HCL 0.4 MG CAP PO SCH (10:15)
[2021-03-06] MEDS: HEPARIN NA (PORCINE) 5,000 UNITS/ML 1ML VIAL SQ SCH ×2 (10:15→21:39)
[2021-03-06] MEDS: LIDOCAINE 5% TOPICAL PATCH TP SCH (10:16)
[2021-03-06] MEDS: SODIUM CHLORIDE 0.45% 1,000 ML IV SCH (12:27)
[2021-03-06] MEDS: ZINC SULFATE 220 MG CAPSULE (FP) PO SCH (12:27)
[2021-03-06] MEDS: ASCORBIC ACID 500 MG TABLET (FP) PO SCH (12:27)
[2021-03-06] MEDS: ROSUVASTATIN CA 10 MG TABLET (FP) PO SCH (21:39)
[2021-03-06] MEDS: LIDOCAINE PATCH REMOVAL MC SCH (21:39)
[2021-03-07] MEDS: CLOPIDOGREL BISULFATE 75 MG TABLET (FP) PO SCH (09:11)
[2021-03-07] MEDS: ASCORBIC ACID 500 MG TABLET (FP) PO SCH (09:11)
[2021-03-07] MEDS: FAMOTIDINE 10 MG TABLET PO SCH (09:11)
[2021-03-07] MEDS: ZINC SULFATE 220 MG CAPSULE (FP) PO SCH (09:11)
[2021-03-07] MEDS: VITAMIN B COMP W-C 1 EA TABLET (NEPHRO-VITE) PO SCH (09:11)
[2021-03-07] MEDS: LIDOCAINE 5% TOPICAL PATCH TP SCH (09:11)
[2021-03-07] MEDS: TAMSULOSIN HCL 0.4 MG CAP PO SCH (09:11)
[2021-03-07] MEDS: ACETAMINOPHEN 325 MG TABLET (FP) PO PRN ×2 (15:08→21:35)
[2021-03-07] MEDS: SODIUM CHLORIDE 0.45% 1,000 ML IV SCH (15:11)
[2021-03-07 15:38] LABS: CALCIUM 8.1 mg/dL (8.5-10.1)
[2021-03-07 15:40] LABS: MAGNESIUM 2.1 mg/dL (1.8-2.4)
[2021-03-07 15:42] LABS: CREATININE 2.3 mg/dL (0.55-1.3)
[2021-03-07] MEDS ORDERED: POTASSIUM CHLORIDE TABS 20 MEQ TABLET.ER (FP) PO ONE (15:54)
[2021-03-07] MEDS: LIDOCAINE PATCH REMOVAL MC SCH (21:33)
[2021-03-07] MEDS: ROSUVASTATIN CA 10 MG TABLET (FP) PO SCH (21:33)
[2021-03-08 08:17] LABS: BASO % 0.5 % (0-2.0); HEMATOCRIT 22.4 % (35.4-49); HEMOGLOBIN 7.4 GM/dL (11.7-16.9); LYMPH % 3.4 % (8-40); MCH 28.7 pg (25.7-33.7); MCHC 33.2 g/dl (32.0-35.9); MEAN CELL VOLUME 86.6 fl (80-96); MEAN PLT VOLUME 7.7 fl (7.5-11.1); MONO % 4.4 % (3.8-10.2); NEUT % 89.7 % (42.8-82.8); PLATELET COUNT 155 10^3/uL (134-434); RBC 2.59 M/mm3 (4.00-5.60); RDW 19.2 % (11.9-15.9)
[2021-03-08 08:45] LABS: ALBUMIN 2.6 g/dl (3.4-5.0); BLOOD UREA NITROGEN 26.3 mg/dL (7-18)
[2021-03-08 08:49] LABS: CREATININE 2.1 mg/dL (0.55-1.3)
[2021-03-08 08:50] LABS: BILIRUBIN,TOTAL 0.4 mg/dL (0.2-1); TOT PROT 5.5 g/dl (6.4-8.2)
[2021-03-08] MEDS: TAMSULOSIN HCL 0.4 MG CAP PO SCH (09:07)
[2021-03-08] MEDS: ZINC SULFATE 220 MG CAPSULE (FP) PO SCH (09:08)
[2021-03-08] MEDS: VITAMIN B COMP W-C 1 EA TABLET (NEPHRO-VITE) PO SCH (09:08)
[2021-03-08] MEDS: CLOPIDOGREL BISULFATE 75 MG TABLET (FP) PO SCH (09:08)
[2021-03-08] MEDS: FAMOTIDINE 10 MG TABLET PO SCH (09:08)
[2021-03-08] MEDS: LIDOCAINE 5% TOPICAL PATCH TP SCH (09:08)
[2021-03-08] MEDS: ASCORBIC ACID 500 MG TABLET (FP) PO SCH (09:08)
[2021-03-08 10:07] VITALS: BP 104/35; PULSE 91; TEMP 97.5
== END 2021-03-08 15:31 | disposition short-term general hospital (02) | DRG 871 ==
LOC: JER 14:15 → JERBED 21:04 → J4W 02-27 15:38
PROVIDERS: ADMIT Internal Medicine; ATTEND Internal Medicine
DX: A41.51 Sepsis due to Escherichia coli [E. coli] (principal); G93.41 Metabolic encephalopathy; E87.2 Acidosis; N39.0 Urinary tract infection, site not specified; I13.0 Hypertensive heart and chronic kidney disease with heart failure and stage 1 through stage 4 chronic kidney disease, or unspecified chronic kidney disease; I50.22 Chronic systolic (congestive) heart failure; N17.9 Acute kidney failure, unspecified; E87.0 Hyperosmolality and hypernatremia; I48.92 Unspecified atrial flutter; E78.5 Hyperlipidemia, unspecified; K21.9 Gastro-esophageal reflux disease without esophagitis; I44.1 Atrioventricular block, second degree; N40.0 Benign prostatic hyperplasia without lower urinary tract symptoms; I25.10 Atherosclerotic heart disease of native coronary artery without angina pectoris; I48.0 Paroxysmal atrial fibrillation; N18.9 Chronic kidney disease, unspecified; I35.0 Nonrheumatic aortic (valve) stenosis; E87.5 Hyperkalemia; Z86.73 Personal history of transient ischemic attack (TIA), and cerebral infarction without residual deficits; Z74.01 Bed confinement status; E66.9 Obesity, unspecified; Z68.25 Body mass index [BMI] 25.0-25.9, adult
CPT/HCPCS: 36415; 70450-TC; 71045-TC-FY; 71046-TC-FY; 76775-TC; 76856-TC; 80048; 80053; 81003; 82550; 82803; 82962; 83605; 83735; 83880; 84100; 84443; 84484; 85025; 85027; 85610; 85730; 87040; 87086; 87186; 93005; 93010; 97162-GP; 99285-25; C9803; G0480; J0131; J1644; U0003; U0005